=== PATIENT | female | born 1980 | race Caucasian/White ===

== ENCOUNTER 2022-08-08 15:29 | Outpatient (CLI) | payer OTHER, MEDICAID, SELFPAY ==
[2022-08-08 21:58] LABS: Alanine Aminotransferase* 13 U/L (4-35); Albumin* 4.4 g/dL (3.3-5.0); Alkaline Phosphatase* 84 U/L (40-150); Aspartate Amino Transferase* 18 U/L (12-35); Bilirubin Total* 0.3 mg/dL (0.1-1.5); Blood Urea Nitrogen* 19 mg/dL (5-24); Calcium* 9.6 mg/dL (8.4-10.6); Carbon Dioxide* 27 mmol/L (20-32); Chloride* 103 mmol/L (96-114); Creatinine* 0.6 mg/dL (0.5-1.5); Estimated Glomerular Filt Rate 113 ml/min; Glucose* 108 mg/dL (60-115); Potassium* 3.3 mmol/L (3.6-5.1); Sodium* 139 mmol/L (135-149)
== END 2022-08-08 15:30 | disposition home or self-care (01) ==
LOC: LKVREF 15:31
PROVIDERS: PCP Family Medicine; Visit Provider Family Medicine
DX: B35.1 Tinea unguium (principal); I10 Essential (primary) hypertension; L03.90 Cellulitis, unspecified
CPT/HCPCS: 80053

== ENCOUNTER 2022-12-26 11:04 | Outpatient (CLI) | payer OTHER, BC, SELFPAY ==
[2022-12-26 22:11] LABS: Albumin* 4.2 g/dL (3.3-5.0); Chloride* 104 mmol/L (96-114); Sodium* 142 mmol/L (135-149)
[2022-12-26 22:14] LABS: Alanine Aminotransferase* 15 U/L (4-35); Alkaline Phosphatase* 58 U/L (40-150); Aspartate Amino Transferase* 16 U/L (12-35); Bilirubin Total* 0.5 mg/dL (0.1-1.5); Blood Urea Nitrogen* 9 mg/dL (5-24); Carbon Dioxide* 31 mmol/L (20-32); Creatinine* 0.4 mg/dL (0.5-1.5); Estimated Glomerular Filt Rate 125 ml/min; Glucose* 90 mg/dL (60-115); Total Protein* 7.3 g/dL (6.0-8.3)
[2022-12-26 22:15] LABS: Calcium* 9.1 mg/dL (8.4-10.6)
== END 2022-12-26 11:05 | disposition home or self-care (01) ==
LOC: LKVREF 11:15
PROVIDERS: PCP Family Medicine; Visit Provider Family Medicine
DX: B35.1 Tinea unguium (principal); I10 Essential (primary) hypertension; Z79.899 Other long term (current) drug therapy
CPT/HCPCS: 80053

== ENCOUNTER 2023-03-11 10:07 | Outpatient (CLI) | payer OTHER, BC, SELFPAY ==
--- NOTE | 2023-03-11 10:15 | CRLHL7_ITS ---
For Patients: As a result of the Cures Act, medical imaging exams and procedure reports are released immediately into your electronic medical record. You may view this report before your referring provider. If you have questions, please contact your health care provider. BILATERAL SCREENING MAMMOGRAM WITH COMPUTER-AIDED DETECTION AND TOMOSYNTHESIS TECHNIQUE: CC and MLO views were obtained. These mammographic images have been obtained using full-field digital technique. These mammographic images were interpreted with the benefit of computer-aided detection. Breast Tomosynthesis was used in this interpretation. COMPARISON FILM: 03/25/19, 07/19/18, 07/14/18. FINDINGS: There are scattered areas of fibroglandular density IMPRESSION: There is no radiographic evidence for malignancy. ASSESSMENT: BI-RADS Category 1: Negative RECOMMENDATION: Routine screening mammogram in 1 year. A lay language report of this examination will be provided to the patient. Yasmani Spann M.D. Diagnostic Radiologist [email or web address] Transcribed: 4:44 [email or web address] elizabeth/Dictated by: Yasmani Spann MD @ 03/11/2023 12:49:00 PM (Electronically Signed)
== END 2023-03-11 10:08 | disposition home or self-care (01) ==
LOC: MAMMO 10:08
PROVIDERS: PCP Family Medicine; Visit Provider Family Medicine
DX: Z12.31 Encounter for screening mammogram for malignant neoplasm of breast (principal)
CPT/HCPCS: 77063; 77067

== ENCOUNTER 2023-03-18 14:45 | Outpatient (CLI) | payer OTHER, BC, SELFPAY ==
--- OUTSIDE RECORDS SUMMARY | 2023-03-18 14:48 | XMS_ITS | Continuity of Care Document ---
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, [address] [place] [address], [id number], [place] tel:[phone] [facility] No Information [facility]. [address] [place] [address], [id number], . tel:[phone] Referring Provider: Angel Lima [address], [place], [address]. tel:[phone] Family History Family Member Type Diagnosis Age At Onset No Information Payers Payer name Insurance type Covered alliance party ID Authoriza tion(s) No Information Social History Type Description Quantity Date Captured Comments Sex Female Smoking Status No Information Chief Complaint And Reason For Visit No Information Reason For Referral Reason For Referral No Information Plan Of Treatment Date Type Action Status No Information History Of Present Illness Encounter Date Complaint History Of Prese nt Illness No Information Functional Status Date Functional Assessmen t No Information Instructions Date Instruction Additional Infor mation No Information Assessments Type Assessment Date No Information Patient Care Teams Name Effective Dates (start - stop) Status Members No Information
--- OUTSIDE RECORDS SUMMARY | 2023-03-18 14:48 | XMS_ITS | Continuity of Care Document ---
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 [address] [place], [place], [id number], . tel:[phone] Referring Provider: Bonnie Ramirez, [address] [place], [address]. tel:[phone] Family History Family Member Type Diagnosis Age At Onset No Information Payers Payer name Insurance type Covered libertarian ID Authoriza tibrandie(s) [facility] CI [id number] Social History Type Description Quantity Date Captured [...]
--- OUTSIDE RECORDS SUMMARY | 2023-03-18 14:49 | XMS_ITS | Continuity of Care Document ---
Author Name Unknown Organization [facility] Address [address] [place] [address] Phone Care Team Providers Care Human Resources Team Member Name Role Phone Tonio LEYDABhavana Unavailable Unavailable Allergies, Adverse Reactions, Alerts Substance Reaction Status Criticality PENICILLIN HivesHivesHives Active No Informati on DYE Congestion of throat Active No Info rmation Medications Medication Instructions Dosage Effective Dates (start - stop) Status Comments Percocet 5 mg-325 mg tablet take 1-2 tablet by oral route every 6 hours as needed, max 5/day for chronic pain - Active labetalol 200 mg tablet take 1 tablet by oral route 2 times every day 200 MG - Active pramipexole 0.25 mg tablet take 1 tablet by oral route every day as needed 0.25 MG - Active VITAMIN E (unknown strength) Not Available - Active UBIQUINOL (unknown strength) Not Available - Active ferrous sulfate 15 mg iron (75 mg)/mL oral drops - Active Vitamin D3 2,000 unit capsule take 1 cap daily - Active potassium 99 mg tablet take 1 tab daily - Active buspirone 30 mg tablet take 1 tablet by oral route every day 30 MG - Active cyanocobalamin (vitamin B-12) 1,000 mcg capsule take 1 cap every 2 weeks - Active Tirosint 75 mcg capsule take 1 capsule by oral route every day 75 MCG - Active gabapentin 300 mg capsule take 3 capsule by oral route 4 times every day 900 MG - Active Procedures Procedure Date OFFICE VISIT, EST TELEMEDICINE 23 Foll-up eval q3mo opiod tx Foll-up eval q3mo opiod tx OFFICE VISIT, EST TELEMEDICINE Drug Urine Toxology With Chromatography Drug test def 8-14 classes Foll-up eval q3mo opiod tx OFFICE/OUTPATIENT VISIT, EST Foll-up eval q3mo opiod tx OFFICE VISIT, EST TELEMEDICINE Foll-up eval q3mo opiod tx OFFICE VISIT, EST TELEMEDICINE Foll-up eval q3mo opiod tx OFFICE VISIT, EST TELEMEDICINE Foll-up eval q3mo opiod tx OFFICE VISIT, EST TELEMEDICINE Foll-up eval q3mo opiod tx OFFICE/OUTPATIENT VISIT, EST Drug Urine Toxology With Chromatography Drug test def 8-14 classes No Charge For Visit Per Prov Foll-up eval q3mo opiod tx OFFICE VISIT, EST TELEMEDICINE Foll-up eval q3mo opiod tx OFFICE VISIT, EST TELEMEDICINE Foll-up eval q3mo opiod tx OFFICE VISIT, EST TELEMEDICINE No Charge For Visit Per Prov Foll-up eval q3mo opiod tx OFFICE VISIT, EST TELEMEDICINE Drug Urine Toxology With Chromatography Drug test def 8-14 classes Foll-up eval q3mo opiod tx Foll-up eval q3mo opiod tx OFFICE VISIT, EST TELEMEDICINE Foll-up eval q3mo opiod tx OFFICE VISIT, EST TELEMEDICINE Drug Urine Toxology With Chromatography Drug test def 8-14 classes Substance Interv 15-30mn Foll-up eval q3mo opiod tx OFFICE/OUTPATIENT VISIT, EST Foll-up eval q3mo opiod tx OFFICE VISIT, EST TELEMEDICINE Foll-up eval q3mo opiod tx OFFICE VISIT, EST TELEMEDICINE Foll-up eval q3mo opiod tx OFFICE VISIT, EST TELEMEDICINE Foll-up eval q3mo opiod tx OFFICE VISIT, EST TELEMEDICINE Facet Jt In Or MBB j Lumbar BILATERAL Ju Facet Inj Or MBB Lumbar 2nd Level BILATE RAL Drug Urine Toxology With Chromatography Foll-up eval q3mo opiod tx OFFICE/OUTPATIENT VISIT, EST Foll-up eval q3mo opiod tx OFFICE VISIT, EST TELEMEDICINE Foll-up eval q3mo opiod tx OFFICE VISIT, EST TELEMEDICINE Foll-up eval q3mo opiod tx OFFICE/OUTPATIENT VISIT, EST Foll-up eval q3mo opiod tx OFFICE VISIT, EST TELEMEDICINE Foll-up eval q3mo opiod tx OFFICE VISIT, EST TELEMEDICINE Drug Urine Toxology With Chromatography Drug test def 8-14 classes Foll-up eval q3mo opiod tx OFFICE VISIT, EST TELEMEDICINE Foll-up eval q3mo opiod tx OFFICE VISIT, EST TELEMEDICINE Foll-up eval q3mo opiod tx OFFICE VISIT, EST TELEMEDICINE Foll-up eval q3mo opiod tx OFFICE VISIT, EST TELEMEDICINE Oct-26-20 20 Foll-up eval q3mo opiod tx OFFICE VISIT, EST TELEMEDICINE 20 Foll-up eval q3mo opiod tx OFFICE VISIT, EST TELEMEDICINE 20 Foll-up eval q3mo opiod tx OFFICE VISIT, EST TELEMEDICINE 20 Foll-up eval q3mo opiod tx OFFICE VISIT, EST TELEMEDICINE 20 Foll-up eval q3mo opiod tx OFFICE VISIT, EST TELEMEDICINE 20 Drug Urine Toxology With Chromatography Foll-up eval q3mo opiod tx OFFICE VISIT, EST TELEMEDICINE 20 Foll-up eval q3mo opiod tx OFFICE VISIT, EST TELEMEDICINE 20 Drug test def 22+ classes Drug test def 22+ classes Drug test def 22+ classes Drug test def 22+ classes Drug Urine Toxology With Chromatography Foll-up eval q3mo opiod tx OFFICE/OUTPATIENT VISIT, EST Drug test def 22+ classes Drug Urine Toxology With Chromatography Foll-up eval q3mo opiod tx OFFICE/OUTPATIENT VISIT, EST Foll-up eval q3mo opiod tx OFFICE/OUTPATIENT VISIT, EST Foll-up eval q3mo opiod tx OFFICE/OUTPATIENT VISIT, EST Foll-up eval q3mo opiod tx OFFICE/OUTPATIENT VISIT, EST OFFICE/OUTPATIENT VISIT, EST OFFICE/OUTPATIENT VISIT, EST OFFICE/OUTPATIENT VISIT, EST OFFICE/OUTPATIENT VISIT, EST OFFICE/OUTPATIENT VISIT, EST OFFICE CONSULTATION Drug test def 22+ classes Drug Urine Toxology With Chromatography Advance Directives Directive Yes / No Effective Date File Name No Information Encounters Encounter Description Practice Location Reason(s) For Visit Diagnoses Date Provider Providers Copied on Encounter OFFICE VISIT, EST TELEMEDICINE [facility], [address], [place], [id number] , [place] tel: [phone] [facility] [place] Back [facility] (chief complaint) Other intervertebral disc degeneration, lumbar regionAnxietyOthe r idiopathic peripheral autonomic neuropathyRadicul opathy, thoracic regionLong term (current) use of opiate analgesic 3 Tonio Bateman. [address], [place], [place], [id number] , [place]. tel: [phone] OFFICE VISIT, EST TELEMEDICINE [facility], [address] [place] [address], [id number] , [place] tel: [phone] [facility] Back Pain (chief complaint) AnxietyOther idiopathic peripheral autonomic neuropathyOther intervertebral disc degeneration, thoracic regionOther intervertebral disc degeneration, lumbar regionRadiculopat hy, thoracic regionLong term (current) use of opiate analgesic 3 Tonio Bateman. [address] [facility] [address], [place], [place], [id number] , [place]. tel: [phone] Referring Provider: Terrell Loving, [address] [place] [address], [address]. tel:[phone] [facility], [address] [place] [address], [id number] , [place] tel: [phone] [facility] Radiculopathy, thoracic region 3 Luis Miguel Tejada. [address] [place], [place], [id number] , [place]. tel: [phone] [facility], [address] [place] [address], [id number] , [place] tel: [phone] [facility] [place] No Information 3 Tonio Bateman. [address] [facility] [address], [place], [id number] , [place]. tel: [phone] Referring Provider: Michael Harvey, [facility] [address], [place], [address]. tel:[phone] OFFICE/OUTPAT IENT VISIT, [facility], [address], [place], [id number] , [place] tel: [phone] [facility] Back Pain (chief complaint) AnxietyOther idiopathic peripheral autonomic neuropathyOther intervertebral disc degeneration, thoracic regionOther intervertebral disc degeneration, lumbar regionRadiculopat hy, thoracic regionLong term (current) use of opiate analgesic 3 Nyongesa Bhavana. [address] [facility] [address], [place], [id number] , [place]. tel: [phone] Referring Provider: Michael Harvey, [facility] [address], [place], [address]. tel:[phone] OFFICE VISIT, [facility], [address] [place] [address], [id number] , [place] tel: [phone] [facility] Back Pain (chief complaint) AnxietyOther idiopathic peripheral autonomic neuropathyOther intervertebral disc degeneration, thoracic regionOther intervertebral disc degeneration, lumbar regionRadiculopat hy, thoracic regionLong term (current) use of opiate analgesic 3 Nyongesa Bhavana. [address] [facility] [address], [place], [place], [id number] , [place]. tel: [phone] OFFICE VISIT, [facility], [address] [place] [address], [id number] , [place] tel: [phone] [facility] Back Pain (chief complaint) AnxietyOther idiopathic peripheral autonomic neuropathyOther intervertebral disc degeneration, thoracic regionOther intervertebral disc degeneration, lumbar regionRadiculopat hy, thoracic regionLong term (current) use of opiate analgesic 2 Nyongesa Bhavana. [address] [facility] [address], [place], [place], [id number] , [place]. tel: [phone] Referring Provider: Terrell Loving, [address] [place], [address]. tel:[phone] OFFICE VISIT, [facility], [address] [place] [address], [id number] , [place] tel: [phone] [facility] Back Pain (chief complaint) AnxietyOther idiopathic peripheral autonomic neuropathyOther intervertebral disc degeneration, thoracic regionOther intervertebral disc degeneration, lumbar regionLong term (current) use of opiate analgesicRadiculo armen, thoracic region Sep- 2 Tonio Bateman. [address] [facility] [address], [place], [place], [id number] , [place]. tel: [phone] Referring Provider: Terrell Loving, [address] [place], [address]. tel:[phone] OFFICE VISIT, EST TELEMEDICINE [facility], [address] [place] [address], [id number] , [place] tel: [phone] [facility] Back Pain (chief complaint) AnxietyOther idiopathic peripheral autonomic neuropathyOther intervertebral disc degeneration, thoracic regionOther intervertebral disc degeneration, lumbar regionLong term (current) use of opiate analgesic 2 Tonio Bateman. [address] [facility] [address] [facility] [address], [place], [place], [id number] , [place]. tel: [phone] OFFICE/OUTPAT IENT VISIT, EST [facility], [address] [place] [address], [id number] , [place] tel: [phone] [facility] Back Pain (chief complaint) AnxietyOther idiopathic peripheral autonomic neuropathyOther intervertebral disc degeneration, thoracic regionOther intervertebral disc degeneration, lumbar regionLong term (current) use of opiate analgesicEncounte r for therapeutic drug level monitoring 2 Gaby Olivares. [address]55 [facility] [address] [facility] [address], [place], [id number] , [place]. tel: [phone] Referring Provider: Michael Harvey, [facility] [address], [place], [address]. tel:[phone] [facility], [address], [place], [id number] , [place] tel: [phone] [facility] No Information 2 Gaby Olivares. 1455 [facility] [address], [place], [id number] , [place]. tel:[phone] Referring Provider: [facility] [address], [place], [address]. tel:[phone] OFFICE VISIT, EST TELEMEDICINE [facility], [address] [place] [address], [id number] , [place] tel: [phone] [facility] Back Pain (chief complaint) AnxietyOther idiopathic peripheral autonomic neuropathyOther intervertebral disc degeneration, thoracic regionOther intervertebral disc degeneration, lumbar regionPain in right handLong term (current) use of opiate analgesic 2 Nyongesa Bhavana. [address] [facility] [address], [place], [id number] , [place]. tel:[phone] Referring Provider: Terrell Loving, [address] [place] [address], [address]. [phone] [facility], [address] [place] [address], [id number] , [place] tel:[phone] [facility] Radiculopathy, thoracic region 2 Nyongesa Bhavana. [address] [facility] [address], [place], [id number] , [place]. tel:[phone] OFFICE VISIT, EST TELEMEDICINE [facility], [address] [place] [address], [id number] , [place] tel: [phone] [facility] Back Pain (chief complaint) AnxietyOther idiopathic peripheral autonomic neuropathyOther intervertebral disc degeneration, thoracic regionOther intervertebral disc degeneration, lumbar regionPain in right handLong term (current) use of opiate analgesic 2 Nyongesa Bhavana. [address] [facility] [address], [place], [id number] , [place]. tel:[phone] Referring Provider: Michael Harvey, [facility] [address], [place], [address]. tel:[phone] OFFICE VISIT, EST TELEMEDICINE [facility], [address] [place] [address], [id number] , [place] tel:[phone] [facility] Back Pain (chief complaint) AnxietyOther idiopathic peripheral autonomic neuropathyOther intervertebral disc degeneration, thoracic regionOther intervertebral disc degeneration, lumbar regionPain in right handLong term (current) use of opiate analgesic 2 Nyongesa Bhavana. [address] [facility], [place], [id number] , [place]. [phone] Referring Provider: Terrell Loving, [address] [place] [address], [address]. [phone] [facility], [address] [place] [address], [id number] , [place] tel:[phone] [facility] No Information 2 Janie Ortiz. [facility], [address], [place], [address], [place]. [phone] Referring Provider: Michael Harvey, [facility] [address], [place], [address]. [phone] OFFICE VISIT, EST TELEMEDICINE [facility], [address] [place] [address], [id number] , [place] [phone] [facility] Back Pain (chief complaint) AnxietyOther idiopathic peripheral autonomic neuropathyOther intervertebral disc degeneration, thoracic regionOther intervertebral disc degeneration, lumbar regionPain in right handLong term (current) use of opiate analgesic 2 Nyongesa Bhavana. [address] [facility], [place], [place], [id number] , [place]. tel:[phone] Referring Provider: Terrell Loving, [address] [place] [address], [address]. [phone] [facility], [address] [place] [address], [id number] , [place] tel:[phone] [facility] [place] No Information 2 Nyongesa Bhavana. [address] [facility], [place], [id number] , [place]. [phone] [facility], [address] [place] [address], [id number] , [place] tel: [phone] [facility] Back Pain (chief complaint) AnxietyOther idiopathic peripheral autonomic neuropathyOther intervertebral disc degeneration, thoracic regionOther intervertebral disc degeneration, lumbar regionPain in right handLong term (current) use of opiate analgesicEncounte r for therapeutic drug level monitoring Feb- 2 Tonio Bateman. [address], [place], [id number] , [place]. tel: [phone] Referring Provider: [facility] [address], [place], [address]. tel:[phone] OFFICE VISIT, EST TELEMEDICINE [facility], [address], [place], [id number] , [place] tel: [phone] [facility] Back Pain (chief complaint) AnxietyOther idiopathic peripheral autonomic neuropathyOther intervertebral disc degeneration, thoracic regionOther intervertebral disc degeneration, lumbar regionPain in right handLong term (current) use of opiate analgesicRadiculo armen, thoracic region Dec- 2 Tonio Bateman. [address], [place], [id number] , [place]. tel: [phone] Referring Provider: [facility] [address], [place], [address]. tel:[phone] OFFICE VISIT, EST TELEMEDICINE [facility], [address], [place], [id number] , [place] tel: [phone] [facility] Back Pain (chief complaint) Other idiopathic peripheral autonomic neuropathyOther intervertebral disc degeneration, thoracic regionOther intervertebral disc degeneration, lumbar regionLong term (current) use of opiate analgesicPain in right handAnxiety 2 Tonio Bateman. [address], [place], [id number] , [place]. tel: [phone] [facility], [address], [place], [id number] , [place] tel: [phone] [facility] No Information 1 Tonio Bateman. [address], [place], [id number] , [place]. tel: [phone] OFFICE/OUTPAT IENT VISIT, EST [facility], [address] [facility] [address] [place], [id number] , [place] tel: [phone] [facility] Back Pain (chief complaint) Other idiopathic peripheral autonomic neuropathyOther intervertebral disc degeneration, thoracic regionLong term (current) use of opiate analgesicOther intervertebral disc degeneration, lumbar regionPain in right handAnxietyEncoun ter for therapeutic drug level monitoringEncount er for screening for other disorder 1 Tonio Bateman. [address] [facility] [address], [place], [id number] , [place]. tel: [phone] Referring Provider: [facility] [address], [place], [address]. tel:[phone] OFFICE VISIT, EST TELEMEDICINE [facility], [address], [place], [id number] , [place] tel: [phone] [facility] Back Pain (chief complaint) Other intervertebral disc degeneration, thoracic regionAnxietyOthe r idiopathic peripheral autonomic neuropathyLong term (current) use of opiate analgesicOther intervertebral disc degeneration, lumbar regionPain in right hand 1 Tonio Bateman. [address] [facility] [address], [place], [id number] , [place]. tel: [phone] OFFICE VISIT, EST TELEMEDICINE [facility], [address], [place], [id number] , [place] tel: [phone] [facility] Back Pain (chief complaint) Other intervertebral disc degeneration, thoracic regionAnxietyOthe r idiopathic peripheral autonomic neuropathyLong term (current) use of opiate analgesicOther intervertebral disc degeneration, lumbar region 1 Gaby Olivares. 1455 [facility] [address], [place], [id number] , [place]. tel: [phone] Referring Provider: Terrell Loving, [address] [place], [address]. tel:[phone] OFFICE VISIT, EST TELEMEDICINE [facility], [address], [place], [id number] , [place] tel: [phone] [facility] Back Pain (chief complaint) Other intervertebral disc degeneration, thoracic regionAnxietyOthe r idiopathic peripheral autonomic neuropathyLong term (current) use of opiate analgesicOther intervertebral disc degeneration, lumbar region Jul- 1 Celine Bhavana. [address] [facility] [address], [place], [place], [id number] , [place]. tel: [phone] OFFICE VISIT, EST TELEMEDICINE [facility], [address], [place], [id number] , [place] tel:[phone] [facility] Back Pain (chief complaint) AnxietyOther idiopathic peripheral autonomic neuropathyOther chronic painLong term (current) use of opiate analgesicSpondylo sis without myelopathy or radiculopathy, lumbar regionOther intervertebral disc degeneration, lumbar regionOther intervertebral disc degeneration, thoracic region 1 Tonio Bateman. [address] [facility] [address], [place], [place], [id number] , [place]. tel:[phone] Referring Provider: Terrell Loving, [address] [place], [address]. tel:[phone] [facility], [address], [place], [id number] , [place] tel:[phone] [facility] Spondylosis without myelopathy or radiculopathy, lumbar region 1 James Nicole. [address] [place], [place], [id number] , [place]. tel: [phone] Referring Provider: Michael Harvey, [facility] [address], [place], [address]. tel:[phone] [facility], [address], [place], [id number] , [place] tel: [phone] [facility] No Information 1 Tonio Bateman. [address] [facility] [address], [place], [place], [id number] , [place]. tel:[phone] Referring Provider: Terrell Loving, [address] [place] [address], [address]. tel:[phone] OFFICE/OUTPAT IENT VISIT, [facility], [address] [place] [address], [id number] , [place] [phone] [facility] Back Pain (chief complaint) AnxietyOther idiopathic peripheral autonomic neuropathyOther chronic painLong term (current) use of opiate analgesicSpondylo sis without myelopathy or radiculopathy, lumbar regionOther intervertebral disc degeneration, lumbar regionEncounter for therapeutic drug level monitoring 1 Celine Bhavana. [address] [facility] [address], [place], [id number] , [place]. tel:[phone] Referring Provider: [facility] [address], [place], [address]. tel:[phone] OFFICE VISIT, [facility], [address] [place] [address], [id number] , [place] [phone] [facility] Back Pain (chief complaint) Other intervertebral disc degeneration, lumbar regionAnxietyOthe r idiopathic peripheral autonomic neuropathyOther chronic painLong term (current) use of opiate analgesicSpondylo sis without myelopathy or radiculopathy, lumbar region 1 Tonio Bateman. [address] [facility] [address] [facility] [address], [place], [id number] , [place]. tel:[phone] Referring Provider: Terrell Loving, [address] [place] [address], [address]. tel:[phone] OFFICE VISIT, [facility], [address] [place] [address], [id number] , [place] tel:[phone] [facility] Back Pain (chief complaint) Other intervertebral disc degeneration, lumbar regionAnxietyOthe r idiopathic peripheral autonomic neuropathyOther chronic painLong term (current) use of opiate analgesicSpondylo sis without myelopathy or radiculopathy, lumbar region May-1 9-202 1 Nyongesa Bhavana. [address] [facility], [place], [id number] , [place]. [phone] Referring Provider: [facility] [address], [place], [address]. [phone] OFFICE/OUTPAT IENT VISIT, [facility], [address], [place], [id number] , [place] [phone] [facility] Back Pain (chief complaint) Other intervertebral disc degeneration, lumbar regionAnxietyOthe r idiopathic peripheral autonomic neuropathyOther chronic painLong term (current) use of opiate analgesic 1 Nyongesa Bhavana. [address] [facility] [address], [place], [id number] , [place]. [phone] Referring Provider: [facility] [address], [address]. [phone] OFFICE VISIT, [facility] TELEMEDICINE [facility], [address], [place], [id number] , [place] [phone] [facility] Back Pain (chief complaint) AnxietyOther intervertebral disc degeneration, lumbar regionOther idiopathic peripheral autonomic neuropathyOther chronic painLong term (current) use of opiate analgesic 1 Nyongesa Bhavana. [address] [facility] [address], [place], [id number] , [place]. [phone] Referring Provider: Terrell Loving, [address] [place], [address]. [phone] OFFICE VISIT, EST TELEMEDICINE [facility], [address], [place], [id number] , [place] [phone] [facility] Back Pain (chief complaint) AnxietyOther intervertebral disc degeneration, lumbar regionOther idiopathic peripheral autonomic neuropathyOther chronic painLong term (current) use of opiate analgesic Fe 1 Nyongesa Bhavana. [address] [facility] [address], [place], [id number] , [place]. tel:[phone] Referring Provider: Terrell Loving, [address] [place] [address], [address]. tel:[phone] [facility], [address] [place] [address], [id number] , [place] [phone] [facility] No Information 1 Nyongesa Bhavana. [address] [facility] [address], [place], [id number] , [place]. [phone] Referring Provider: Terrell Loving, [address] [place] [address], [address]. tel:[phone] OFFICE VISIT, EST TELEMEDICINE [facility], [address] [place] [address], [id number] , [place] [phone] [facility] Back Pain (chief complaint) Other intervertebral disc degeneration, lumbar regionOther idiopathic peripheral autonomic neuropathyOther chronic painLong term (current) use of opiate analgesicAnxietyE ncounter for therapeutic drug level monitoring 1 Nyongesa Bhavana. [address] [facility] [address], [facility] [place], [id number] , [place]. [phone] Referring Provider: Terrell Loving, [address] [place] [address], [id number]. tel:[phone] OFFICE VISIT, EST TELEMEDICINE [facility], [address] [place] [address], [id number] , [place] [phone] [facility] Back Pain (chief complaint) Other intervertebral disc degeneration, lumbar regionOther idiopathic peripheral autonomic neuropathyOther chronic painLong term (current) use of opiate analgesicAnxiety 0 Nyongesa Bhavana. [address] [facility] [address], [place], [id number] , [place]. [phone] Referring Provider: Terrell Loving, [address] [place] [address], [address]. tel:[phone] OFFICE VISIT, EST TELEMEDICINE [facility], [address] [place] [address], [id number] , [place] [phone] [facility] Back Pain (chief complaint) Other intervertebral disc degeneration, lumbar regionOther idiopathic peripheral autonomic neuropathyOther chronic painLong term (current) use of opiate analgesicAnxiety 0 Nyongesa Bhavana. [address] [facility] [address], [place], [place], [id number] , [place]. [phone] Referring Provider: Terrell Loving, [address] [place] [address], [address]. tel:[phone] OFFICE VISIT, EST TELEMEDICINE [facility], [address] [place] [address], [id number] , [place] [phone] [facility] Back Pain (chief complaint) Other intervertebral disc degeneration, lumbar regionOther idiopathic peripheral autonomic neuropathyOther chronic painLong term (current) use of opiate analgesicAnxiety 0 Nyongesa Bhavana. [address] [facility] [address], [place], [place], [id number] , [place]. [phone] Referring Provider: Terrell Loving, [address] [place] [address], [address]. tel:[phone] OFFICE VISIT, EST TELEMEDICINE [facility], [address] [place] [address], [id number] , [place] [phone] [facility] Back Pain (chief complaint) Other intervertebral disc degeneration, lumbar regionOther idiopathic peripheral autonomic neuropathyOther chronic painLong term (current) use of opiate analgesicAnxiety 2 0 Nyongesa Bhavana. [address] [facility] [address], [place], [place], [id number] , [place]. tel:[phone] Referring Provider: Terrell Loving, [address] [place] [address], [address]. tel:[phone] OFFICE VISIT, EST TELEMEDICINE [facility], [address] [place] [address], [id number] , [place] tel:[phone] [facility] Back Pain (chief complaint) Other intervertebral disc degeneration, lumbar regionOther idiopathic peripheral autonomic neuropathyOther chronic painLong term (current) use of opiate analgesicAnxiety 0 Lesliongesa Bateman. [address] [address], [place], [place], [id number] , [place]. tel:[phone] Referring Provider: Terrell Loving, [address] [place] [address], [address]. tel:[phone] OFFICE VISIT, EST TELEMEDICINE [facility], [address] [place] [address], [id number] , [place] tel:[phone] [facility] Back Pain (chief complaint) Other intervertebral disc degeneration, lumbar regionOther idiopathic peripheral autonomic neuropathyOther chronic painLong term (current) use of opiate analgesicAnxiety 0 Lesliongesa Bhavana. [address] [address], [place], [place], [id number] , [place]. tel:[phone] Referring Provider: Terrell Loving, [address] [place] [address], [address]. tel:[phone] OFFICE VISIT, EST TELEMEDICINE [facility], [address] [place] [address], [id number] , [place] tel:[phone] [facility] Back Pain (chief complaint) Other intervertebral disc degeneration, lumbar regionOther idiopathic peripheral autonomic neuropathyOther chronic painLong term (current) use of opiate analgesicAnxiety 0 Gaby Olivares. [address] [address], [place], [place], [id number] , [place]. tel:[phone] Referring Provider: Terrell Loving, [address] [place] [address], [address]. tel:[phone] OFFICE VISIT, EST [facility], [address] [place] [address], [id number] , [place] tel:[phone] [facility] Back Pain (chief complaint) Other intervertebral disc degeneration, lumbar regionOther idiopathic peripheral autonomic neuropathyOther chronic painLong term (current) use of opiate analgesic 0 Gaby Olivares. [address] [address], [place], [place], [id number] , [place]. tel:[phone] Referring Provider: Terrell Loving, [address] [place] [address], [address]. tel:[phone] [facility], [address] [place] [address], [id number] , [place] [phone] [facility] No Information 0 Griffin Marshall. [address] [place] [address] Rd [address], [place], [place], [id number] , [place]. tel:[phone] Referring Provider: [facility] [address], [place], [address]. tel:[phone] OFFICE VISIT, [facility] TELEMEDICINE [facility], [address] [place] [address], [id number] , [place] tel:[phone] [facility] Back Pain (chief complaint) Other intervertebral disc degeneration, lumbar regionOther idiopathic peripheral autonomic neuropathyOther chronic painLong term (current) use of opiate analgesic Apr-2 0 Gaby Olivares. [address] [place] [address] [address], [place], [place], [id number] , [place]. tel:[phone] Referring Provider: [facility] [address], [place], [address]. tel:[phone] OFFICE VISIT, [facility], [address] [place] [address], [id number] , [place] tel:[phone] [facility] Back Pain (chief complaint) Other intervertebral disc degeneration, lumbar regionOther idiopathic peripheral autonomic neuropathyOther chronic painLong term (current) use of opiate analgesicEncounte r for therapeutic drug level monitoring Feb- 0 Gaby Olivares. [address] [place] [address] [address], [place], [place], [id number] , [place]. tel:[phone] Referring Provider: Terrell Loving, [address] [place] [address], [address]. tel:[phone] OFFICE/OUTPAT IENT VISIT, [facility], [address], [place], [id number] , [place] tel:[phone] [facility] Back Pain (chief complaint) nursing home (current) use of opiate analgesicOther chronic painOther idiopathic peripheral autonomic neuropathyOther intervertebral disc degeneration, lumbar regionOther intervertebral disc degeneration, thoracic regionAnxietyEnco unter for therapeutic drug level monitoring 0 Nyongesa Bhavana. [address] [facility] [address], [place], [place], [id number] , [place]. tel:[phone] Referring Provider: [facility] [address], [place], [address]. [phone] OFFICE/OUTPAT IENT VISIT, [facility], [address] [place] [address], [id number] , [place] tel:[phone] [facility] Back Pain (chief complaint) nursing home (current) use of opiate analgesicOther chronic painOther idiopathic peripheral autonomic neuropathyOther intervertebral disc degeneration, lumbar regionOther intervertebral disc degeneration, thoracic regionAnxietyEnco unter for therapeutic drug level monitoring 0 Nyongesa Bhavana. [address] [facility] [address], [place], [place], [id number] , [place]. tel:[phone] Referring Provider: [facility] [address], [place], [address]. tel:[phone] OFFICE/OUTPAT IENT VISIT, [facility], [address] [place] [address], [id number] , [place] tel:[phone] [facility] Back Pain (chief complaint) nursing home (current) use of opiate analgesicOther chronic painOther idiopathic peripheral autonomic neuropathyOther intervertebral disc degeneration, lumbar regionOther intervertebral disc degeneration, thoracic regionAnxiety 0 Nyongesa Bhavana. [address] [facility] [address], [place], [place], [id number] , [place]. tel:[phone] Referring Provider: Terrell Loving, [address] [place], [address]. [phone] OFFICE/OUTPAT IENT VISIT, [facility], [address], [place], [id number] , [place] tel:[phone] [facility] Back Pain (chief complaint) AnxietyLong term (current) use of opiate analgesicOther chronic painOther idiopathic peripheral autonomic neuropathyOther intervertebral disc degeneration, lumbar regionOther intervertebral disc degeneration, thoracic region 9 [facility]. [address], [place], [id number] , [place]. tel:[phone] Referring Provider: Michael Harvey [facility] [address], [place], [address]. tel:[phone] OFFICE/OUTPAT IENT VISIT, [facility], [address], [place], [id number] , [place] tel:[phone] [facility] Back Pain (chief complaint) AnxietyLong term (current) use of opiate analgesicOther chronic painOther idiopathic peripheral autonomic neuropathyOther intervertebral disc degeneration, lumbar regionOther intervertebral disc degeneration, thoracic region 9 [facility]. [address], [place], [id number] , [place]. tel:[phone] Referring Provider: Michael Harvey [facility] [address], [place], [address]. tel:[phone] OFFICE/OUTPAT IENT VISIT, [facility], [address], [place], [id number] , [place] tel:[phone] [facility] Back Pain (chief complaint) Other intervertebral disc degeneration, lumbar regionOther intervertebral disc degeneration, thoracic regionOther idiopathic peripheral autonomic neuropathyOther chronic painLong term (current) use of opiate analgesicAnxiety 9 [facility]. [address], [place], [id number] , [place]. tel:[phone] Referring Provider: Michael Harvey [facility] [address], [place], [address]. tel:[phone] OFFICE/OUTPAT IENT VISIT, [facility], [address], [place], [id number] , [place] tel: [phone] [facility] Back Pain (chief complaint) Other intervertebral disc degeneration, lumbar regionOther intervertebral disc degeneration, thoracic regionOther chronic painOther idiopathic peripheral autonomic neuropathyLong term (current) use of opiate analgesic Sep-1 9 Gaby Olivares. [address], [place], [id number] , [place]. tel: [phone] Referring Provider: Michael Harvey [facility] [address], [place], [address]. tel:[phone] OFFICE/OUTPAT IENT VISIT, [facility], [address], [place], [id number] , [place] tel: [phone] [facility] Back Pain (chief complaint) Other intervertebral disc degeneration, lumbar regionOther intervertebral disc degeneration, thoracic regionOther chronic painOther idiopathic peripheral autonomic neuropathyLong term (current) use of opiate analgesic Jun- 9 Nyongesa Bhavana. [address], [place], [id number] , [place]. tel: [phone] Referring Provider: Michael Harvey [facility] [address], [place], [address]. tel:[phone] OFFICE/OUTPAT IENT VISIT, [facility], [address] [place] [address], [id number] , [place] tel: [phone] [facility] Back Pain (chief complaint) Other chronic painOther intervertebral disc degeneration, lumbar regionOther intervertebral disc degeneration, thoracic regionOther idiopathic peripheral autonomic neuropathyLong term (current) use of opiate analgesic 9 Nyongesa Bhavana. [address] [facility] [address], [place], [id number] , [place]. tel: [phone] Referring Provider: Michael Harvey [facility] [address], [place], [address]. tel:[phone] OFFICE/OUTPAT IENT VISIT, [facility], [address], [place], [id number] , [place] tel:[phone] [facility] Back Pain (chief complaint) Other chronic painOther intervertebral disc degeneration, lumbar regionOther intervertebral disc degeneration, thoracic regionOther idiopathic peripheral autonomic neuropathyLong term (current) use of opiate analgesic 9 Tonio Bateman. [address], [place], [place], [id number] , [place]. tel:[phone] Referring Provider: Michael Harvey [facility] [address] [place], [address]. tel:[phone] OFFICE CONSULTATION [facility], [address], [place], [id number] , [place] tel:[phone] [facility] Back Pain (chief complaint) Other chronic painLow back painEncounter for therapeutic drug level monitoringLong term (current) use of opiate analgesicOther idiopathic peripheral autonomic neuropathyOther intervertebral disc degeneration, lumbar regionOther intervertebral disc degeneration, thoracic region 9 [facility]. [facility], [address] [facility] [address], [place], [address], [place]. tel:[phone] Referring Provider: Michael Harvey [facility] [address] [place], [address]. tel:[phone] Family History Family Member Type Diagnosis Age At Onset Problem (finding) Family history of neuro armen Payers Payer name Insurance type Covered republican ID Authormadhua tibrandie(s) [place] [id number] [employer] BL [id number] Social History Type Description Quantity Date Captured Comments Alcohol Use Details No Caffeine Use Details Unknown Tobacco Use Status Current non-smoker Smoking Status Never smoker Sex Female Chief Complaint And Reason For Visit From encounter dated '03/12/2023 10:03'. Back Pain (chief complaint). Description: Severity level is 7. Duration: chronic. The problem is fluctuating. It occurs persistently. Location of pain is middle back. Pain is radiated to the lower back. The client describes the pain as an ache and sharp. Reason For Referral Reason For Referral No Information Plan Of Treatment Date Type Action Status Goal Creatinine. Due on due Goal ALT (SGPT). Due on due Goal UDT. Due on due Goal Weight. 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 Due on due Goal Medication Recon ciliation. Due on due Goal HPV. Due on due Goal Update Social History. Due o n due Goal AST (SGOT). Due on due Goal Height. Due on d ue Goal Lipid panel. Due on due Goal OARS. Due on due Goal WOOL HAT FLANGER Scanned. Due on due Goal Tobacco Use. Due on due Goal Review Allergy List. Due on due Goal Hepatitis C screening. Due o n due Goal PHQ-9. Due on du e Goal Order Annual PT. Due on due Goal Unhealthy drug u se screening. Due on due Goal Review Allergy List. Due on due Goal ALT (SGPT). Due on due Goal Height. Due on d ue Goal Creatinine. Due on due Goal WOOL HAT FLANGER Scanned. Due on due Goal Order Annual PT. Due on due Goal Medication Recon ciliation. 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 Due on due Goal Weight. Due on d ue Goal AST (SGOT). Due on due Goal OARS. Due on due Goal PHQ-9. Due on du e Goal Lipid panel. Due on due Goal UDT. Due on due Goal Unhealthy drug u se screening. Due on due Goal Update Social History. Due o n due Goal Tobacco Use. Due on due Goal HPV. Due on due Goal Hepatitis C screening. Due o n due Goal UDT. Due on due Goal Review Allergy List. Due on due Goal Creatinine. Due on due Goal WOOL HAT FLANGER Scanned. Due on due Goal Weight. Due on d ue Goal AST (SGOT). Due on due Goal PHQ-9. Due on du e Goal Medication Recon ciliation. Due on due Goal Lipid panel. Due on due Goal OARS. Due on due Goal Order Annual PT. Due on due Goal Tobacco Use. Due on due Goal Height. Due on d ue Goal ALT (SGPT). Due on due Goal Hepatitis C screening. 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 Due on due Goal HPV. Due on due Goal Update Social History. Due o n due Goal Unhealthy drug u se screening. Due on due Goal ALT (SGPT). Due on due Goal UDT. Due on due Goal AST (SGOT). Due on due Goal Creatinine. Due on due Goal Order Annual PT. Due on due Goal WOOL HAT FLANGER Scanned. Due on due Goal OARS. 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 Due on due Goal Tobacco Use. Due on due Goal Lipid panel. Due on due Goal Height. Due on d ue Goal Weight. Due on d ue Goal Medication Recon ciliation. Due on due Goal Update Social History. Due o n due Goal HPV. Due on due Goal Unhealthy drug u se screening. Due on due Goal PHQ-9. Due on du e Goal Review Allergy List. Due on due Goal Hepatitis C screening. Due o n due Goal OARS. Due on due Goal Hepatitis C screening. Due o n due Goal Height. Due on d ue Goal UDT. 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 Due on due Goal HPV. Due on due Goal Creatinine. Due on due Goal Update Social History. Due o n due Goal AST (SGOT). Due on due Goal Order Annual PT. Due on due Goal Tobacco Use. Due on 023 due Goal Medication Recon ciliation. Due on due Goal ALT (SGPT). Due on due Goal WOOL HAT FLANGER Scanned. Due on 023 due Goal Weight. Due on d ue Goal Unhealthy drug u se screening. Due on due Goal PHQ-9. Due on du e Goal Review Allergy List. Due on due Goal Lipid panel. Due on 023 due Goal Height. Due on d ue Goal Unhealthy drug u se screening. Due on due Goal Order Annual PT. Due on due Goal OARS. Due on due Goal Medication Recon ciliation. Due on due Goal Update Social History. Due o n due Goal Creatinine. Due on due Goal HPV. Due on due Goal Review Allergy List. Due on due Goal Tobacco Use. Due on 023 due Goal AST (SGOT). Due on due Goal WOOL HAT FLANGER Scanned. Due on 023 due Goal ALT (SGPT). Due on due Goal Lipid panel. Due on 023 due Goal PHQ-9. Due on du e Goal Weight. Due on d ue Goal Hepatitis C screening. Due o n due Goal UDT. 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 Due on due Goal Creatinine. Due on due Goal ALT (SGPT). 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 Due on due Goal AST (SGOT). Due on due Goal UDT. Due on due Goal OARS. Due on due Goal HPV. Due on due Goal WOOL HAT FLANGER Scanned. Due on due Goal Order Annual PT. Due on due Goal Medication Recon ciliation. Due on due Goal Update Social History. Due o n due Goal Unhealthy drug u se screening. Due on due Goal Tobacco Use. Due on due Goal PHQ-9. Due on du e Goal Hepatitis C screening. Due o n due Goal Height. Due on d ue Goal Weight. Due on d ue Goal Review Allergy List. Due on due Goal Lipid panel. Due on due Goal Order Annual PT. Due on due Goal ALT (SGPT). Due on due Goal UDT. 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 Due on due Goal OARS. Due on due Goal HPV. Due on due Goal Creatinine. Due on due Goal Tobacco Use. Due on due Goal Hepatitis C screening. Due o n due Goal WOOL HAT FLANGER Scanned. Due on due Goal AST (SGOT). Due on due Goal Height. Due on d ue Goal Review Allergy List. Due on due Goal Unhealthy drug u se screening. Due on due Goal Update Social History. Due o n due Goal Medication Recon ciliation. Due on due Goal PHQ-9. Due on du e Goal Lipid panel. Due on due Goal Weight. 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 Due on due Goal Tobacco Use. Due on due Goal ALT (SGPT). Due on due Goal HPV. Due on due Goal Hepatitis C screening. Due o n due Goal Order Annual PT. Due on due Goal Update Social History. Due o n due Goal Unhealthy drug u se screening. Due on due Goal Medication Recon ciliation. Due on due Goal UDT. Due on due Goal OARS. Due on due Goal Height. Due on d ue Goal WOOL HAT FLANGER Scanned. Due on due Goal Review Allergy List. Due on due Goal Lipid panel. Due on due Goal Weight. Due on d ue Goal PHQ-9. Due on du e Goal AST (SGOT). Due on due Goal Creatinine. Due on due Goal ALT (SGPT). Due on due Goal Order Annual PT. Due on due Goal OARS. Due on due Goal AST (SGOT). Due on due Goal UDT. 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 Due on due Goal Creatinine. Due on due Goal WOOL HAT FLANGER Scanned. Due on due Goal Hepatitis C screening. Due o n due Goal Height. Due on d ue Goal HPV. Due on due Goal Unhealthy drug u se screening. Due on due Goal Review Allergy List. Due on due Goal Tobacco Use. Due on due Goal Update Social History. Due o n due Goal Medication Recon ciliation. Due on due Goal Lipid panel. Due on due Goal Weight. Due on d ue Goal PHQ-9. Due on du e Goal WOOL HAT FLANGER Scanned. Due on due Goal Creatinine. Due on due Goal Unhealthy drug u se screening. Due on due Goal Lipid panel. 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 Due on due Goal Height. Due on d ue Goal Order Annual PT. Due on due Goal Medication Recon ciliation. Due on due Goal HPV. Due on due Goal ALT (SGPT). Due on due Goal Tobacco Use. Due on due Goal Review Allergy List. Due on due Goal UDT. Due on due Goal PHQ-9. Due on du e Goal Hepatitis C screening. Due o n due Goal OARS. Due on due Goal AST (SGOT). Due on due Goal Weight. Due on d ue Goal Update Social History. Due o n due Goal PHQ-9. Due on du e Goal Unhealthy drug u se screening. Due on due Goal WOOL HAT FLANGER Scanned. Due on due Goal OARS. 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 Due on due Goal AST (SGOT). Due on due Goal Medication Recon ciliation. Due on due Goal Weight. Due on d ue Goal Height. Due on d ue Goal HPV. Due on due Goal Review Allergy List. Due on due Goal Order Annual PT. Due on due Goal ALT (SGPT). Due on due Goal Lipid panel. Due on due Goal UDT. Due on due Goal Creatinine. Due on due Goal Update Social History. Due o n due Goal Hepatitis C screening. Due o n due Goal Tobacco Use. Due on due Goal OARS. Due on due Goal Height. Due on d ue Goal Order Annual PT. Due on due Goal PHQ-9. Due on du e Goal Review Allergy List. Due on due Goal Update Social History. Due o n due Goal Tobacco Use. Due on due Goal Unhealthy drug u se screening. Due on due Goal Weight. Due on d ue Goal AST (SGOT). Due on due Goal UDT. Due on due Goal Hepatitis C screening. Due o n due Goal Creatinine. 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 Due on due Goal Lipid panel. Due on due Goal HPV. Due on due Goal Medication Recon ciliation. Due on due Goal WOOL HAT FLANGER Scanned. Due on due Goal ALT (SGPT). 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 Due on due Goal WOOL HAT FLANGER Scanned. Due on due Goal OARS. Due on due Goal UDT. Due on due Goal Creatinine. Due on due Goal Order Annual PT. Due on due Goal AST (SGOT). Due on due Goal ALT (SGPT). Due on due Goal Review Allergy List. Due on due Goal Tobacco Use. Due on due Goal PHQ-9. Due on du e Goal HPV. Due on due Goal Update Social History. Due o n due Goal Unhealthy drug u se screening. Due on due Goal Height. Due on d ue Goal Medication Recon ciliation. Due on due Goal Lipid panel. Due on due Goal Hepatitis C screening. Due o n due Goal Weight. 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 Due on due Goal Order Annual PT. Due on due Goal OARS. Due on due Goal AST (SGOT). Due on due Goal Creatinine. Due on due Goal UDT. Due on due Goal PHQ-9. Due on du e Goal Unhealthy drug u se screening. Due on due Goal ALT (SGPT). Due on due Goal Review Allergy List. Due on due Goal WOOL HAT FLANGER Scanned. Due on due Goal Height. Due on d ue Goal Update Social History. Due o n due Goal Tobacco Use. Due on due Goal Weight. Due on d ue Goal HPV. Due on due Goal Hepatitis C screening. Due o n due Goal Medication Recon ciliation. Due on due Goal Lipid panel. Due on due Goal Tobacco Use. Due on due Goal Creatinine. Due on due Goal Unhealthy drug u se screening. Due on due Goal Weight. Due on d ue Goal Medication Recon ciliation. Due on due Goal OARS. 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 Due on due Goal Order Annual PT. Due on due Goal Height. Due on d ue Goal Review Allergy List. Due on due Goal UDT. Due on due Goal Lipid panel. Due on due Goal Hepatitis C screening. Due o n due Goal AST (SGOT). Due on due Goal ALT (SGPT). Due on due Goal Update Social History. Due o n due Goal WOOL HAT FLANGER Scanned. Due on due Goal PHQ-9. Due on du e Goal HPV. Due on due Goal Order Annual PT. Due on due Goal WOOL HAT FLANGER Scanned. Due on due Goal Tobacco Use. Due on due Goal Update Social History. Due o n due Goal Hepatitis C screening. Due o n due Goal ALT (SGPT). 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 Due on due Goal Review Allergy List. Due on due Goal Unhealthy drug u se screening. Due on due Goal UDT. Due on due Goal Creatinine. Due on due Goal HPV. Due on due Goal OARS. Due on due Goal Weight. Due on d ue Goal Lipid panel. Due on due Goal Medication Recon ciliation. Due on due Goal PHQ-9. Due on du e Goal Height. Due on d ue Goal AST (SGOT). 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 Due on due Goal Review Allergy List. Due on due Goal AST (SGOT). Due on due Goal UDT. Due on due Goal Weight. Due on d ue Goal ALT (SGPT). Due on due Goal Medication Recon ciliation. Due on due Goal OARS. Due on due Goal Creatinine. Due on due Goal Update Social History. Due o n due Goal PHQ-9. Due on du e Goal WOOL HAT FLANGER Scanned. Due on due Goal Order Annual PT. Due on due Goal Height. Due on d ue Goal Tobacco Use. Due on due Goal WOOL HAT FLANGER Scanned. Due on due Goal Creatinine. Due on due Goal OARS. 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 Due on due Goal ALT (SGPT). Due on due Goal Medication Recon ciliation. Due on due Goal UDT. Due on due Goal AST (SGOT). Due on due Goal Tobacco Use. Due on due Goal Update Social History. Due o n due Goal PHQ-9. Due on du e Goal Order Annual PT. Due on due Goal Review Allergy List. Due on due Goal Height. Due on d ue Goal Weight. Due on d ue Goal ALT (SGPT). Due on due Goal AST (SGOT). Due on due Goal UDT. Due on due Goal Creatinine. Due on due Goal OARS. 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 Due on due Goal Order Annual PT. Due on due Goal WOOL HAT FLANGER Scanned. Due on due Goal PHQ-9. Due on du e Goal Height. Due on d ue Goal Review Allergy List. Due on due Goal Weight. Due on d ue Goal Medication Recon ciliation. Due on due Goal Update Social History. Due o n due Goal Tobacco Use. Due on due Goal UDT. Due on due Goal Review Allergy List. Due on due Goal Tobacco Use. 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 Due on due Goal PHQ-9. Due on du e Goal Creatinine. Due on due Goal Order Annual PT. Due on due Goal Update Social History. Due o n due Goal AST (SGOT). Due on due Goal Height. Due on d ue Goal OARS. Due on due Goal Medication Recon ciliation. Due on due Goal Weight. Due on d ue Goal WOOL HAT FLANGER Scanned. Due on due Goal ALT (SGPT). Due on due Goal Update Social History. Due o n due Goal WOOL HAT FLANGER Scanned. Due on due Goal PHQ-9. Due on du e Goal BALANCE WHEEL ARM BURNISHER Paperwork. Due on due Goal ALT (SGPT). Due on due Goal Creatinine. Due on due Goal AST (SGOT). Due on due Goal UDT. Due on due Goal OARS. Due on due Goal Order Annual PT. Due on due Goal Review Allergy List. Due on due Goal Weight. Due on d ue Goal Height. Due on d ue Goal Medication Recon ciliation. Due on due Goal Tobacco Use. Due on due Goal Creatinine. 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 Due on due Goal OARS. Due on due Goal WOOL HAT FLANGER Scanned. Due on due Goal ALT (SGPT). Due on due Goal Order Annual PT. Due on due Goal Weight. Due on d ue Goal Update Social History. Due o n due Goal UDT. Due on due Goal Height. Due on d ue Goal Review Allergy List. Due on due Goal PHQ-9. Due on du e Goal Tobacco Use. Due on due Goal Medication Recon ciliation. Due on due Goal AST (SGOT). Due on due Goal OARS. Due on due Goal Medication Recon ciliation. Due on due Goal Creatinine. Due on due Goal Tobacco Use. Due on due Goal Order Annual PT. Due on due Goal Review Allergy List. Due on due Goal Height. Due on d ue Goal UDT. Due on due Goal AST (SGOT). Due on due Goal PHQ-9. Due on du e Goal Update Social History. Due o n due Goal Weight. 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 Due on due Goal WOOL HAT FLANGER Scanned. Due on due Goal ALT (SGPT). 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 Due on due Goal Creatinine. Due on due Goal UDT. Due on due Goal ALT (SGPT). Due on due Goal WOOL HAT FLANGER Scanned. Due on due Goal OARS. Due on due Goal Height. Due on d ue Goal Tobacco Use. Due on due Goal Weight. Due on d ue Goal Order Annual PT. Due on due Goal Update Social History. Due o n due Goal PHQ-9. Due on du e Goal AST (SGOT). Due on due Goal Medication Recon ciliation. Due on due Goal Review Allergy List. Due on due Goal UDT. Due on due Goal Order Annual PT. Due on due Goal WOOL HAT FLANGER Scanned. 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 Due on due Goal Review Allergy List. Due on due Goal Medication Recon ciliation. Due on due Goal ALT (SGPT). Due on due Goal AST (SGOT). Due on due Goal Creatinine. Due on due Goal OARS. Due on due Goal PHQ-9. Due on du e Goal Update Social History. Due o n due Goal Tobacco Use. Due on due Goal Height. Due on d ue Goal Weight. Due on d ue Goal Tobacco Use. Due on due Goal Weight. Due on d ue Goal AST (SGOT). Due on due Goal Creatinine. Due on due Goal Update Social History. Due o n due Goal UDT. Due on due Goal PHQ-9. Due on du e Goal Medication Recon ciliation. Due on due Goal ALT (SGPT). Due on due Goal Review Allergy List. Due on due Goal WOOL HAT FLANGER Scanned. Due on due Goal Height. Due on d ue Goal OARS. Due on due Goal Order Annual PT. 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 Due on due Goal ALT (SGPT). Due on due Goal OARS. Due on due Goal Creatinine. Due on due Goal Update Social History. Due o n due Goal PHQ-9. Due on du e Goal UDT. Due on due Goal Order Annual PT. Due on due Goal Review Allergy List. Due on due Goal Weight. Due on d ue Goal AST (SGOT). 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 Due on due Goal Tobacco Use. Due on due Goal Height. Due on d ue Goal Medication Recon ciliation. Due on due Goal WOOL HAT FLANGER Scanned. Due on due Goal PHQ-9. Due on du e Goal OARS. 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 Due on due Goal Creatinine. Due on due Goal Review Allergy List. Due on due Goal AST (SGOT). Due on due Goal Weight. Due on d ue Goal Order Annual PT. Due on due Goal ALT (SGPT). Due on due Goal UDT. Due on due Goal Tobacco Use. Due on due Goal Update Social History. Due o n due Goal Height. Due on d ue Goal WOOL HAT FLANGER Scanned. Due on due Goal Medication Recon ciliation. Due on due Goal Tobacco Use. Due on due Goal OARS. Due on due Goal Weight. Due on d ue Goal WOOL HAT FLANGER Scanned. Due on due Goal Creatinine. Due on due Goal Review Allergy List. Due on due Goal ALT (SGPT). Due on due Goal Update Social History. Due o n due Goal Order Annual PT. Due on due Goal UDT. Due on due Goal Medication Recon ciliation. 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 Due on due Goal AST (SGOT). Due on due Goal PHQ-9. Due on du e Goal Height. Due on d ue Goal OARS. Due on due Goal ALT (SGPT). Due on due Goal Update Social History. 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 Due on due Goal Review Allergy List. Due on due Goal WOOL HAT FLANGER Scanned. Due on due Goal UDT. Due on due Goal AST (SGOT). Due on due Goal Height. Due on d ue Goal Order Annual PT. Due on due Goal Weight. Due on d ue Goal PHQ-9. Due on du e Goal Medication Recon ciliation. Due on due Goal Tobacco Use. Due on due Appointment [facility] [place] BOOKED Future Order: Lab Order Drug Jessica t Def 22+ Classes (G0483), Ordered on: Ordered Future Order: Lab Order Drug Jessica t Def 22+ Classes (G0483), Ordered on: Ordered Future Order: Lab Order Drug Jessica t Def 22+ Classes (G0483), Ordered on: Ordered Future Order: Lab Order COMPLIAN CE DRUG ANALYSIS, URINE, WITH MED REPORT (50016), Ordered on: Ordered Future Order: Lab Order Drug Jessica t Def 22+ Classes (G0483), Ordered on: Ordered History Of Present Illness Encounter Date Complaint History Of Prese nt Illness Comments: Elisa cervantes is a 43 y/o female who presents via [facility] for a virtual follow-up and medication refill in the setting of chronic mid-back and low back pain. Pain has been stable since BARRON. Reports did not perform T8-T9 IT RACIEL d/t being d/x with pneumonia at Urgent care in her left lobe following BARRON. She notes she was prescribed antibiotics, which she completed without difficulty, and had a follow-up X-ray showing resolution. However, states she still has a lingering cough. She notes wanting to pursue her RACIEL and will schedule as able.Current medication regimen provides 80-85% pain relief for increased functionality. Continues to utilize Percocet 5-325mg 5x/day with significant benefit. Denies OIC or other side effects from current medication regimen. No other concerns today. Back Pain Severity level i s 7. Duration: chronic. The problem is fluctuating. It occurs persistently. Location of pain is middle back. Pain is radiated to the lower back. The client describes the pain as an ache and sharp. Comments: Elisa cervantes is a 43 y/o female who presents today via [place] for follow up and medication refill in the setting of chronic mid-back and low back pain. Pain has been fluctuating this month. T8-T9 ITESI rescheduled to 02/11/[address] Ramirez. Reports current medication regimen provides 85% relief and allows for increased functionality such as housework and the things I need to do". Continues to utilize Percocet 5-325mg 5x/day with significant benefit. Denies OIC or other side effects from current medication regimen. No other concerns today. Back Pain Severity level i s mild-moderate. Duration: chronic. The problem is stable. It occurs persistently. The client describes the pain as an ache, deep, dull, sharp, shooting and stabbing. Symptoms are aggravated by ascending stairs, bending, daily activities, descending stairs, extension, flexion, jumping, lifting, pushing, running, standing, twisting and walking. Symptoms are relieved by heat, ice, lying down, injection, massage, over the counter medication and rest. Comments: Elisa cervantes is a 43 y/o female who presents for follow up and medication refill in the setting of chronic mid-back and low back pain. Pain has been fluctuating this month. T8-T9 ITESI rescheduled to 01/21/[address] Ramirez. Posterior R knee pain with radiation into the achilles and hip have been the most bothersome. Believes the worsening of pain is d/t the cold temperature. She states she consulted with orthopedics for the ongoing pain. Notes increased swelling of the knee and rashes along the leg which caused her to visit the ER. Will plan to consult with rheumatology. Of note, patient reports recent bladder incontinence. Will plan to follow up with urology soon for further care.Reports current medication regimen provides 80% relief and allows for increased functionality such as housework and the things I need to do. Rates her pain as 10/10 without medications and 4/10 with medications. Continues to utilize Percocet 5-325mg 5x/day with significant benefit. Denies OIC or other side effects from current medication regimen. No other concerns today. Back Pain Severity level i s 4. Duration: chronic. The problem is stable. It occurs persistently. The client describes the pain as an ache, burning, sharp and tingling. Symptoms are aggravated by bending, lifting, running, sitting, standing, twisting, walking, housework, movement, stairs and prolonged positioning. Symptoms are relieved by heat, ice, lying down, massage, pain meds/drugs, stretching, rest, sitting, chiropractic, TENS uniut, walking and changing positions. Comments: Elisa cervantes is a 42 y/o female who presents via [facility] for virtual follow up and medication refill in the setting of chronic mid-back and low back pain. Pain has been stable this month. She states she was initially scheduled on 12/04/22 for the T8-T9 ITESI but had to reschedule to 12/18/22 d/t being sick. Patient notes pain in the posterior R knee with radiation into the achilles and hip. Initially believed the pain was the result of an arthritis flare-up. Denies any swelling in the area. Will plan to see a specialist once she is cleared to leave the house.Reports current medication regimen provides 80% relief and allows for increased functionality such as housework and the things I need to do. Continues to utilize Percocet 5-325mg 5x/day with significant benefit. Denies OIC or other side effects from current medication regimen. No other concerns today. Back Pain Severity level i s 7. Duration: chronic. The problem is stable. It occurs persistently. Location of pain is middle back and lower back. Symptoms are relieved by pain meds/drugs. Back Pain Severity level i s 7. Duration: chronic. The problem is stable. The client describes the pain as an ache. Symptoms are aggravated by bending, daily activities, lifting, running, twisting and walking. Symptoms are relieved by heat, ice, lying down and rest. Comments: Elisa cervantes is a 42 y/o female who presents via [facility] for virtual follow up and medication refill in the setting of chronic mid-back and low back pain. Pain has been stable this month. Received a cortisone shot in her hip recently due to bursitis flare up and reports that it relieved all of her hip pain. Denies any new symptoms or changes.Patient will receive her T8-T9 ITESI on 12/04/2022.Reports current medication regimen provides 80% relief and allows for increased functionality. Continues to utilize Percocet 5-325mg 5x/day with significant benefit. Denies OIC or other side effects from current medication regimen. No other concerns today. Comments: Elisa cervantes is a 42 y/o female who presents via [facility] for virtual follow up and medication refill in the setting of chronic mid-back and low back pain. Pain has been stable this month. Denies any new symptoms or changes.Patient has not received her T8-T9 ITESI which was initially scheduled on 07/18/[address] Gomez. Inquires if we have received prior authorization for the procedure as she had trouble rescheduling previously. Continues to express interest with moving forward with the injection. Reports current medication regimen provides 80% relief and allows for increased functionality. Continues to utilize Percocet 5-325mg 5x/day with significant benefit. Denies OIC or other side effects from current medication regimen. No other concerns today. Back Pain Severity level i s 7. Duration: chronic. The problem is stable. It occurs persistently. Location of pain is middle back and lower back. The client describes the pain as an ache, burning, sharp and tingling. Symptoms are aggravated by bending, lifting, running, sitting, standing, twisting, walking, housework, movement, stairs and prolonged positioning. Symptoms are relieved by pain meds/drugs and rest. Comments: Elisa cervantes is a 42 y/o female who presents via [facility] for virtual follow up and medication refill in the setting of chronic mid-back and low back pain. Pain has been stable this month. Denies any new symptoms or changes.Patient has not received her T8-T9 ITESI which was initially scheduled on 07/18/[address] Gomez. She states she was unable to move forward with the procedure previously as she had an infection on her toe and was told by the surgeon they were not comfortable with doing the injection with the ongoing issue. Notes she is done with the antibiotics and is currently using anti-fungal treatments. Of note, she has been studying for the [employer] and plans to take the test at the beginning of September.Reports current medication regimen provides 80% relief and allows for increased functionality. Continues to utilize Percocet 5-325mg 5x/day with significant benefit. Denies OIC or other side effects from current medication regimen. No other concerns today. Back Pain Severity level i s 8. Duration: chronic. The problem is stable. It occurs persistently. Location of pain is middle back and lower back. The client describes the pain as an ache, burning, sharp and tingling. Symptoms are aggravated by bending, lifting, running, sitting, standing, twisting, walking, housework, movement, stairs and prolonged positioning. Symptoms are relieved by pain meds/drugs and rest. Back Pain Severity level i s 7. Duration: chronic. The problem is fluctuating. It occurs persistently. Location of pain is middle back. The client describes the pain as an ache, burning, sharp and tingling. Symptoms are aggravated by bending, lifting, running, sitting, standing, twisting, walking, housework, movement, stairs and prolonged positioning. Symptoms are relieved by pain meds/drugs and rest. Comments: Elisa cervantes is a 42 y/o female who presents for follow up and medication refill in the setting of chronic mid-back and low back pain. Pain has been fluctuating this month. She states she has been experiencing new pain in between her scapula. Notes the pain is most prominent in the T-9 area, where her hernia is located. Patient has not received her T8-T9 ITESI which was initially scheduled on 07/18/[address] Gomez. She states she didn't move forward with the procedure d/t the fact she experienced beg bug bites from a place she was staying at. 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 Denies OIC or other side effects from current medication regimen. No other concerns today. Back Pain Severity level i s 7. Duration: chronic. The problem is stable. It occurs persistently. Location of pain is right knee. The client describes the pain as an ache, burning, numbness, sharp and tingling. Symptoms are aggravated by bending, lifting, running, sitting, standing, twisting, housework, stairs, movement and prolonged positioning. Symptoms are relieved by heat, lying down, massage, pain meds/drugs, stretching, rest, sitting and chiropractic. Comments: Elisa cervantes is a 42 y/o female who presents via [facility] for a virtual follow up and medication refill in the setting of chronic mid-back and low back pain. Pain has been stable this month. She has scheduled her T8-T9 ITESI on 07/18/[address] Gomez. Of note, she has been studying for the [employer]LEX and plans to take the test soon. She states she has upcoming classes for her Bachelor's and expressed excitement in starting school again. Reports current medication regimen provides 80% relief and allows for increased functionality. Denies OIC or other side effects from current medication regimen. No other concerns today. Back Pain Severity level i s 8. Duration: chronic. The problem is stable. It occurs persistently. Location of pain is middle back, lower back, BL feet, BL hands and BL knees. The client describes the pain as an ache, burning, numbness, sharp and tingling. Symptoms are aggravated by bending, lifting, running, standing, twisting and walking. Symptoms are relieved by heat, ice, lying down, massage, pain meds/drugs, stretching, rest, sitting, chiropractic and changing positions. Comments: Elisa cervantes is a 42 y/o female who presents via [facility] for a virtual follow up and medication refill in the setting of chronic mid-back and low back pain. Pain has been stable since last visit. She states her rash d/t bedbugs is now gone. She notes she is ready to reschedule the T8-T9 RACIEL soon. Of note, she is working 70hrs a week d/t her son requiring recent dental work. She has also been studying for the [employer] as she failed her previous attempt.Reports current medication regimen provides 80% relief and allows for increased functionality. Denies OIC or other side effects from current medication regimen. No other concerns today. Back Pain Severity level i s 7. Duration: chronic. The problem is stable. It occurs persistently. Location of pain is middle back, lower back, R knee and BL feet. The client describes the pain as an ache, burning, numbness, sharp and tingling. Symptoms are aggravated by ascending stairs, descending stairs, lifting, running, sitting, standing, twisting, housework, movement and prolonged positioning. Symptoms are relieved by heat, ice, lying down, massage, pain meds/drugs, physical therapy, stretching, rest, sitting, changing positions, chiropractic, standing and TENS Unit. Comments: Elisa cervantes is a 42 y/o female who presents via [facility] for a virtual follow up and medication refill in the setting of chronic mid-back and low back pain. Pain has been stable since last visit. T8-T9 IESI was scheduled on 04/18/2022 however had to be canceled d/t a widespread papular rash. She notes this was d/t bedbugs. She states she has now treated her home for this and her rash is now gone.Medication provides 80% relief and allows for increased functionality. Denies OIC or other side effects from current medication regimen. No other concerns today. Back Pain Severity level i s 8. The problem is stable. It occurs persistently. Location of pain is middle back and lower back. The client describes the pain as an ache, burning, numbness, sharp and tingling. Symptoms are aggravated by ascending stairs, bending, descending stairs, lifting, running, sitting, standing, twisting, walking, housework, movement and prolonged positions. Symptoms are relieved by heat, ice, lying down, massage, pain meds/drugs, physical therapy, stretching, rest, sitting, changing positions and chiropractic. Comments: Elisa cervantes presents for a virtual follow up and medication refill. Patient c/o chronic mid-back and low back pain. Pain has been stable since last visit. T8-T9 IESI scheduled on 04/18/2022. She is looking forward to the injection. Medication provides 80% relief and allows for increased functionality. Denies side effects from current medication regimen. No other concerns today. Comments: Elisa cervantes presents for a follow up and medication refill. Patient c/o chronic mid-back and low back pain. Pain has been fluctuating since last visit.Ordered T8-T9 IESI on 01/16/2022. She plans to schedule now as she was able to resolve her billing issues between her insurances. Continues to manage her diet and weight loss efforts. Medication provides 80-85% relief and allows for increased functionality, such continuing to work as a [employer]. Denies side effects from current medication regimen. No other concerns today. Of note, she will be going out of town on 03/07/2022 and will be returning on 03/21/2022. Reports that she is in the process of going through a divorce. States her has a hx of a brain injury 5+ years ago and has not been the same since. Back Pain Severity level i s moderate. Duration: chronic. The problem is fluctuating. It occurs persistently. Location of pain is middle back and lower back. Pain is radiated to the buttocks. The client describes the pain as an ache and burning. Symptoms are aggravated by daily activities and lifting. Symptoms are relieved by heat, ice, pain meds/drugs, physical therapy, stretching and rest. Back Pain (comments) Whit is a 42 y/o female, meeting with us via [employer] for virtual follow up and medication refill in the setting of mid to low back pain. She states her pain is worse this month. 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 She inquires about scheduling her injection for her thoracic pain as she has finally cleared the hold on her account. She states she is currently studying for [employer] and will be going out of town 03/07/22Reports current medication regimen provides 80% pain relief and allows for increased functionality. Denies OIC or other side effects from current medication regimen. No other concerns today. Back Pain Severity level i s 7. The problem is stable. It occurs persistently. Location of pain is middle back, lower back, feet, hands and knees. Pain is radiated to the buttocks.The patient describes the pain as an ache, burning, numbness, sharp and tingling. Symptoms are aggravated by ascending stairs, bending, descending stairs, lifting, running, standing, twisting, walking, housework, movement and prolonged positioning. Symptoms are relieved by heat, ice, lying down, massage, pain meds/drugs, stretching, rest, sitting, changing positions, chiropractor and TENS. Back Pain Severity level i s 7. Duration: chronic. The problem is stable. It occurs persistently. Location of pain is middle back, lower back, BL hands and BL knees. Pain is radiated to the left foot and right foot.The patient describes the pain as an ache, burning, numbness, sharp and tingling. Symptoms are aggravated by ascending stairs, bending, descending stairs, lifting, lying/rest, running, sitting, standing, twisting, walking, housework, movement and prolonged positioning. Symptoms are relieved by heat, ice, lying down, massage, pain meds/drugs, stretching, rest, sitting, changing positions, chiropractor and TENS. Back Pain (comments) Whit is a 41 y/o female, meeting with us via [employer] for virtual follow up and medication refill in the setting of mid to low back pain. She states her pain is stable this month. 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 She reports she is currently on a new weight loss program and has lost 16lbs since [facility]. Reports current medication regimen provides 80% pain relief and allows for increased functionality. Denies OIC or other side effects from current medication regimen. She states she currently has diarrhea. No other concerns today. Back Pain Severity level i s 8. Duration: chronic. The problem is fluctuating. It occurs persistently. The patient describes the pain as an ache, burning, sharp and tingling. Symptoms are aggravated by ascending stairs, bending, descending stairs, lifting, running, sitting, standing, twisting, walking, housework, movement and prolonged positioning. Symptoms are relieved by heat, ice, lying down, massage, pain meds/drugs, physical therapy, stretching, rest, sitting, changing positions, chiropractor and TENS. Back Pain (comments) Whit is a 41 y/o female, meeting with us today for follow up and medication refill in the setting of mid-low back pain. She states her pain is stable. 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 She would like to schedule the thoracic TESI but she is waiting for her insurance to resolve a previous billing issue from her last injection. She reports since [facility] she fell down the stairs on 10/24/21. She reports she went to the ER where she received a Toradol injection. She states she met with Dr. Harvey, her PCP, who stated her tear has worsened. Reports current medication regimen provides 80% pain relief and allows for increased functionality. Denies side effects from current medication regimen. No other concerns today. Back Pain Severity level i s 8. The problem is worsening. It occurs persistently. Location of pain is middle back, lower back and BL feet. Pain is radiated to the R wrist.The patient describes the pain as an ache, burning, numbness, sharp and tingling. Symptoms are aggravated by ascending stairs, bending, descending stairs, lifting, standing, twisting, walking, housework, movement and prolonged positioning. Symptoms are relieved by heat, ice, lying down, massage, pain meds/drugs, physical therapy, stretching, rest, sitting, chiropractic and TENS. Back Pain (comments) Whit is a 41 y/o female, meeting with us today via [employer] Virtual Visit for follow up and medication refill. Mid-low back pain persists this month. 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 She would like to schedule the thoracic TESI. She is also waiting for her insurance to resolve a previous billing issue from her last injection. She details new pain in her R wrist. She will be meeting with [facility] on 10/22/21 for consult. She details hx of past carpal tunnel surgery but states her pain is quite bad now and she has trouble writing and completing her job. PCP took x-ray which showed lots of bone spurs and OA.She is applying for a new job at [employer] [place] current medication regimen provides 80% pain relief and allows for increased functionality. Denies side effects from current medication regimen. No other concerns today. Back Pain Severity level i s 7. Duration: chronic. The problem is stable. It occurs persistently. Location of pain is middle back and lower back.The patient describes the pain as an ache, burning, numbness, sharp and tingling. Symptoms are aggravated by ascending stairs, bending, daily activities, descending stairs, lifting, standing, twisting and walking. Symptoms are relieved by heat, ice, lying down, massage, pain meds/drugs and rest. Back Pain (comments) Whit is a 41 y/o female, meeting with us today via [employer] Virtual Visit for follow up and medication refill. Mid-low back pain persists this month. 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 States she has lost 62 lbs which has helped the back pain. She would like to schedule the thoracic RACIEL as able. States that she would be open to the SCS trial in the future. Reports current medication regimen provides 80% pain relief and allows for increased functionality. Denies side effects from current medication regimen. No other concerns today. Back Pain Severity level i s 8. Duration: chronic. The problem is worsening. It occurs persistently. Location of pain is middle back and lower back.The patient describes the pain as an ache, burning, numbness, sharp and tingling. Symptoms are aggravated by ascending stairs, bending, descending stairs, lifting, sitting, standing, twisting, walking, housework, movement and prolonged positioning. Symptoms are relieved by heat, ice, lying down, massage, pain meds/drugs, rest, sitting, changing positions, chiropractic and. Back Pain (comments) Whit is a 41 y/o female, meeting with us today via [employer] Virtual Visit for follow up and medication refill. Mid-low back pain persists this month, but medication does help to some extent. She feels her pain is moderately managed, but on work days esthela in severe. She would like to schedule thoracic ESIShe states she has recently started clinicals at [facility] and working a new job as [employer] current medication regimen provides 80% pain relief and allows for increased functionality. Denies side effects from current medication regimen.No other concerns today. Back Pain (comments) Whit is meeting with us today via [employer] Virtual Visit for follow up and medication refill. Mid-low back pain persists this month, but medication does help to some extent. She feels her pain is moderately managed at this time. She reports some noticed pain relief from lumbar RF work up on 06/26/21 and was able to go for a walk. But her pain returned the next day and flared up after travel. Requests repeat thoracic RACIEL. The pain is right below the bra-line. As she loses weight, lost 56lbs already, she is able to walk farther and her vitals have improved.She and her family are currently getting over a case of COVID-19.Reports current medication regimen provides 80-85% pain relief and allows for increased functionality. Denies side effects from current medication regimen.No other concerns today. Back Pain Severity level i s 7. Duration: chronic. The problem is stable. It occurs persistently. Location of pain is middle back, lower back and knees.The patient describes the pain as an ache, burning, numbness, sharp and tingling. Symptoms are aggravated by ascending stairs, bending, descending stairs, lifting, running, sitting, standing, twisting, walking and prolonged positioning. Symptoms are relieved by heat, ice, lying down, massage, pain meds/drugs, physical therapy, stretching, rest, sitting and changing positions. Back Pain Severity level i s 7. Duration: chronic. The problem is fluctuating. It occurs persistently. Location of pain is middle back, lower back, hands, feet and knees.The patient describes the pain as an ache, burning, sharp and tingling. Symptoms are aggravated by ascending stairs, bending, descending stairs, lifting, lying/rest, running, sitting, standing, twisting, walking, housework and prolonged positioning. Symptoms are relieved by heat, ice, lying down, massage, pain meds/drugs, physical therapy, stretching, rest, sitting, chiropractic and changing positions. Back Pain (comments) Whit is here for a follow up and medications refill. Mid-low back pain persists this month, but medication does help to some extent. She feels he pain is well managed at this time. She continues to work on weight loss with diet and increased activity. She is looking forward to her RF diagnostic work up on 06/26/21, if helpful she would like to start to taper down and off opioids Reports current medication regimen provides 80% pain relief and allows for increased functionality. Denies side effects from current medication regimen.No other concerns today. Back Pain Severity level i s 7. Duration: chronic. The problem is stable. It occurs persistently. Location of pain is middle back, lower back and neck.The patient describes the pain as an ache, burning, numbness, sharp and tingling. Symptoms are aggravated by ascending stairs, bending, descending stairs, lifting, running, standing, twisting, walking, prolonged positioning and housework. Symptoms are relieved by heat, ice, lying down, massage, pain meds/drugs, stretching, rest, sitting, chiropractic and changing positions. Back Pain (comments) Whit is meeting with us today via [employer] Virtual Visit for follow up and medication refill. Mid-low back pain persists this month, but medication does help to some extent. She feels her pain is well managed at this time. She is still waiting for PA process on RF work up.She consulted a bariatric surgeon for weight loss. She would like to avoid surgery and try medication first. She has already lost 40 lbs since on her own. She was referred to a specialist for eating disorders, hx of binge eating, scheduled for 06/27/21. She is also following up with GI.Reports current medication regimen provides 80% pain relief and allows for increased functionality. Denies side effects from current medication regimen. She is currently taking Terbinafine for a fungal infection.No other concerns today. Back Pain (comments) Whit is meeting with us today via [employer] Virtual Visit for following up and medication refill. Mid-low back pain is worse this month, but medication does help to some extent. She feels her pain is moderately managed at this time. The low back pain is aggravated by prolonged standing and walking. Sitting relieves the pain. She was able to walk 4 blocks (about 1 mile) yesterday with breaks. She is considering repeating thoracic RACIEL after lumbar RFA due to elevated pain in mid-back. She has been following up at [facility] twice a week for the last 6 months. She is leaving town on Thursday, traveling to [place] and [place].Reports current medication regimen provides 80% pain relief and allows for increased functionality. Denies side effects from current medication regimen.No other concerns today. Back Pain Severity level i s 8. Duration: chronic. The problem is worsening. It occurs persistently. Location of pain is upper back, middle back, lower back and neck.The patient describes the pain as an ache, burning, numbness, sharp and tingling. Symptoms are aggravated by ascending stairs, bending, descending stairs, lifting, running, standing, twisting, walking, housework and prolonged positioning. Symptoms are relieved by heat, ice, lying down, massage, pain meds/drugs, physical therapy, rest, sitting, chiropractic and changing positions. Back Pain Severity level i s 9. Duration: chronic. The problem is stable. Location of pain is middle back and lower back. Pain is radiated to the right lateral thigh.The patient describes the pain as an ache, burning, sharp and tingling. Symptoms are aggravated by bending, lifting and running. Symptoms are relieved by heat, ice, lying down, massage, pain meds/drugs, stretching, rest, changing positions and chiropractic. Back Pain (comments) Whit is here for follow up and medications refill. She reports her low and mid back pain have been stable. Began massage therapy and notes that pain has been most bothersome down the lateral right leg stopping at the knee since. States her therapist has been doing cupping, which she has not enjoyed. Remains interested in pursuing a lumbar RFA.Reports current medication regimen provides 80-85% pain relief and allows for increased functionality. Denies side effects from current medication regimen.No other concerns today. Back Pain (comments) Whit is meeting with us today via [employer] Virtual Visit for following up and medication refill. Lower-mid back pain persists this month, but medication does help to some extent. She feels her pain is well managed at this time. She has been walking more and working on calorie deficit. She has also quite drinking soda and has lost 27lbs. 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 If she missed a dose of percocet the restlessness is significantly worse. She is following up with a pastor for an iron study.Reports current medication regimen provides 80-85% pain relief and allows for increased functionality. Denies side effects from current medication regimen.No other concerns today. Back Pain Severity level i s 7. Duration: chronic. The problem is stable. It occurs persistently. Location of pain is middle back, lower back, legs, knees and feet.The patient describes the pain as an ache, burning, numbness, sharp and tingling. Symptoms are aggravated by ascending stairs, bending, descending stairs, lifting, running, standing, twisting, walking, housework and prolonged positioning. Symptoms are relieved by heat, ice, lying down, pain meds/drugs, physical therapy, sitting, chiropractic and changing positions. Back Pain (comments) Whit is meeting with us today via [employer] Virtual Visit for following up and medication refill. Mid-low back pain persists this month, but medication does help to some extent. She feels her pain is well managed at this time. She has been following up with a chiropractor with benefit. She talked to [facility] and insurance will cover seated upright MRI. She is having trouble breathing while laying on her back due to edema (orthopnea). She is following up with pastor at [facility].Reports current medication regimen provides 80-85% pain relief and allows for increased functionality. Denies side effects from current medication regimen.No other concerns today. Back Pain Severity level i s 6. Duration: chronic. The problem is stable. It occurs persistently. Location of pain is middle back and lower back.The patient describes the pain as an ache, burning, numbness, sharp and tingling. Symptoms are aggravated by ascending stairs, bending, descending stairs, lifting, running, sitting, standing, twisting, walking and prolonged positioning. Symptoms are relieved by heat, ice, lying down, massage, pain meds/drugs, physical therapy, stretching, rest, sitting, chiropractic, changing positions and TENS. Back Pain Severity level i s 7. Duration: chronic. The problem is worsening. It occurs persistently. Location of pain is middle back, lower back, feet and knees.The patient describes the pain as an ache, burning, numbness, sharp and tingling. Symptoms are aggravated by ascending stairs, bending, descending stairs, lifting, running, sitting, standing, twisting, walking, prolonged positioning and movement. Symptoms are relieved by heat, ice, lying down, pain meds/drugs, physical therapy, stretching, rest, sitting, chiropractic, changing positions and TENS. Back Pain (comments) Whit is meeting with us today via [employer] Virtual Visit for following up and medication refill. Mid-low back pain is worse this month. She continues to see the chiropractor with some benefit. She suspects if it does not provide more relief soon she may need an updated MRI. The pain is aggravated by walking, denies any shooting pain in the legs. She had to but a shower chair because she cannot stand long enough to finish her shower without pain.Her father is in the hospital with congestive heart failure. She plans to visit him soon.Reports current medication regimen provides 80-85% pain relief and allows for increased functionality. Denies side effects from current medication regimen.No other concerns today. Back Pain (comments) Whit is meeting with us today via [employer] Virtual Visit for following up and medication refill. Low back and leg R>L pain is worse this month. Reports stabbing pain in low back with movement that is different from her normal pain. She went to [facility] to renae her hips which is helpful.She continues to complete schoolwork and is putting attempts on hold while she straightens out her general health.Reports current medication regimen provides 85% pain relief and allows for increased functionality. Denies side effects from current medication regimen.No other concerns today. Back Pain Severity level i s 8. Duration: chronic. The problem is worsening. It occurs persistently. Location of pain is lower back.The patient describes the pain as an ache, burning, numbness and sharp. Symptoms are aggravated by ascending stairs, bending, descending stairs, lifting, running, standing, twisting, walking, housework and prolonged positioning. Symptoms are relieved by heat, ice, lying down, pain meds/drugs, physical therapy, rest, sitting, chiropractic and changing positions. Back Pain Severity level i s 6. Duration: chronic. The problem is stable. It occurs persistently. Location of pain is middle back and lower back.The patient describes the pain as an ache, burning, numbness, sharp and tingling. Symptoms are aggravated by ascending stairs, bending, descending stairs, lifting, running, sitting, standing, twisting, walking, movement, housework and prolonged positioning. Symptoms are relieved by heat, ice, lying down, pain meds/drugs, physical therapy, stretching, rest, sitting, chiropractic, changing positions and TENS. Back Pain (comments) Whit is meeting with us today via [employer] Virtual Visit for following up and medication refill. Mid-low back pain persists this month, tolerable with medication. She reports persistent swelling. Her PCP is treating her with prednisone until her consult with an video control operator. The prednisone is helpful for both swelling and pain, but is only temporary. She was also recently diagnosed with hemolytic anemia, following up with hematology at [facility] in October.Reports current medication regimen provides 80-85% pain relief and allows for increased functionality. Denies side effects from current medication regimen.No other concerns today. Back Pain (comments) Whit is meeting with us today via [employer] Virtual Visit for following up and medication refill. Mid-low back pain persists this month, tolerable with medication.Reports leg swelling which was resolved after taking prednisone form ER visit. She is scheduled to f/u with RA at [facility] for evaluation. He doctor also suspects hemolytic anemia, so he referred her to a pastor as well.Reports current medication regimen provides 80-85% pain relief and allows for increased functionality. Denies side effects from current medication regimen.No other concerns today. Back Pain Severity level i s 6. Duration: chronic. The problem is stable. It occurs persistently. Location of pain is middle back, lower back and feet.The patient describes the pain as an ache, burning, numbness, sharp and tingling. Symptoms are aggravated by ascending stairs, bending, descending stairs, lifting, running, standing, twisting, walking, housework and prolonged positioning. Symptoms are relieved by heat, ice, massage, pain meds/drugs, physical therapy, rest, changing positions and chiropractic. Back Pain Severity level i s 5. Duration: chronic. The problem is stable. It occurs persistently. Location of pain is middle back and lower back.The patient describes the pain as an ache, burning, numbness, sharp and tingling. Symptoms are aggravated by ascending stairs, bending, descending stairs, lifting, running, sitting, standing, twisting, walking, housework and prolonged positioning. Symptoms are relieved by heat, lying down, massage, pain meds/drugs, stretching, rest, sitting, chiropractic, changing positions and TENS. Back Pain (comments) Whit is meeting with us today via [employer] Visit for following up and medication refill. Low-mid back pain persists this month, tolerable with medication.Reports current medication regimen provides 80-85% pain relief and allows for increased functionality. Denies side effects from current medication regimen.No other concerns today. Back Pain (comments) Whit is meeting with us today via [employer] Visit for following up and medication refill. Low back pain persists this month, tolerable with medication. 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 Denies side effects from current medication regimen.No other concerns today. Back Pain Severity level i s 4. Duration: chronic. The problem is stable. It occurs persistently. Location of pain is middle back and lower back.The patient describes the pain as an ache, burning, numbness, sharp and tingling. Symptoms are aggravated by ascending stairs, bending, descending stairs, lifting, lying/rest, running, sitting, standing, twisting, walking, housework and movement. Symptoms are relieved by heat, ice, lying down, massage, pain meds/drugs, physical therapy, stretching, rest, sitting, chiropractic, changing positions and TENS. Back Pain (comments) Whit is meeting with us today via [facility] for following up and medication refill. Mid-low pain persists this month, tolerable with medication. She completed the IVF and has been getting acupuncture as well with benefit.Reports current medication regimen provides 85% pain relief and allows for increased functionality. Denies side effects from current medication regimen.No other concerns today. Back Pain Severity level i s 4. Duration: chronic. The problem is stable. It occurs persistently. Location of pain is middle back, lower back and feet.The patient describes the pain as an ache, burning, numbness, sharp and tingling. Symptoms are aggravated by ascending stairs, bending, descending stairs, lifting, running, standing, twisting, walking, movement, housework and prolonged postioning. Symptoms are relieved by heat, ice, lying down, massage, pain meds/drugs, rest, sitting, chiropractic and changing positions. Back Pain Severity level i s 5. Duration: chronic. The problem is stable. It occurs persistently. Location of pain is middle back, lower back and bilateral feet.The patient describes the pain as an ache, burning, numbness, sharp and tingling. Symptoms are aggravated by bending, lifting, running, standing, twisting, walking, housework, movement, prolonged positioning and stairs. Symptoms are relieved by heat, lying down, pain meds/drugs, physical therapy, stretching, rest, sitting, changing positions, chiropractic and TENS unit. Back Pain (comments) Whit is here for a virtual follow-up and medication refills. Ongoing low back pain with radiculopathy in both of her legs is stable.Reports current medication regimen provides 80% pain relief. Denies side effects from current medication regimen. States she is having a new pain d/t a potential tooth abscess. Notes she has had them before and the pain is similar. She plans to see her dentist this week. Also notes that she will be having D&C surgery the first week of May and inquires about post-operative medications.Of note, she will be traveling to [place] in the middle of May for IVF.Patient is not accompanied. No other concerns today. Back Pain (comments) Whit is here for follow up and medications refill via virtual visit for coronavirus prevention efforts. Reports 50% pain relief with current medication regimen. Denies any side effects from current medication regimen.Pt returns regarding her chronic low back pain with radiculopathy in both of her legs. Her low back pain persists this month with shooting pain down her legs, tolerable with medication. She notes that she is able to complete her ADLs and housework, however, exercises such as riding her bicycle has been difficult. Her also recently got furloughed at his job from working at an [employer] which causes increase stress and she believes this effects her pain. Of note, she will be completing an upper EGD this month and states she will be given Fentanyl and Versed. Patient is not accompanied today. No additional questions or concerns. Back Pain Severity level i s 6. Duration: chronic. The problem is stable. It occurs persistently. Location of pain is middle back and lower back.The patient describes the pain as an ache, burning, numbness and sharp. Symptoms are aggravated by ascending stairs, bending, daily activities, descending stairs, lifting, lying/rest, running, sitting, standing, twisting, walking and prolonged positioning. Symptoms are relieved by heat, ice, lying down, massage, pain meds/drugs, stretching, rest, sitting and chiropractic. Back Pain Severity level i s moderate-severe. Duration: chronic. The problem is fluctuating. It occurs persistently. Location of pain is middle back and lower back. Pain is radiated to the left foot and right foot.The patient describes the pain as burning and shooting. Symptoms are aggravated by daily activities, running and standing. Symptoms are relieved by pain meds/drugs and rest. Back Pain (comments) Whit cabrera esents via telephone for follow up and medication management regarding her chronic low back pain with radiculopathy in both of her legs. Medications continue to provide >50% pain relief. She denies any side effects.Reports that her pain today is fluctuating due to increased activities on some days. Notes that she was unable to complete her compliance UDT ordered at her previous office visit due to caring for her mother who was exposed to the virus. (see telephone communications from 03/16). She is compliant with repeating her UDT this week. 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 No additional questions or concerns. Back Pain Severity level i s 8. Duration: chronic. The problem is worsening. It occurs persistently. The patient describes the pain as an ache, burning, numbness, sharp and tingling. Symptoms are aggravated by daily activities. Symptoms are relieved by heat, lying down, pain meds/drugs, stretching, rest, sitting, chiropractic, changing positions, standing and walking. Back Pain (comments) Whit re turns for follow up regarding back pain. prescribed medication offer 80% pain relief. Denies SE.Reports she has had more pain than normal which is attributed to weather fluctuations and trying to exercise more. 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 Back Pain (comments) Whit is here for a follow up and medications refill. Low-mid pain persists this month, tolerable with medication.When confronted about absence of oxycodone in last UDT, she explains that she has been told by the dentist that she metabolizes novocaine quickly and could pursue gene site testing.Reports current medication regimen provides 85% pain relief and allows for increased functionality. Denies side effects from current medication regimen.No other concerns today. Back Pain Duration: chroni c. The problem is fluctuating. It occurs persistently. Location of pain is middle back and lower back.The patient describes the pain as an ache, burning, sharp and tingling. Symptoms are aggravated by ascending stairs, bending, descending stairs, lifting, running, sitting, standing, twisting and prolonged positioning. Symptoms are relieved by heat, ice, lying down, pain meds/drugs, stretching, rest, changing positions and TENS. Back Pain (comments) Patient is here for follow-up and medication refills. Lower back pain and neuropathy is worse d/t cold weather. Seeing dentist. Still going through [facility] program - needs a DNC d/t to scar tissues in Uterus. Having Diarrhea - likely from Irritable bowel syndrome and likely being on metforminReports at least 50% relief from the medication. Medications help relieve pain and increase activity, with no side effects. Back Pain Severity level i s 5. Duration: chronic. The problem is fluctuating. It occurs persistently. Location of pain is upper back, middle back, lower back and neck. Pain is radiated to the right calf.The patient describes the pain as an ache, burning and sharp. Symptoms are aggravated by ascending stairs, bending, descending stairs, lifting, running, standing, twisting and walking. Symptoms are relieved by heat, ice, lying down, pain meds/drugs, physical therapy, stretching and rest. Back Pain (comments) Whit is here for a follow up and medications refill. Low-mid back pain persists this month, tolerable with medication. She is just getting over phenomena, symptoms present for 2 weeks.Reports having 11 percocet 5/325mg left. Reports current medication regimen provides 85% pain relief and allows for increased functionality. Denies side effects from current medication regimen.No other concerns today. Back Pain Severity level i s 3. Duration: chronic. The problem is stable. It occurs persistently. Location of pain is middle back, lower back, right leg and feet.The patient describes the pain as an ache, burning, numbness, sharp and tingling. Symptoms are aggravated by ascending stairs, bending, descending stairs, lifting, running, sitting, standing, twisting and prolonged positioning. Symptoms are relieved by heat, lying down, pain meds/drugs, stretching, rest, sitting, changing positions, chiropractic and standing. Back Pain (comments) Whit is here for a follow up and medications refill. Low back pain persists this month, tolerable with medication.Neck and right leg pain persists as well.Presents with #6 percocet 5/325mg - on track. Reports current medication regimen provides 85% pain relief and allows for increased functionality. Denies side effects from current medication regimen.No other concerns today. Back Pain Duration: chroni c. The problem is stable. It occurs persistently. Location of pain is upper back, middle back, lower back and right leg.The patient describes the pain as an ache, burning, sharp and tingling. Symptoms are aggravated by ascending stairs, bending, descending stairs, lifting, lying/rest, running, sitting, standing, twisting, walking and prolonged positioning. Symptoms are relieved by heat, lying down, massage, pain meds/drugs, physical therapy, stretching, rest, sitting, changing positions and chiropractic. Back Pain (comments) Whit is here for a follow up and medications refill. Her low back pain persists this month, tolerable with medication. She reports shooting pain down her legs. Patient is currently going through fertility treatment, will plan to do work up including MRI lumbar when she is ready.She reports several new symptoms including rashes, high blood pressure, depression, and fatigue that worsen around her monthly period and with cold weather. She has consulted a doctor in [place] who has reason to believe she has mass cell disease, which her son has. She is scheduled to complete autoimmune blood work to further investigate this issue. Inquires about SCS trial today - pt given informationPresents with #13 percocet 5/325mg - on track. Reports current medication regimen provides 80% pain relief and allows for increased functionality. Denies side effects from current medication regimen.No other concerns today. Back Pain Severity level i s 4. Duration: chronic. The problem is worsening. It occurs persistently. Location of pain is upper back, middle back, lower back and right foot.The patient describes the pain as an ache, burning, sharp and tingling. Symptoms are aggravated by ascending stairs, bending, descending stairs, lifting, running, sitting, standing, twisting, walking and prolonged positioning. Symptoms are relieved by heat, ice, lying down, massage, pain meds/drugs, physical therapy, rest, sitting, changing positions, chiropractic and standing. Back Pain Severity level i s 3. Duration: chronic. The problem is stable. It occurs persistently. Location of pain is upper back, middle back, lower back and right leg.The patient describes the pain as an ache, burning, sharp and tingling. Symptoms are aggravated by daily activities. Symptoms are relieved by pain meds/drugs and rest. Back Pain (comments) Whit is here for follow up and medications refill. Her low back pain persists this month, tolerable with medication.Her fertility doctor recommended CBD oil and wanted to have an approval from me. She is hopeful that the CBD oil will help manage her anxiety which has increased due to taking fertility medication.Presents with #11 oxycodone 5 mg - on track. Reports current medication regimen provides 60-90% pain relief and allows for increased functionality. Reports diarrhea with fertility medication.No other concerns today. Back Pain Severity level i s 4-5. Duration: chronic. The problem is fluctuating. It occurs persistently. Location of pain is upper back, middle back, lower back, BL feet and BL shoulders.The patient describes the pain as an ache, burning, sharp and tingling. Symptoms are aggravated by ascending stairs, bending, descending stairs, lifting, sitting, standing, twisting, prolonged positioning and housework. Symptoms are relieved by heat, ice, massage, pain meds/drugs, physical therapy, rest, sitting, changing positions and chiropractic. Back Pain (comments) Whit is here for follow up and medications refill. Her back pain is stable this month, managed with medications. She has lost a significant amount of weight in the last few years which has improved the pain.Her right leg pain is stable this month and is well managed with medications.She is still trying to become . She is experiencing fluctuating energy levels due to hormone medications.Currently working with a clinic in [place] regarding her IBF.Presents with #21 - on track. Reports current medication regimen provides 80% pain relief and allows for increased functionality. Denies side effects from current medication regimen.No other concerns today. Back Pain (comments) Whit is here for follow up and medications refill for c/c of back pain which has been worse. Patient continues to do PT with some benefit. She is eating better and has lost weight since last OV. Presents with #18 Percocet 5/325 - on track. Reports current medication regimen provides 75-80% pain relief and allows for increased functioning. Denies side effects from current medication regimen.No other concerns today. Back Pain Severity level i s 2. Duration: chronic. The problem is worsening. It occurs persistently. Location of pain is upper back, lower back, BL shoulders, head, BL feet and R rivas.The patient describes the pain as an ache, burning, sharp and tingling. Back Pain (comments) Whit is here for follow up and medications refill. Pain is stable. She has been having heart palpitations over the last few years and recently they have been keeping her up she believes it is d/t stopping Xanax. to help because she is planning on becoming . She tried labetalol which helped for a few weeks but eventually wore off. Off note: reports her edema is gone. Still planning to IVF for Patient returned previous scripts for Percocet.Presents with no medication - d/o 06/20. Reports current medication regimen provides 85% pain relief and allows for increased functionality. Denies side effects from current medication regimen.No other concerns today. Back Pain Severity level i s 4. Duration: chronic. The problem is fluctuating. It occurs persistently. Location of pain is upper back, middle back, lower back and R knee. Pain is radiated to the left foot and right foot.The patient describes the pain as burning, sharp and tingling. Symptoms are aggravated by daily activities. Symptoms are relieved by pain meds/drugs and rest. Back Pain (comments) Whit is here for initial follow up. Reports current medication regimen provides 70% pain relief. Denies side effects from current medication regimen. Pain is stable overall but worse today as she has been busy moving, increased activity. States she was never contacted by PT facility to schedule. She has been using paper scripts written by PCP in March 2019 to fill percocet. Next percocet rx due to be filled 06/08/19 but unlikely to be filled d/t new opioid legislature. Would like to transfer opioid management to PCP. Of note, pt will be undergoing IVF in [place] later this month. No other concerns today. Back Pain Severity level i s 3. Duration: chronic. The problem is stable. It occurs persistently. Location of pain is middle back, lower back and distal RLE.The patient describes the pain as an ache, burning and sharp. Symptoms are aggravated by ascending stairs, bending, daily activities, descending stairs, lifting, lying/rest, standing, twisting, movement and prolonged positioning. Symptoms are relieved by heat, ice, lying down, massage, pain meds/drugs, rest, changing positions and chiropractic. Back Pain Severity level i s 5. Duration: chronic. It occurs persistently. Location of pain is upper back, middle back, lower back and BL lower legs. Pain is radiated to the BLE.The patient describes the pain as an ache, numbness, stabbing and pins and needles. Symptoms are aggravated by ascending stairs, bending, changing positions, descending stairs, running, standing, twisting, walking, housework and movement. Symptoms are relieved by heat, pain meds/drugs, stretching, rest, sitting, mild yoga and chiropractic. Back Pain (comments) Whit is here for an initial consult regarding back pain and leg pain r/t neuropathy. She was referred to [facility] by Dr. Harvey. Pain began about 22 years ago and has progressively worsened over the years. She has stabbing pain in her midback and is constant. Also has low back pain that shoots down posterior leg stopping mid thigh, aggravated when working. She has shooting pain in her lower legs which she is unsure if it is r/t back or neuropathy. The neuropathy in her feet seems to have improved somewhat with a change in her diet. Her neurologist is unsure what is causing the neuropathy, both her parents have neuropathy. Her PCP had been managing her pain medication for the past couple years, however her PCP is moving and her new PCP referred to [facility]. Of note, she has started IUI and is in the two week holding period to see if she is . Treatment tried:PT was completed years ago, has not been able to go recently d/t medical bills. Pool therapy at the but insurance had only covered 2 sessions. yoga to help with stretching and pain. Injections at [facility] were helpful for 2 weeks and then wears off - no records available. Her last MRI was most likely completed about 2 years ago - checked [facility] and [facility] - no recent Spine images. Medications:Gabapentin- takes for her neuropathy.Percocet 5-325mg 5/day- helpful and allows her to function. Functional Status Date Functional Assessmen t No Information Instructions Date Instruction Additional Infor mation No Information Assessments Type Assessment Date assessment Other intervertebral disc degene ration, lumbar region impression Low back pain persis ts this month with shooting pain down her BLE, tolerable with medication. Increased pain down lateral RLE to the knee. Patient is currently going through fertility treatment.Pt is candidate for Lumbar SCS trial to cover radicular pain and neuropathic pain in feet. Pt hesitant Lumbar MRI on 02/08/21 CONCLUSION:1. Mild L2-3 disc degeneration.2. Mild facet arthropathy on the left at L5-S1 and bilaterally at L4-53. No disc herniation, stenosis or impingement.4. No neoplasm, fracture or infection assessment Anxiety impression Ongoing anxiety, stable 023 assessment Other idiopathic peripheral auto nomic neuropathy impression Neuropathy pain persists, tolera ble with medication assessment Radiculopathy, thoracic region A impression Mid-back pain persis ts, pain just at bra line with radiation into rib cage. [facility] thoracic is approved , it has been re-scheduled multiple times due to other medical issuesThoracic MRI on 02/08/21CONCLUSION:1. 3 mm disc protrusions on the right at T10-11 and T8-9 with mild right ventral cord flattening at T8-9.2. T11-12, T10-11 and T8-9 disc degeneration.3. T3-4, T2-3 and T1-2 disc degeneration with a 3 mm right posterolateral disc protrusion at T1-2.4. 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 MME is 37.5mg/day. Patient has been managing medications appropriately, and is not confused or oversedated during our office visit. [facility] queried and shows no outside opioid prescriptions. UDT results from 01/07/2023 reviewed & appropriate with current medication regime. Appropriate to continue with opioid therapy Mental Status Date Cognitive Assessment Orientation - [place] ed to time, place, person, situation. Patient Care Teams Name Effective Dates (start - stop) Status Members No Information
== END 2023-03-18 14:46 | disposition home or self-care (01) ==
LOC: RAD 14:47
PROVIDERS: PCP Family Medicine; Visit Provider Family Medicine
DX: I51.7 Cardiomegaly (principal); I35.1 Nonrheumatic aortic (valve) insufficiency; I10 Essential (primary) hypertension
CPT/HCPCS: 93306

== ENCOUNTER 2023-08-13 10:41 | Outpatient (CLI) | payer OTHER, BC, SELFPAY ==
--- OUTSIDE RECORDS SUMMARY | 2023-08-13 10:44 | XMS_ITS | Continuity of Care Document ---
Author Name Unknown Organization [facility] Address [address] [place] [address] [address] [place] [address] Phone Care Team Providers Care Wrapper Opener Name Role Phone Walt Dang MD Unavailable Unavailable Procedures Procedure Date Office consultation, [facility] 7 Advance Directives Directive Yes / No Effective Date File Name No Information Encounters Encounter Description Practice Location Reason(s) For Visit Diagnoses Date Provider Providers Copied on Encounter Office consultation, moderate [facility], [address] [place], [place] [address], [address], [place] tel:[phone] [facility] No Information 7 Laurence Godoy. [facility], [address] [place] [address], [address], [id number] , . tel:[phone] Referring Provider: Walt Arzate, [facility] [address], [address], [address] . tel:[phone] Family History Family Member Type Diagnosis Age At Onset No Information Payers Payer name Insurance type Covered green party ID Authoriza tibrandie(s) [facility] CI [id number] Social History Type Description Quantity Date Captured Comments Sex Female Smoking Status No Information Chief Complaint And Reason For Visit No Information Reason For Referral Reason For Referral No Information History Of Present Illness Encounter Date Complaint History Of Prese nt Illness No Information Functional Status Date Functional Assessmen t No Information Instructions Date Instruction Additional Infor mation No Information Assessments Type Assessment Date No Information Patient Care Teams Name Effective Dates (start - stop) Status Members No Information
--- OUTSIDE RECORDS SUMMARY | 2023-08-13 10:44 | XMS_ITS | Continuity of Care Document ---
Author Name Unknown Organization [facility] enter Address [address] [place] [id number] Phone Care Team Providers Care Butt Presser Name Role Phone [facility] Unavailable Unava ilable Procedures Procedure Date INTERLAMINAR CRV OR THRC INTERLAMINAR CRV OR THRC No Charge For Visit Per Prov Advance Directives Directive Yes / No Effective Date File Name No Information Encounters Encounter Description Practice Location Reason(s) For Visit Diagnoses Date Provider Providers Copied on Encounter [facility], [address] [place] [address], [id number], tel:[phone] [place] [address] No Information 3 [facility]. [address] [place] [address], [id number], . tel:[phone] Referring Provider: Bonnie Ramirez, [address] [place], [address] . tel:[phone] [facility], [address] [place] [address], [id number], tel:[phone] [place] [address] No Information 2 [facility]. [address] [place] [address], [id number], . tel:[phone] Referring Provider: Angel Lima, [address], [place], [address]. tel:[phone] Family History Family Member Type Diagnosis Age At Onset No Information Payers Payer name Insurance type Covered republican ID Noreen foster(s) [facility] [id number] [employer] Medicaid BL [id number] Social History [...]
--- OUTSIDE RECORDS SUMMARY | 2023-08-13 10:44 | XMS_ITS | Continuity of Care Document ---
Author Name Unknown Organization [facility] Address [address] [place] [address] Care Team Providers Care Senior Javascript Developer Name Role Phone [facility] Unavailable Unav ailable Procedures Procedure Date Facet Jt Inj Lumbar LEFT Facet Jt Inj Lumbar RIGHT Facet Inj Lumbar 2nd Level LEFT 021 Facet Inj Lumbar 2nd Level RIGHT 2020 Advance Directives Directive Yes / No Effective Date File Name No Information Encounters Encounter Description Practice Location Reason(s) For Visit Diagnoses Date Provider Providers Copied on Encounter [facility], [address] [place], [place], [id number], [facility] No Information [facility]. [address] [place], [place], [id number], . tel:[phone] Referring Provider: Bonnie Ramirez, [address] [place], [address]. tel:[phone] Family History Family Member Type Diagnosis Age At Onset No Information Payers Payer name Insurance type Covered republican ID Authoriza tibrandie(s) [facility] CI [id number] Social History Type Description Quantity Date Captured [...]
--- OUTSIDE RECORDS SUMMARY | 2023-08-13 10:45 | XMS_ITS | Continuity of Care Document ---
Author Name Unknown Organization [facility] blane Address [address] [place] [address] Phone Care Team Providers Care Cena Name Role Phone Tonio LEYDABhavana Unavailable Unavailable [...] day as needed 0.25 MG - Active sertraline 100 mg tablet take 1 tablet by ORAL route every day 100 MG - Active CoQ-10 100 mg capsule - Active magnesium 200 mg tablet - Active diclofenac 1 % topical gel apply (2G) by topical route 2 times every day to the affected area(s) 2 G - Active vitamin E 268 mg (400 unit) capsule - Active ibuprofen 400 mg tablet take 1 tablet by oral route every 4 - 6 hours as needed 400 MG - Active LOSARTAN POTASSIUM (unknown strength) take 0.5 tablet by oral route every day Not Available - Active VITAMIN E (unknown strength) Not Available - Active Vitamin D3 2,000 unit capsule take 1 cap daily - Active potassium 99 mg tablet take 1 tab daily - Active Tirosint 75 mcg capsule take 1 capsule by oral route every day 75 MCG - Active gabapentin 300 mg capsule take 3 capsule by oral route 4 times every day 900 MG - Active Percocet 5 mg-325 mg tablet take 1-2 tablet by oral route every 6 hours as needed, max 5/day for chronic pain - No Longer Active sertraline 50 mg tablet take 1 tablet by oral route every day 50 MG - No Longer Active Procedures Procedure Date OFFICE/OUTPATIENT VISIT, EST INTERLAMINAR CRV OR THRC OFFICE VISIT, EST TELEMEDICINE OFFICE VISIT, EST TELEMEDICINE Drug test def 8-14 classes Drug Urine Toxology With Chromatography OFFICE/OUTPATIENT VISIT, EST OFFICE VISIT, EST TELEMEDICINE OFFICE VISIT, EST TELEMEDICINE Foll-up eval q3mo opiod tx Foll-up eval [...] EST TELEMEDICINE Drug Urine Toxology With Chromatography Foll-up eval [...] Diagnoses Date Provider Providers Copied on Encounter OFFICE/OUTPAT IENT VISIT, EST [facility], [address] [place], [place], [id number] , [place] tel: [phone] [facility] Back Pain (chief complaint) AnxietyChronic pain syndromeOther idiopathic peripheral autonomic neuropathyRadicul opathy, thoracic regionRadiculopat hy, lumbar regionLong term (current) use of opiate analgesic Sep-0 3 [facility] Bhavana. [address], [place], [place], [id number] , [place]. tel:[phone] Referring Provider: Michael Harvey [facility] [address] [place], [address]. [phone] [facility], [address] [place], [place], [id number] , [place] [phone] [facility] Radiculopathy, thoracic region Sep-0 3 James Nicole. [address] [place], [place], [id number] , [place]. [phone] Referring Provider: Michael Harvey [facility] [address] [place], [address]. [phone] OFFICE VISIT, EST TELEMEDICINE [facility], [address] [place] [address], [id number] , [place] tel:[phone] [facility] Back Pain (chief complaint) AnxietyChronic pain syndromeOther idiopathic peripheral autonomic neuropathyRadicul opathy, thoracic regionRadiculopat hy, lumbar regionLong term (current) use of opiate analgesic 3 Moongesa Bhavana. [address] [address], [place], [place], [id number] , [place]. tel:[phone] OFFICE VISIT, EST TELEMEDICINE [facility], [address] [place] [address], [id number] , [place] tel:[phone] [facility] Back Pain (chief complaint) AnxietyChronic pain syndromeOther idiopathic peripheral autonomic neuropathyRadicul opathy, thoracic regionRadiculopat hy, lumbar regionLong term (current) use of opiate analgesic 3 [facility] Bhavana. [address] [address], [place], [place], [id number] , [place]. [phone] Referring Provider: Terrell Loving, [address] [place] [address], [address]. [phone] [facility], [address] [place] [address], [id number] , [place] [phone] [facility] No Information [address] [facility] [facility] Bateman. [address], [place], [place], [id number] , [place]. [phone] Referring Provider: Terrell Loving, [address] [place] [address], [address]. tel:[phone] OFFICE/OUTPAT IENT VISIT, [facility], [address] [place] [address], [id number] , [place] [phone] [facility] Back Pain (chief complaint) AnxietyOther idiopathic peripheral autonomic neuropathyRadicul opathy, thoracic regionLong term (current) use of opiate analgesicChronic pain syndromeRadiculop athy, lumbar region Clyde- 3 Nyongesa Bhavana. [address], [place], [id number] , [place]. [phone] Referring Provider: Michael Harvey, [facility] [address], [place], [address]. [phone] OFFICE VISIT, EST TELEMEDICINE [facility], [address] [place], [place], [id number] , [place] [phone] [facility] Back Pain (chief complaint) AnxietyOther idiopathic peripheral autonomic neuropathyOther intervertebral disc degeneration, lumbar regionRadiculopat hy, thoracic regionLong term (current) use of opiate analgesic 3 Nyongesa Bhavana. [address] [facility] [address], [place], [address] , [place]. [phone] Referring Provider: Terrell Loving, [address] [place] [address], [address]. tel:[phone] OFFICE VISIT, EST TELEMEDICINE [facility], [address] [place], [place], [id number] , [place] [phone] [facility] Back Pain (chief complaint) Other intervertebral disc degeneration, lumbar regionAnxietyOthe r idiopathic peripheral autonomic neuropathyRadicul opathy, thoracic regionLong term (current) use of opiate analgesic 3 Nyonge Bhavana. [address] [facility] [address], [place], [place], [id number] , [place]. tel:[phone] Referring Provider: Terrell Loving, [address] [place] [address], [address]. tel:[phone] OFFICE VISIT, EST TELEMEDICINE [facility], [address] [place] [address], [id number] , [place] [phone] [facility] Back Pain (chief complaint) AnxietyOther idiopathic peripheral autonomic neuropathyOther intervertebral disc degeneration, thoracic regionOther intervertebral disc degeneration, lumbar regionRadiculopat hy, thoracic regionLong term (current) use of opiate analgesic 3 Nyongesa Bhavana. [address], [place], [place], [id number] , [place]. tel: [phone] Referring Provider: Terrell Loving, [address] [place], [address]. tel:[phone] [facility], [address] [place], [place], [id number] , [place] tel: [phone] [facility] Radiculopathy, thoracic region 3 Luis Miguel Tejada. [address] [place], [place], [id number] , [place]. tel: [phone] [facility], [address] [place] [address], [id number] , [place] tel: [phone] [facility] No Information 3 Tonio Bateman. [address] [facility] [address], [place], [place], [id number] , [place]. tel: [phone] Referring Provider: Michael Harvey [facility] [address], [place], [address]. tel:[phone] OFFICE/OUTPAT IENT VISIT, EST [facility], [address] [place] [address], [id number] , [place] tel: [phone] [facility] Back Pain (chief complaint) AnxietyOther idiopathic peripheral autonomic neuropathyOther intervertebral disc degeneration, thoracic regionOther intervertebral disc degeneration, lumbar regionRadiculopat hy, thoracic regionLong term (current) use of opiate analgesic 3 [facility] Bhavana. [address], [place], [place], [address] , [place]. tel: [phone] Referring Provider: Michael Harvey [facility] [address], [place], [address]. tel:[phone] OFFICE VISIT, EST TELEMEDICINE [facility], [address] [place] [address], [id number] , [place] tel: [phone] [facility] Back Pain (chief complaint) AnxietyOther idiopathic peripheral autonomic neuropathyOther intervertebral disc degeneration, thoracic regionOther intervertebral disc degeneration, lumbar regionRadiculopat hy, thoracic regionLong term (current) use of opiate analgesic 0-202 3 Nyongesa Bhavana. [address], [place], [id number] , [place]. tel:[phone] OFFICE VISIT, EST TELEMEDICINE [facility], [address] [place] [address], [id number] , [place] [phone] [facility] Back Pain (chief complaint) AnxietyOther idiopathic peripheral autonomic neuropathyOther intervertebral disc degeneration, thoracic regionOther intervertebral disc degeneration, lumbar regionRadiculopat hy, thoracic regionLong term (current) use of opiate analgesic 2- 2 Lesliongesa Bhavana. [address], [place], [id number] , [place]. tel:[phone] Referring Provider: Terrell Loving, [address] [place] [address], [address]. tel:[phone] OFFICE VISIT, EST TELEMEDICINE [facility], [address] [place] [address], [id number] , [place] tel:[phone] [facility] Back Pain (chief complaint) AnxietyOther idiopathic peripheral autonomic neuropathyOther intervertebral disc degeneration, thoracic regionOther intervertebral disc degeneration, lumbar regionLong term (current) use of opiate analgesicRadiculo armen, thoracic region Nov- 2 Tonio Bateman. [address], [place], [id number] , [place]. tel:[phone] Referring Provider: Terrell Loving, [address] [place] [address], [address]. tel:[phone] OFFICE VISIT, EST TELEMEDICINE [facility], [address] [place] [address], [id number] , [place] tel:[phone] [facility] Back Pain (chief complaint) AnxietyOther idiopathic peripheral autonomic neuropathyOther intervertebral disc degeneration, thoracic regionOther intervertebral disc degeneration, lumbar regionLong term (current) use of opiate analgesic 2- 2 Lesliongesa Bhavana. [address] [facility] [address], [place], [place], [id number] , [place]. tel: [phone] OFFICE/OUTPAT IENT VISIT, EST [facility], [address] [place], [place], [id number] , [place] tel: [phone] [facility] Back Pain (chief complaint) AnxietyOther idiopathic peripheral autonomic neuropathyOther intervertebral disc degeneration, thoracic regionOther intervertebral disc degeneration, lumbar regionLong term (current) use of opiate analgesicEncounte r for therapeutic drug level monitoring 2 Griffinvicky Olivares. [address], [place], [place], [id number] , [place]. tel: [phone] Referring Provider: Michael Harvey [facility] [address], [place], [address]. tel:[phone] [facility], [address] [place] [address], [id number] , [place] tel: [phone] [facility] No Information 2 Griffin Marshall. [address], [place], [place], [address] , [place]. tel: [phone] Referring Provider: Michael Harvey [facility] [address], [place], [address]. tel:[phone] OFFICE VISIT, EST TELEMEDICINE [facility], [address] [place], [place], [id number] , [place] tel: [phone] [facility] Back Pain (chief complaint) AnxietyOther idiopathic peripheral autonomic neuropathyOther intervertebral disc degeneration, thoracic regionOther intervertebral disc degeneration, lumbar regionPain in right handLong term (current) use of opiate analgesic 2 Tonio Bateman. [address] [facility] [address], [place], [place], [id number] , [place]. tel: [phone] Referring Provider: Terrell Loving, [address] [place], [address]. tel:[phone] [facility], [address] [place], [place], [id number] , [place] tel: [phone] [facility] [place] Radiculopathy, thoracic region 2 Nyongesa Bhavana. [address] [facility] [address], [place], [place], [id number] , [place]. tel: [phone] OFFICE VISIT, EST TELEMEDICINE [facility], [address] [place], [place], [id number] , [place] tel: [phone] [facility] [place] Back Pain (chief complaint) AnxietyOther idiopathic peripheral autonomic neuropathyOther intervertebral disc degeneration, thoracic regionOther intervertebral disc degeneration, lumbar regionPain in right handLong term (current) use of opiate analgesic 2 Nyongesa Bhavana. [address] [facility] [address], [place], [id number] , [place]. tel: [phone] Referring Provider: [facility] [address], [place], [address]. tel:[phone] OFFICE VISIT, EST TELEMEDICINE [facility], [address] [place], [place], [id number] , [place] tel: [phone] [facility] Back Pain (chief complaint) AnxietyOther idiopathic peripheral autonomic neuropathyOther intervertebral disc degeneration, thoracic regionOther intervertebral disc degeneration, lumbar regionPain in right handLong term (current) use of opiate analgesic 2 Nyongesa Bhavana. [address], [place], [place], [address] , [place]. tel: [phone] Referring Provider: Terrell Loving, [address] [place], [address]. [phone] [facility], [address] [place], [place], [id number] , [place] [phone] [facility] [place] No Information 2 Janie Ortiz. [facility], [address], [place], [address], [place]. tel:[phone] Referring Provider: [facility] [address], [place], [address]. tel:[phone] OFFICE VISIT, EST TELEMEDICINE [facility], [address] [place], [place], [id number] , [place] tel:[phone] [facility] Back Pain (chief complaint) AnxietyOther idiopathic peripheral autonomic neuropathyOther intervertebral disc degeneration, thoracic regionOther intervertebral disc degeneration, lumbar regionPain in right handLong term (current) use of opiate analgesic 2 Tonio Bateman. [address], [place], [place], [address] , [place]. tel:[phone] Referring Provider: Terrell Loving, [address] [place], [address]. [phone] [facility], [address] [place] [address], [id number] , [place] tel:[phone] [facility] No Information 2 Tonio Bateman. [address] [facility] [address], [place], [place], [id number] , [place]. tel:[phone] [facility], [address] [place] [address], [id number] , [place] tel:[phone] [facility] Back Pain (chief complaint) AnxietyOther idiopathic peripheral autonomic neuropathyOther intervertebral disc degeneration, thoracic regionOther intervertebral disc degeneration, lumbar regionPain in right handLong term (current) use of opiate analgesicEncounte r for therapeutic drug level monitoring 2 Tonio Bateman. [address], [place], [place], [id number] , [place]. tel:[phone] Referring Provider: [facility] [address], [place], [address]. [phone] OFFICE VISIT, EST TELEMEDICINE [facility], [address] [place] [address], [id number] , [place] [phone] [facility] Back Pain (chief complaint) AnxietyOther idiopathic peripheral autonomic neuropathyOther intervertebral disc degeneration, thoracic regionOther intervertebral disc degeneration, lumbar regionPain in right handLong term (current) use of opiate analgesicRadiculo armen, thoracic region Feb-1 7-202 2 Tonio Bateman. [address], [place], [id number] , [place]. tel: [phone] Referring Provider: [facility] [address], [place], [address]. tel:[phone] OFFICE VISIT, EST TELEMEDICINE [facility], [address] [place], [place], [id number] , [place] tel: [phone] [facility] Back Pain (chief complaint) Other idiopathic peripheral autonomic neuropathyOther intervertebral disc degeneration, thoracic regionOther intervertebral disc degeneration, lumbar regionLong term (current) use of opiate analgesicPain in right handAnxiety 2 Tonio Bateman. [address] [facility] [address], [place], [id number] , [place]. tel: [phone] [facility], [address] [place], [place], [address] , [place] tel: [phone] [facility] No Information 1 Tonio Bateman. [address], [place], [id number] , [place]. tel: [phone] OFFICE/OUTPAT IENT VISIT, EST [facility], [address] [place], [place], [id number] , [place] tel: [phone] [facility] Back Pain (chief complaint) Other idiopathic peripheral autonomic neuropathyOther intervertebral disc degeneration, thoracic regionLong term (current) use of opiate analgesicOther intervertebral disc degeneration, lumbar regionPain in right handAnxietyEncoun ter for therapeutic drug level monitoringEncount er for screening for other disorder 1 Leslitrinity Bateman. [address], [place], [id number] , [place]. tel: [phone] Referring Provider: Michael Harvey [facility] [address], [place], [address]. tel:[phone] OFFICE VISIT, EST TELEMEDICINE [facility], [address] [place], [place], [id number] , [place] [phone] [facility] Back Pain (chief complaint) Other intervertebral disc degeneration, thoracic regionAnxietyOthe r idiopathic peripheral autonomic neuropathyLong term (current) use of opiate analgesicOther intervertebral disc degeneration, lumbar regionPain in right hand 1 Celine Bhavana. [address] [facility] [address], [place] [facility] [place], [id number] , [place]. tel:[phone] OFFICE VISIT, EST TELEMEDICINE [facility], [address] [place], [place], [id number] , [place] tel:[phone] [facility] Back Pain (chief complaint) Other intervertebral disc degeneration, thoracic regionAnxietyOthe r idiopathic peripheral autonomic neuropathyLong term (current) use of opiate analgesicOther intervertebral disc degeneration, lumbar region 1 Gaby Olivares. [address] [facility] [address], [place] [place], [id number] , [place]. tel:[phone] Referring Provider: Terrell Loving, [address] [place], [address]. tel:[phone] OFFICE VISIT, EST TELEMEDICINE [facility], [address] [place], [place], [id number] , [place] [phone] [facility] Back Pain (chief complaint) Other intervertebral disc degeneration, thoracic regionAnxietyOthe r idiopathic peripheral autonomic neuropathyLong term (current) use of opiate analgesicOther intervertebral disc degeneration, lumbar region Sep- 1 Tonio Bateman. [address] [address] [address], [facility] [place], [id number] , [place]. tel: [phone] OFFICE VISIT, EST TELEMEDICINE [facility], [address] [place], [place], [id number] , [place] tel:[phone] [facility] Back Pain (chief complaint) AnxietyOther idiopathic peripheral autonomic neuropathyOther chronic painLong term (current) use of opiate analgesicSpondylo sis without myelopathy or radiculopathy, lumbar regionOther intervertebral disc degeneration, lumbar regionOther intervertebral disc degeneration, thoracic region 1 Tonio Bateman. [address], [place], [place], [id number] , [place]. tel:[phone] Referring Provider: Terrell Loving, [address] [place] [address], [address]. [phone] [facility], [address] [place] [address], [id number] , [place] tel:[phone] [facility] Spondylosis without myelopathy or radiculopathy, lumbar region 1 Sherylidania Meie. [address] [place], [place], [address] , [place]. tel:[phone] Referring Provider: [facility] [address], [place], [address]. [phone] [facility], [address] [place] [address], [id number] , [place] tel:[phone] [facility] No Information 1 Celine Bhavana. [address], [place], [place], [address] , [place]. [phone] Referring Provider: Terrell Loving, [address] [place] [address], [address]. [phone] OFFICE/OUTPAT IENT VISIT, EST [facility], [address] [place] [address], [id number] , [place] tel:[phone] [facility] Back Pain (chief complaint) AnxietyOther idiopathic peripheral autonomic neuropathyOther chronic painLong term (current) use of opiate analgesicSpondylo sis without myelopathy or radiculopathy, lumbar regionOther intervertebral disc degeneration, lumbar regionEncounter for therapeutic drug level monitoring 1 Tonio Bateman. [address], [place], [place], [id number] , [place]. tel:[phone] Referring Provider: [facility] [address], [place], [address]. tel:[phone] OFFICE VISIT, EST TELEMEDICINE [facility], [address] [place], [place], [id number] , [place] tel:[phone] [facility] Pain (chief complaint) Other intervertebral disc degeneration, lumbar regionAnxietyOthe r idiopathic peripheral autonomic neuropathyOther chronic painLong term (current) use of opiate analgesicSpondylo sis without myelopathy or radiculopathy, lumbar region 1 Nyongesa Bhavana. [address], [place], [id number] , [place]. tel:[phone] [id number] Referring Provider: Terrell Loving, [address] [place] [address], [id number]. tel:[phone] OFFICE VISIT, [facility], [address] [place] [address], [id number] , [place] tel:[phone] [facility] Back Pain (chief complaint) Other intervertebral disc degeneration, lumbar regionAnxietyOthe r idiopathic peripheral autonomic neuropathyOther chronic painLong term (current) use of opiate analgesicSpondylo sis without myelopathy or radiculopathy, lumbar region 1 Nyongesa Bhavana. [address], [place], [id number] , [place]. tel:[phone] Referring Provider: Michael Harvey [facility] [address] [place], [address]. tel:[phone] OFFICE/OUTPAT IENT VISIT, [facility], [address] [place] [address], [id number] , [place] tel:[phone] [facility] Back Pain (chief complaint) Other intervertebral disc degeneration, lumbar regionAnxietyOthe r idiopathic peripheral autonomic neuropathyOther chronic painLong term (current) use of opiate analgesic Feb- 1 Nyongesa Bhavana. [address], [place], [id number] , [place]. tel:[phone] Referring Provider: Michael Harvey [facility] [address], [place], [address]. tel:[phone] OFFICE VISIT, EST TELEMEDICINE [facility], [address] [place] [address], [id number] , [place] tel:[phone] [facility] Back Pain (chief complaint) AnxietyOther intervertebral disc degeneration, lumbar regionOther idiopathic peripheral autonomic neuropathyOther chronic painLong term (current) use of opiate analgesic 1 Nyongesa Bhavana. [address] [facility] [address], [place], [place], [id number] , [place]. tel:[phone] Referring Provider: Terrell Loving, [address] [place] [address], [address]. tel:[phone] OFFICE VISIT, EST TELEMEDICINE [facility], [address] [place] [address], [id number] , [place] tel:[phone] [facility] Back Pain (chief complaint) AnxietyOther intervertebral disc degeneration, lumbar regionOther idiopathic peripheral autonomic neuropathyOther chronic painLong term (current) use of opiate analgesic 1 Moongesa Bhavana. [address] [facility] [address], [place], [place], [id number] , [place]. [phone] Referring Provider: Terrell Loving, [address] [place] [address], [address]. [phone] [facility], [address] [place] [address], [id number] , [place] tel:[phone] [facility] No Information 1 [facility]. [address], [place], [place], [id number] , [place]. [phone] Referring Provider: Terrell Loving, [address] [place] [address], [address]. [phone] OFFICE VISIT, EST TELEMEDICINE [facility], [address] [place] [address], [id number] , [place] [phone] [facility] Back Pain (chief complaint) Other intervertebral disc degeneration, lumbar regionOther idiopathic peripheral autonomic neuropathyOther chronic painLong term (current) use of opiate analgesicAnxietyE ncounter for therapeutic drug level monitoring 1 Nyongesa Bhavana. [address] [facility] [address], [place], [id number] , [place]. tel:[phone] Referring Provider: Terrell Loving, [address] [place] [address], [address]. tel:[phone] OFFICE VISIT, EST TELEMEDICINE [facility], [address] [place] [address], [id number] , [place] tel:[phone] [facility] Back Pain (chief complaint) Other intervertebral disc degeneration, lumbar regionOther idiopathic peripheral autonomic neuropathyOther chronic painLong term (current) use of opiate analgesicAnxiety Oct- 0 Nyongesa Bhavana. [address] [facility] [address], [place], [place], [id number] , [place]. tel:[phone] Referring Provider: Terrell Loving, [address] [place] [address], [address]. tel:[phone] OFFICE VISIT, EST TELEMEDICINE [facility], [address] [place] [address], [id number] , [place] tel:[phone] [facility] Back Pain (chief complaint) Other intervertebral disc degeneration, lumbar regionOther idiopathic peripheral autonomic neuropathyOther chronic painLong term (current) use of opiate analgesicAnxiety Sep- 0 Nyongesa Bhavana. [address] [facility] [address], [place], [place], [id number] , [place]. tel:[phone] Referring Provider: Terrell Loving, [address] [place] [address], [address]. tel:[phone] OFFICE VISIT, EST TELEMEDICINE [facility], [address] [place] [address], [id number] , [place] tel:[phone] [facility] Back Pain (chief complaint) Other intervertebral disc degeneration, lumbar regionOther idiopathic peripheral autonomic neuropathyOther chronic painLong term (current) use of opiate analgesicAnxiety Oct-2 - 0 Nyongesa Bhavana. [address] [facility] [address], [facility], [place], [id number] , [place]. tel:[phone] Referring Provider: Terrell Loving, [address] [place] [address], [address]. tel:[phone] OFFICE VISIT, EST TELEMEDICINE [facility], [address] [place] [address], [id number] , [place] tel:[phone] [facility] Back Pain (chief complaint) Other intervertebral disc degeneration, lumbar regionOther idiopathic peripheral autonomic neuropathyOther chronic painLong term (current) use of opiate analgesicAnxiety 0 Nyongesa Bhavana. [address] [facility] [address], [place], [place], [id number] , [place]. tel:[phone] Referring Provider: Terrell Loving, [address] [place] [address], [address]. tel:[phone] OFFICE VISIT, EST TELEMEDICINE [facility], [address] [place] [address], [id number] , [place] tel:[phone] [facility] Back Pain (chief complaint) Other intervertebral disc degeneration, lumbar regionOther idiopathic peripheral autonomic neuropathyOther chronic painLong term (current) use of opiate analgesicAnxiety 0 Nyongesa Bhavana. [address], [place], [place], [id number] , [place]. tel:[phone] Referring Provider: Terrell Loving, [address] [place] [address], [address]. tel:[phone] OFFICE VISIT, EST TELEMEDICINE [facility], [address] [place] [address], [id number] , [place] tel:[phone] [facility] Back Pain (chief complaint) Other intervertebral disc degeneration, lumbar regionOther idiopathic peripheral autonomic neuropathyOther chronic painLong term (current) use of opiate analgesicAnxiety 0 Nyongesa Bhavana. [address] [facility] [address], [place], [place], [id number] , [place]. tel:[phone] Referring Provider: Terrell Loving, [address] [place] [address], [address]. tel:[phone] OFFICE VISIT, EST TELEMEDICINE [facility], [address] [place] [address], [id number] , [place] [phone] [facility] Back Pain (chief complaint) Other intervertebral disc degeneration, lumbar regionOther idiopathic peripheral autonomic neuropathyOther chronic painLong term (current) use of opiate analgesicAnxiety 0 Griffinvicky Olivares. [address] [place] [address] [address], [place], [place], [id number] , [place]. [phone] Referring Provider: Terrell Loving, [address] [place] [address], [address]. tel:[phone] OFFICE VISIT, EST TELEMEDICINE [facility], [address] [place] [address], [id number] , [place] [phone] [facility] Back Pain (chief complaint) Other intervertebral disc degeneration, lumbar regionOther idiopathic peripheral autonomic neuropathyOther chronic painLong term (current) use of opiate analgesic 0 Gaby Olivares. [address] [place] [address] [address], [place], [place], [id number] , [place]. [phone] Referring Provider: Terrell Loving, [address] [place] [address], [address]. tel:[phone] [facility], [address] [place] [address], [id number] , [place] [phone] [facility] [place] No Information 0 Griffinvicky Olivares. [address] [place] [address] [address], [place], [place], [id number] , [place]. [phone] Referring Provider: Michael Harvey, [facility] [address], [place], [address]. tel:[phone] OFFICE VISIT, EST TELEMEDICINE [facility], [address] [place] [address], [id number] , [place] tel:[phone] [facility] Back Pain (chief complaint) Other intervertebral disc degeneration, lumbar regionOther idiopathic peripheral autonomic neuropathyOther chronic painLong term (current) use of opiate analgesic Feb- 0 Gaby Olivares. [address], [place], [place], [id number] , [place]. tel:[phone] Referring Provider: Michael Harvey [facility] [address], [place], [address]. tel:[phone] OFFICE VISIT, EST TELEMEDICINE [facility], [address] [place], [place], [id number] , [place] tel:[phone] [facility] Back Pain (chief complaint) Other intervertebral disc degeneration, lumbar regionOther idiopathic peripheral autonomic neuropathyOther chronic painLong term (current) use of opiate analgesicEncounte r for therapeutic drug level monitoring 0 Gaby Olivares. 1455 [facility] [address], [place], [place], [id number] , [place]. tel:[phone] Referring Provider: Terrell Loving, [address] [place], [address]. tel:[phone] OFFICE/OUTPAT IENT VISIT, [facility], [address] [place] [address], [id number] , [place] tel:[phone] [facility] Back Pain (chief complaint) tank terminal gauger (current) use of opiate analgesicOther chronic painOther idiopathic peripheral autonomic neuropathyOther intervertebral disc degeneration, lumbar regionOther intervertebral disc degeneration, thoracic regionAnxietyEnco unter for therapeutic drug level monitoring 0 Tonio Martinezcy. [address], [place], [place], [id number] , [place]. tel:[phone] Referring Provider: [facility] [address], [place], [address]. tel:[phone] OFFICE/OUTPAT IENT VISIT, [facility], [address] [place], [place], [id number] , [place] [phone] [facility] Back Pain (chief complaint) tank terminal gauger (current) use of opiate analgesicOther chronic painOther idiopathic peripheral autonomic neuropathyOther intervertebral disc degeneration, lumbar regionOther intervertebral disc degeneration, thoracic regionAnxietyEnco unter for therapeutic drug level monitoring 0 Tonio Bateman. [address] [facility] [address], [place], [place], [id number] , [place]. tel:[phone] Referring Provider: Michael Harvey [facility] [address], [place], [address]. tel:[phone] OFFICE/OUTPAT IENT VISIT, [facility], [address] [place] [address], [id number] , [place] tel:[phone] [facility] Back Pain (chief complaint) half-way (current) use of opiate analgesicOther chronic painOther idiopathic peripheral autonomic neuropathyOther intervertebral disc degeneration, lumbar regionOther intervertebral disc degeneration, thoracic regionAnxiety 0 Tonio Bateman. [address] [facility] [address], [place], [place], [id number] , [place]. tel:[phone] Referring Provider: Terrell Loving, [address] [place], [address]. [phone] OFFICE/OUTPAT IENT VISIT, [facility], [address] [place] [address], [id number] , [place] tel:[phone] [facility] Back Pain (chief complaint) AnxietyLong term (current) use of opiate analgesicOther chronic painOther idiopathic peripheral autonomic neuropathyOther intervertebral disc degeneration, lumbar regionOther intervertebral disc degeneration, thoracic region 9 Tonio Bateman. [address] [facility] [address], [place], [place], [id number] , [place]. tel:[phone] Referring Provider: Michael Harvey [facility] [address], [place], [address]. tel:[phone] OFFICE/OUTPAT IENT VISIT, [facility], [address] [place] [address], [id number] , [place] tel:[phone] [facility] Back Pain (chief complaint) AnxietyLong term (current) use of opiate analgesicOther chronic painOther idiopathic peripheral autonomic neuropathyOther intervertebral disc degeneration, lumbar regionOther intervertebral disc degeneration, thoracic region Sep- [address] [facility]. [address] [facility] [address], [place], [place], [id number] , [place]. tel:[phone] Referring Provider: Michael Harvey [facility] [address], [place], [address]. tel:[phone] OFFICE/OUTPAT IENT VISIT, EST [facility], [address] [place], [place], [id number] , [place] tel: [phone] [facility] Back Pain (chief complaint) Other intervertebral disc degeneration, lumbar regionOther intervertebral disc degeneration, thoracic regionOther idiopathic peripheral autonomic neuropathyOther chronic painLong term (current) use of opiate analgesicAnxiety 9 [facility] [facility]. [address] [facility] [address], [place], [place], [id number] , [place]. tel: [phone] Referring Provider: Michael Harvey [facility] [address] [place], [address]. tel:[phone] OFFICE/OUTPAT IENT VISIT, [facility], [address] [place], [place], [id number] , [place] tel: [phone] [facility] Back Pain (chief complaint) Other intervertebral disc degeneration, lumbar regionOther intervertebral disc degeneration, thoracic regionOther chronic painOther idiopathic peripheral autonomic neuropathyLong term (current) use of opiate analgesic Sep- 9 Griffin Marshall. 1455 [facility] [address], [place], [place], [id number] , [place]. tel:[phone] Referring Provider: Michael Harvey [facility] [address] [place], [address]. tel:[phone] OFFICE/OUTPAT IENT VISIT, EST [facility], [address] [place], [place], [id number] , [place] tel: [phone] [facility] Back Pain (chief complaint) Other intervertebral disc degeneration, lumbar regionOther intervertebral disc degeneration, thoracic regionOther chronic painOther idiopathic peripheral autonomic neuropathyLong term (current) use of opiate analgesic 9 Nyongesa Bhavana. [address] [facility] [address], [place], [id number] , [place]. tel:[phone] Referring Provider: Michael Harvey [facility] [address], [place], [address]. tel:[phone] OFFICE/OUTPAT IENT VISIT, [facility], [address] [place], [place], [id number] , [place] tel:[phone] [facility] Back Pain (chief complaint) Other chronic painOther intervertebral disc degeneration, lumbar regionOther intervertebral disc degeneration, thoracic regionOther idiopathic peripheral autonomic neuropathyLong term (current) use of opiate analgesic 9 Nyongesa Bhavana. [address] [facility] [address], [place], [id number] , [place]. tel:[phone] Referring Provider: Michael Harvey [facility] [address] [place], [address]. tel:[phone] OFFICE/OUTPAT IENT VISIT, EST [facility], [address] [place], [place], [id number] , [place] [phone] [facility] Back Pain (chief complaint) Other chronic painOther intervertebral disc degeneration, lumbar regionOther intervertebral disc degeneration, thoracic regionOther idiopathic peripheral autonomic neuropathyLong term (current) use of opiate analgesic Moongesa Bhavana. [address] [facility] [address], [place], [id number] , [place]. tel:[phone] Referring Provider: Michael Harvey [facility] [address], [place], [address]. tel:[phone] OFFICE CONSULTATION [facility], [address] [place] [address], [id number] , [place] tel:[phone] [facility] Back Pain (chief complaint) Other chronic painLow back painEncounter for therapeutic drug level monitoringLong term (current) use of opiate analgesicOther idiopathic peripheral autonomic neuropathyOther intervertebral disc degeneration, lumbar regionOther intervertebral disc degeneration, thoracic region 9 Janie Ortiz. [facility], [address], [place], [address], [place]. tel:[phone] Referring Provider: Michael Harvey, [facility] [address], [place], [address]. tel:[phone] Family History Family Member Type Diagnosis Age At Onset Problem (finding) Family history of neuro armen Payers Payer name Insurance type Covered alliance party ID Authormadhua tibrandie(s) [facility] [id number] [employer] Medicaid BL [id number] Social History Type Description Quantity Date Captured Comments Alcohol Use Details No Caffeine Use Details Unknown Tobacco Use Status Occasional cigarette smoker Smoking Status Heavy tobacco smoker Sex Female Chief Complaint And Reason For Visit From encounter dated 08/06/2023 12:40'. Back Pain (chief complaint). Description: Duration: chronic. The problem is stable. It occurs persistently. The client describes the pain as an ache, burning, sharp and tingling. Symptoms are aggravated by bending, lifting, sitting, standing, twisting, walking, housework, movement, stairs, standingon one leg and prolonged positioning. Symptoms are relieved by heat, ice, massage, pain meds/drugs,physical therapy, stretching, rest, sitting, TENS unit and chiropractic. Reason For Referral Reason For Referral No Information Plan Of Treatment Date Type Action Status Goal Creatinine. Due on due Goal AST (SGOT). Due on due Goal BIZTALK ADMINISTRATOR Paperwork. Due on due Goal MANAGING MANAGER Scanned. Due on 023 due Goal Order Annual PT. Due on due Goal ALT (SGPT). Due on due Goal Height. Due on d ue Goal Tobacco Use. Due on 023 due Goal Lipid panel. Due on due Goal Unhealthy drug u se screening. Due on due Goal Hepatitis C screening. Due o n due Goal UDT. Due on due Goal PHQ-9. Due on du e Goal Weight. Due on d ue Goal Review Allergy List. Due on due Goal Medication Recon ciliation. Due on due Goal OARS. Due on due Goal Update Social History. Due o n due Goal HPV. Due on due Goal BIZTALK ADMINISTRATOR Paperwork. Due on due Goal HPV. Due on due Goal ALT (SGPT). Due on due Goal Weight. Due on d ue Goal Creatinine. Due on due Goal Order Annual PT. Due on due Goal Review Allergy List. Due on due Goal MANAGING MANAGER Scanned. Due on due Goal AST (SGOT). Due on due Goal Hepatitis C screening. [...] Social History. Due o n due Goal MANAGING MANAGER Scanned. Due on due Goal UDT. Due on due Goal BIZTALK ADMINISTRATOR Paperwork. Due on due Goal Order Annual PT. Due on due Goal Medication Recon ciliation. Due on due Goal Weight. Due on d ue Goal PHQ-9. Due on du e Goal Unhealthy drug u se screening. Due on due Goal AST (SGOT). Due on due Goal Hepatitis C screening. Due o n due Goal OARS. Due on due Goal Lipid panel. Due on due Goal Creatinine. Due on due Goal Tobacco Use. Due on due Goal HPV. Due on due Goal Height. Due on d ue Goal Review Allergy List. Due on due Goal BIZTALK ADMINISTRATOR Paperwork. Due on due Goal Order Annual PT. Due on due Goal MANAGING MANAGER Scanned. Due on due Goal UDT. Due on due Goal Hepatitis C screening. Due o n due Goal Lipid panel. Due on due Goal Medication Recon ciliation. Due on due Goal OARS. Due on due Goal Update Social History. Due o n due Goal Tobacco Use. Due on due Goal Weight. Due on d ue Goal AST (SGOT). Due on due Goal PHQ-9. Due on du e Goal Review Allergy List. Due on due Goal Unhealthy drug u se screening. Due on due Goal Creatinine. Due on due Goal ALT (SGPT). Due on due Goal HPV. Due on due Goal Height. Due on d ue Goal Review Allergy List. Due on due Goal Update Social History. Due o n due Goal Medication Recon ciliation. Due on due Goal Order Annual PT. Due on due Goal PHQ-9. Due on du e Goal MANAGING MANAGER Scanned. Due on due Goal BIZTALK ADMINISTRATOR Paperwork. Due on due Goal UDT. Due on due Goal AST (SGOT). Due on due Goal Creatinine. Due on due Goal Lipid panel. Due on due Goal Height. Due on d ue Goal Tobacco Use. Due on due Goal Weight. Due on d ue Goal Unhealthy drug u se screening. Due on due Goal ALT (SGPT). Due on due Goal OARS. Due on due Goal Hepatitis C screening. Due o n due Goal HPV. Due on due Goal ALT (SGPT). Due on due Goal Creatinine. Due on due Goal MANAGING MANAGER Scanned. Due on due Goal Tobacco Use. Due on due Goal Review Allergy List. Due on due Goal Hepatitis C screening. Due o n due Goal PHQ-9. Due on du e Goal Order Annual PT. Due on due Goal Unhealthy drug u se screening. Due on due Goal UDT. Due on due Goal Weight. Due on d ue Goal BIZTALK ADMINISTRATOR Paperwork. Due on due Goal Medication Recon ciliation. Due on due Goal HPV. Due on due Goal Update Social History. Due o n due Goal AST (SGOT). Due on due Goal Height. Due on d ue Goal Lipid panel. Due on due Goal OARS. Due on due Goal Review Allergy List. Due on due Goal ALT (SGPT). Due on due Goal Height. Due on d ue Goal Creatinine. Due on due Goal MANAGING MANAGER Scanned. Due on due Goal Order Annual PT. Due on due Goal Medication Recon ciliation. Due on due Goal BIZTALK ADMINISTRATOR Paperwork. Due on due Goal Weight. Due on d ue Goal AST (SGOT). Due on due Goal OARS. Due on due Goal Tobacco Use. Due [...] due Goal Creatinine. Due on due Goal MANAGING MANAGER Scanned. Due on due Goal Weight. Due [...] C screening. Due o n due Goal BIZTALK ADMINISTRATOR Paperwork. Due on due Goal HPV. Due on due Goal Update Social History. Due o n due Goal Unhealthy drug u se screening. Due on due Goal ALT (SGPT). Due on due Goal Creatinine. Due on due Goal OARS. Due on due Goal BIZTALK ADMINISTRATOR Paperwork. Due on due Goal Tobacco Use. Due on due Goal MANAGING MANAGER Scanned. Due on due Goal UDT. Due on due Goal AST (SGOT). Due on due Goal Order Annual PT. Due on due Goal Medication Recon ciliation. Due on due Goal Update Social History. Due o n due Goal HPV. Due on due Goal Unhealthy drug u se screening. Due on due Goal Hepatitis C screening. [...] Goal ALT (SGPT). Due on due Goal MANAGING MANAGER Scanned. Due on due Goal UDT. Due on due Goal BIZTALK ADMINISTRATOR Paperwork. Due on due Goal HPV. Due on due Goal Creatinine. Due on due Goal Update Social History. Due o n due Goal Hepatitis C screening. Due o n due Goal Height. Due on d ue Goal OARS. Due on due Goal Lipid panel. Due on due Goal Review Allergy List. [...] Goal Tobacco Use. Due on due Goal AST (SGOT). Due on due Goal MANAGING MANAGER Scanned. Due on due Goal ALT (SGPT). Due on due Goal Lipid panel. Due on due Goal PHQ-9. Due on du e Goal Weight. Due on d ue Goal Hepatitis C screening. Due o n due Goal UDT. Due on due Goal BIZTALK ADMINISTRATOR Paperwork. Due on due Goal Creatinine. Due on due Goal ALT (SGPT). Due on due Goal BIZTALK ADMINISTRATOR Paperwork. Due on due Goal AST (SGOT). Due on due Goal UDT. Due on due Goal OARS. Due on due Goal HPV. Due on due Goal MANAGING MANAGER Scanned. Due on due Goal Order Annual [...] due Goal UDT. Due on due Goal BIZTALK ADMINISTRATOR Paperwork. Due on due Goal OARS. Due on due Goal HPV. Due on due Goal Creatinine. Due on due Goal Tobacco Use. Due on due Goal Hepatitis C screening. Due o n due Goal MANAGING MANAGER Scanned. Due on due Goal AST (SGOT). [...] Goal Weight. Due on d ue Goal BIZTALK ADMINISTRATOR Paperwork. Due on due Goal Tobacco Use. [...] Goal Height. Due on d ue Goal MANAGING MANAGER Scanned. Due on due Goal Review Allergy [...] Goal AST (SGOT). Due on due Goal BIZTALK ADMINISTRATOR Paperwork. Due on due Goal Creatinine. Due on due Goal MANAGING MANAGER Scanned. Due on due Goal Hepatitis C [...] Goal PHQ-9. Due on du e Goal MANAGING MANAGER Scanned. Due on due Goal Creatinine. Due on due Goal Unhealthy drug u se screening. Due on due Goal Lipid panel. Due on due Goal BIZTALK ADMINISTRATOR Paperwork. Due on due Goal Height. Due [...] u se screening. Due on due Goal MANAGING MANAGER Scanned. Due on due Goal OARS. Due on due Goal BIZTALK ADMINISTRATOR Paperwork. Due on due Goal AST (SGOT). [...] due Goal Creatinine. Due on due Goal BIZTALK ADMINISTRATOR Paperwork. Due on due Goal Lipid panel. Due on due Goal HPV. Due on due Goal Medication Recon ciliation. Due on due Goal MANAGING MANAGER Scanned. Due on due Goal ALT (SGPT). Due on due Goal BIZTALK ADMINISTRATOR Paperwork. Due on due Goal MANAGING MANAGER Scanned. Due on due Goal UDT. Due on due Goal Creatinine. Due on due Goal Order Annual PT. Due on due Goal AST (SGOT). Due on due Goal OARS. Due on due Goal ALT [...] Goal Weight. Due on d ue Goal BIZTALK ADMINISTRATOR Paperwork. Due on due Goal AST (SGOT). Due on due Goal Creatinine. Due on due Goal UDT. Due on due Goal Order Annual PT. Due on due Goal OARS. Due on due Goal PHQ-9. Due on du e Goal Unhealthy drug u se screening. Due on due Goal ALT (SGPT). Due on due Goal Review Allergy List. Due on due Goal MANAGING MANAGER Scanned. Due on due Goal Height. Due [...] due Goal OARS. Due on due Goal BIZTALK ADMINISTRATOR Paperwork. Due on due Goal Order Annual [...] Social History. Due o n due Goal MANAGING MANAGER Scanned. Due on due Goal PHQ-9. Due on du e Goal HPV. Due on due Goal Order Annual PT. Due on due Goal MANAGING MANAGER Scanned. Due on due Goal Tobacco Use. Due on due Goal Update Social History. Due o n due Goal Hepatitis C screening. Due o n due Goal ALT (SGPT). Due on due Goal BIZTALK ADMINISTRATOR Paperwork. Due on due Goal Review Allergy [...] Goal PHQ-9. Due on du e Goal BIZTALK ADMINISTRATOR Paperwork. Due on due Goal Review Allergy [...] Goal PHQ-9. Due on du e Goal MANAGING MANAGER Scanned. Due on due Goal Order Annual PT. Due on due Goal Height. Due on d ue Goal Tobacco Use. Due on due Goal Creatinine. Due on due Goal OARS. Due on due Goal BIZTALK ADMINISTRATOR Paperwork. Due on due Goal MANAGING MANAGER Scanned. Due on due Goal ALT (SGPT). [...] due Goal Creatinine. Due on due Goal BIZTALK ADMINISTRATOR Paperwork. Due on due Goal Order Annual PT. Due on due Goal MANAGING MANAGER Scanned. Due on due Goal OARS. Due [...] Goal Tobacco Use. Due on due Goal BIZTALK ADMINISTRATOR Paperwork. Due on due Goal PHQ-9. Due on du e Goal Creatinine. Due on due Goal Order Annual PT. Due on due Goal Update Social History. Due o n due Goal AST (SGOT). Due on due Goal Height. Due on d ue Goal OARS. Due on due Goal Medication Recon ciliation. Due on due Goal Weight. Due on d ue Goal MANAGING MANAGER Scanned. Due on due Goal ALT (SGPT). Due on due Goal Update Social History. Due o n due Goal MANAGING MANAGER Scanned. Due on due Goal PHQ-9. Due on du e Goal BIZTALK ADMINISTRATOR Paperwork. Due on due Goal ALT (SGPT). [...] due Goal Creatinine. Due on due Goal MANAGING MANAGER Scanned. Due on due Goal ALT (SGPT). Due on due Goal BIZTALK ADMINISTRATOR Paperwork. Due on due Goal OARS. Due [...] Goal Weight. Due on d ue Goal BIZTALK ADMINISTRATOR Paperwork. Due on due Goal MANAGING MANAGER Scanned. Due on due Goal ALT (SGPT). Due on due Goal UDT. Due on due Goal ALT (SGPT). Due on due Goal BIZTALK ADMINISTRATOR Paperwork. Due on due Goal Creatinine. Due on due Goal MANAGING MANAGER Scanned. Due on due Goal OARS. Due [...] Order Annual PT. Due on due Goal MANAGING MANAGER Scanned. Due on due Goal BIZTALK ADMINISTRATOR Paperwork. Due on due Goal Review Allergy [...] Review Allergy List. Due on due Goal MANAGING MANAGER Scanned. Due on due Goal Height. Due on d ue Goal OARS. Due on due Goal Order Annual PT. Due on due Goal BIZTALK ADMINISTRATOR Paperwork. Due on due Goal Creatinine. Due on due Goal ALT (SGPT). Due on due Goal OARS. Due on due Goal Height. Due on d ue Goal Medication Recon ciliation. Due on due Goal MANAGING MANAGER Scanned. Due on due Goal Update Social History. Due o n due Goal PHQ-9. Due on du e Goal UDT. Due on due Goal Order Annual PT. Due on due Goal Review Allergy List. Due on due Goal Weight. Due on d ue Goal AST (SGOT). Due on due Goal BIZTALK ADMINISTRATOR Paperwork. Due on due Goal Tobacco Use. Due on due Goal PHQ-9. Due on du e Goal OARS. Due on due Goal BIZTALK ADMINISTRATOR Paperwork. Due on due Goal Creatinine. Due [...] Goal Height. Due on d ue Goal MANAGING MANAGER Scanned. Due on due Goal Medication Recon ciliation. Due on due Goal Tobacco Use. Due on due Goal OARS. Due on due Goal Weight. Due on d ue Goal MANAGING MANAGER Scanned. Due on due Goal Creatinine. Due on due Goal Review Allergy List. Due on due Goal ALT (SGPT). Due on due Goal Update Social History. Due o n due Goal Order Annual PT. Due on due Goal UDT. Due on due Goal Medication Recon ciliation. Due on due Goal BIZTALK ADMINISTRATOR Paperwork. Due on due Goal AST (SGOT). Due on due Goal PHQ-9. Due on du e Goal Height. Due on d ue Goal OARS. Due on due Goal ALT (SGPT). Due on due Goal Update Social History. Due o n due Goal BIZTALK ADMINISTRATOR Paperwork. Due on due Goal Review Allergy List. Due on due Goal MANAGING MANAGER Scanned. Due on due Goal UDT. Due on due Goal AST (SGOT). Due on due Goal Height. Due on d ue Goal Order Annual PT. Due on due Goal Weight. Due on d ue Goal PHQ-9. Due on du e Goal Medication Recon ciliation. Due on due Goal Tobacco Use. Due on 021 due Appointment Williams [place] graciela #[id number] Interlaminar RACIEL BOOKED Appointment Whit [place] BOOKED Future Order: Lab Order Drug Jessica t Def 22+ Classes (G0483), Ordered on: Ordered Future Order: Lab Order Drug Jessica t Def 22+ Classes ([id number]), Ordered on: Ordered Future Order: Lab Order Drug Jessica t Def 22+ Classes ([id number]), Ordered on: Ordered Future Order: Lab Order COMPLIAN CE DRUG ANALYSIS, URINE, WITH MED REPORT ([id number]), Ordered on: Ordered Future Order: Lab Order Drug Jessica t Def 22+ Classes ([id number]), Ordered on: Ordered History Of Present Illness Encounter Date Complaint History Of Prese nt Illness Back Pain Duration: chroni c. The problem is stable. It occurs persistently. The client describes the pain as an ache, burning, sharp and tingling. Symptoms are aggravated by bending, lifting, sitting, standing, twisting, walking, housework, movement, stairs, standing on one leg and prolonged positioning. Symptoms are relieved by heat, ice, massage, pain meds/drugs, physical therapy, stretching, rest, sitting, TENS unit and chiropractic. 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 Pain has been stable this month. Denies any new symptoms or changes. S/p T8-T9 IESI on 07/31/[address] Ramirez provided 20% relief. Have seen a slight improvement in pain. She states the first day following the procedure was rough but it improved and she has been able to sleep for most of the days. Reassured that she will likely notice further improvement since it is not upto 2 weeks, yet. Inquires about receiving an RACIEL for the low back.Complains of continued R heel swelling. Notes she has done PT many times without much benefit.Reports current medication regimen provides 85% pain relief and allows for increased functionality. Continues to utilize Percocet 5-325mg 5x/day with significant benefit. Denies OIC or other side effects from current medication regimen. No other concerns today. Back Pain Severity level i s 7. The problem is stable. It occurs persistently. Symptoms are relieved by pain meds/drugs. Comments: Elisa cervantes is a 43 y/o female who presents via [facility] for virtual follow up and medication refill in the setting of chronic mid back pain with radiation into the ribcage and low back pain with radiation into the BLE. Pain has been worse this month. Denies any new symptoms or changes in regards to her chronic pain. Will reschedule the TESI soon. Of note, patient was recently in the ER due to developing a tooth abscess. She states she was administered a shot of Dilaudid for the pain and was prescribed antibiotics for the infection. Notes she had finished her round of antibiotics today.Reports current medication regimen provides 85% pain relief and allows for increased functionality. Continues to utilize Percocet 5-325mg 5x/day with significant benefit. Denies OIC or other side effects from current medication regimen. No other concerns today. Back Pain Severity level i s 9. Duration: chronic. The problem is worsening. It occurs persistently. Symptoms are relieved by pain meds/drugs. Comments: Elisa cervantes is a 43 y/o female who presents via [facility] for virtual follow up and medication refill in the setting of chronic mid back pain with radiation into the ribcage and low back pain with radiation into the BLE. Pain has been worse this month. Denies any new symptoms or changes in regards to her chronic pain. Continues to consider the SCS trial.R foot pain, starting at the back of the heel and shooting to the achilles, continues to be the most bothersome. Notes recent achilles tendon injury and diagnosis of achilles tendinitis. She states podiatry had recommended surgery for the bone spurs at the achilles region but she is hesitant due to the large possibility of the bone spurs growing back. Had discontinued wearing a boot as it caused increased low back pain. Patient was in the ER recently due to intense bleeding from her menstrual cycle. Tests and evaluation from the doctors showed a 10 inch uterine fibroid in the uterus. Notes she will be consulting with an DIRECT SUPPORT STAFF specialist for further care.Reports current medication regimen provides 80% pain relief and allows for increased functionality. Continues to utilize Percocet 5-325mg 5x/day with significant benefit. Denies OIC or other side effects from current medication regimen. No other concerns today. Back Pain Severity level i s 4. Duration: chronic. The problem is worsening. It occurs persistently. The client describes the pain as an ache, burning, sharp and tingling. Symptoms are aggravated by bending, lifting, running, sitting, standing, twisting, walking, housework, movement, stairs and prolonged positioning. Symptoms are relieved by heat, lying down, massage, pain meds/drugs, rest, sitting, chiropractic and changing positions. 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 Pain has been worse this month. Believes the R foot pain is causing the increased low back pain. Unable to proceed with the injection at this time due to being on antibiotics for reoccurring pneumonia. R foot pain has been the most bothersome. Notes there are bone spurs sticking out from her achilles region. She states she will be starting PT on 05/26/23 and will continue it for 3 months. If PT is not beneficial for the pain, she will consider pursuing foot surgery. Have also discontinued the boot as it was causing her to ambulate incorrectly and worsened hip pain.Reports current medication regimen provides 80% pain relief and allows for increased functionality. Rates her pain as 9/10 without medications and 4/10 with medications. Continues to utilize Percocet 5-325mg 5x/day with significant benefit. Denies OIC or other side effects from current medication regimen. No other concerns today. Back Pain Severity level i s 7. Duration: chronic. The problem is worsening. It occurs persistently. Comments: Elisa cervantes is a 43 y/o female who presents via [facility] for a virtual follow-up and medication refill in the setting of chronic mid-back and low back pain. Pain has been worse since [place]. Pain fluctuates between being worse Thinks she may be starting pre-menopause. She notes wanting to pursue her RACIEL and will schedule as able.Of note, patient recently passed her NCLEX exam.Current medication regimen provides 80% pain relief for increased functionality. Continues to utilize Percocet 5-325mg 5x/day with significant benefit. Denies OIC or other side effects from current medication regimen. No other concerns today. Comments: Elisa cervantes is a 43 y/o female who presents via [facility] for a virtual follow-up and medication refill [...] 43 y/o female who presents today via [facility] for follow up and medication refill in [...] current medication regimen. No other concerns today. Mar-13-2023 Back Pain Severity level i s mild-moderate. [...] a 42 y/o female who presents via [facility] for virtual follow up and medication refill [...] are relieved by pain meds/drugs and rest. Sep-15-2022 Back Pain Severity level i s 7. [...] a 42 y/o female who presents via [facility] for a virtual follow up and medication [...] She has also been studying for the [employer] as she failed her previous attempt.Reports current [...] a 42 y/o female who presents via [facility] for a virtual follow up and medication [...] regimen. No other concerns today. 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 Denies side effects from current medication regimen. [...] 42 y/o female, meeting with us via [facility] for virtual follow up and medication refill in the setting of mid to low back pain. She states her pain is worse this month. 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 She inquires about scheduling her injection for her thoracic pain as she has finally cleared the hold on her account. She states she is currently studying for [employer] and will be going out of town [...] 41 y/o female, meeting with us via [facility] for virtual follow up and medication refill in the setting of mid to low back pain. She states her pain is stable this month. 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 She reports she is currently on a new weight loss program and has lost 16lbs since [facility]. Reports current medication regimen provides 80% pain [...] stable. 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 She would like to schedule the thoracic TESI but she is waiting for her insurance to resolve a previous billing issue from her last injection. She reports since [facility] she fell down the stairs on 10/24/21. [...] y/o female, meeting with us today via [facility] Virtual Visit for follow up and medication refill. Mid-low back pain persists this month. 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 She [...] is applying for a new job at [employer] [place] current medication regimen provides [...] school. She is also working in a jail, which can aggravate the mid back. States [...] y/o female, meeting with us today via [facility] Virtual Visit for follow up and medication refill. Mid-low back pain persists this month, but medication does help to some extent. She feels her pain is moderately managed, but on work days esthela in severe. She would like to schedule thoracic ESIShe states she has recently started clinicals at [facility] and working a new job as [employer] current medication regimen provides 80% pain relief and allows for increased functionality. Denies side effects from current medication regimen.No other concerns today. Back Pain (comments) Whit is meeting with us today via [facility] Virtual Visit for follow up and medication [...] mid-back. She has been following up at [facility] twice a week for the last 6 months. She is leaving town on Thursday, traveling to [place] and [place].Reports current medication regimen provides 80% pain relief [...] Whit is meeting with us today via [facility] Virtual Visit for following up and medication refill. Lower-mid back pain persists this month, but medication does help to some extent. She feels her pain is well managed at this time. She has been walking more and working on calorie deficit. She has also quite drinking soda and has lost 27lbs. She has bene seeking morning caregiver twice a week and is working on scheduling massage therapy twice a month.Reports persistent restless legs. If she missed a dose of percocet the restlessness is significantly worse. She is following up with a travel trailer components assembler for an iron study.Reports current medication regimen [...] a chiropractor with benefit. She talked to [facility] and insurance will cover seated upright MRI. She is having trouble breathing while laying on her back due to edema (orthopnea). She is following up with travel trailer components assembler at [facility].Reports current medication regimen provides 80-85% pain relief [...] her normal pain. She went to [facility] to renae her hips which is [...] with prednisone until her consult with an bulk folder. The prednisone is helpful for both swelling and pain, but is only temporary. She was also recently diagnosed with hemolytic anemia, following up with hematology at [facility] in October.Reports current medication regimen provides 80-85% pain relief and allows for increased functionality. Denies side effects from current medication regimen.No other concerns today. Back Pain (comments) Whit is meeting with us today via [facility] Virtual Visit for following up and medication refill. Mid-low back pain persists this month, tolerable with medication.Reports leg swelling which was resolved after taking prednisone form ER visit. She is scheduled to f/u with RA at [employer] for evaluation. He doctor also suspects hemolytic anemia, so he referred her to a travel trailer components assembler as well.Reports current medication regimen provides 80-85% [...] Whit is meeting with us today via [facility] Virtual Visit for following up and medication [...] medications.Of note, she will be traveling to [place] in the middle of May for IVF.Patient [...] at his job from working at an [employer] company which causes increase stress and she believes [...] meds/drugs and rest. 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 Seeing dentist. Still going through [employer] program - needs a DNC d/t to [...] weather. She has consulted a doctor in [place] who has reason to believe she has [...] hormone medications.Currently working with a clinic in [place] regarding her IBF.Presents with #21 - on [...] note, pt will be undergoing IVF in [place] later this month. No other concerns today. [...] pain r/t neuropathy. She was referred to [facility] by Dr. Harvey. Pain began about 22 [...] moving and her new PCP referred to [facility]. Of note, she has started IUI and is in the two week holding period to see if she is . Treatment tried:PT was completed years ago, has not been able to go recently d/t medical bills. Pool therapy at the but insurance had only covered 2 sessions. yoga to help with stretching and pain. Injections at [facility] were helpful for 2 weeks and then [...] No Information Assessments Type Assessment Date assessment Anxiety impression Hx of anxiety. Currently followi ng up with Dr. Harvey assessment Chronic pain syndrome impression Whit is a 43 y/o female here with chronic mid back pain with radiation into the ribcage and low back pain with radiation into the BLE. Hx of neuropathy. Pain has progressively worsened over the past several years assessment Other idiopathic peripheral auto nomic neuropathy impression Ongoing neuropathy i n the feet. R foot pain, starting at the R heel and shooting up to the achilles, have been her primary concern. Notes recent achilles tendon injury and diagnosis of achilles tendinitis. Podiatry had recommended surgery for the bone spurs sticking out of the achilles region but she is hesitant due to the large possibility of the bone regrowing assessment Radiculopathy, thoracic region S impression Ongoing mid back amanda n, primarily along the bra line, with radiation into the rib cage. S/p T8-T9 IESI on 07/31/[address] Ramirez provided 20% pain relief. Thoracic MRI on 02/08/21CONCLUSION:1. 3 mm disc protrusions on the right at T10-11 and T8-9 with mild right ventral cord flattening at T8-9.2. T11-12, T10-11 and T8-9 disc degeneration.3. T3-4, T2-3 and T1-2 disc degeneration with a 3 mm right posterolateral disc protrusion at T1-2.4. No cord abnormality, and no neoplasm, fracture or infection assessment Radiculopathy, lumbar region Jul impression Ongoing low back amanda n with radiation into the BLE. Previous BL L4-L5, L5-S1 Diagnostic RFW with minimal benefit and resulted in her being wheelchair bound for a few days.Patient is a candidate for the Lumbar SCS trial as it would cover the radicular symptoms and neuropathic pain in the feet. Currently hesitant to proceed.Lumbar MRI on 02/08/21 CONCLUSION:1. Mild L2-3 disc degeneration.2. Mild facet arthropathy on the left at L5-S1 and bilaterally at L4-53. No disc herniation, stenosis or impingement.4. 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 MME is 37.5mg/day. Patient has been managing medications appropriately, and is not confused or oversedated during our office visit. MNPMP queried and showed no outside prescriptions. UDT results from 05/11/23 reviewed and are consistent with current medication regimen. Appropriate to continue with opioid therapy Mental Status Date Cognitive Assessment Orientation - [place] ed to time, place, person, situation. Patient Care Teams Name Effective Dates (start - stop) Status Members No Information
== END 2023-08-13 10:42 | disposition home or self-care (01) ==
LOC: LKVREF 10:42
PROVIDERS: PCP Family Medicine; Visit Provider Family Medicine
DX: Z00.00 Encounter for general adult medical examination without abnormal findings (principal); E03.9 Hypothyroidism, unspecified; N92.0 Excessive and frequent menstruation with regular cycle; I10 Essential (primary) hypertension; D25.9 Leiomyoma of uterus, unspecified
CPT/HCPCS: 84443

== ENCOUNTER 2023-08-25 14:17 | Outpatient (CLI) | payer OTHER, BC, SELFPAY ==
--- NOTE | 2023-08-25 14:00 | CRLHL7_ITS ---
For Patients: As a result of the Century Cures Act, medical imaging exams and procedure reports are released immediately into your electronic medical record. You may view this report before your referring provider. If you have questions, please contact your health care provider. INDICATION: LEIOMYOMA COMPARISON: none TECHNIQUE: 2D logan scale and color Doppler images were acquired of the pelvis using a transabdominal and transvaginal approach. FINDINGS: There is a left fundal fibroid measuring 6.3 x 5.7 x 5.7 cm. Uterus measures 9.9 cm in length by 5.9 cm in AP diameter by 10.7 cm in transverse dimension. The endometrial lining measures 12 mm in composite thickness. The right ovary measures 5.2 x 4.1 x 4.1 cm in size and the left ovary measures 8.4 x 5.0 x 5.7 cm.. The ovaries demonstrate normal arterial and venous blood flow on color Doppler analysis. Left ovarian cysts are present measuring 4.7 x 3.8 x 4.9 cm and 4.4 x 2.8 x 4.0 cm. Right ovarian cyst also noted measuring 4.4 x 3.4 x 3.2 cm. There are no suspicious fluid collections within the cul-de-sac. IMPRESSION: Left uterine fundal fibroid measuring 6.3 cm. Endometrial thickness 12 millimeters. No endometrial fluid. Bilateral ovarian cysts measuring up to 4.9 cm. Dictated by Yasmani Spann MD @ 08/26/2023 10:28:17 AM (Electronically Signed)
--- OUTSIDE RECORDS SUMMARY | 2023-08-25 14:21 | XMS_ITS | Continuity of Care Document ---
Author Name Unknown Organization [facility] Address [address] [place] [address] Care Team Providers Care Acid Condenser Name Role Phone [facility] Unavailable Unav ailable Procedures Procedure Date Facet Jt Inj Lumbar LEFT Facet Jt Inj Lumbar RIGHT Facet Inj Lumbar 2nd Level LEFT 021 Facet Inj Lumbar 2nd Level RIGHT 2020 Advance Directives Directive Yes / No Effective Date File Name No Information Encounters Encounter Description Practice Location Reason(s) For Visit Diagnoses Date Provider Providers Copied on Encounter [facility], [address] [place], [place], [id number], [facility] No Information [facility]. [address] [place], [place], [id number], . tel:[phone] Referring Provider: Bonnie Ramirez, [address] [place], [address]. tel:[phone] Family History Family Member Type Diagnosis Age At Onset No Information Payers Payer name Insurance type Covered constitution party ID Authoriza tibrandie(s) [facility] CI [id number] Social History Type Description Quantity Date Captured [...]
--- OUTSIDE RECORDS SUMMARY | 2023-08-25 14:21 | XMS_ITS | Continuity of Care Document ---
Author Name Unknown Organization [facility] enter Address [address] [place] [address] Phone Care Team Providers Care Police Superintendent Name Role Phone [facility] Unavailable Unava ilable Procedures Procedure Date INTERLAMINAR LMBR OR SAC INTERLAMINAR CRV OR THRC INTERLAMINAR CRV OR THRC No Charge For Visit Per Prov Advance Directives Directive Yes / No Effective Date File Name No Information Encounters Encounter Description Practice Location Reason(s) For Visit Diagnoses Date Provider Providers Copied on Encounter [facility], [address] [place] [address], [id number], tel:[phone] [place] [address] No Information Sep-2 3 [facility]. [address] [place] [address], [id number], [place]. tel:[phone] Referring Provider: Bonnie Ramirez, [address] [place], [address] . tel:[phone] [facility], [address] [place] [address], [id number], tel:[phone] [place] [address] No Information Sep-0 3 [facility]. [address] [place] [address], [id number], . tel:[phone] Referring Provider: Bonnie Ramirez, [address] [facility] [place], [address] . tel:[phone] [facility], [id number] [place] [address] 11 [facility] [address], [place], [id number], tel:[phone] [facility] No Information 0 2 [facility]. [address] [place] [address], [id number], . tel:[phone] Referring Provider: Angel Lima [address], [place], [address]. tel:[phone] Family History Family Member Type Diagnosis Age At Onset No Information Payers Payer name Insurance type Covered democrat ID Noreen foster(s) [facility] [id number] [employer] BL [id number] Social History Type Description Quantity Date Captured [...]
--- OUTSIDE RECORDS SUMMARY | 2023-08-25 14:21 | XMS_ITS | Continuity of Care Document ---
Author Name Unknown Organization [facility] Address [address] [place] [address] [address] [place] [address] Phone Care Team Providers Care Director Of Casework Department Name Role Phone Walt Dang MD Unavailable Unavailable Procedures Procedure Date Office consultation, [facility] 7 Advance Directives Directive Yes / No Effective Date File Name No Information Encounters Encounter Description Practice Location Reason(s) For Visit Diagnoses Date Provider Providers Copied on Encounter Office consultation, moderate [facility], [address] [place], [place] [address], [address], [place] tel:[phone] [facility] No Information 7 Laurence Godoy. [facility], [address] [place] [address], [address], [id number] , . tel:[phone] Referring Provider: Walt Arzate, [facility] [address], [address], [address] . tel:[phone] Family History Family Member Type Diagnosis Age At Onset No Information Payers Payer name Insurance type Covered libertarian ID Authoriza tibrandie(s) [facility] CI [id number] Social History Type Description Quantity Date [...]
--- OUTSIDE RECORDS SUMMARY | 2023-08-25 14:22 | XMS_ITS | Continuity of Care Document ---
Author Name Unknown Organization [facility] Address [address] [facility] [place] [address] Phone Care Team Providers Care Paper Pattern Inspector Name Role Phone Bonnie Ramirez MD Unavailable Unavailable Allergies, Adverse Reactions, Alerts Substance Reaction Status Criticality PENICILLIN HivesHivesHives Active No Informati on DYE Congestion of throatFacial swelling Activ e No Information Medications Medication Instructions Dosage Effective Dates (start [...] day as needed 0.25 MG - Active meloxicam 15 mg tablet take 1 tablet by oral route every day with food - Active sertraline 100 mg tablet take [...] 900 MG - Active Procedures Procedure Date INTERLAMINAR LMBR OR SAC OR CAUDAL Sep- OFFICE/OUTPATIENT VISIT, EST INTERLAMINAR CRV OR THRC [...] Diagnoses Date Provider Providers Copied on Encounter [facility], [address] [place], [place], [id number] , [place] [phone] [facility] Radiculopathy, lumbar region Sep-2 0- 3 James Nicole. [address] [place], [place], [id number] , [place]. tel:[phone] Referring Provider: Michael Harvey [facility] [address] [place], [address]. tel:[phone] OFFICE/OUTPAT IENT VISIT, [facility], [address] [place] [address], [id number] , [place] tel:[phone] [facility] Back Pain (chief complaint) AnxietyChronic pain syndromeOther idiopathic peripheral autonomic neuropathyRadicul opathy, thoracic regionRadiculopat hy, lumbar regionLong term (current) use of opiate analgesic Sep-0 3 Tonio Bateman. [address] [facility] [address], [place], [place], [id number] , [place]. tel:[phone] Referring Provider: Michael Harvey [facility] [address], [place], [address]. tel:[phone] [facility], [address] [place], [place], [id number] , [place] tel:[phone] [facility] Radiculopathy, thoracic region Sep-0 3 James Nicole. [address] [place], [place], [id number] , [place]. tel:[phone] Referring Provider: Michael Harvey, [facility] [address], [place], [address]. [phone] OFFICE VISIT, EST TELEMEDICINE [facility], [address] [place] [address], [id number] , [place] tel:[phone] [facility] Back Pain (chief complaint) AnxietyChronic pain syndromeOther idiopathic peripheral autonomic neuropathyRadicul opathy, thoracic regionRadiculopat hy, lumbar regionLong term (current) use of opiate analgesic 3 Tonio Bateman. [address] [address], [place], [place], [id number] , [place]. tel:[phone] OFFICE VISIT, EST TELEMEDICINE [facility], [address] [place] [address], [id number] , [place] tel:[phone] [facility] Back Pain (chief complaint) AnxietyChronic pain syndromeOther idiopathic peripheral autonomic neuropathyRadicul opathy, thoracic regionRadiculopat hy, lumbar regionLong term (current) use of opiate analgesic 3 Tonio Bateman. [address] [address], [place], [place], [id number] , [place]. tel:[phone] Referring Provider: Terrell Loving, [address] [place] [address], [address]. [phone] [facility], [address] [place] [address], [id number] , [place] tel:[phone] [facility] No Information 3 Tonio Bateman. [address], [place], [place], [id number] , [place]. tel:[phone] Referring Provider: Terrell Loving, [address] [place] [address], [address]. tel:[phone] OFFICE/OUTPAT IENT VISIT, [facility], [address] [place], [place], [id number] , [place] tel:[phone] [facility] Back Pain (chief complaint) AnxietyOther idiopathic peripheral autonomic neuropathyRadicul opathy, thoracic regionLong term (current) use of opiate analgesicChronic pain syndromeRadiculop athy, lumbar region Clyde- 3 Nyongesa Bhavana. [address] [facility] [address], [place], [id number] , [place]. [phone] Referring Provider: Michael Harvey, [facility] [address], [place], [address]. [phone] OFFICE VISIT, [facility], [address] [place] [address], [id number] , [place] tel:[phone] [facility] Back Pain (chief complaint) AnxietyOther idiopathic peripheral autonomic neuropathyOther intervertebral disc degeneration, lumbar regionRadiculopat hy, thoracic regionLong term (current) use of opiate analgesic March- 3 Nyongesa Bhavaan. [address] [facility] [address], [place], [id number] , [place]. [phone] Referring Provider: Terrell Loving, [address] [place] [address], [address]. [phone] OFFICE VISIT, [facility], [address] [place] [address], [id number] , [place] tel:[phone] [facility] Back Pain (chief complaint) Other intervertebral disc degeneration, lumbar regionAnxietyOthe r idiopathic peripheral autonomic neuropathyRadicul opathy, thoracic regionLong term (current) use of opiate analgesic Apr- 3 Nyongesa Bhavana. [address] [facility] [address], [place], [id number] , [place]. [phone] Referring Provider: Terrell Loving, [address] [place] [address], [address]. [phone] OFFICE VISIT, [facility], [address] [place], [place], [id number] , [place] tel:[phone] [facility] Pain [facility] Back Pain (chief complaint) AnxietyOther idiopathic peripheral autonomic neuropathyOther intervertebral disc degeneration, thoracic regionOther intervertebral disc degeneration, lumbar regionRadiculopat hy, thoracic regionLong term (current) use of opiate analgesic 3 [facility] Bhavana. [address] [facility] [address], [place], [id number] , [place]. tel:[phone] Referring Provider: Terrell Loving, [address] [place] [address], [address]. [phone] [facility], [address] [place] [address], [id number] , [place] tel:[phone] [facility] Radiculopathy, thoracic region 3 Luis Miguel Tejada. [address] [place], [place], [id number] , [place]. tel: [phone] [facility], [address] [place] [address], [id number] , [place] tel:[phone] [facility] [place] No Information 3 [facility] Bhavana. [address] [facility] [address], [place], [id number] , [place]. tel:[phone] Referring Provider: Michael Harvey [facility] [address], [place], [address]. [phone] OFFICE/OUTPAT IENT VISIT, EST [facility], [address] [place] [address], [id number] , [place] tel:[phone] [facility] Back Pain (chief complaint) AnxietyOther idiopathic peripheral autonomic neuropathyOther intervertebral disc degeneration, thoracic regionOther intervertebral disc degeneration, lumbar regionRadiculopat hy, thoracic regionLong term (current) use of opiate analgesic 3 [place] Bhavana. [address] [facility] [address], [place], [id number] , [place]. tel:[phone] Referring Provider: [facility] [address], [place], [address]. [phone] OFFICE VISIT, EST TELEMEDICINE [facility], [address] [place] [address], [id number] , [place] tel: [phone] [facility] Back Pain (chief complaint) AnxietyOther idiopathic peripheral autonomic neuropathyOther intervertebral disc degeneration, thoracic regionOther intervertebral disc degeneration, lumbar regionRadiculopat hy, thoracic regionLong term (current) use of opiate analgesic 0- 3 Nyongesa Bhavana. [address] [facility] [address], [place], [place], [id number] , [place]. tel: [phone] OFFICE VISIT, EST TELEMEDICINE [facility], [address] [place] [address], [id number] , [place] tel: [phone] [facility] Back Pain (chief complaint) AnxietyOther idiopathic peripheral autonomic neuropathyOther intervertebral disc degeneration, thoracic regionOther intervertebral disc degeneration, lumbar regionRadiculopat hy, thoracic regionLong term (current) use of opiate analgesic 2 Nyongesa Bhavana. [address] [facility] [address], [place], [place], [id number] , [place]. tel:[phone] Referring Provider: Terrell Loving, [address] [place] [address], [address]. [phone] OFFICE VISIT, EST [facility], [address] [place] [address], [id number] , [place] tel: [phone] [facility] Back Pain (chief complaint) AnxietyOther idiopathic peripheral autonomic neuropathyOther intervertebral disc degeneration, thoracic regionOther intervertebral disc degeneration, lumbar regionLong term (current) use of opiate analgesicRadiculo armen, thoracic region Nov 2 Nyongesa Bhavana. [address] [facility] [address], [place], [place], [id number] , [place]. tel:[phone] Referring Provider: Terrell Loving, [address] [place] [address], [address]. tel:[phone] OFFICE VISIT, EST [facility], [address] [place] [address], [id number] , [place] tel:[phone] [facility] Back Pain (chief complaint) AnxietyOther idiopathic peripheral autonomic neuropathyOther intervertebral disc degeneration, thoracic regionOther intervertebral disc degeneration, lumbar regionLong term (current) use of opiate analgesic 2 Tonio Bateman. [address] [facility] [address], [place], [id number] , [place]. [phone] OFFICE/OUTPAT IENT VISIT, EST [facility], [address] [place], [place], [id number] , [place] tel:[phone] [facility] Back Pain (chief complaint) AnxietyOther idiopathic peripheral autonomic neuropathyOther intervertebral disc degeneration, thoracic regionOther intervertebral disc degeneration, lumbar regionLong term (current) use of opiate analgesicEncounte r for therapeutic drug level monitoring 2 Griffin Marshall. [address]55 [facility] [address], [place], [id number] , [place]. [phone] Referring [facility]: [facility] [address], [place], [address]. tel:[phone] [facility], [address] [place], [place], [id number] , [place] [phone] [facility] No Information 2 Griffin Marshall. [address] [facility] [address], [place], [id number] , [place]. [phone] Referring Provider: [facility] [address], [place], [address]. tel:[phone] OFFICE VISIT, EST TELEMEDICINE [facility], [address] [place], [place], [id number] , [place] tel:[phone] [facility] Back Pain (chief complaint) AnxietyOther idiopathic peripheral autonomic neuropathyOther intervertebral disc degeneration, thoracic regionOther intervertebral disc degeneration, lumbar regionPain in right handLong term (current) use of opiate analgesic 2 Celine Bhavana. [address] [facility] [address], [place], [id number] , [place]. tel:[phone] Referring Provider: Terrell Loving, [address] [place] [address], [address]. [phone] [facility], [address] [place], [place], [id number] , [place] tel:[phone] [facility] [place] Radiculopathy, thoracic region 2 Nyongesa Bhavana. [address] [facility] [address], [place], [id number] , [place]. tel:[phone] OFFICE VISIT, EST TELEMEDICINE [facility], [address] [place] [address], [id number] , [place] tel:[phone] [facility] Pain [facility] Back Pain (chief complaint) AnxietyOther idiopathic peripheral autonomic neuropathyOther intervertebral disc degeneration, thoracic regionOther intervertebral disc degeneration, lumbar regionPain in right handLong term (current) use of opiate analgesic 2 Nyongesa Bhavana. [address] [facility] [address] [facility] [address], [place], [id number] , [place]. tel:[phone] Referring Provider: Michael Harvey, [facility] [address], [place], [address]. [phone] OFFICE VISIT, EST TELEMEDICINE [facility], [address] [place] [address], [id number] , [place] tel:[phone] [facility] Back Pain (chief complaint) AnxietyOther idiopathic peripheral autonomic neuropathyOther intervertebral disc degeneration, thoracic regionOther intervertebral disc degeneration, lumbar regionPain in right handLong term (current) use of opiate analgesic 2 Nyongesa Bhavana. [address] [facility] [address], [facility] [place], [id number] , [place]. tel:[phone] Referring Provider: Terrell Loving, [address] [place], [address]. tel:[phone] [facility], [address] [place] [address], [id number] , [place] tel:[phone] [facility] No Information 2 Janie Ortiz. [facility], [address], [place], [address], [place]. tel: [phone] Referring Provider: Michael Harvey [facility] [address], [place], [address]. tel:[phone] OFFICE VISIT, EST TELEMEDICINE [facility], [address] [place], [place], [id number] , [place] tel:[phone] [facility] Back Pain (chief complaint) AnxietyOther idiopathic peripheral autonomic neuropathyOther intervertebral disc degeneration, thoracic regionOther intervertebral disc degeneration, lumbar regionPain in right handLong term (current) use of opiate analgesic 2 Celine Bhavana. [address] [place] [address] [address], [place], [place], [id number] , [place]. tel:[phone] Referring Provider: Terrell Loving, [address] [place], [address]. [phone] [facility], [address] [place], [place], [id number] , [place] tel:[phone] [facility] No Information 2 Tonio Bateman. [address] [facility] [address], [place], [place], [id number] , [place]. tel:[phone] [facility], [address] [place], [place], [id number] , [place] tel:[phone] [facility] Pain [facility] Back Pain (chief complaint) AnxietyOther idiopathic peripheral autonomic neuropathyOther intervertebral disc degeneration, thoracic regionOther intervertebral disc degeneration, lumbar regionPain in right handLong term (current) use of opiate analgesicEncounte r for therapeutic drug level monitoring 2 Tonio Bateman. [address] [facility] [address], [place], [place], [id number] , [place]. tel:[phone] Referring Provider: [facility] [address], [place], [address]. tel:[phone] OFFICE VISIT, EST TELEMEDICINE [facility], [address] [place], [place], [id number] , [place] tel:[phone] [facility] Back Pain (chief complaint) AnxietyOther idiopathic peripheral autonomic neuropathyOther intervertebral disc degeneration, thoracic regionOther intervertebral disc degeneration, lumbar regionPain in right handLong term (current) use of opiate analgesicRadiculo armen, thoracic region 2 Lesliongesa Bhavana. [address] [facility] [address], [place], [id number] , [place]. tel:[phone] Referring Provider: Michael Harvey, [facility] [address], [place], [address]. [phone] OFFICE VISIT, [facility], [address] [place] [address], [id number] , [place] tel: [phone] [facility] Back Pain (chief complaint) Other idiopathic peripheral autonomic neuropathyOther intervertebral disc degeneration, thoracic regionOther intervertebral disc degeneration, lumbar regionLong term (current) use of opiate analgesicPain in right handAnxiety 2 Tonio Bateman. [address] [facility] [address], [place], [id number] , [place]. tel: [phone] [facility], [address] [place] [address], [id number] , [place] tel: [phone] [facility] No Information 1 Tonio Bateman. [address] [facility] [address], [place], [id number] , [place]. tel:[phone] OFFICE/OUTPAT IENT VISIT, [facility], [address] [place], [place], [id number] , [place] tel:[phone] [facility] Pain [facility] Back Pain (chief complaint) Other idiopathic peripheral autonomic neuropathyOther intervertebral disc degeneration, thoracic regionLong term (current) use of opiate analgesicOther intervertebral disc degeneration, lumbar regionPain in right handAnxietyEncoun ter for therapeutic drug level monitoringEncount er for screening for other disorder [address], [place], [id number] , [place]. tel: [phone] Referring Provider: Michael Harvey, [facility] [address], [place], [address]. tel:[phone] OFFICE VISIT, EST TELEMEDICINE [facility], [address] [place], [place], [id number] , [place] tel: [phone] [facility] Back Pain (chief complaint) Other intervertebral disc degeneration, thoracic regionAnxietyOthe r idiopathic peripheral autonomic neuropathyLong term (current) use of opiate analgesicOther intervertebral disc degeneration, lumbar regionPain in right hand 1 Tonio Bateman. [address] [facility] [address], [place], [id number] , [place]. tel: [phone] OFFICE VISIT, EST TELEMEDICINE [facility], [address] [place] [address], [id number] , [place] tel: [phone] [facility] Back Pain (chief complaint) Other intervertebral disc degeneration, thoracic regionAnxietyOthe r idiopathic peripheral autonomic neuropathyLong term (current) use of opiate analgesicOther intervertebral disc degeneration, lumbar region 1 Gaby Olivares. 1455 [facility] [address], [place], [place], [id number] , [place]. tel: [phone] Referring Provider: Terrell Loving, [address] [place], [address]. tel:[phone] OFFICE VISIT, EST TELEMEDICINE [facility], [address] [place], [place], [id number] , [place] tel: [phone] [facility] Back Pain (chief complaint) Other intervertebral disc degeneration, thoracic regionAnxietyOthe r idiopathic peripheral autonomic neuropathyLong term (current) use of opiate analgesicOther intervertebral disc degeneration, lumbar region Sep- 1 Tonio Bateman. [address] [facility] [address], [place], [id number] , [place]. tel: [phone] OFFICE VISIT, EST TELEMEDICINE [facility], [address] [place] [address], [id number] , tel:[phone] [facility] Back Pain (chief complaint) AnxietyOther idiopathic peripheral autonomic neuropathyOther chronic painLong term (current) use of opiate analgesicSpondylo sis without myelopathy or radiculopathy, lumbar regionOther intervertebral disc degeneration, lumbar regionOther intervertebral disc degeneration, thoracic region 1 Tonio Bateman. [address] [facility] [address], [place], [id number] , [place]. tel:[phone] Referring Provider: Terrell Loving, [address] [place] [address], [address]. tel:[phone] [facility], [address] [place] [address], [id number] , [place] tel:[phone] [facility] Spondylosis without myelopathy or radiculopathy, lumbar region 1 James Nicole. [address] [place] [address], [id number] , [place]. tel:[phone] Referring Provider: Michael Harvey, [facility] [address], [place], [address]. tel:[phone] [facility], [address] [place] [address], [id number] , [place] tel:[phone] [facility] No Information 1 Tonio Bateman. [address] [facility] [address], [place], [id number] , [place]. tel:[phone] Referring Provider: Terrell Loving, [address] [place] [address], [address]. tel:[phone] OFFICE/OUTPAT IENT VISIT, EST [facility], [address] [place] [address], [id number] , [place] tel:[phone] [facility] Pain [facility] Back Pain (chief complaint) AnxietyOther idiopathic peripheral autonomic neuropathyOther chronic painLong term (current) use of opiate analgesicSpondylo sis without myelopathy or radiculopathy, lumbar regionOther intervertebral disc degeneration, lumbar regionEncounter for therapeutic drug level monitoring 1 Tonio Bateman. [address] [facility] [address], [place], [id number] , [place]. tel:[phone] Referring Provider: Michael Harvey [facility] [address], [place], [address]. tel:[phone] OFFICE VISIT, [facility], [address] [place], [place], [id number] , [place] tel:[phone] [facility] Back Pain (chief complaint) Other intervertebral disc degeneration, lumbar regionAnxietyOthe r idiopathic peripheral autonomic neuropathyOther chronic painLong term (current) use of opiate analgesicSpondylo sis without myelopathy or radiculopathy, lumbar region 1 Tonio Bateman. [address] [facility] [address], [place], [id number] , [place]. tel:[phone] Referring Provider: Terrell Loving, [address] [place], [address]. tel:[phone] OFFICE VISIT, [facility], [address] [place] [address], [id number] , [place] tel:[phone] [facility] Back Pain (chief complaint) Other intervertebral disc degeneration, lumbar regionAnxietyOthe r idiopathic peripheral autonomic neuropathyOther chronic painLong term (current) use of opiate analgesicSpondylo sis without myelopathy or radiculopathy, lumbar region 1 Tonio Bateman. [address] [facility] [address], [place], [id number] , [place]. tel:[phone] Referring Provider: Michael Harvey [facility] [address], [place], [address]. tel:[phone] OFFICE/OUTPAT IENT VISIT, [facility], [address] [place], [place], [id number] , [place] tel:[phone] [facility] Back Pain (chief complaint) Other intervertebral disc degeneration, lumbar regionAnxietyOthe r idiopathic peripheral autonomic neuropathyOther chronic painLong term (current) use of opiate analgesic 1 Nyongesa Bhavana. [address] [facility] [address], [place], [id number] , [place]. tel:[phone] Referring Provider: Michael Harvey, [facility] [address], [place], [address]. [phone] OFFICE VISIT, EST TELEMEDICINE [facility], [address] [place], [place], [id number] , [place] tel:[phone] [facility] Back Pain (chief complaint) AnxietyOther intervertebral disc degeneration, lumbar regionOther idiopathic peripheral autonomic neuropathyOther chronic painLong term (current) use of opiate analgesic 1 Nyongesa Bhavana. [address] [facility] [address], [place], [id number] , [place]. tel:[phone] Referring Provider: Terrell Loving, [address] [place] [address], [address]. [phone] OFFICE VISIT, EST TELEMEDICINE [facility], [address] [place] [address], [id number] , [place] [phone] [facility] Back Pain (chief complaint) AnxietyOther intervertebral disc degeneration, lumbar regionOther idiopathic peripheral autonomic neuropathyOther chronic painLong term (current) use of opiate analgesic 1 Nyongesa Bhavana. 59949 [facility] [address], [place], [id number] , [place]. [phone] Referring Provider: Terrell Loving, [address] [place] [address], [address]. [phone] [facility], [address] [place] [address], [id number] , [place] [phone] [facility] Pain [facility] No Information 1 Nyongesa Bhavana. [address]333 [facility] [address], [place], [id number] , [place]. [phone] Referring Provider: Terrell Loving, [address] [place] [address], [address]. tel:[phone] OFFICE VISIT, EST TELEMEDICINE [facility], [address] [place] [address], [id number] , [place] [phone] [facility] Back Pain (chief complaint) Other intervertebral disc degeneration, lumbar regionOther idiopathic peripheral autonomic neuropathyOther chronic painLong term (current) use of opiate analgesicAnxietyE ncounter for therapeutic drug level monitoring 1 Nyongesa Bhavana. [address]759 [facility] [address], [place], [place], [id number] , [place]. [phone] Referring Provider: Terrell Loving, [address] [place] [address], [address]. tel:[phone] OFFICE VISIT, EST TELEMEDICINE [facility], [address] [place] [address], [id number] , [place] [phone] [facility] Back Pain (chief complaint) Other intervertebral disc degeneration, lumbar regionOther idiopathic peripheral autonomic neuropathyOther chronic painLong term (current) use of opiate analgesicAnxiety 0 Nyongesa Bhavana. [address]7910 [facility] [address], [place], [place], [id number] , [place]. tel:[phone] Referring Provider: Terrell Loving, [address] [place] [address], [address]. tel:[phone] OFFICE VISIT, EST TELEMEDICINE [facility], [address] [place] [address], [id number] , [place] [phone] [facility] Back Pain (chief complaint) Other intervertebral disc degeneration, lumbar regionOther idiopathic peripheral autonomic neuropathyOther chronic painLong term (current) use of opiate analgesicAnxiety 0 Nyongesa Bhavana. [address]1143 [facility] [address], [place], [place], [id number] , [place]. [phone] Referring Provider: Terrell Loving, [address] [place] [address], [address]. tel:[phone] OFFICE VISIT, EST TELEMEDICINE [facility], [address] [place] [address], [id number] , [place] [phone] [facility] Back Pain (chief complaint) Other intervertebral disc degeneration, lumbar regionOther idiopathic peripheral autonomic neuropathyOther chronic painLong term (current) use of opiate analgesicAnxiety 0 Nyongesa Bhavana. 40604 [facility] [address], [place], [place], [id number] , [place]. [phone] Referring Provider: Terrell Loving, [address] [place] [address], [address]. [phone] OFFICE VISIT, EST TELEMEDICINE [facility], [address] [place] [address], [id number] , [place] [phone] [facility] Back Pain (chief complaint) Other intervertebral disc degeneration, lumbar regionOther idiopathic peripheral autonomic neuropathyOther chronic painLong term (current) use of opiate analgesicAnxiety 0 Nyongesa Bhavana. 03599 [facility] [address], [place], [place], [id number] , [place]. [phone] Referring Provider: Terrell Loving, [address] [place] [address], [address]. tel:[phone] OFFICE VISIT, EST TELEMEDICINE [facility], [address] [place] [address], [id number] , [place] [phone] [facility] Back Pain (chief complaint) Other intervertebral disc degeneration, lumbar regionOther idiopathic peripheral autonomic neuropathyOther chronic painLong term (current) use of opiate analgesicAnxiety 0 Nyongesa Bhavana. 97365 [facility] [address], [place], [place], [id number] , [place]. [phone] Referring Provider: Terrell Loving, [address] [place] [address], [address]. tel:[phone] OFFICE VISIT, EST TELEMEDICINE [facility], [address] [place] [address], [id number] , [place] tel:[phone] [facility] Back Pain (chief complaint) Other intervertebral disc degeneration, lumbar regionOther idiopathic peripheral autonomic neuropathyOther chronic painLong term (current) use of opiate analgesicAnxiety 0 Tonio Bateman. 28928 [facility] [address], [place], [place], [id number] , [place]. [phone] Referring Provider: Terrell Loving, [address] [place] [address], [address]. [phone] OFFICE VISIT, EST TELEMEDICINE [facility], [address] [place] [address], [id number] , [place] [phone] [facility] Back Pain (chief complaint) Other intervertebral disc degeneration, lumbar regionOther idiopathic peripheral autonomic neuropathyOther chronic painLong term (current) use of opiate analgesicAnxiety 0 Gaby Olivares. 1455 [facility] [address], [place], [place], [id number] , [place]. tel:[phone] Referring Provider: Terrell Loving, [address] [place] [address], [address]. [phone] OFFICE VISIT, EST TELEMEDICINE [facility], [address] [place] [address], [id number] , [place] tel:[phone] [facility] Back Pain (chief complaint) Other intervertebral disc degeneration, lumbar regionOther idiopathic peripheral autonomic neuropathyOther chronic painLong term (current) use of opiate analgesic 0 Gaby Olivares. 1455 [facility] [address], [place], [place], [id number] , [place]. tel:[phone] Referring Provider: Terrell Loving, [address] [place] [address], [address]. [phone] [facility], [address] [place] [address], [id number] , [place] [phone] [facility] No Information 0 Gaby Olivares. 1455 [facility] [address], [place], [place], [id number] , [place]. tel:[phone] Referring Provider: [facility] [address], [place], [address]. tel:[phone] OFFICE VISIT, [facility], [address] [place] [address], [id number] , [place] tel:[phone] [facility] Back Pain (chief complaint) Other intervertebral disc degeneration, lumbar regionOther idiopathic peripheral autonomic neuropathyOther chronic painLong term (current) use of opiate analgesic Feb- 0 Gaby Olivares. 1455 [facility] [address], [place], [place], [id number] , [place]. tel:[phone] Referring Provider: [facility] [address] [place], [address]. tel:[phone] OFFICE VISIT, [facility], [address] [place] [address], [id number] , [place] tel:[phone] [facility] Back Pain (chief complaint) Other intervertebral disc degeneration, lumbar regionOther idiopathic peripheral autonomic neuropathyOther chronic painLong term (current) use of opiate analgesicEncounte r for therapeutic drug level monitoring Feb- 0 Griffin Marshall. [address] [facility] [address], [place], [place], [id number] , [place]. tel:[phone] Referring Provider: Terrell Loving, [address] [place] [address], [address]. [phone] OFFICE/OUTPAT IENT VISIT, [facility] Pain [facility], [address] [place] [address], [id number] , [place] tel:[phone] [facility] Back Pain (chief complaint) half-way (current) use of opiate analgesicOther chronic painOther idiopathic peripheral autonomic neuropathyOther intervertebral disc degeneration, lumbar regionOther intervertebral disc degeneration, thoracic regionAnxietyEnco unter for therapeutic drug level monitoring 0 Tonio Bateman. [address] [facility] [address], [place], [place], [id number] , [place]. tel:[phone] Referring Provider: [facility] [address], [place], [address]. tel:[phone] OFFICE/OUTPAT IENT VISIT, 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 [address] [facility] [address], [place], [place], [id number] , [place]. tel: [phone] Referring Provider: [facility] [address], [place], [address]. tel:[phone] OFFICE/OUTPAT IENT VISIT, [facility], [address] [place], [place], [id number] , [place] tel: [phone] [facility] Back Pain (chief complaint) half-way (current) use of opiate analgesicOther chronic painOther idiopathic peripheral autonomic neuropathyOther intervertebral disc degeneration, lumbar regionOther intervertebral disc degeneration, thoracic regionAnxiety 0 Nyongesa Bhavana. [address] [facility] [address], [place], [place], [id number] , [place]. tel: [phone] Referring Provider: Terrell Loving, [address] [place], [address]. tel:[phone] OFFICE/OUTPAT IENT VISIT, [facility] Pain [facility], [address] [place] [address], [id number] , [place] tel: [phone] [facility] Back Pain (chief complaint) AnxietyLong term (current) use of opiate analgesicOther chronic painOther idiopathic peripheral autonomic neuropathyOther intervertebral disc degeneration, lumbar regionOther intervertebral disc degeneration, thoracic region 9 Nyongesa Bhavana. [address]666 [facility] [address], [place], [place], [id number] , [place]. tel: [phone] Referring Provider: Michael Harvey [facility] [address], [place], [address]. tel:[phone] OFFICE/OUTPAT IENT VISIT, [facility], [address] [place], [place], [id number] , [place] tel: [phone] [facility] Back Pain (chief complaint) AnxietyLong term (current) use of opiate analgesicOther chronic painOther idiopathic peripheral autonomic neuropathyOther intervertebral disc degeneration, lumbar regionOther intervertebral disc degeneration, thoracic region Nov- 0 9 Tonio Bateman. [address] [facility] [address], [place], [id number] , [place]. tel:[phone] Referring Provider: Michael Harvey [facility] [address], [address]. tel:[phone] OFFICE/OUTPAT IENT VISIT, [facility], [address] [place], [place], [id number] , [place] tel: [phone] [facility] Back Pain (chief complaint) Other intervertebral disc degeneration, lumbar regionOther intervertebral disc degeneration, thoracic regionOther idiopathic peripheral autonomic neuropathyOther chronic painLong term (current) use of opiate analgesicAnxiety Aug- 9 Tonio Bateman. [address] [facility] [address], [place], [id number] , [place]. tel: [phone] Referring Provider: Michael Harvey [facility] [address], [place], [address]. tel:[phone] OFFICE/OUTPAT IENT VISIT, [facility], [address] [place], [place], [id number] , [place] tel: [phone] [facility] Back Pain (chief complaint) Other intervertebral disc degeneration, lumbar regionOther intervertebral disc degeneration, thoracic regionOther chronic painOther idiopathic peripheral autonomic neuropathyLong term (current) use of opiate analgesic Sep- 9 Gaby Olivares. [address]55 [facility] [address], [place], [id number] , [place]. tel:[phone] Referring Provider: Michael Harvey [facility] [address], [place], [address]. tel:[phone] OFFICE/OUTPAT IENT VISIT, [facility], [address] [place], [place], [id number] , [place] tel: [phone] [facility] Back Pain (chief complaint) Other intervertebral disc degeneration, lumbar regionOther intervertebral disc degeneration, thoracic regionOther chronic painOther idiopathic peripheral autonomic neuropathyLong term (current) use of opiate analgesic 9 [facility]. [address] [facility] [address], [place], [id number] , [place]. tel: [phone] Referring Provider: Michael Harvey [facility] [address], [place], [address]. tel:[phone] OFFICE/OUTPAT IENT VISIT, [facility], [address] [place] [address], [id number] , [place] tel: [phone] [facility] Back Pain (chief complaint) Other chronic painOther intervertebral disc degeneration, lumbar regionOther intervertebral disc degeneration, thoracic regionOther idiopathic peripheral autonomic neuropathyLong term (current) use of opiate analgesic 9 [facility] B[facility]. [address] [facility] [address], [place], [id number] , [place]. tel: [phone] Referring Provider: Michael Harvey [facility] [address], [place], [address]. tel:[phone] OFFICE/OUTPAT IENT VISIT, [facility], [address] [place] [address], [id number] , [place] tel: [phone] [facility] Back Pain (chief complaint) Other chronic painOther intervertebral disc degeneration, lumbar regionOther intervertebral disc degeneration, thoracic regionOther idiopathic peripheral autonomic neuropathyLong term (current) use of opiate analgesic 9 Nyongesa Bhavana. [address] [facility] [address], [place], [id number] , [place]. tel: [phone] Referring Provider: Michael Harvey [facility] [address], [place], [address]. tel:[phone] OFFICE CONSULTATION [facility], [address] [place], [place], [id number] , [place] tel:[phone] [facility] [place] Back Pain (chief complaint) Other chronic painLow back painEncounter for therapeutic drug level monitoringLong term (current) use of opiate analgesicOther idiopathic peripheral autonomic neuropathyOther intervertebral disc degeneration, lumbar regionOther intervertebral disc degeneration, thoracic region 9 Janie Ortiz. [facility], [address], [place], [address], [place]. tel:[phone] Referring Provider: Michael Harvey [facility] [address], [place], [address]. tel:[phone] Family History Family Member Type Diagnosis Age At Onset Problem (finding) Family history of neuro armen Payers Payer name Insurance type Covered constitution party ID Authoriza tion(s) [facility] CI [id number] [employer] BL [id number] Social History Type Description Quantity Date Captured Comments Sex Female Smoking Status No Information Chief Complaint And Reason For Visit No Information Reason For Referral Reason For Referral No Information Plan Of Treatment Date Type Action Status Goal AST (SGOT). Due on due Goal SHELLFISH MANAGER Paperwork. Due on due Goal ALT (SGPT). Due on due Goal RADIO INTERFERENCE SUPERVISOR Scanned. Due on 023 due Goal Order Annual PT. Due on due Goal Creatinine. Due on [...] e Goal UDT. Due on due Goal Hepatitis C screening. Due o n due Goal AST (SGOT). Due on due Goal RADIO INTERFERENCE SUPERVISOR Scanned. Due on due Goal Review Allergy List. Due on due Goal Order Annual PT. Due on due Goal Creatinine. Due on due Goal Weight. Due on d ue Goal ALT (SGPT). Due on due Goal HPV. Due on due Goal SHELLFISH MANAGER Paperwork. Due on due Goal Medication Recon [...] Social History. Due o n due Goal RADIO INTERFERENCE SUPERVISOR Scanned. Due on due Goal UDT. Due on due Goal SHELLFISH MANAGER Paperwork. Due on due Goal Review Allergy List. Due on due Goal Order Annual PT. Due on due Goal UDT. Due on due Goal RADIO INTERFERENCE SUPERVISOR Scanned. Due on due Goal SHELLFISH MANAGER Paperwork. Due on due Goal Order Annual [...] Goal PHQ-9. Due on du e Goal RADIO INTERFERENCE SUPERVISOR Scanned. Due on due Goal SHELLFISH MANAGER Paperwork. Due on due Goal UDT. Due [...] due Goal HPV. Due on due Goal HPV. Due on due Goal Update Social History. Due o n due Goal AST (SGOT). Due on due Goal Height. Due on d ue Goal Lipid panel. Due on due Goal OARS. Due on due Goal RADIO INTERFERENCE SUPERVISOR Scanned. Due on due Goal Tobacco Use. [...] Goal Weight. Due on d ue Goal SHELLFISH MANAGER Paperwork. Due on due Goal Medication Recon ciliation. Due on due Goal Order Annual PT. Due on due Goal Medication Recon ciliation. Due on due Goal SHELLFISH MANAGER Paperwork. Due on due Goal Weight. Due [...] ue Goal UDT. Due on due Goal Creatinine. Due on due Goal RADIO INTERFERENCE SUPERVISOR Scanned. Due on due Goal Update Social History. Due o n due Goal Unhealthy drug u se screening. Due on due Goal HPV. Due on [...] C screening. Due o n due Goal SHELLFISH MANAGER Paperwork. Due on due Goal UDT. Due on due Goal Review Allergy List. Due on due Goal Creatinine. Due on due Goal RADIO INTERFERENCE SUPERVISOR Scanned. Due on due Goal Weight. Due on d ue Goal AST (SGOT). Due on due Goal Unhealthy drug u se screening. Due on due Goal HPV. Due on due Goal Update Social History. Due o n due Goal Tobacco Use. Due on due Goal Height. Due on d ue Goal Lipid panel. Due on due Goal Weight. Due on d ue Goal RADIO INTERFERENCE SUPERVISOR Scanned. Due on due Goal UDT. Due on due Goal AST (SGOT). Due on due Goal Order Annual PT. Due on due Goal ALT (SGPT). Due on due Goal Creatinine. Due on due Goal PHQ-9. Due on du e Goal Review Allergy List. Due on due Goal Medication Recon ciliation. Due on due Goal Update Social History. Due o n due Goal HPV. Due on due Goal OARS. Due on due Goal Unhealthy drug u se screening. Due on due Goal Hepatitis C screening. Due o n due Goal SHELLFISH MANAGER Paperwork. Due on due Goal Height. Due on d ue Goal UDT. Due on due Goal SHELLFISH MANAGER Paperwork. Due on due Goal HPV. Due on due Goal Creatinine. Due on due Goal Update Social History. Due o n due Goal OARS. Due on due Goal AST (SGOT). Due on due Goal Order Annual PT. Due on due Goal Tobacco Use. Due on 023 due Goal Medication Recon ciliation. Due on due Goal ALT (SGPT). Due on due Goal RADIO INTERFERENCE SUPERVISOR Scanned. Due on 023 due Goal Hepatitis C screening. Due o n due Goal Review Allergy List. Due on due Goal Lipid panel. Due on due Goal Weight. Due on d ue Goal Unhealthy drug u se screening. Due on due Goal PHQ-9. Due on du e Goal RADIO INTERFERENCE SUPERVISOR Scanned. Due on due Goal ALT (SGPT). Due on due Goal Lipid panel. Due on due Goal PHQ-9. Due on du e Goal Weight. Due on d ue Goal Hepatitis C screening. Due o n due Goal UDT. Due on due Goal SHELLFISH MANAGER Paperwork. Due on due Goal Height. Due [...] Goal AST (SGOT). Due on due Goal SHELLFISH MANAGER Paperwork. Due on due Goal Order Annual PT. Due on due Goal AST (SGOT). Due on due Goal UDT. Due on due Goal OARS. Due on due Goal Creatinine. Due on due Goal ALT (SGPT). Due on due Goal HPV. Due on due Goal RADIO INTERFERENCE SUPERVISOR Scanned. Due on due Goal Medication Recon [...] due Goal UDT. Due on due Goal SHELLFISH MANAGER Paperwork. Due on due Goal Order Annual PT. Due on due Goal ALT (SGPT). Due on due Goal Creatinine. Due on due Goal OARS. Due on due Goal Tobacco Use. Due on due Goal Hepatitis C screening. Due o n due Goal RADIO INTERFERENCE SUPERVISOR Scanned. Due on due Goal AST (SGOT). Due on due Goal HPV. Due on [...] u se screening. Due on due Goal SHELLFISH MANAGER Paperwork. Due on due Goal Tobacco Use. [...] Goal Height. Due on d ue Goal RADIO INTERFERENCE SUPERVISOR Scanned. Due on due Goal Review Allergy [...] due Goal UDT. Due on due Goal SHELLFISH MANAGER Paperwork. Due on due Goal Creatinine. Due on due Goal RADIO INTERFERENCE SUPERVISOR Scanned. Due on due Goal Hepatitis C [...] Goal ALT (SGPT). Due on due Goal RADIO INTERFERENCE SUPERVISOR Scanned. Due on due Goal Creatinine. Due on due Goal Unhealthy drug u se screening. Due on due Goal Lipid panel. Due on due Goal SHELLFISH MANAGER Paperwork. Due on due Goal Height. Due [...] u se screening. Due on due Goal RADIO INTERFERENCE SUPERVISOR Scanned. Due on due Goal OARS. Due on due Goal SHELLFISH MANAGER Paperwork. Due on due Goal AST (SGOT). [...] due Goal Creatinine. Due on due Goal SHELLFISH MANAGER Paperwork. Due on due Goal Lipid panel. Due on due Goal HPV. Due on due Goal Medication Recon ciliation. Due on due Goal RADIO INTERFERENCE SUPERVISOR Scanned. Due on due Goal ALT (SGPT). Due on due Goal OARS. Due on due Goal UDT. Due on due Goal Order Annual PT. Due on due Goal AST (SGOT). Due on due Goal Creatinine. Due on due Goal ALT (SGPT). Due on due Goal SHELLFISH MANAGER Paperwork. Due on due Goal RADIO INTERFERENCE SUPERVISOR Scanned. Due on due Goal Review Allergy [...] Goal Weight. Due on d ue Goal OARS. Due on due Goal AST (SGOT). Due on due Goal Creatinine. Due on due Goal UDT. Due on due Goal SHELLFISH MANAGER Paperwork. Due on due Goal Order Annual PT. Due on due Goal PHQ-9. Due on du e Goal Unhealthy drug u se screening. Due on due Goal ALT (SGPT). Due on due Goal Review Allergy List. Due on due Goal RADIO INTERFERENCE SUPERVISOR Scanned. Due on due Goal Height. Due [...] due Goal OARS. Due on due Goal SHELLFISH MANAGER Paperwork. Due on due Goal Order Annual [...] Social History. Due o n due Goal RADIO INTERFERENCE SUPERVISOR Scanned. Due on due Goal Tobacco Use. Due on due Goal PHQ-9. Due on du e Goal HPV. Due on due Goal Creatinine. Due on due Goal Order Annual PT. Due on due Goal RADIO INTERFERENCE SUPERVISOR Scanned. Due on due Goal Hepatitis C screening. Due o n due Goal ALT (SGPT). Due on due Goal SHELLFISH MANAGER Paperwork. Due on due Goal Review Allergy [...] Social History. Due o n due Goal RADIO INTERFERENCE SUPERVISOR Scanned. Due on due Goal Order Annual PT. Due on due Goal Height. Due on d ue Goal SHELLFISH MANAGER Paperwork. Due on due Goal Review Allergy [...] Medication Recon ciliation. Due on due Goal RADIO INTERFERENCE SUPERVISOR Scanned. Due on due Goal Creatinine. Due on due Goal OARS. Due on due Goal SHELLFISH MANAGER Paperwork. Due on due Goal ALT (SGPT). Due on due Goal Order Annual PT. Due on due Goal RADIO INTERFERENCE SUPERVISOR Scanned. Due on due Goal OARS. Due on due Goal ALT (SGPT). Due on due Goal AST (SGOT). Due on due Goal UDT. Due on due Goal Creatinine. Due on due Goal SHELLFISH MANAGER Paperwork. Due on due Goal Update Social History. [...] Goal Weight. Due on d ue Goal RADIO INTERFERENCE SUPERVISOR Scanned. Due on due Goal ALT (SGPT). Due on due Goal UDT. Due on due Goal Review Allergy List. Due on due Goal Tobacco Use. Due on due Goal SHELLFISH MANAGER Paperwork. Due on due Goal PHQ-9. Due on du e Goal Creatinine. Due on due Goal Update Social History. Due o n due Goal RADIO INTERFERENCE SUPERVISOR Scanned. Due on due Goal PHQ-9. Due on du e Goal SHELLFISH MANAGER Paperwork. Due on due Goal ALT (SGPT). [...] due Goal OARS. Due on due Goal RADIO INTERFERENCE SUPERVISOR Scanned. Due on due Goal ALT (SGPT). Due on due Goal Creatinine. Due on due Goal SHELLFISH MANAGER Paperwork. Due on due Goal Order Annual [...] e Goal OARS. Due on due Goal Medication Recon ciliation. Due on due Goal Creatinine. Due on due Goal Tobacco Use. Due on due Goal Order Annual PT. Due on due Goal Review Allergy List. Due on due Goal Update Social History. Due o n due Goal Weight. Due on d ue Goal SHELLFISH MANAGER Paperwork. Due on due Goal RADIO INTERFERENCE SUPERVISOR Scanned. Due on due Goal ALT (SGPT). Due on due Goal UDT. Due on due Goal ALT (SGPT). Due on due Goal RADIO INTERFERENCE SUPERVISOR Scanned. Due on due Goal OARS. Due on due Goal SHELLFISH MANAGER Paperwork. Due on due Goal Creatinine. Due on due Goal Height. Due on [...] Order Annual PT. Due on due Goal RADIO INTERFERENCE SUPERVISOR Scanned. Due on due Goal SHELLFISH MANAGER Paperwork. Due on due Goal Review Allergy [...] Review Allergy List. Due on due Goal RADIO INTERFERENCE SUPERVISOR Scanned. Due on due Goal Height. Due on d ue Goal OARS. Due on due Goal Order Annual PT. Due on due Goal SHELLFISH MANAGER Paperwork. Due on due Goal Tobacco Use. [...] Goal AST (SGOT). Due on due Goal SHELLFISH MANAGER Paperwork. Due on due Goal Tobacco Use. Due on due Goal Height. Due on d ue Goal Medication Recon ciliation. Due on due Goal RADIO INTERFERENCE SUPERVISOR Scanned. Due on due Goal ALT (SGPT). Due on due Goal OARS. Due on due Goal Creatinine. Due on due Goal Update Social History. Due o n due Goal PHQ-9. Due on du e Goal UDT. Due on due Goal Weight. Due on d ue Goal Order Annual PT. Due on due Goal ALT (SGPT). Due on due Goal UDT. Due on due Goal Tobacco Use. Due on due Goal Update Social History. Due o n due Goal Height. Due on d ue Goal RADIO INTERFERENCE SUPERVISOR Scanned. Due on due Goal Medication Recon ciliation. Due on due Goal PHQ-9. Due on du e Goal OARS. Due on due Goal SHELLFISH MANAGER Paperwork. Due on due Goal Creatinine. Due on due Goal Review Allergy List. Due on due Goal AST (SGOT). Due on due Goal SHELLFISH MANAGER Paperwork. Due on due Goal AST (SGOT). Due on due Goal PHQ-9. Due on du e Goal Height. Due on d ue Goal Tobacco Use. Due on due Goal OARS. Due on due Goal Weight. Due on d ue Goal RADIO INTERFERENCE SUPERVISOR Scanned. Due on due Goal Creatinine. Due [...] Social History. Due o n due Goal SHELLFISH MANAGER Paperwork. Due on due Goal Review Allergy List. Due on due Goal RADIO INTERFERENCE SUPERVISOR Scanned. Due on due Appointment Whit [place] BOOKED Future Order: Lab Order Drug Jessica t Def 22+ Classes (G0483), Ordered on: Ordered Future Order: Lab Order Drug Jessica t Def 22+ Classes (G0483), Ordered on: Ordered Future Order: Lab Order Drug Jessica t Def 22+ Classes ([id number]), Ordered on: Ordered Future Order: Lab Order [facility]ID [facility] DRUG ANALYSIS, URINE, WITH MED REPORT ([id number]), Ordered on: Ordered Future Order: Lab Order [...] a 43 y/o female who presents via [facility] for virtual follow up and medication refill [...] persistently. Symptoms are relieved by pain meds/drugs. Back Pain Severity level i s 9. Duration: chronic. The problem is worsening. It occurs persistently. Symptoms are relieved by pain meds/drugs. Comments: Elisa cervantes is a 43 y/o female who presents via [facility] for virtual follow up and medication refill [...] Notes she will be consulting with an INDUSTRIAL TRUCK OPERATOR specialist for further care.Reports current medication regimen [...] a 43 y/o female who presents via [facility] for a virtual follow-up and medication refill [...] a 43 y/o female who presents via [facility] for a virtual follow-up and medication refill [...] the pain as an ache and sharp. Back Pain Severity level i s mild-moderate. [...] 43 y/o female who presents today via [facility] for follow up and medication refill in [...] chiropractic, TENS uniut, walking and changing positions. Back Pain Severity level i s 7. Duration: chronic. The problem is stable. It occurs persistently. Location of pain is middle back and lower back. Symptoms are relieved by pain meds/drugs. 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 Denies side effects from current medication regimen. [...] 42 y/o female, meeting with us via [facility] for virtual follow up and medication refill in the setting of mid to low back pain. She states her pain is worse this month. 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 She inquires about scheduling her injection for her thoracic pain as she has finally cleared the hold on her account. She states she is currently studying for [employer] and will be going out of town [...] 41 y/o female, meeting with us via [facility] for virtual follow up and medication refill in the setting of mid to low back pain. She states her pain is stable this month. 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 She reports she is currently on a new weight loss program and has lost 16lbs since [facility]. Reports current medication regimen provides 80% [...] stable. 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 She would like to schedule the thoracic TESI but she is waiting for her insurance to resolve a previous billing issue from her last injection. She reports since [facility] she fell down the stairs on [...] month. 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 She [...] is applying for a new job at [employer] [place] current medication regimen provides 80% pain relief and allows for increased functionality. Denies side effects from current medication regimen. No other concerns today. Back Pain (comments) Whit is a 41 y/o female, meeting with us today via [facility] Virtual Visit for follow up and medication refill. Mid-low back pain persists this month. 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 States [...] massage, pain meds/drugs and rest. Back Pain Severity level i s 8. [...] states she has recently started clinicals at [facility] and working a new job as [employer] current medication regimen provides 80% pain relief [...] rest, sitting and changing positions. Back Pain (comments) Whit [...] She has already lost 40 lbs since [place] on her own. She was referred to a specialist for eating disorders, hx of binge eating, scheduled for 06/27/21. She is also following up with GI.Reports current medication regimen provides 80% pain relief and allows for increased functionality. Denies side effects from current medication regimen. She is currently taking Terbinafine for a fungal infection.No other concerns today. Back Pain Severity level [...] Whit is meeting with us today via [facility] Virtual Visit for following up and medication [...] mid-back. She has been following up at [facility] twice a week for the last 6 months. She is leaving town on Thursday, traveling to [facility].Reports current medication regimen provides 80% pain relief [...] Whit is meeting with us today via [facility] Virtual Visit for following up and medication refill. Lower-mid back pain persists this month, but medication does help to some extent. She feels her pain is well managed at this time. She has been walking more and working on calorie deficit. She has also quite drinking soda and has lost 27lbs. She has bene seeking care professional twice a week and is working on scheduling massage therapy twice a month.Reports persistent restless legs. If she missed a dose of percocet the restlessness is significantly worse. She is following up with a surgical nurse practitioner for an iron study.Reports current medication regimen [...] a chiropractor with benefit. She talked to [facility] and insurance will cover seated upright MRI. She is having trouble breathing while laying on her back due to edema (orthopnea). She is following up with surgical nurse practitioner at [facility].Reports current medication regimen provides 80-85% pain relief [...] to [facility] to renae her hips which is [...] with prednisone until her consult with an steam pressure chamber operator. The prednisone is helpful for both swelling and pain, but is only temporary. She was also recently diagnosed with hemolytic anemia, following up with hematology at [facility] in October.Reports current medication regimen provides 80-85% [...] is scheduled to f/u with RA at [employer] for evaluation. He doctor also suspects hemolytic anemia, so he referred her to a surgical nurse practitioner as well.Reports current medication regimen provides 80-85% [...] Whit is meeting with us today via [employer] Visit for following up and medication refill. Low-mid back pain persists this month, tolerable with medication.Reports current medication regimen provides 80-85% pain relief and allows for increased functionality. Denies side effects from current medication regimen.No other concerns today. Back Pain (comments) Whit is meeting with us today via [facility] Virtual Visit for following up and medication [...] Whit is meeting with us today via [facility] Virtual Visit for following up and medication [...] medications.Of note, she will be traveling to [place] in the middle of May for IVF.Patient [...] at his job from working at an [employer] which causes increase stress and she believes [...] stretching, rest, sitting and chiropractic. 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 No additional questions or concerns. Back Pain Severity level i s moderate-severe. [...] rest. Back Pain Severity level i s 8. [...] school.No further questions or concerns. Back Pain Duration: chroni c. The problem [...] and TENS. Back Pain (comments) Whit is here for [...] today. Back Pain Severity level i s 5. [...] therapy, stretching and rest. Back Pain (comments) Patient is here for follow-up and medication refills. Lower back pain and neuropathy is worse d/t cold weather. Seeing dentist. Still going through [employer] program - needs a DNC d/t to scar tissues in Uterus. Having Diarrhea - likely from Irritable bowel syndrome and likely being on metforminReports at least 50% relief from the medication. Medications help relieve pain and increase activity, with no side effects. Back Pain (comments) Whit is here for [...] sitting, changing positions and chiropractic. Back Pain Severity level i s 4. [...] weather. She has consulted a doctor in [place] who has reason to believe she has [...] hormone medications.Currently working with a clinic in [place] regarding her IBF.Presents with #21 - on [...] note, pt will be undergoing IVF in [place] later this month. No other concerns today. [...] pain r/t neuropathy. She was referred to [facility] by Dr. Harvey. Pain began about 22 [...] moving and her new PCP referred to [facility]. Of note, she has started IUI and is in the two week holding period to see if she is . Treatment tried:PT was completed years ago, has not been able to go recently d/t medical bills. Pool therapy at the but insurance had only covered 2 sessions. yoga to help with stretching and pain. Injections at [place] were helpful for 2 weeks and then [...]
== END 2023-08-25 14:18 | disposition home or self-care (01) ==
PROVIDERS: PCP Family Medicine; Visit Provider Family Medicine
DX: D25.9 Leiomyoma of uterus, unspecified (principal); R93.89 Abnormal findings on diagnostic imaging of other specified body structures; N83.201 Unspecified ovarian cyst, right side; N83.202 Unspecified ovarian cyst, left side
CPT/HCPCS: 76830; 76856; 93976

== ENCOUNTER 2023-09-14 09:15 | Outpatient (RCR) | payer OTHER, BC, SELFPAY ==
--- NOTE | 2023-05-28 12:11 | PT.OPE ---
[facility] Start: 05/28/23 09:17 Freq: Status: Active Protocol: Document 05/28/23 12:05 BMS (Rec: 05/28/23 12:11 BMS [id number]) E-signed By Leticia Gorman PT Physical Therapy Outpatient Evaluation Insurance Information Recert Due Date 08/25/23 Insurance Name Medicaid,Blue [email or web address] Care Insurance Information/Comments [facility] medicaid Medical Diagnosis achilles tendinitis Treating Diagnosis achilles tendinitis M76.60 Referring MD Erick Browne MD Subjective Subjective helping daughter move LE fell through deck. end of february. then in march had bursitis on R knee whole knee to foot hurt. then 4-5 weeks later noticed the bump went to urgent care, did xray said bone spur. ortho said bone spur on achilles insertion to try therapy. I tried a boot but hurt the other side (instructed in Even Up device for level, ing) tried heel raises and stretch on step but hurt way too much to do. 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 have lost 150# and want to keep that off but cant workout driving hurts. i try to just push through the pain but is so so bad. 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 mod also anterior tib. Balance & Gait antalgic with offloading of limb, dec WB, slow and deliberate stride with dec length. lack of pushoff noted. Posture WB to L offloading R Assessment Assessment/Impression Patient is 43 yo female referred to rehab services for Achilles tendinitis- helping daughter move in February R LE fell through [employer]. 4-5 weeks later noticed the bump went to urgent care, had xray said bone spur. Went to ortho said bone spur on achilles insertion per patient report. She has tried ice, ibuprofen, on pain meds for back pain, using a cream, was in boot but that aggrevated contralateral side (did instruct today in the Even UP), uses ice, has tried compression stockings and elevation. Pain is reportedly 9/10 and so severe at night that she cries, as partner reiterates. She has an involved past medical history including chronic thoracic and lumbar back pain with bulging discs (on pain meds through pain clinic chronically) HTN, depression, respiratory problems, fibromyalgia, OA, obesity, neuropathy (gabapanetin) and ongoing toe fungus issues, She is recovering from bronchitis and pneumonia. states also had infection after pedicure not too long ago. She reports edema in B LE and severe arthritis in my right knee. Reports onset of L hip and back pain from altered gait pattern. Gait is antalgic, balance impaired, pain with strength testing and limited ROM. Past injuries to R LE include laceration of Right thigh requiring up to 50 stitches per patient in her 20s, hx R ankle fx and ongoing neuropathy. Partner is with and appears supportive and concerned, does express his belief that she is in so much pain that he does not think PT will be helpful that what she really needs is emergency surgery. We discussed what physical therapy can offer, then partner left the room to go smoke. Patient presents with quite prominent protrusion on posterior heel achilles insertion and some edema of B LE. Severe tenderness at achilles bump insertion, moderate in calf and distal HS. plantar fascial limitations observed but not treated this date. Did discuss the relationship btwn foot, ankle, LE bones and soft tissue, need to strengthen proximally and encouraged ROM not exceeding 2 levels of pain increase. Instructed in self care use of ice, positioning, padding protection of area, poss treatment options and recommended best course. Patient agreeable to return for followup session. states pain slightly more elevated after testing. Signs and symptoms consistent with achilles tendinitis. May also include iontophoresis, taping and recommend she consult with her parking lot supervisor re: orthotics. Patient requests work letter, instructed that therapist can recommend modified actvities and seems she would benefit from shortened work day but if her pain is in severe range may be extremely difficult to perform patient transfers etc. Recommend she followup with her ortho for workability letter if needed . Plan of Care Rehabilitation Potential Good Physical Therapy Goals STG meet 2-3 weeks 1) Pt demonstrate independent HEP and self care/home management techniques for pain management, strength, flexibility and balance. 2) Pt demonstrate AROM WNL as a component of correcting faulty gait patterns. LTG meet 4-6 weeks 1) Pt demonstrate gait pattern without limp, substitution and with equal stride length and pushoff with decreased pain. 2) Pt will demonstrate ability to stand and walk with pain < 2/10 in home without shoes for ADL/IADL. 3) Patient to demonstrate ability to ambulate safely on uneven ground with no or least restrictive gait aid. 4) Patient to demo ability to safely and confidently negotiate curb with no or least restrictive gait aid. 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 6) Pt be able to sleep 4-6 hours without waking from severe heel pain Coordination/Communication With Referral Source Treatment Plan/Direct Interventions Electrical Stimulation,Gait Training,Ice/Cold/ Vasopneumatic,Iontophoresis, Joint Mobilization,Manual Therapy,Neuromuscular Re-ed, Self-Care/Home Management, Therapeutic Activities, Therapeutic Exercises, Ultrasound Frequency/Duration 1-2x/ week x 4 weeks, continue if progressing otherwise refer back to ortho Patient Will Be Discharged From Therapy Completion of LTG(s),Skills Plateau,Independent w/HEP, Independently Progressing Evaluation Billing Untimed Code Treatment Minutes 35 Complexity Moderate Certification Information Initial Certification Date 05/28/23 Ending Certification Date 08/25/23 Provider Signature Shows Agreement With POC & Medical Necessity Physician Signature & Date Requested Please Sign/Date Here Physician Comment/Change : Physician NPI Number #
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
== END 2023-11-19 12:06 | disposition home or self-care (01) ==
PROVIDERS: PCP Family Medicine; Visit Provider Orthopaedic Surgery
DX: M76.60 Achilles tendinitis, unspecified leg (principal); Z51.89 Encounter for other specified aftercare
CPT/HCPCS: 97033; 97035; 97110; 97140; 97162; 97535

== ENCOUNTER 2023-09-15 14:51 | Outpatient (CLI) | payer OTHER, BC, SELFPAY | END 2023-09-15 14:52 | disposition home or self-care (01) | PROVIDERS: PCP Family Medicine; Visit Provider Obstetrics & Gynecology | DX: N92.0 Excessive and frequent menstruation with regular cycle (principal); Z12.4 Encounter for screening for malignant neoplasm of cervix | CPT/HCPCS: 87086 ==

== ENCOUNTER 2024-01-12 10:18 | Outpatient (CLI) | payer OTHER, BC, SELFPAY | END 2024-01-12 10:19 | disposition home or self-care (01) | LOC: NFLDREF 01-13 15:56 | PROVIDERS: PCP Family Medicine; Referring Provider Family Medicine; Visit Provider Family Medicine | DX: N39.0 Urinary tract infection, site not specified (principal); D64.9 Anemia, unspecified; Z79.899 Other long term (current) drug therapy; I10 Essential (primary) hypertension; E28.2 Polycystic ovarian syndrome; F32.A Depression, unspecified; F41.9 Anxiety disorder, unspecified; R32 Unspecified urinary incontinence; R73.03 Prediabetes; D72.829 Elevated white blood cell count, unspecified; R05.9 Cough, unspecified; F41.8 Other specified anxiety disorders | CPT/HCPCS: 87086 ==

== ENCOUNTER 2024-05-01 14:25 | Emergency (ER) | payer OTHER, BC, SELFPAY ==
[2024-05-01 14:29] VITALS: BP 125/79; PULSE 96; RESP 18; TEMP 36.7; O2SAT 96; BMI 44.5
[2024-05-01 14:52] LABS: Appearance Urine Clear (Clear); Bilirubin Urine Negative (Negative); Blood Urine Negative (Negative); Color Urine Yellow (Yellow); Glucose Urine Negative (Negative); Ketones Urine Negative (Negative); Leukocyte Esterase Urine Negative (Negative); Nitrite Urine Negative (Negative); Protein Urine Negative (Negative); Urobilinogen Urine 0.2 (0.2-1.0)
--- NOTE | 2024-05-01 15:04 | CRLHL7_ITS ---
For Patients: As a result of the Century Cures Act, medical imaging exams and procedure reports are released immediately into your electronic medical record. You may view this report before your referring provider. If you have questions, please contact your health care provider. INDICATION: Abdominal pain; nausea; diarrhea. COMPARISON: None. TECHNIQUE: CT abdomen and pelvis with intravenous contrast; coronal and sagittal reformats. FINDINGS: Lung bases are clear. Normal size cardiac silhouette without any pericardial effusion. A 5.8 x 5.1 cm exophytic lesion off segment 2 of the liver in the left upper quadrant of the abdomen. Diffuse fatty infiltration of the liver. No splenic pathology. No pancreatic pathology. Gallbladder is unremarkable. No adrenal pathology. Kidneys are unremarkable. No retroperitoneal lymphadenopathy. No evidence of abdominal or pelvic ascites. No pneumoperitoneum or intestinal obstruction. Normal appendix. CT study of the pelvis is unremarkable. Impression: 1. A 5.8 x 5.1 cm exophytic lesion off segment 2 of the liver; indeterminate; suggest obtaining an MRI of the liver with contrast using multiphasic imaging protocol on a nonemergent basis. 2. Fatty infiltration of the liver. 3. No kidney stones or obstructive uropathy. 4. Normal appendix. Please note that all CT scans at this facility use dose modulation, iterative reconstruction, and/or weight-based dosing when appropriate to reduce radiation dose to as low as reasonably achievable. Dictated by Uriel Rainey MD @ 05/01/2024 4:52:28 PM (Electronically Signed)
--- NOTE | 2024-05-01 15:05 | ED_ITS ---
HPI - Abdominal Pain General Chief Complaint: Abdominal Pain Stated Complaint: Suspected diverticulitis/appendicitis Time Seen by Provider: 05/01/24 14:29 History of Present Illness HPI narrative: This 44-year-old female comes here from urgent care clinic because of abdominal pain that began 2 or 3 days ago. She states that the pain is crampy and seems to be worse with movement and almost completely gone when laying still. She has had some nausea but no vomiting. She has also had diarrhea. She does report a temperature of 101? F on the 1st day that her symptoms started. She was thinking that it was a stomach flu related to some food she ate. She comes in today because symptoms have persisted and seemed to be worse. She had a complete blood count done at urgent care and her white count was slightly elevated at around 13,000. She is sent here for CT imaging. Related Data Home Medications ?Medication ?Instructions ?Recorded ?Confirmed condoms latex lubricated #3 ea 07/17/22 05/01/24 (Condoms-Wes Lubricated) ammonium lactate 12 % topical cream applic topical BID PRN 02/23/23 05/01/24 oxycodone-acetaminophen 5 mg-325 1 - 2 tab PO Q6H PRN chronic pain 02/23/23 05/01/24 mg tablet Previous Rx's ?Medication ?Instructions ?Recorded nystatin 100,000 unit/mL oral 5 ml PO QID #200 mL 02/23/23 suspension nicotine 21 mg/24 hr daily 1 patch transdermal Q24H #28 ea 05/21/23 transdermal patch losartan 50 mg tablet 50 mg PO BID #180 tabs 08/13/23 clonidine HCl 0.1 mg tablet 0.1 mg PO BID PRN hypertensive 09/02/23 emergency #60 tabs levothyroxine 75 mcg tablet 75 mcg PO QDAY #90 tabs 10/08/23 gabapentin 300 mg capsule 900 mg (3 x 300 mg) PO TID #270 11/20/23 caps metformin 500 mg tablet,extended 500 mg PO QDAY #30 tabs 01/12/24 release 24 hr sertraline 100 mg tablet (Zoloft) 200 mg (2 x 100 mg) PO QDAY #90 01/12/24 tabs cholecalciferol (vitamin D3) 50 See Rx Instructions .Route 02/19/24 mcg (2,000 unit) tablet .COMPLEX #100 tabs triamterene 37.5 1 cap PO QAM #90 caps 03/07/24 mg-hydrochlorothiazide 25 mg capsule labetalol 200 mg tablet 400 mg (2 x 200 mg) PO BID #120 03/31/24 tabs potassium chloride 10 mEq 20 meq (2 x 10 mEq) PO BID #240 04/04/24 capsule,extended release caps ondansetron 4 mg disintegrating 4 mg PO Q6H PRN nausea and 05/01/24 tablet vomiting #10 tabs Allergies Allergy/AdvReac Type Severity Reaction Status Date / Time Iodinated Contrast Media Allergy Severe Swelling Verified 05/01/24 14:40 of Lip/Tongue/Throat Penicillins Allergy Severe Swelling Verified 05/01/24 14:40 of Lip/Tongue/Throat Review of Systems Status of ROS Reports: 10 or more systems reviewed and unremarkable except as noted in History and below Narrative Constitutional: No fevers, no weight gain or loss. Eyes: No discharge. No vision changes. HENT: No congestion, no sore throat, no ear pain. Cardiovascular: No chest pain, no palpitations. Respiratory: No shortness of breath, no wheezes, no cough. Gastrointestinal: Abdominal pain with nausea and diarrhea as described above. Genitourinary: No dysuria, no hematuria. Musculoskeletal: Normal range of motion. Skin: No rashes, no pruritis. Neurological: No dizziness, weakness, sensory change, speech change. Endo/Heme/Allergies: No bruising or bleeding. No polydipsia. Pysch: no suicidality, no anxiety, no insomnia. All other systems reviewed and are negative. [facility] Medical History (Updated 05/01/24 @ 17:17 by Erick Gauthier MD) Atypical pigmented skin lesion ?L81.9 - Disorder of pigmentation, unspecified (ICD-10) Pneumonia ?J18.9 - Pneumonia, unspecified organism (ICD-10) IBS (irritable bowel syndrome) ?K58.9 - Irritable bowel syndrome without diarrhea (ICD-10) Asthma ?J45.909 - Unspecified asthma, uncomplicated (ICD-10) Surgical History (Updated 09/16/23 @ 13:30 by Tiffanie Israel MD) History of hysteroscopy ?Z98.890 - Other specified postprocedural states (ICD-10) Hx of dilation and curettage ?Z98.890 - Other specified postprocedural states (ICD-10) H/O ovarian cystectomy ?Z98.890 - Other specified postprocedural states (ICD-10) ?Z87.42 - Personal history of other diseases of the female genital tract (ICD-10) History of delivery ?Z98.891 - History of uterine scar from previous surgery (ICD-10) Carpal tunnel syndrome on right ?G56.01 - Carpal tunnel syndrome, right upper limb (ICD-10) Family History (Updated 09/16/23 @ 13:31 by Tiffanie Israel MD) Mother Breast cancer Daughter Bleeding disorder Other Alcohol dependence Depression Diabetes Heart disease Seizure disorder Stroke Social History Smoking Status: Current every day smoker How often do you have a drink containing alcohol: never AUDIT-C Alcohol total score: 0 Little interest or pleasure in doing things: several days Feeling down, depressed, or hopeless: nearly every day Exam Narrative: Exam Narrative: Constitutional: Well-developed, well-nourished, no acute distress. HEENT: Normocephalic, atraumatic. Neck: Normal range of motion. Nontender. Supple. Heart: Regular. No murmurs. Normal rate. Intact distal pulses. Lungs: Clear to auscultation. No chest discomfort. No wheezes, rhonchi, or rales. Abdomen: Normal bowel sounds. Tenderness in the right lower quadrant. No rebound tenderness. Rovsing sign is negative. Genitalia: Deferred. Back: No midline tenderness. Normal range of motion. Extremities: Normal range of motion. No injury. Skin: Intact. No rash. Warm. No erythema or pallor. Neurologic: No altered sensation. No weakness. Alert and oriented. Psychiatric: No suicidality. No anxiety or depression. No insomnia. Nursing notes and vitals signs are reviewed. Const: Vital Signs, click to edit/add: Vital Signs - 24 hr 05/01/24 14:29 Temperature 98.1 F Pulse Rate [Pulse Oximeter] 96 Respiratory Rate 18 Blood Pressure [Ri ght Upper Arm] 125/79 Pulse Oximetry 96 Oxygen Delivery Me thod Room Air Course Vital Signs Vital signs: Initial Vital Signs Temperature 98.1 F 05/01/24 14:29 Temperature Source Temporal Artery Scan 05/01/24 14:29 Pulse Rate 96 05/01/24 14:29 Respiratory Rate 18 05/01/24 14:29 Blood Pressure 125/79 05/01/24 14:29 Blood Pressure Mean 94 05/01/24 14:29 Blood Pressure Position Sitting 05/01/24 14:29 Pulse Oximetry 96 05/01/24 14:29 Oxygen Delivery Method Room Air 05/01/24 14:29 Vital Signs Temperature 98.1 F 05/01/24 14:29 Pulse Rate 96 05/01/24 14:29 Respiratory Rate 18 05/01/24 14:29 Blood Pressure 125/79 05/01/24 14:29 Pulse Oximetry 96 05/01/24 14:29 Oxygen Delivery Method Room Air 05/01/24 14:29 Temperature 98.1 F 05/01/24 14:29 Pulse Rate 96 05/01/24 14:29 Respiratory Rate 18 05/01/24 14:29 Blood Pressure 125/79 05/01/24 14:29 Pulse Oximetry 96 05/01/24 14:29 Oxygen Delivery Method Room Air 05/01/24 14:29 MDM - Abdominal Pain MDM Narrative Medical decision making narrative: This patient was sent here from urgent care for CT imaging of her abdomen due to her right lower quadrant abdominal pain. An IV was established in the CT scan is obtained and shows no acute findings to explain her pain. She does have an exophytic lesion of her liver that is recommended to be further evaluated and sometime in the future. There is no sign of appendicitis, diverticulitis, or kidney stones. The patient's lab results are also reassuring. The patient does have a history of polycystic ovarian syndrome and her pain may be related to ovarian cyst. She is okay to be discharged home and plans to follow-up with OBGYN clinic. A prescription for Toradol is provided from the [facility]. Lab Data Labs: Lab Results 05/01/24 05/01/24 Range/Units 14:46 15:23 Sodium 137 (135-149) mmol/L Potassium 3.7 (3.6-5.1) mmol/L Chloride 100 (96-114) mmol/L Carbon Dioxide 27 (20-32) mmol/L Anion Gap 10 (7-15) mEq/L BUN 13 (5-24) mg/dL Creatinine 0.5 (0.5-1.5) mg/dL Estimated Creat Clear 121.40 Estimated GFR 117 ml/min Glucose 124 H (60-115) mg/dL Calcium 9.9 (8.4-10.6) mg/dL Urine Color Yellow (Yellow) Urine Appearance Clear (Clear) Urine pH 7.0 (5.0-8.5) Ur Specific [place] 1.020 (1.000-1.030) Urine Protein Negative (Negative) Urine Glucose (UA) Negative (Negative) Urine Ketones Negative (Negative) Urine Blood Negative (Negative) Urine Nitrite Negative (Negative) Urine Bilirubin Negative (Negative) Urine Urobilinogen 0.2 (0.2-1.0) Ur Leukocyte Esterase Negative (Negative) Imaging Data CT scan - abdomen: Radiologist's impression: 1. A 5.8 x 5.1 cm exophytic lesion off segment 2 of the liver; indeterminate; suggest obtaining an MRI of the liver with contrast using multiphasic imaging protocol on a nonemergent basis. 2. Fatty infiltration of the liver. 3. No kidney stones or obstructive uropathy. 4. Normal appendix. Discharge Plan Discharge Clinical Impression: Abdominal pain Patient Disposition: Home, Self-Care Condition: Stable Additional Instructions: Use medication as needed and directed. Follow up with primary physician and or OBGYN Clinic for ongoing diagnosis and management. Return if worsening. Prescriptions: No Action (DME) Condoms-Wes Lubricated Device See Rx Instructions .ROUTE .MEDSUPPLY Qty: 3 Patient Comments: Use as directed. Rx Instructions: As directed ammonium lactate 12 % cream topical BID PRN oxycodone-acetaminophen 5-325 mg tablet 1 - 2 tab PO Q6H PRN (Reason: chronic pain) nystatin 100,000 unit/mL suspension 5 ml PO QID Qty: 200 1RF Rx Instructions: swish and swallow losartan 50 mg tablet 50 mg PO BID Qty: 180 3RF sertraline [Zoloft] 100 mg tablet 200 mg PO QDAY Qty: 90 2RF metformin 500 mg tablet extended release 24 hr 500 mg PO QDAY Qty: 30 1RF nicotine 21 mg/24 hr patch 24 hour 1 patch transdermal Q24H Qty: 28 1RF ondansetron 4 mg tablet,disintegrating 4 mg PO Q6H PRN (Reason: nausea and vomiting) Qty: 10 0RF clonidine HCl 0.1 mg tablet 0.1 mg PO BID PRN (Reason: hypertensive emergency) Qty: 60 0RF Rx Instructions: take for BP >180 levothyroxine 75 mcg tablet 75 mcg PO QDAY Qty: 90 2RF Patient Comments: TAKE 1 TABLET (75 MCG) BY MOUTH DAILY. gabapentin 300 mg capsule 900 mg PO TID Qty: 270 8RF cholecalciferol (vitamin D3) 50 mcg (2,000 unit) tablet See Rx Instructions .ROUTE .COMPLEX Qty: 100 3RF Dose Instruction: TAKE 1 TABLET (2000 UNITS) BY MOUTH DAILY Rx Instructions: TAKE 1 TABLET (2000 UNITS) BY MOUTH DAILY triamterene-hydrochlorothiazid 37.5-25 mg capsule 1 cap PO QAM Qty: 90 0RF labetalol 200 mg tablet 400 mg PO BID Qty: 120 8RF potassium chloride 10 mEq capsule, extended release 20 meq PO BID Qty: 240 3RF Rx Instructions: Take 20 mEq by mouth twice daily. Follow Up/Referrals: Michael Harvey MD [Primary Care Provider] - Stand Alone Forms: [facility] Info Instructions
--- OUTSIDE RECORDS SUMMARY | 2024-05-01 15:16 | XMS_ITS | Clinical Summary ---
Author Organization [facility] Address [address] [place] [address] Care Team Providers Care Interpretive Naturalist Name Role Phone Betsy Orantes MD Primary Care Provider [phone] Source Comments You are receiving this document as you are listed as the primary care provider,follow-up provider, or the patient has been referred to you for consultation.This is in compliance with the Medicare andMedicaid EHR Incentive Program,which states Providers who transition their patient to another setting of careor provider of care or refers their patient to another provider of care shouldprovide summary care record for each transition of care or referral. Premise Allergies Active Allergy Reactions Criticality Noted Date Comments Other 12/17/2009 PN: LW Other1: -CONTRAST DYE: HIVES Penicillins 12/11/2000 PN: LW Reaction: SWOLLEN UVULA Pregabalin 03/12/2010 PN: LW Reaction: Swelling?? Medications Medication Sig Dispensed Refills Start Date End Date Status fluticasone (AKA FLONASE) 50 MCG/ACT nasal solution 2 sprays by Each Nostril route daily (every 24 hours). LW Comment:3 month supply 3 4 05/14/2010 Active ibuprofen (AKA MOTRIN) 200 MG tablet Take 1-2 tablets by mouth 3 times daily as needed. LW Addl Instr:Take with food. 12/17/2009 Active cholecalciferol (AKA VITAMIN D3) 1000 UNITS tablet Take 2 tablets by mouth daily (every 24 hours). 12/19/2009 Active metFORMIN (AKA GLUCOPHAGE) 500 MG tablet Take 4 tablets by mouth daily (every 24 hours). LW Addl Instr:Take with meals. Indicated for: Diabetes 3 05/14/2010 Active gabapentin (AKA NEURONTIN) 300 MG capsule Take 300 mg by mouth 3 times daily. 03/21/2014 Active CONTROL PILL, PATIENT'S OWN MED Take 1 tablet by mouth daily at 8am. 03/21/2014 Active oxyCODONE-acetaminop hen (AKA PERCOCET) 5-325 MG tablet Take 2 tablets by mouth 3 times daily as needed. 03/10/2014 Active DULoxetine (AKA CYMBALTA) 60 MG capsule Take 60 mg by mouth daily (every 24 hours). 03/21/2014 Active metoPROLOL tartrate (AKA LOPRESSOR) 50 MG tablet Take 1 tablet by mouth 2 times daily. 03/11/2014 Active Cyanocobalamin 1000 MCG/ML KIT Inject 1,000 mcg into the muscle every month. 03/21/2014 Active Vit-Fe Fumarate-FA ( OR) Take 1 tablet by mouth daily (every 24 hours). 03/21/2014 Active pramipexole (AKA MIRAPEX) 0.125 MG tablet TAKE 1 TO 3 TABLETS BY MOUTH EVERY NIGHT AT BEDTIME 90 tablet 0 12/14/2015 Active Active Problems Problem Noted Date Diagnosed Date DOREEN (obstructive sleep apnea) 02/24/2010 Overview: Settin CPAP Supplied by: Shanon PSG done: 02/21/10 AHI 66 RDI 80 Lowest O2 Sat: 82% 03/21/14 Renew, Call to schedule, update supplies Polycystic ovaries 12/17/2009 Overview: Polycystic Ovary Syndrome Degeneration of intervertebral disc 12/17/2009 Overview: LW Modifier: T-spine ; Degenerative Disc Disease Obesity 12/17/2009 Myalgia 12/17/2009 Overview: Fibromyalgia Social History Tobacco Use Types Packs/Day Years Used Date Smoking Tobacco: Former Smokeless Tobacco: Never Comments:Quit smokin yrs ago Alcohol Use Standard Drinks/Week Comments No 0 (1 standard drink = 0.6 oz pure alcohol) Alcoholic Drinks/day: Freq:Never; Sex and Gender Information Value Date Recorded Sex Assigned at Not on file Gender Identity Not on file Sexual Orientation Not on file Last Filed Vital Signs Vital Sign Reading Time Taken Comments Blood Pressure 160/90 06/23/2023 10:54 PM CDT Pulse 81 06/23/2023 10:54 PM CDT Temperature 36.6 ??C (97.8 ??F) 06/23/2023 10:54 PM C DT Respiratory Rate 18 06/23/2023 10:54 PM CDT Oxygen Saturation 98% 06/23/2023 10:54 PM CDT Inhaled Oxygen Concentration - - Weight 114.8 kg (253 lb) 03/21/2014 11:04 AM CDT Height 162.6 cm (5' 4) 03/21/2014 11:04 AM CDT Body Mass Index 43.43 03/21/2014 11:04 AM CDT Plan of Treatment Health Maintenance Due Date Last Done Comments Cervical Cancer Screening Due 1978 Colon Cancer Screening Plan Due 1978 Hep C Screening (Preventive Services) 1978 HIV Screening (Preventive Services) 1994 Adult Preventive Visit 1996 DTaP/Tdap/Td (1 - Tdap) 1997 HepB (1) 1997 Cholesterol 2023 COVID-19 Vaccine (1 - 2022-2 4 season) 2023 Influenza (Season Ended) 2024 10/01/2022 Zoster/Shingles (1 of 2) 2028 HepA Aged Out No longer eligi ble based on patient's age to complete this topic Hib Aged Out No longer eligi ble based on patient's age to complete this topic IPV (Polio) Aged Out No longer eligi ble based on patient's age to complete this topic MCV4 Aged Out No longer eligi ble based on patient's age to complete this topic Pneumococcal Aged Out No longer eligi ble based on patient's age to complete this topic Care Teams Interpretive Naturalist Relationship Specialty Start Date End [place] [address] PCP - General 03/02/11
--- OUTSIDE RECORDS SUMMARY | 2024-05-01 15:16 | XMS_ITS | Continuity of Care Document ---
Author Organization [facility] Address [address] [place] [address] Care Team Providers Care Delinquent Tax Collector Assistant Name Role Phone [facility] Unavailable Unav ailable Procedures Procedure Date Facet Jt Inj Lumbar LEFT Facet Jt Inj Lumbar RIGHT Facet Inj Lumbar 2nd Level LEFT 021 Facet Inj Lumbar 2nd Level RIGHT 2020 Advance Directives Directive Yes / No Effective Date File Name No Information Encounters Encounter Description Practice Location Reason(s) For Visit Diagnoses Date Provider Providers Copied on Encounter [facility], [address] [place], [place], [id number], [facility] No Information [facility]. [address] [place], [place], [id number], . tel:[phone] Referring Provider: Bonnie Ramirez, [address] [place], [address]. tel:[phone] Family History Family Member Type Diagnosis Age At Onset No Information Payers Payer name Insurance type Covered republican ID Authoriza tion(s) [facility] CI [id number] Social History Type Description Quantity Date Captured [...]
--- OUTSIDE RECORDS SUMMARY | 2024-05-01 15:16 | XMS_ITS | Continuity of Care Document ---
Author Organization [facility] enter Address [address] [place] [phone] Phone Care Team Providers Care Airconditioning Plant Operator Name Role Phone [facility] Unavailable Unava ilable Procedures Procedure Date INTERLAMINAR LMBR OR SAC INTERLAMINAR CRV OR THRC INTERLAMINAR CRV OR THRC No Charge For Visit Per Prov Advance Directives Directive Yes / No Effective Date File Name No Information Encounters Encounter Description Practice Location Reason(s) For Visit Diagnoses Date Provider Providers Copied on Encounter [facility], [address] [place] [address], [id number], tel:[phone] [place] [address] No Information Jul-2 3 [facility]. [address] [place] [address], [id number], [place]. tel:[phone] Referring Provider: Bonnie Ramirez, [address] [place], [address] . tel:[phone] [facility], [address] [place] [address], [id number], tel:[phone] [place] [address] No Information Sep-0 3 [facility]. [address] [place] [address], [id number], . tel:[phone] Referring Provider: Kian Draper [facility] [place], [address] . tel:[phone] [facility], [address] [facility] [address] [facility] [address], [place], [id number], tel:[phone] [facility] No Information 0 2 [facility]. [address] [place] [address] [address] [facility] [address], [place], [id number], [place]. tel:[phone] Referring Provider: Angel Lima [address], [place], [address]. tel:[phone] Family History Family Member Type Diagnosis Age At Onset No Information Payers Payer name Insurance type Covered alliance party ID Noreen foster(s) [facility] [place] [id number] Social History Type Description Quantity Date Captured [...]
--- OUTSIDE RECORDS SUMMARY | 2024-05-01 15:17 | XMS_ITS | Clinical Summary ---
Author Organization [facility] Address [address] [place] [address] Care Team Providers Care Flange Turner Name Role Phone [facility]- Primary Care Provider Allergies Active Allergy Reactions Criticality Noted Date Comments Contrast Dye 09/21/2017 Penicillin G 09/21/2017 Medications Medication Sig Dispensed Refills Start Date End Date Status Vit-Fe Fumarate-FA ( MULTIVITAMIN PLUS IRON) 27-0.8 MG TABS per tablet Take 1 tablet by mouth daily Active METFORMIN HCL PO Take 1,500 mg by mouth daily (with lunch) Active LEVOTHYROXINE SODIUM PO Take 75 mcg by mouth daily Active Ferrous Sulfate (IRON SUPPLEMENT PO) Take 325 mg by mouth Active VITAMIN D, CHOLECALCIFEROL, PO Take 7,000 Units by mouth daily Active GABAPENTIN PO Take 900 mg by mouth 3 times daily Active oxyCODONE-acetamino phen (PERCOCET) 5-325 MG per tablet Take by mouth every 4 hours as needed for moderate to severe pain Active albuterol (2.5 MG/3ML) 0.083% neb solution Take 1 vial by nebulization every 6 hours as needed for shortness of breath / dyspnea or wheezing Active Inositol-D Chiro-Inositol (OVASITOL) 2000-50 MG PACK Take by mouth 2 times daily Active fluticasone-salmete rol (ADVAIR) 100-50 MCG/DOSE inhaler Inhale 1 puff into the lungs 2 times daily Active potassium chloride ER (K-TAB) 20 MEQ CR tablet Take 40 mEq by mouth 2 times daily Active cyanocobalamin (CYANOCOBALAMIN) 1000 MCG/ML injection Inject 1 mL into the muscle every 14 days Active busPIRone HCl (BUSPAR) 30 MG tablet Take 15 mg by mouth 2 times daily Active hydrochlorothiazide (HYDRODIURIL) 50 MG tablet Take 50 mg by mouth daily Active sertraline (ZOLOFT) 50 MG tablet Take 50-100 mg by mouth daily Active HYDROXYZINE PAMOATE PO Take by mouth every 6 hours as needed for itching Active ibuprofen (ADVIL/MOTRIN) 600 MG tabletIndications:I rregular menstruation, unspecified Take 1 tablet (600 mg) by mouth every 6 hours as needed for other (mild and/or inflammatory pain) 30 tablet 06/04/2020 Active vitamin E 400 units TABS Take 400 Units by mouth daily Active terbinafine (LAMISIL) 250 MG tablet Take 250 mg by mouth daily Active Cholecalciferol (VITAMIN D3) 50 MCG (1999 UT) TABS Take 1 tablet by mouth daily 03/19/2021 Active cloNIDine (CATAPRES) 0.1 MG tablet TAKE 1 TABLET (0.1 MG) BY MOUTH 2 TIMES A DAY NEEDED. take for BP >180. 01/12/2021 Active ferrous gluconate (FERGON) 324 (38 Fe) MG tablet Take 324 mg by mouth daily 05/15/2021 Active labetalol (NORMODYNE) 200 MG tablet Take 400 mg by mouth daily Active metFORMIN (GLUCOPHAGE-XR) 500 MG 24 hr tablet Take 1,500 mg by mouth daily 03/19/2021 Active KLOR-CON 20 MEQ CR tablet TAKE 2 TABLETS (40MEQ) IN THE MORNING, AND 1 TABLET (20MEQ) AT BEDTIME. 04/04/2021 Active pramipexole (MIRAPEX) 0.25 MG tablet TAKE 1 TO 3 TABLETS (0.25-0.75MG) BY MOUTH AT BEDTIME. 04/23/2021 Active Active Problems Problem Noted Date Diagnosed Date Morbid obesity 05/21/2021 Generalized anxiety disorder 05/21/2021 Depression 05/21/2021 History of vitamin D deficiency 05/21/2021 Lumbar degenerative disc disease 05/21/2021 PCOS (polycystic ovarian syndrome) 05/21/2021 IBS (irritable bowel syndrome) 05/21/2021 Vitamin B 12 deficiency 05/21/2021 Dysphagia 02/06/2021 Edema 02/06/2021 Gastroesophageal reflux disease 01/25/2021 Hypertension 05/15/2017 Restless legs syndrome 05/15/2017 Hypothyroid 04/21/2017 Neuropathy of both feet 10/07/2016 Hypokalemia 04/01/2011 Overview: Secondary to diuretic Thoracic disc herniation 09/10/2010 Obstructive sleep apnea syndrome 06/19/2010 Overview: cpap Obsessive-compulsive disorder 05/28/2010 Palpitations 06/05/2006 Resolved Problems Problem Noted Date Diagnosed Date Resolved Date Chronic bilateral low back p ain without sciatica 07/18/2019 12/20/2019 Immunizations Name Administration Dates Next Due Hepatitis B, Adult 05/28/2020, 0,08/08/2019, 019 Influenza (H1N1) 10/02/2009 Influenza (IIV3) PF 11/26/2011, 0,08/21/2009, 006 Influenza Vaccine 18-64 (Flublok) 10/14/2019 Influenza Vaccine >6 months,quad, PF 08/23/2018, 08/21/2017 TDAP (Adacel,Boostrix) 11/19/2018,10/11/2009 Varicella 07/05/2019 Social History Tobacco Use Types Packs/Day Years Used Date Smoking Tobacco: Former Cigarettes 1 15 0 06/30/2004 - 06/30/2019 Smokeless Tobacco: Never Alcohol Use Standard Drinks/Week Comments Yes 0 (1 standard drink = 0.6 oz pure alcohol) occassional/rare because of current Pain Rx Adolescent Education Answer Date Record ed Getting School Help Needed Not on file 09/13 Sex and Gender Information Value Date Recorded Sex Assigned at Not on file Gender Identity Not on file Sexual Orientation Not on file Last Filed Vital Signs Vital Sign Reading Time Taken Comments Blood Pressure 152/94 06/09/2023 1:49 AM CDT Pulse 81 06/09/2023 1:49 AM CDT Temperature 36.7 ??C (98.1 ??F) 06/09/2023 1:49 AM CD T Respiratory Rate 16 06/09/2023 1:49 AM CDT Oxygen Saturation 99% 06/09/2023 1:49 AM CDT Inhaled Oxygen Concentration - - Weight 99.8 kg (220 lb) 07/19/2022 5:40 PM CDT Height 162.6 cm (5' 4) 07/19/2022 5:40 PM CDT Body Mass Index 37.76 07/19/2022 5:40 PM CDT Plan of Treatment Health Maintenance Due Date Last Done Comments ADVANCE CARE PLANNING 1978 ANNUAL REVIEW OF HM ORDERS 1978 CT COLONOGRAPHY 1978 FIT 1978 FLEX SIG 1978 MAMMO SCREENING 1978 TSH W/FREE T4 REFLEX 1978 URINE DRUG SCREEN 1978 YEARLY PREVENTIVE VISIT 1978 sDNA (Cologuard) 1978 COLONOSCOPY 1988 COLORECTAL CANCER SCREENING 1988 HIV SCREENING 1993 HEPATITIS C SCREENING 1996 PAP 1999 LIPID 2018 COVID-19 Vaccine ( season) 2023 08/27/2021, 08/06/2021 PHQ-2 (once per calendar year) 2023 INFLUENZA VACCINE (Season Ended) 2024 10/24/2022, 10/01/2022, 08/27/2021, Additional history exists GLUCOSE 06/08/2026 06/08/2023, 03/31, 07/31/2020, Additional history exists DTAP/TDAP/TD IMMUNIZATION (4 - Td or Tdap) 03/11/2032 03/11/2022, 11/19/2018, 10/11/2009 HEPATITIS B IMMUNIZATION Completed 022, 10/29/2021, 05/28/2020, Additional history exists HPV IMMUNIZATION Aged Out No longer e ligible based on patient's age to complete this topic IPV IMMUNIZATION Aged Out No longer e ligible based on patient's age to complete this topic MENINGITIS IMMUNIZATION Aged Out No l onger eligible based on patient's age to complete this topic Pneumococcal Vaccine: Pediatrics (0 to 5 Years) and At-Risk Patients (6 to 64 Years) Aged Out No longer eligible based on patient's age to complete this topic RSV MONOCLONAL ANTIBODY Aged Out No l onger eligible based on patient's age to complete this topic Procedures Procedure Name Priority Date/Time Associated Diagnosis Comments BASIC METABOLIC PANEL STAT 06/08/2023 6:33 PM CDT from Last 3 Months or Most Recently Relevant to Health Maintenance Results * (ABNORMAL) Basic metabolic panel (BMP) (06/08/2023 6:33 PM CDT) Sodium 139 136 - 145 mmol/L 06/08/2023 7:08 PM CDT LABORATORY Potassium 3.7 3.4 - 5.3 mmol/L 06/08/2023 7:08 PM CDT LABORATORY Chloride 102 98 - 107 mmol/L 06/08/2023 7:08 PM CDT LABORATORY Carbon Dioxide (CO2) 25 22 - 29 mmol/L 06/08/2023 7:08 PM CDT LABORATORY Anion Gap 12 7 - 15 mmol/L 06/08/2023 7:08 PM CDT LABORATORY Urea Nitrogen 12.8 6.0 - 20.0 mg/dL 06/08/2023 7:08 PM CDT LABORATORY Creatinine 0.65 0.51 - 0.95 mg/dL 06/08/2023 7:08 PM CDT LABORATORY Calcium 9.5 8.6 - 10.0 mg/dL 06/08/2023 7:08 PM CDT LABORATORY Glucose 138(H) 70 - 99 mg/dL 06/08/2023 7:08 PM CDT LABORATORY GFR Estimate >90 >60 mL/min/1.7 3m2 06/08/2023 7:08 PM CDT LABORATORY Blood STRUCTURE OF RIGHT UPPER LIMB / Unknown Venipuncture / Unknown 06/08/2023 6:33 PM CDT 06/08/2023 6:43 PM CDT Yasmin Rubio MD LAB - BLOOD ORDERABL ES LABORATORY [facility] [address] (1st floor, no room number) [place] [address], [facility] [phone] from Last 3 Months or Most Recently Relevant to Health Maintenance Care Teams Flange Turner Relationship Specialty Start Date End Date [facility]- [address] [place] [address] PCP - General 07/31/20
--- OUTSIDE RECORDS SUMMARY | 2024-05-01 15:17 | XMS_ITS | Encounter Summary ---
Author Organization [facility] Address [address] [place] [address]. [place] [address] Care Team Providers Care Security Checker Name Role Phone [facility]- Primary Care Provider Angie Lake PA-C Unavailable [phone] Encounter Details Date Type Department Care Team (Late st Contact Info) Description 05/21/2021 MyC Medical Advice [facility] [place] [id number] [facility] [address] [place] [address] [phone] Angie Lake PA-C [address] [facility] [address] [place] [address] Social History Tobacco Use Types Packs/Day Years Used Date Smoking Tobacco: Former Cigarettes 1 15 0 06/30/2004 - 06/30/2019 Smokeless Tobacco: Never Alcohol Use Standard Drinks/Week Comments Yes 0 (1 standard drink = 0.6 oz pure alcohol) occassional/rare because of current Pain Rx Sex and Gender Information Value Date Recorded Sex Assigned at Not on file Gender Identity Not on file Sexual Orientation Not on file documented as of this encounter Plan of Treatment Not on file documented as of this encounter Visit Diagnoses Not on filedocumented in this encounter Additional Health Concerns Infection Onset Date Last Indicated Resolved Time COVID-19 07/29/2022 07/29/2022 08/19/2022 11:3 9 PM CDT documented as of this encounter Care Teams Security Checker Relationship Specialty Start Date End Date [facility]- [address] [place] [address] PCP - General 07/31/20 Angie Lake PA-C [address] [place] [address] Assigned Surgical Provider 05/26/21 documented as of this encounter
--- OUTSIDE RECORDS SUMMARY | 2024-05-01 15:17 | XMS_ITS | Encounter Summary ---
Author Organization [facility] Address [address] [place] [address] Care Team Providers Care Alcohol And Drug Counselor Name Role Phone [facility]- Primary Care Provider Angie Lake PA-C Unavailable + [phone] Encounter Details Date Type Department Care Team (Late st Contact Info) Description 10/25/2021 Documentation Only INTERFACED REPORT Unknown, Provider Social History Tobacco Use Types Packs/Day Years [...] on file Sexual Orientation Not on file COVID-19 Exposure Response Date Recorded In the last month, have you been in contact with someone who was confirmed or suspected to have Coronavirus / COVID-19? No / Unsure 10/25/2021 3:39 PM APPLICATIONS PACKAGER documented as of this encounter Plan of Treatment Not on file documented as of this encounter Visit Diagnoses Not on filedocumented in this encounter Additional Health Concerns Infection Onset Date Last Indicated Resolved Time COVID-19 07/29/2022 07/29/2022 08/19/2022 11:3 9 PM CDT documented as of this encounter Care Teams Alcohol And Drug Counselor Relationship Specialty Start Date End Date [facility]- [address] [place] [address] PCP - General 07/31/20 Angie Lake PA-C [address] [place] [address] Assigned Surgical Provider 05/26/21 documented as of this encounter
--- OUTSIDE RECORDS SUMMARY | 2024-05-01 15:17 | XMS_ITS | Clinical Summary ---
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 Blood products may be delayed. Please draw one red top and two lavender top tubes for all Type and Screen/Type and Crossmatch orders. Codeine Vomiting 06/29/2006 Iodinated Contrast Media Hives 03/14/2009 Diphenhydramine Anxiety 02/19/2010 Iohexol Hives 12/01/2007 Unlisted Allergen (Include Detail In Comments) Edema 07/15/2013 Dodge popsicle - lips swelling / urtcaria Penicillins Edema 02/19/2010 Pregabalin *Unknown 03/12/2010 PN: LW Reaction: Swelling?? Tizanidine Nightmares 08/13/2010 Medications Medication Sig Dispensed Refills Start Date End Date Status IBUPROFEN 200 MG CAP Take 1-3 200mg tablets by mouth every 6 hours for uterine cramping as needed 0 0 10/11/2009 Active ERGOCALCIFEROL, VITAMIN D2, (VITAMIN D ORAL) Take 2,000 mg by mouth. Active Nystatin, Topical, 2 billion unit powd As directed 1 unit continuous as needed for Other (Specify). 1 canister 1 05/01/2014 Active ferrous sulfate 325 mg delayed release tablet Take 325 mg by mouth 2 times daily. 0 08/07/2014 Active methyldopa (ALDOMET) 500 mg tablet 1,000 mg 2 times daily. 3 11/04/2015 Active furosemide (LASIX) 40 mg tablet TK 1 T PO D 3 12/16/2016 Active levothyroxine (SYNTHROID) 75 mcg tablet TK 1 T PO QAM 5 12/16/2016 Active pramipexole (MIRAPEX) 0.25 mg tablet TK 1-2 TS PO QHS PRF RESTLESS LEGS 11 12/23/2016 Active cyanocobalamin (VITAMIN B12) 1,000 mcg/mL injectionIndicati ons:Idiopathic peripheral neuropathy Inject 1 mL intramuscular every 4 weeks. 1 mL 03/17/2017 Active Additional Information Patient taking differently:1,000 mcg Intra-MuscularQ 2 WEEKS, Reported on 05/15/2017 gabapentin (NEURONTIN) 300 mg capsuleIndication s:Fibromyalgia Take 900 mg by mouth 3 times daily. 240 capsule 3 04/21/2017 Active metFORMIN (GLUCOPHAGE) 500 mg tabletIndications :Polycystic ovaries Take 1 tablet by mouth 2 times daily with meals. 120 tablet 04/21/2017 Active potassium chloride (KLOR-CON M20) 20 mEq Extended-Release tablet 2 tabs a day 0 04/21/2017 Active Insulin Syringe-Needle U-100 1 mL 28 gauge x 1/2 syrg 03/25/2017 Active fluvoxaMINE (LUVOX) 50 mg tablet TK 1 T PO HS 4 03/26/2017 Active PNV cmb#95-ferrous fumarate-FA () 28 mg iron- 800 mcg tab Take by mouth once daily. 03/21/2014 Active oxyCODONE-acetami nophen, 5-325 mg, (PERCOCET) 5-325 mg per tablet Take 1-2 tablets by mouth every 4 hours if needed for Pain Max acetaminophen dose: 4000mg in 24 hrs. Active furosemide (LASIX) 40 mg tabletIndications :Edema, unspecified type Take 1 tablet by mouth every morning. 4 tablet 09/13/2020 Active Active Problems Problem Noted Date Diagnosed Date Hypertension 05/15/2017 Restless leg 05/15/2017 History of section 05/15/2017 History of delivery 05/15/2017 consult 05/08/2017 Overview: MPP PRECONCEPTION CONSULTATION ON 05/15/17 REASON FOR CONSULT: Prepreg consult & management-evaluate how to better potentially prepare for -considering IUI TODAY'S APPOINTMENT: MD Consultation & Genetic Counseling PRIMARY DIAGNOSIS: 37 y.o. H/O PPROM 2000 @ 14w with PTD by C/ @ 34w H/O repeat C/ 2008 (Clomid ) AMA PCOS Obesity BMI 41.5 Hypothyroid on Levothyroxine HTN on Methyldopa Chronic pain syndrome/Degenerative disc disease on Percocet 5 per day Foot Neuropathy on Gabapentin. (Is trying gluten free diet and attending ambulatory care with some success) Restless leg Syndrome on Pramipexole H/O anemia Has one patent fallopian tube-due to cyst removal from fallopian tube Fibromyalgia Depression/Anxiety Has child with Eosinophilic Esophagitis (Can only eat 10 food choices) REFERRING PHYSICIAN/PHONE/LAST UPDATE: Dr Lewis [phone] Primary MD approves scheduling of recommended ultrasounds/testing: Unknown SPECIALISTS/PHONE: Primary MD Dr Edwin Alfred Pain management @ [facility] until 04/21/17. Now pain managed with Dr Pineda BHUPINDER: GENETICS: PROCEDURES: PERTINENT LABS: PERTINENT MEDS: Percocet (5/day), Gabapentin, Pramipexole, Metformin, Lasix, Fluvoxamine, Iron, PNV, Vit B-12 injections, Will start on Nifedipine soon PLAN OF CARE: Iron deficiency 04/21/2017 Hypothyroid 04/21/2017 Controlled substance agreement signed 10/09/2016 Overview: [facility] (09/2016) Neuropathy of both feet 10/07/2016 THORACIC DISC DEGENERATION 08/07/2014 THORACIC DISC DEGENERATION 08/07/2014 Paratubal cyst 04/03/2014 Pelvic cyst 03/14/2014 Hypokalemia 04/01/2011 Overview: Secondary to diuretic lumbar facet arthropathy 09/16/2010 Thoracic disc herniation 09/10/2010 DUB (dysfunctional uterine bleeding) 06/19/2010 Sleep apnea 06/19/2010 Overview: cpap OCD (obsessive compulsive disorder) 05/28/2010 Binge eating 05/28/2010 Overview: Following at [facility] Myalgia and myositis, unspecified 05/22/2010 Fibromyalgia 02/19/2010 Supervision of other normal 08/21/2009 Degeneration of thoracic or thoracolumbar intervertebral disc 02/18/2008 Seborrheic dermatitis, unspecified 12/15/2007 Obesity, unspecified 12/03/2007 Backache, unspecified 12/03/2007 Anxiety state, unspecified 06/05/2006 Palpitations 06/05/2006 Female infertility of unspecified origin 006 Polycystic ovaries 06/05/2006 Resolved Problems Problem Noted Date Diagnosed Date Resolved Date Pain medication agreement 05/15/2014 Overview: Pain contract initiated with Bhavana Elizadle NP at [facility] on 05/10/2014. Amanda Ruiz .................... 05/15/2014 11:00 AM narcotic contract 10/01/2007 10/09/2016 Overview: [facility] controlled substance agreement initiated 08/13/2010 Immunizations Name Administration Dates Next Due Influenza A (H1N1), Inactivated 10/02/2009 Influenza, IIV3 (Age >=3 years) 10/16/2010,08/21,09/24/2006 Tdap 10/11/2009 Family History Medical History Relation Name Comments Alcoholism Brother Psychiatric illness Brother Asthma Daughter Blood Disease Daughter Type I plasmin ogen deficiency GI Disease Daughter gallbladder reyna mode Alcohol/Drug Father Allergies Father Arthritis Father Asthma Father Diabetes type II Father Hypertension Father Psychiatric illness Father Blood Disease Maternal Grandfather Cancer Maternal Grandfather Allergies Maternal Grandmother Arthritis Maternal Grandmother Cancer Maternal Grandmother breast GI Disease Maternal Grandmother Psychiatric illness Maternal Grandmother Allergies Mother Arthritis Mother Cancer Mother breast Diabetes type II Mother GI Disease Mother Hypertension Mother Psychiatric illness Mother Cancer Paternal Grandfather Diabetes type II Paternal Grandfather Heart Disease Paternal Grandfather Cancer Paternal Grandmother Cancer-breast Paternal Grandmother Diabetes Paternal Grandmother GI Disease Paternal Grandmother Hypertension Paternal Grandmother Psychiatric illness Paternal Grandmother Allergies Sister 2 Psychiatric illness Sister 3 Allergies Son Asthma Son GI Disease Son Eosinophilic Es ophagitis (can only tolerate 10 foods in fruit family) Relation Name Status Comments Brother Alive Daughter Alive Father Alive Maternal Grandfather Maternal Grandmother Alive Mother Alive Paternal Grandfather Paternal Grandmother Sister 1 Alive Sister 2 Sister 3 Son Social History Tobacco Use Types Packs/Day Years Used Date Smoking Tobacco: Every Day Cigarettes Last attempted to quit: 03/30/2015 Smokeless Tobacco: Never Tobacco Cessation:Counseling Given: Yes Comments:05/15/2005 Alcohol Use Standard Drinks/Week Comments Yes 0 (1 standard drink = 0.6 oz pur e alcohol) rare Sex and Gender Information Value Date Recorded Sex Assigned at Not on file Gender Identity Not on file Sexual Orientation Not on file Obstetrics History Para Term AB IAB SAB Ectopic Multiple Livin g Live Births 3 2 1 1 1 0 1 0 0 2 1 Date Outcome GA Total Labor Labor/2nd/3rd Weight Sex Delivery Anes PTL Kathie A1 A5 Name Cl in 1998 SAB 03/31 32w 0d 3h 00m/ 1.56 kg (3 lb 7 oz) F Spina l Y Kylie ng Vaishnavi Delivery Location:[facility] Comments:PPROM @ 14w. bedrest from wks 18-32. PTL @ 32w Breech 10/08 Term 38w 0d 3.61 kg (7 lb 15.3 oz) M CS-LTranv Kylie ng Lawrence r Comments LMP unknown Last Filed Vital Signs Vital Sign Reading Time Taken Comments Blood Pressure 177/79 12/27/2022 11:43 AM VP PRODUCTION Pulse 83 12/27/2022 11:43 AM VP PRODUCTION Temperature 36.8 ??C (98.3 ??F) 12/27/2022 11:[address] Respiratory Rate 18 12/27/2022 11:43 AM VP PRODUCTION Oxygen Saturation 97% 12/27/2022 11:43 AM VP PRODUCTION Inhaled Oxygen Concentration - - Weight 104.3 kg (230 lb) 12/27/2022 11:43 AM VP PRODUCTION Height 162.6 cm (5' 4) 12/27/2022 11:43 AM VP PRODUCTION Body Mass Index 39.48 12/27/2022 11:43 AM VP PRODUCTION Plan of Treatment Health Maintenance Due Date Last Done Comments Depression screening for age 12+ 1990 Hepatitis C screening for age 18-79 1996 BMI (ht and wt on same day) for age 18+ 05/15/2018 05/15/2017 Tetanus booster 10/11/2019 10/11/2009 Colonoscopy through age 75 2023 Lipids for age 45-75 2023 03/28/2014, 12/11/2008, 12/15/2007, Additional history exists Mammogram for age 45-75 2023 COVID-19 vaccine series ( season) 2023 08/06/2021 Influenza for age 9-49 07/31/2024 0, 10/02/2009, 08/21/2009, Additional history exists Pap test for age 21-65 09/15/2026 3, 07/19/2018, 07/19/2018, Additional history exists HIV for age 15-65 Completed 03/14/2009 Tdap Completed 10/11/2009 Pneumococcal series for age 6-64 Aged Out No longer eligible based on patient's age to complete this topic Procedures Procedure Name Priority Date/Time Associated Diagnosis Comments HPV THIN PREP Routine 09/15/2023 2:50 PM CDT LIPID PANEL W REFLEX MEASURED LDL Routine 03/28/2014 12:02 PM CDT Preop examination ANTI HIV 1/2 Routine 03/14/2009 3:31 PM CDT Supervision of Normal First from Last 3 Months or Most Recently Relevant to Health Maintenance Results * HPV HIGH RISK (09/15/2023 2:50 PM CDT) TYPE 16 Negative Negative 09/21/2023 11:45 AM CDT [facility] TYPE 18 Negative Negative 09/21/2023 11:45 AM CDT [facility] OTHER HIGH RISK TYPES Negative Negative 09/21/2023 11:45 AM CDT [facility] Other (Cervical) 09/15/2023 2:50 PM CDT 09/17/2023 12:24 PM CDT [facility] - 09/21/2023 11:45 AM CDT HPV types 16, 18, 31, 33, 35, 39, 45, 51, 52, 56, 58, 59, 66 and 68 DNA were undetectable or below the pre-set threshold. Methodology: Cassie Trevon 4800 HPV Test Tiffanie Israel MD MICROBIOLOGY [facility] [address] [place] [address], [place] * (ABNORMAL) LIPID PANEL W REFLEX MEASURED LDL (03/28/2014 12:02 PM CDT) CHOLESTEROL,TOTAL 160 100 - 199 mg/dL 03/28/2014 10:12 PM CDT [facility] TRIGLYCERIDES 304(H) <150 mg/dL 03/28/2014 10:12 PM CDT [facility] HDL CHOLESTEROL 40(L) >40 mg/dL 4 10:12 PM CDT [facility] NON-HDL CHOLESTEROL 120 <145 mg/dl 03/28/2014 10:12 PM CDT [facility] CHOL/HDL RATIO 4.00 <4.50 03/28/2014 10:12 PM CDT [facility] LDL CHOLESTEROL 59 <=130 mg/dL 03/28/2014 10:12 PM CDT [facility] PATIENT STATUS FASTING 03/28/2014 10:12 PM CDT [facility] Blood specimen (specimen) BLOOD SPECIMEN / Unknown Venipuncture / Unknown 03/28/2014 12:02 PM CDT 03/28/2014 12:02 PM CDT Ovidio Larsen MD CHEMISTRY [facility] [address] [place] [address], [place] * ANTI HIV 1/2 (03/14/2009 3:31 PM CDT) ANTI HIV 1/2 Non-reacti ve [facility] Blood specimen (specimen) BLOOD SPECIMEN / Unknown 03/14/2009 3:31 PM CDT 03/14/2009 3:24 PM CDT Ovidio Larsen MD SEND OUTS [facility] [place]NAL ZIP [address] [address] from Last 3 Months or Most Recently Relevant to Health Maintenance Advance Directives * Full Code (Latest Code Status on File) Date Activated Date Inactivated Comments 04/03/2014 10:57 AM 04/06/2014 3:23 PM * Full Code Date Activated Date Inactivated Comments 04/03/2014 8:58 AM 04/03/2014 10:54 AM * Full Code Date Activated Date Inactivated Comments 06/19/2010 5:41 PM 06/20/2010 12:03 PM * Full Code Date Activated Date Inactivated Comments 06/19/2010 1:44 PM 06/19/2010 5:41 PM * Full Code Date Activated Date Inactivated Comments 10/08/2009 1:41 PM 10/11/2009 4:53 PM Care Teams Dye Can Operator Relationship Specialty Start Date End Date Sharon Pineda MD [address] [place] [address] PCP - General Emergency Medicine 05/15/17
--- OUTSIDE RECORDS SUMMARY | 2024-05-01 15:17 | XMS_ITS | Continuity of Care Document ---
Author Organization [facility] blane Address [address] [place] [address] Phone Care Team Providers [employer] Name Role Phone Tonio LEYDABhavana Unavailable Unavailable [...] max 5/day for chronic pain - Active LOSARTAN POTASSIUM (unknown strength) take 1 tablet by oral route every day Not Available - Active labetalol 200 mg tablet take [...] hours as needed 400 MG - Active VITAMIN E (unknown strength) [...] for chronic pain - No Longer Active Procedures Procedure Date OFFICE/OUTPATIENT VISIT, EST OFFICE/OUTPATIENT VISIT, EST OFFICE/OUTPATIENT VISIT, EST OFFICE/OUTPATIENT VISIT, EST Drug Urine Toxology With Chromatography Drug test def 15-21 classes OFFICE/OUTPATIENT VISIT, EST OFFICE/OUTPATIENT VISIT, EST Drug Urine Toxology With Chromatography OFFICE/OUTPATIENT VISIT, EST INTERLAMINAR LMBR OR SAC OR CAUDAL Jul- OFFICE/OUTPATIENT VISIT, EST INTERLAMINAR CRV OR THRC [...] q3mo opiod tx OFFICE VISIT, EST TELEMEDICINE Aug-20-20 21 Facet Jt In Or MBB j Lumbar [...] opiod tx OFFICE VISIT, EST TELEMEDICINE Drug test def 22+ classes Drug test [...] Copied on Encounter OFFICE/OUTPAT IENT VISIT, EST [facility], [address] [facility] [place], [id number] , [place] tel:[phone] [facility] [place] Back Pain (chief complaint) AnxietyChronic pain syndromeOther idiopathic peripheral autonomic neuropathyOther spondylosis, lumbar regionRadiculopat hy, thoracic regionLong term (current) use of opiate analgesic 4 Celine Bhavana. [address] [facility] [address], [place], [id number] , [place]. tel:[phone] Referring Provider: [facility] [address], [place], [address]. tel:[phone] OFFICE/OUTPAT IENT VISIT, [facility], [address] [place], [place], [id number] , [place] tel:[phone] [facility] back pain (chief complaint) AnxietyChronic pain syndromeOther idiopathic peripheral autonomic neuropathyOther spondylosis, lumbar regionRadiculopat hy, thoracic regionLong term (current) use of opiate analgesicEncounte r for therapeutic drug level monitoring Apr-0 - 4 Gaby Olivares. [address] [facility] [address], [place], [place], [id number] , [place]. tel:[phone] Referring Provider: [facility] [address], [place], [address]. tel:[phone] OFFICE/OUTPAT IENT VISIT, [facility], [address], [place], [id number] , [place] tel:[phone] [facility] Back Pain (chief complaint) AnxietyChronic pain syndromeOther idiopathic peripheral autonomic neuropathyOther spondylosis, lumbar regionRadiculopat hy, thoracic regionLong term (current) use of opiate analgesic Jan-0 4 Tonio Bateman. [address] [facility] [address], [place], [id number] , [place]. tel: [phone] Referring Provider: [facility] [address], [place], [address]. tel:[phone] OFFICE/OUTPAT IENT VISIT, [facility], [address], [place], [id number] , [place] tel:[phone] [facility] Back Pain (chief complaint) Chronic pain syndromeOther idiopathic peripheral autonomic neuropathyAnxiety Other spondylosis, lumbar regionRadiculopat hy, thoracic regionLong term (current) use of opiate analgesicEncounte r for therapeutic drug level monitoring Feb-0 4 Tonio Bateman. [address] [facility] [address], [place], [place], [id number] , [place]. tel:[phone] Referring Provider: Michael Harvey [facility] [address], [place], [address]. tel:[phone] OFFICE/OUTPAT IENT VISIT, [facility], [address], [place], [id number] , [place] tel:[phone] [facility] back pain (chief complaint) AnxietyChronic pain syndromeOther idiopathic peripheral autonomic neuropathyOther spondylosis, lumbar regionRadiculopat hy, thoracic regionLong term (current) use of opiate analgesic Edwar- 0- 4 Gaby Olivares. [address] [facility] [address], [place], [place], [id number] , [place]. tel:[phone] Referring Provider: Michael Harvey [facility] [address], [place], [address]. tel:[phone] [facility], [address], [place], [id number] , [place] tel:[phone] [facility] back pain (chief complaint) AnxietyChronic pain syndromeOther idiopathic peripheral autonomic neuropathyOther spondylosis, lumbar regionRadiculopat hy, thoracic regionLong term (current) use of opiate analgesic Dec-0 - 3 Nyongesa Bhavana. [address] [facility] [address], [place], [place], [id number] , [place]. tel:[phone] Referring Provider: Michael Harvey [facility] [address], [place], [address]. tel:[phone] OFFICE/OUTPAT IENT VISIT, [facility], [address], [place], [id number] , [place] tel:[phone] [facility] Back Pain (chief complaint) AnxietyChronic pain syndromeOther idiopathic peripheral autonomic neuropathyRadicul opathy, thoracic regionLong term (current) use of opiate analgesicOther spondylosis, lumbar region Nov-0 8- 3 Nyongesa Bhavana. [address] [facility] [address], [place], [place], [id number] , [place]. tel:[phone] Referring Provider: Michael Harvey [facility] [address], [place], [address]. [phone] [facility], [address], [place], [id number] , [place] tel:[phone] [facility] No Information 3 Gaby Olivares. [address] [place] [address] [address], [place], [place], [id number] , [place]. tel:[phone] Referring Provider: Michael Harvey [facility], [place], [address]. tel:[phone] OFFICE/OUTPAT IENT VISIT, [facility], [address], [place], [id number] , [place] tel:[phone] [facility] back pain (chief complaint) AnxietyChronic pain syndromeOther idiopathic peripheral autonomic neuropathyRadicul opathy, thoracic regionRadiculopat hy, lumbar regionLong term (current) use of opiate analgesicEncounte r for therapeutic drug level monitoring 3 Griffin Marshall. [address] [place] [address] [address], [place], [place], [id number] , [place]. tel:[phone] Referring Provider: Michael Harvey [facility] [address], [place], [address]. tel:[phone] [facility], [address], [place], [id number] , [place] tel:[phone] [facility] Radiculopathy, lumbar region Sep-2 3 James Nicole. [address] [place], [place], [id number] , [place]. tel:[phone] Referring Provider: Michael Harvey [facility], [place], [address]. tel:[phone] OFFICE/OUTPAT IENT VISIT, EST [facility], [address], [place], [id number] , [place] tel:[phone] [facility] Back Pain (chief complaint) AnxietyChronic pain syndromeOther idiopathic peripheral autonomic neuropathyRadicul opathy, thoracic regionRadiculopat hy, lumbar regionLong term (current) use of opiate analgesic Sep-0 3 Tonio Bateman. [address] [facility] [address], [place], [id number] , [place]. tel:[phone] Referring Provider: Michael Harvey [facility] [address], [place], [address]. tel:[phone] [facility], [address], [place], [id number] , [place] tel:[phone] [facility] Radiculopathy, thoracic region Sep-0 3 Amitarose Meie. [address] [place], [place], [id number] , [place]. tel:[phone] Referring Provider: [facility] [address], [place], [address]. tel:[phone] OFFICE VISIT, EST TELEMEDICINE [facility], [address] [place] [address], [id number] , [place] tel: [phone] [facility] Back Pain (chief complaint) AnxietyChronic pain syndromeOther idiopathic peripheral autonomic neuropathyRadicul opathy, thoracic regionRadiculopat hy, lumbar regionLong term (current) use of opiate analgesic 3 Tonio Bateman. [address] [facility] [address], [place], [id number] , [place]. tel: [phone] OFFICE VISIT, EST TELEMEDICINE [facility], [address] [place] [address], [id number] , [place] tel:[phone] [facility] Back Pain (chief complaint) AnxietyChronic pain syndromeOther idiopathic peripheral autonomic neuropathyRadicul opathy, thoracic regionRadiculopat hy, lumbar regionLong term (current) use of opiate analgesic 3 Tonio Bateman. [address] [facility] [address], [place], [id number] , [place]. tel:[phone] Referring Provider: Terrell Loving, [address] [place] [address], [address]. [phone] [facility], [address], [place], [id number] , [place] tel:[phone] [facility] [place] No Information 3 Tonio Bateman. [address] [facility] [address], [place], [id number] , [place]. tel:[phone] Referring Provider: Terrell Loving, [address] [place] [address], [address]. tel:[phone] OFFICE/OUTPAT IENT VISIT, EST [facility], [address] [place] [address], [id number] , [place] tel:[phone] [facility] Back Pain (chief complaint) AnxietyOther idiopathic peripheral autonomic neuropathyRadicul opathy, thoracic regionLong term (current) use of opiate analgesicChronic pain syndromeRadiculop athy, lumbar region 3 [facility] Bhavana. [address] [facility] [address], [place], [id number] , [place]. tel:[phone] Referring Provider: Michael Harvey, [facility] [address], [place], [address]. [phone] OFFICE VISIT, EST TELEMEDICINE [facility], [address] [place] [address], [id number] , [place] tel: [phone] [facility] Back Pain (chief complaint) AnxietyOther idiopathic peripheral autonomic neuropathyOther intervertebral disc degeneration, lumbar regionRadiculopat hy, thoracic regionLong term (current) use of opiate analgesic 3 Mstrinity Bhavana. [address] [facility] [address], [place], [id number] , [place]. [phone] Referring Provider: Terrell Loving, [address] [place] [address], [address]. [phone] OFFICE VISIT, EST TELEMEDICINE [facility], [address] [place] [address], [id number] , [place] tel:[phone] [facility] Back Pain (chief complaint) Other intervertebral disc degeneration, lumbar regionAnxietyOthe r idiopathic peripheral autonomic neuropathyRadicul opathy, thoracic regionLong term (current) use of opiate analgesic 3 Tonio Bateman. [address] [facility] [address], [place], [id number] , [place]. [phone] Referring Provider: Terrell Loving, [address] [place] [address], [address]. [phone] OFFICE VISIT, EST TELEMEDICINE [facility], [address] [place] [address], [id number] , [place] tel:[phone] [facility] Back Pain (chief complaint) AnxietyOther idiopathic peripheral autonomic neuropathyOther intervertebral disc degeneration, thoracic regionOther intervertebral disc degeneration, lumbar regionRadiculopat hy, thoracic regionLong term (current) use of opiate analgesic 3 Tonio Bhavana. [address] [facility] [address], [place], [id number] , [place]. tel:[phone] Referring Provider: Terrell Loving, [address] [place] [address], [address]. [phone] [facility], [address] [place] [address], [id number] , [place] tel:[phone] [facility] Radiculopathy, thoracic region 3 Luis Miguel Tejada. [address] [place] [address], [id number] , [place]. tel:[phone] [facility], [address] [place] [address], [id number] , [place] tel:[phone] [facility] [place] No Information 3 Tonio Bateman. [address] [facility] [address], [place], [id number] , [place]. [phone] Referring Provider: Michael Harvey, [facility] [address], [place], [address]. [phone] OFFICE/OUTPAT IENT VISIT, EST [facility], [address] [place] [address], [id number] , [place] tel: [phone] [facility] Back Pain (chief complaint) AnxietyOther idiopathic peripheral autonomic neuropathyOther intervertebral disc degeneration, thoracic regionOther intervertebral disc degeneration, lumbar regionRadiculopat hy, thoracic regionLong term (current) use of opiate analgesic 3 oTnio Bateman. [address] [facility] [address], [place], [id number] , [place]. tel: [phone] Referring Provider: Michael Harvey, [facility] [address], [place], [address]. tel:[phone] OFFICE VISIT, EST TELEMEDICINE [facility], [address] [place] [address], [id number] , [place] tel: [phone] [facility] Back Pain (chief complaint) AnxietyOther idiopathic peripheral autonomic neuropathyOther intervertebral disc degeneration, thoracic regionOther intervertebral disc degeneration, lumbar regionRadiculopat hy, thoracic regionLong term (current) use of opiate analgesic 3 Mstrinity Bateman. [address] [facility] [address], [place], [id number] , [place]. tel: [phone] OFFICE VISIT, EST TELEMEDICINE [facility], [address] [place] [address], [id number] , [place] tel: [phone] [facility] Back Pain (chief complaint) AnxietyOther idiopathic peripheral autonomic neuropathyOther intervertebral disc degeneration, thoracic regionOther intervertebral disc degeneration, lumbar regionRadiculopat hy, thoracic regionLong term (current) use of opiate analgesic 2 Mstrinity Bateman. [address] [facility] [address], [place], [id number] , [place]. tel: [phone] Referring Provider: Terrell Loving, [address] [place] [address], [address]. tel:[phone] OFFICE VISIT, EST TELEMEDICINE [facility], [address] [place] [address], [id number] , [place] tel: [phone] [facility] Back Pain (chief complaint) AnxietyOther idiopathic peripheral autonomic neuropathyOther intervertebral disc degeneration, thoracic regionOther intervertebral disc degeneration, lumbar regionLong term (current) use of opiate analgesicRadiculo armen, thoracic region Sep- 2 Tonio Bateman. [address] [facility] [address], [place], [place], [id number] , [place]. tel:[phone] Referring Provider: Terrell Loving, [address] [place], [address]. [phone] OFFICE VISIT, [facility] TELEMEDICINE [facility], [address], [place], [id number] , [place] tel:[phone] [facility] Back Pain (chief complaint) AnxietyOther idiopathic peripheral autonomic neuropathyOther intervertebral disc degeneration, thoracic regionOther intervertebral disc degeneration, lumbar regionLong term (current) use of opiate analgesic 2 Tonio Bateman. [address] [facility] [address] [facility] [address], [place], [id number] , [place]. tel:[phone] [facility], [address] [place] [address], [id number] , [place] tel:[phone] [facility] [place] No Information 2 Gaby Olivares. [address] [facility] [address] [facility] [address], [place], [id number] , [place]. tel:[phone] Referring Provider: Michael Harvey [facility] [address] [place], [address]. tel:[phone] OFFICE/OUTPAT IENT VISIT, [facility], [address], [place], [id number] , [place] tel:[phone] [facility] Back Pain (chief complaint) AnxietyOther idiopathic peripheral autonomic neuropathyOther intervertebral disc degeneration, thoracic regionOther intervertebral disc degeneration, lumbar regionLong term (current) use of opiate analgesicEncounte r for therapeutic drug level monitoring 2 Gaby Olivares. [address] [facility] [address], [place], [id number] , [place]. tel:[phone] Referring Provider: Michael Harvey [facility] [address] [place], [address]. tel:[phone] OFFICE VISIT, EST TELEMEDICINE [facility], [address] [place] [address], [id number] , [place] tel:[phone] [facility] Back Pain (chief complaint) AnxietyOther idiopathic peripheral autonomic neuropathyOther intervertebral disc degeneration, thoracic regionOther intervertebral disc degeneration, lumbar regionPain in right handLong term (current) use of opiate analgesic 2 Nyongesa Bhavnaa. [address], [place], [id number] , [place]. tel:[phone] Referring Provider: Terrell Loving, [address] [place] [address], [address]. [phone] [facility], [address] [place] [address], [id number] , [place] tel:[phone] [facility] Radiculopathy, thoracic region 2 Nyongesa Bhavana. [address], [place], [place], [id number] , [place]. tel:[phone] OFFICE VISIT, EST TELEMEDICINE [facility], [address] [place] [address], [id number] , [place] tel:[phone] [facility] Back Pain (chief complaint) AnxietyOther idiopathic peripheral autonomic neuropathyOther intervertebral disc degeneration, thoracic regionOther intervertebral disc degeneration, lumbar regionPain in right handLong term (current) use of opiate analgesic 2 Nyongesa Bhavana. [address], [id number] , [place]. tel:[phone] Referring Provider: Michael Harvey, [facility] [address], [place], [address]. tel:[phone] OFFICE VISIT, EST TELEMEDICINE [facility], [address] [place] [address], [id number] , [place] tel:[phone] [facility] Back Pain (chief complaint) AnxietyOther idiopathic peripheral autonomic neuropathyOther intervertebral disc degeneration, thoracic regionOther intervertebral disc degeneration, lumbar regionPain in right handLong term (current) use of opiate analgesic 2 Nyongesa Bhavana. [address] [facility] [address], [place], [place], [id number] , [place]. [phone] Referring Provider: Terrell Loving, [address] [place] [address], [address]. tel:[phone] [facility], [address] [place] [address], [id number] , [place] [phone] [facility] No Information 2 Janie Ortiz. [facility], [address], [place], [address], [place]. [phone] Referring Provider: Michael Harvey, [facility] [address], [place], [address]. tel:[phone] OFFICE VISIT, EST TELEMEDICINE [facility], [address] [place] [address], [id number] , [place] [phone] [facility] Back Pain (chief complaint) AnxietyOther idiopathic peripheral autonomic neuropathyOther intervertebral disc degeneration, thoracic regionOther intervertebral disc degeneration, lumbar regionPain in right handLong term (current) use of opiate analgesic 2 Nyongesa Bhavana. [address] [facility] [address], [place], [place], [id number] , [place]. [phone] Referring Provider: Terrell Lovign, [address] [place] [address], [address]. [phone] [facility], [address] [place] [address], [id number] , [place] [phone] [facility] No Information 2 Nyongesa Hbavana. [address] [facility] [address], [place], [place], [id number] , [place]. [phone] [facility], [address] [place] [address], [id number] , [place] [phone] [facility] Back Pain (chief complaint) AnxietyOther idiopathic peripheral autonomic neuropathyOther intervertebral disc degeneration, thoracic regionOther intervertebral disc degeneration, lumbar regionPain in right handLong term (current) use of opiate analgesicEncounte r for therapeutic drug level monitoring 2 Nyongesa Bhavana. [address] [facility] [address], [place], [id number] , [place]. tel:[phone] Referring Provider: [facility] [address], [place], [address]. tel:[phone] OFFICE VISIT, EST TELEMEDICINE [facility], [address], [place], [id number] , [place] tel:[phone] [facility] Back Pain (chief complaint) AnxietyOther idiopathic peripheral autonomic neuropathyOther intervertebral disc degeneration, thoracic regionOther intervertebral disc degeneration, lumbar regionPain in right handLong term (current) use of opiate analgesicRadiculo armen, thoracic region Fe 2 Celinesa Bhavana. [address] [facility] [address], [place], [id number] , [place]. tel:[phone] Referring Provider: [facility] [address], [place], [address]. tel:[phone] OFFICE VISIT, EST TELEMEDICINE [facility], [address], [place], [id number] , [place] tel:[phone] [facility] Back Pain (chief complaint) Other idiopathic peripheral autonomic neuropathyOther intervertebral disc degeneration, thoracic regionOther intervertebral disc degeneration, lumbar regionLong term (current) use of opiate analgesicPain in right handAnxiety 2 Nyongesa Bhavana. [address] [facility] [address], [place], [id number] , [place]. tel:[phone] [facility], [address] [place] [address], [id number] , [place] tel:[phone] [facility] [place] No Information 1 Nyongesa Bhavana. [address] [facility] [address], [place], [id number] , [place]. tel:[phone] OFFICE/OUTPAT IENT VISIT, [facility], [address], [place], [id number] , [place] tel: [phone] [facility] Back Pain (chief complaint) Other idiopathic peripheral autonomic neuropathyOther intervertebral disc degeneration, thoracic regionLong term (current) use of opiate analgesicOther intervertebral disc degeneration, lumbar regionPain in right handAnxietyEncoun ter for therapeutic drug level monitoringEncount er for screening for other disorder 1 Tonio Bateman. [address] [facility] [address], [place], [place], [id number] , [place]. tel: [phone] Referring Provider: [facility] [address], [place], [place], [address]. tel:[phone] OFFICE VISIT, [facility] TELEMEDICINE [facility], [address], [place], [id number] , [place] tel: [phone] [facility] Back Pain (chief complaint) Other intervertebral disc degeneration, thoracic regionAnxietyOthe r idiopathic peripheral autonomic neuropathyLong term (current) use of opiate analgesicOther intervertebral disc degeneration, lumbar regionPain in right hand 1 Tonio Bateman. [address] [facility] [address], [place], [place], [id number] , [place]. tel: [phone] OFFICE VISIT, [facility], [address], [place], [id number] , [place] tel: [phone] [facility] Back Pain (chief complaint) Other intervertebral disc degeneration, thoracic regionAnxietyOthe r idiopathic peripheral autonomic neuropathyLong term (current) use of opiate analgesicOther intervertebral disc degeneration, lumbar region 1 Gaby Olivares. [address] [facility] [address], [place], [place], [id number] , [place]. tel: [phone] Referring Provider: Terrell Loving, [address] [place], [address]. tel:[phone] OFFICE VISIT, EST TELEMEDICINE [facility], [address], [place], [id number] , [place] [phone] [facility] Back Pain (chief complaint) Other intervertebral disc degeneration, thoracic regionAnxietyOthe r idiopathic peripheral autonomic neuropathyLong term (current) use of opiate analgesicOther intervertebral disc degeneration, lumbar region Jul-2 1 Celine Bhavana. [address] [facility] [address], [place], [id number] , [place]. tel:[phone] OFFICE VISIT, EST TELEMEDICINE [facility], [address] [place] [address], [id number] , [place] tel:[phone] [facility] Back Pain (chief complaint) AnxietyOther idiopathic peripheral autonomic neuropathyOther chronic painLong term (current) use of opiate analgesicSpondylo sis without myelopathy or radiculopathy, lumbar regionOther intervertebral disc degeneration, lumbar regionOther intervertebral disc degeneration, thoracic region Jun- 1 [facility]. [address] [facility] [address], [place], [id number] , [place]. tel:[phone] Referring Provider: Terrell Loving, [address] [place] [address], [address]. [phone] [facility], [address] [place] [address], [id number] , [place] [phone] [facility] Spondylosis without myelopathy or radiculopathy, lumbar region 1 James Nicole. [address] [place] [address], [id number] , [place]. tel:[phone] Referring Provider: Michael Harvey, [facility] [address], [place], [address]. [phone] [facility], [address] [place] [address], [id number] , [place] [phone] [facility] No Information 1 Celine Bhavana. [address] [facility] [address], [place], [id number] , [place]. tel:[phone] Referring Provider: Terrell Loving, [address] [place] [address], [address]. tel:[phone] OFFICE/OUTPAT IENT VISIT, [facility], [address] [place] [address], [id number] , [place] [phone] [facility] Back Pain (chief complaint) AnxietyOther idiopathic peripheral autonomic neuropathyOther chronic painLong term (current) use of opiate analgesicSpondylo sis without myelopathy or radiculopathy, lumbar regionOther intervertebral disc degeneration, lumbar regionEncounter for therapeutic drug level monitoring 1 Nyongesa Bhavana. [address] [facility] [address], [place], [id number] , [place]. [phone] Referring Provider: Michael Harvey, [facility] [address], [place], [address]. tel:[phone] OFFICE VISIT, [facility], [address] [place] [address], [id number] , [place] [phone] [facility] Back Pain (chief complaint) Other intervertebral disc degeneration, lumbar regionAnxietyOthe r idiopathic peripheral autonomic neuropathyOther chronic painLong term (current) use of opiate analgesicSpondylo sis without myelopathy or radiculopathy, lumbar region 1 Nyongesa Bhavana. [address] [facility] [address], [place], [id number] , [place]. [phone] Referring Provider: Terrell Loving, [address] [place] [address], [address]. tel:[phone] OFFICE VISIT, [facility], [address] [place] [address], [id number] , [place] [phone] [facility] Back Pain (chief complaint) Other intervertebral disc degeneration, lumbar regionAnxietyOthe r idiopathic peripheral autonomic neuropathyOther chronic painLong term (current) use of opiate analgesicSpondylo sis without myelopathy or radiculopathy, lumbar region 1 Nyongesa Bhavana. [address] [facility] [address], [place], [id number] , [place]. tel:[phone] Referring Provider: [facility] [address], [place], [address]. tel:[phone] OFFICE/OUTPAT IENT VISIT, [facility], [address], [place], [id number] , [place] [phone] [facility] Back Pain (chief complaint) Other intervertebral disc degeneration, lumbar regionAnxietyOthe r idiopathic peripheral autonomic neuropathyOther chronic painLong term (current) use of opiate analgesic Feb- 1 Nyongesa Bhavana. [address] [facility] [address], [place], [place], [id number] , [place]. [phone] Referring Provider: [facility] [address], [place], [address]. tel:[phone] OFFICE VISIT, [facility], [address] [place] [address], [id number] , [place] [phone] [facility] Back Pain (chief complaint) AnxietyOther intervertebral disc degeneration, lumbar regionOther idiopathic peripheral autonomic neuropathyOther chronic painLong term (current) use of opiate analgesic Jan- 1 Nyongesa Bhavana. [address] [facility] [address], [place], [place], [id number] , [place]. tel:[phone] Referring Provider: Terrell Loving, [address] [place] [address], [address]. [phone] OFFICE VISIT, [facility], [address] [place] [address], [id number] , [place] [phone] [facility] Back Pain (chief complaint) AnxietyOther intervertebral disc degeneration, lumbar regionOther idiopathic peripheral autonomic neuropathyOther chronic painLong term (current) use of opiate analgesic 1 Nyongesa Bhavana. [address] [facility] [address], [place], [place], [id number] , [place]. [phone] Referring Provider: Terrell Loving, [address] [place] [address], [address]. [phone] [facility], [address] [place] [address], [id number] , [place] tel:[phone] [facility] No Information 1 [facility] Bhavana. [address] [facility] [address], [place], [place], [id number] , [place]. tel:[phone] Referring Provider: Terrell Loving, [address] [place] [address], [address]. [phone] OFFICE VISIT, EST TELEMEDICINE [facility], [address] [place] [address], [id number] , [place] tel:[phone] [facility] Back Pain (chief complaint) Other intervertebral disc degeneration, lumbar regionOther idiopathic peripheral autonomic neuropathyOther chronic painLong term (current) use of opiate analgesicAnxietyE ncounter for therapeutic drug level monitoring 1 [facility]. [address], [place], [place], [id number] , [place]. [phone] Referring Provider: Terrell Loving, [address] [place] [address], [address]. [phone] OFFICE VISIT, EST TELEMEDICINE [facility], [address] [place] [address], [id number] , [place] tel:[phone] [facility] Back Pain (chief complaint) Other intervertebral disc degeneration, lumbar regionOther idiopathic peripheral autonomic neuropathyOther chronic painLong term (current) use of opiate analgesicAnxiety 0 Msongesa Bhavana. [address] [facility] [address], [place], [place], [id number] , [place]. [phone] Referring Provider: Terrell Loving, [address] [place] [address], [address]. tel:[phone] OFFICE VISIT, EST TELEMEDICINE [facility], [address] [place] [address], [id number] , [place] [phone] [facility] Back Pain (chief complaint) Other intervertebral disc degeneration, lumbar regionOther idiopathic peripheral autonomic neuropathyOther chronic painLong term (current) use of opiate analgesicAnxiety 0 Nyongesa Bhavana. [address] [facility] [address], [place], [place], [id number] , [place]. tel:[phone] Referring Provider: Terrell Loving, [address] [place] [address], [address]. tel:[phone] OFFICE VISIT, EST TELEMEDICINE [facility], [address] [place] [address], [id number] , [place] tel:[phone] [facility] Back Pain (chief complaint) Other intervertebral disc degeneration, lumbar regionOther idiopathic peripheral autonomic neuropathyOther chronic painLong term (current) use of opiate analgesicAnxiety 0 Nyongesa Bhavana. [address] [facility] [address], [place], [place], [id number] , [place]. tel:[phone] Referring Provider: Terrell Loving, [address] [place] [address], [address]. tel:[phone] OFFICE VISIT, EST TELEMEDICINE [facility], [address] [place] [address], [id number] , [place] tel:[phone] [facility] Back Pain (chief complaint) Other intervertebral disc degeneration, lumbar regionOther idiopathic peripheral autonomic neuropathyOther chronic painLong term (current) use of opiate analgesicAnxiety Jul- 0 Nyongesa Bhavana. [address], [place], [place], [id number] , [place]. tel:[phone] Referring Provider: Terrell Loving, [address] [place] [address], [address]. tel:[phone] OFFICE VISIT, EST TELEMEDICINE [facility], [address] [place] [address], [id number] , [place] tel:[phone] [facility] Back Pain (chief complaint) Other intervertebral disc degeneration, lumbar regionOther idiopathic peripheral autonomic neuropathyOther chronic painLong term (current) use of opiate analgesicAnxiety 0 Nyongesa Bhavana. [address] [facility] [address], [place], [place], [id number] , [place]. tel:[phone] Referring Provider: Terrell Loving, [address] [place] [address], [address]. tel:[phone] OFFICE VISIT, EST TELEMEDICINE [facility], [address] [place] [address], [id number] , [place] [phone] [facility] Back Pain (chief complaint) Other intervertebral disc degeneration, lumbar regionOther idiopathic peripheral autonomic neuropathyOther chronic painLong term (current) use of opiate analgesicAnxiety 0 Nyongesa Bhavana. [address] [address], [place], [place], [id number] , [place]. tel:[phone] Referring Provider: Terrell Loving, [address] [place] [address], [address]. tel:[phone] OFFICE VISIT, EST TELEMEDICINE [facility], [address] [place] [address], [id number] , [place] tel:[phone] [facility] ([facility]) Other intervertebral disc degeneration, lumbar regionOther idiopathic peripheral autonomic neuropathyOther chronic painLong term (current) use of opiate analgesicAnxiety 0 Griffin Marshall. [address] [address], [place], [place], [id number] , [place]. tel:[phone] Referring Provider: Terrell Loving, [address] [place] [address], [address]. tel:[phone] OFFICE VISIT, EST TELEMEDICINE [facility], [address] [place] [address], [id number] , [place] tel:[phone] [facility] Back Pain (chief complaint) Other intervertebral disc degeneration, lumbar regionOther idiopathic peripheral autonomic neuropathyOther chronic painLong term (current) use of opiate analgesic 0 Griffin Marshall. [address]55 [facility] [address], [place], [place], [id number] , [place]. [phone] Referring Provider: Terrell Loving, [address] [place] [address], [address]. tel:[phone] [facility], [address] [place] [address], [id number] , [place] tel:[phone] [facility] No Information 0 Gaby Olivares. [address] [place] [address] [address], [place], [place], [id number] , [place]. tel:[phone] Referring Provider: [facility] [address], [place], [address]. tel:[phone] OFFICE VISIT, EST TELEMEDICINE [facility], [address] [place] [address], [id number] , [place] tel:[phone] [facility] Back Pain (chief complaint) Other intervertebral disc degeneration, lumbar regionOther idiopathic peripheral autonomic neuropathyOther chronic painLong term (current) use of opiate analgesic Feb- 0 Griffin Marshall. [address] [place] [address] [address], [place], [place], [id number] , [place]. tel:[phone] Referring Provider: [facility] [address], [place], [address]. tel:[phone] OFFICE VISIT, EST TELEMEDICINE [facility], [address] [place] [address], [id number] , [place] tel:[phone] [facility] Back Pain (chief complaint) Other intervertebral disc degeneration, lumbar regionOther idiopathic peripheral autonomic neuropathyOther chronic painLong term (current) use of opiate analgesicEncounte r for therapeutic drug level monitoring Feb- 0 Griffin Marshall. [address] [place] [address] [address], [place], [place], [id number] , [place]. tel:[phone] Referring Provider: Terrell Loving, [address] [place] [address], [address]. 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 [address] [facility] [address], [place], [place], [id number] , [place]. tel: [phone] Referring Provider: Michael Harvey [facility] [address], [place], [address]. tel:[phone] OFFICE/OUTPAT IENT VISIT, [facility], [address], [place], [id number] , [place] tel: [phone] [facility] Back Pain (chief complaint) prison (current) use of opiate analgesicOther chronic painOther idiopathic peripheral autonomic neuropathyOther intervertebral disc degeneration, lumbar regionOther intervertebral disc degeneration, thoracic regionAnxietyEnco unter for therapeutic drug level monitoring 0 Nyongesa Bhavana. [address] [facility] [address], [place], [place], [id number] , [place]. tel: [phone] Referring Provider: [facility] [address], [place], [address]. tel:[phone] OFFICE/OUTPAT IENT VISIT, [facility], [address], [place], [id number] , [place] tel: [phone] [facility] Back Pain (chief complaint) prison (current) use of opiate analgesicOther chronic painOther idiopathic peripheral autonomic neuropathyOther intervertebral disc degeneration, lumbar regionOther intervertebral disc degeneration, thoracic regionAnxiety 0 Nyongesa Bhavana. [address] [facility] [address], [place], [place], [id number] , [place]. tel:[phone] Referring Provider: Terrell Loving, [address] [place], [address]. [phone] OFFICE/OUTPAT IENT VISIT, [facility], [address], [place], [id number] , [place] tel: [phone] [facility] Back Pain (chief complaint) AnxietyLong term (current) use of opiate analgesicOther chronic painOther idiopathic peripheral autonomic neuropathyOther intervertebral disc degeneration, lumbar regionOther intervertebral disc degeneration, thoracic region 9 [facility] Bhavana. [address] [facility] [address], [place], [id number] , [place]. tel: [phone] Referring Provider: Michael Harvey [facility] [address], [place], [address]. tel:[phone] OFFICE/OUTPAT IENT VISIT, [facility], [address], [place], [id number] , [place] tel: [phone] [facility] Back Pain (chief complaint) AnxietyLong term (current) use of opiate analgesicOther chronic painOther idiopathic peripheral autonomic neuropathyOther intervertebral disc degeneration, lumbar regionOther intervertebral disc degeneration, thoracic region [facility]. [address] [facility] [address], [place], [id number] , [place]. tel: [phone] Referring Provider: Michael Harvey [facility] [address], [place], [address]. tel:[phone] OFFICE/OUTPAT IENT VISIT, [facility], [address], [place], [id number] , [place] tel: [phone] [facility] Back Pain (chief complaint) Other intervertebral disc degeneration, lumbar regionOther intervertebral disc degeneration, thoracic regionOther idiopathic peripheral autonomic neuropathyOther chronic painLong term (current) use of opiate analgesicAnxiety 9 [facility]. [address] [facility] [address], [place], [id number] , [place]. tel: [phone] Referring Provider: Michael Harvey [facility] [address], [place], [address]. tel:[phone] OFFICE/OUTPAT IENT VISIT, [facility], [address], [place], [id number] , [place] tel:[phone] [facility] Back Pain (chief complaint) Other intervertebral disc degeneration, lumbar regionOther intervertebral disc degeneration, thoracic regionOther chronic painOther idiopathic peripheral autonomic neuropathyLong term (current) use of opiate analgesic Jul- 9 Gaby Olivares. [address] [facility] [address], [place], [id number] , [place]. tel:[phone] Referring Provider: Michael Harvey [facility] [address], [place], [address]. tel:[phone] OFFICE/OUTPAT IENT VISIT, [facility], [address], [place], [id number] , [place] tel: [phone] [facility] Back Pain (chief complaint) Other intervertebral disc degeneration, lumbar regionOther intervertebral disc degeneration, thoracic regionOther chronic painOther idiopathic peripheral autonomic neuropathyLong term (current) use of opiate analgesic 9 Tonoi Bateman. [address] [facility] [address], [place], [place], [id number] , [place]. tel: [phone] Referring Provider: Michael Harvey [facility] [address], [place], [address]. tel:[phone] OFFICE/OUTPAT IENT VISIT, [facility], [address], [place], [id number] , [place] tel: [phone] [facility] Back Pain (chief complaint) Other chronic painOther intervertebral disc degeneration, lumbar regionOther intervertebral disc degeneration, thoracic regionOther idiopathic peripheral autonomic neuropathyLong term (current) use of opiate analgesic 9 Tonio Bateman. [address] [facility] [address], [facility], [id number] , [place]. tel:[phone] Referring Provider: Michael Harvey [facility] [address], [place], [address]. tel:[phone] OFFICE/OUTPAT IENT VISIT, [facility], [address], [place], [id number] , [place] tel: [phone] [facility] Back Pain (chief complaint) Other chronic painOther intervertebral disc degeneration, lumbar regionOther intervertebral disc degeneration, thoracic regionOther idiopathic peripheral autonomic neuropathyLong term (current) use of opiate analgesic 9 Tonio Bateman. [address] [facility] [address], [place], [place], [id number] , [place]. tel:[phone] Referring Provider: [facility] [address] [place], [address]. tel:[phone] OFFICE CONSULTATION [facility], [address], [place], [id number] , [place] tel:[phone] [facility] Back Pain (chief complaint) Other chronic painLow back painEncounter for therapeutic drug level monitoringLong term (current) use of opiate analgesicOther idiopathic peripheral autonomic neuropathyOther intervertebral disc degeneration, lumbar regionOther intervertebral disc degeneration, thoracic region [facility], [address] [facility] [address], [place], [address], [place]. tel:[phone] Referring Provider: Michael Harvey [facility] [address], [place], [address]. tel:[phone] Family History Family Member Type Diagnosis Age At Onset Problem (finding) Family history of neuro armen Payers Payer name Insurance type Covered constitution party ID Authoriza tibrandie(s) [facility] [id number] [employer] Medicaid BL [id number] Social History Type Description Quantity Date Captured Comments Alcohol Use Details No Caffeine Use Details Unknown Tobacco Use Status Occasional cigarette smoker Smoking Status Heavy tobacco smoker Sex Female Vital Signs Date / Time: Height Weight BMI Pulse Rate Blood Pressure Temperature Respiratory Rate Body Surface Area Head Circumference Head Circ. Percentile Wt./Matias. Percentile BMI percentile Pulse Ox Inhaled Ox 9:59 AM 64.00 in 116.573 kg (257.00 lbs) 44.1 1 kg/m eter (2) Chief Complaint And Reason For Visit From encounter dated '04/05/2024 10:00'. Back Pain (chief complaint). Description: Severity level is 4. Duration: chronic. The problem is stable. It occurs persistently. The client describes the pain as an ache, burning, sharp and tingling.Symptoms are aggravated by bending, lifting, sitting, standing, twisting, housework, movement and prolonged positioning. Symptoms are relieved by pain meds/drugs, chiropractic and changing positions. Reason For Referral Reason For Referral No Information Plan Of Treatment Date Type Action Status Goal Height. Due on d ue Goal PHQ-9. Due on du e Goal Hepatitis C scre ening. Due on due Goal Creatinine. Due on due Goal OARS. Due on due Goal Unhealthy drug u se screening. Due on due Goal UDT. Due on due Goal Review Allergy List. Due on due Goal HPV. Due on due Goal Update Social Hi story. Due on due Goal Tobacco Use. Due on due Goal Order Annual PT. Due on due Goal TUBE TEST TECHNICIAN Scanned. Due on due Goal Medication Recon ciliation. 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 Due on due Goal AST (SGOT). Due on due Goal Weight. Due on d ue Goal Lipid panel. Due on due Goal ALT (SGPT). Due on due Goal Lifestyle education regardin g diet completed Goal OARS. 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 Due on due Goal HPV. Due on due Goal Hepatitis C scre ening. Due on due Goal Unhealthy drug u se screening. Due on due Goal TUBE TEST TECHNICIAN Scanned. Due on due Goal Medication Recon ciliation. Due on due Goal Lipid panel. Due on due Goal Review Allergy List. Due on due Goal PHQ-9. Due on du e Goal Update Social Hi story. Due on due Goal Order Annual PT. [...] due Goal Creatinine. Due on due Goal TUBE TEST TECHNICIAN Scanned. Due on due Goal OARS. Due on due Goal PHQ-9. Due on du e Goal AST (SGOT). Due on due Goal Tobacco Use. Due on due Goal Order Annual PT. 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 Due on due Goal Lipid panel. Due on due Goal Review Allergy List. Due on due Goal UDT. Due on due Goal Update Social Hi story. Due on due Goal Hepatitis C scre ening. Due on due Goal Weight. Due on d ue Goal HPV. Due on due Goal Medication Recon ciliation. Due on due Goal Height. Due on d ue Goal PHQ-9. Due on du e Goal Tobacco Use. Due on due Goal Unhealthy drug u se screening. Due on due Goal UDT. 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 Due on due Goal TUBE TEST TECHNICIAN Scanned. Due on due Goal Lipid panel. Due on due Goal Creatinine. Due on due Goal Height. Due on d ue Goal Update Social Hi story. Due on due Goal ALT (SGPT). Due on due Goal Weight. Due on d ue Goal Medication Recon ciliation. Due on due Goal HPV. Due on due Goal Hepatitis C scre ening. Due on due Goal OARS. Due on due Goal AST (SGOT). Due on due Goal Order Annual PT. Due on due Goal Review Allergy List. Due on due Goal Order Annual PT. 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 Due on due Goal ALT (SGPT). Due on due Goal UDT. Due on due Goal Update Social Hi story. Due on due Goal HPV. Due on due Goal TUBE TEST TECHNICIAN Scanned. Due on due Goal Hepatitis C scre ening. Due on due Goal PHQ-9. Due on du e Goal Lipid panel. Due on due Goal AST (SGOT). Due on due Goal Weight. Due on d ue Goal Height. Due on d ue Goal Tobacco Use. Due on due Goal Creatinine. Due on due Goal Review Allergy List. Due on due Goal OARS. Due on due Goal Unhealthy drug u se screening. Due on due Goal Medication Recon ciliation. Due on due Goal Lifestyle education regardin g diet completed Goal ALT (SGPT). Due on due Goal PHQ-9. Due on du e Goal HPV. Due on due Goal Weight. Due on d ue Goal Creatinine. Due on due Goal Review Allergy List. Due on due Goal Unhealthy drug u se screening. Due on due Goal Update Social Hi story. Due on due Goal UDT. 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 Due on due Goal Medication Recon ciliation. Due on due Goal AST (SGOT). Due on due Goal TUBE TEST TECHNICIAN Scanned. Due on due Goal Order Annual PT. Due on due Goal Lipid panel. Due on due Goal OARS. Due on due Goal Hepatitis C scre ening. Due on due Goal Height. Due on d ue Goal Tobacco Use. Due on due Goal Order Annual PT. Due on due Goal TUBE TEST TECHNICIAN Scanned. Due on due Goal AST (SGOT). Due on due Goal OARS. Due on due Goal Creatinine. Due on due Goal UDT. 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 Due on due Goal Medication Recon ciliation. Due on due Goal Review Allergy List. Due on due Goal Unhealthy drug u se screening. Due on due Goal Weight. Due on d ue Goal HPV. Due on due Goal Lipid panel. Due on due Goal Update Social Hi story. Due on due Goal Hepatitis C scre ening. Due on due Goal Tobacco Use. Due on due Goal PHQ-9. Due on du e Goal Height. Due on d ue Goal ALT (SGPT). Due on due Goal Medication Recon ciliation. Due on due Goal Update Social Hi story. Due on due Goal Hepatitis C scre ening. Due on due Goal PHQ-9. Due on du e Goal ROLL REPAIRER Paperwork. Due on due Goal OARS. Due on due Goal UDT. Due on due Goal HPV. Due on due Goal Creatinine. Due on due Goal TUBE TEST TECHNICIAN Scanned. Due on due Goal Lipid panel. Due on due Goal AST (SGOT). Due [...] ue Goal HPV. 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 Due on due Goal OARS. Due on due Goal Order Annual PT. Due on due Goal Tobacco Use. Due on due Goal Height. Due on d ue Goal PHQ-9. Due on du e Goal Lipid panel. Due on due Goal UDT. Due on due Goal Hepatitis C scre ening. Due on due Goal Review Allergy List. Due on due Goal Creatinine. Due on due Goal Unhealthy drug u se screening. Due on due Goal Medication Recon ciliation. Due on due Goal TUBE TEST TECHNICIAN Scanned. Due on due Goal Update Social Hi story. Due on due Goal ALT (SGPT). Due on due Goal AST (SGOT). 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 Due on due Goal TUBE TEST TECHNICIAN Scanned. Due on due Goal Order Annual PT. Due on due Goal Creatinine. Due on due Goal HPV. Due on due Goal Hepatitis C scre ening. Due on due Goal UDT. Due on [...] OARS. Due on due Goal Update Social Hi story. 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 Due on due Goal HPV. Due on due Goal ALT (SGPT). Due on due Goal Weight. Due on d ue Goal Creatinine. Due on due Goal Order Annual PT. Due on due Goal Review Allergy List. Due on due Goal TUBE TEST TECHNICIAN Scanned. Due on due Goal AST (SGOT). Due on due Goal Hepatitis C scre ening. Due on due Goal UDT. Due on due Goal PHQ-9. Due on du e Goal Tobacco Use. Due on due Goal Lipid panel. Due on due Goal OARS. Due on due Goal Medication Recon ciliation. Due on due Goal Update Social Hi story. Due on due Goal Height. Due on d ue Goal Unhealthy drug u se screening. Due on due Goal ALT (SGPT). Due on due Goal Update Social Hi story. Due on due Goal TUBE TEST TECHNICIAN Scanned. Due on due Goal UDT. 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 Due on due Goal Order Annual PT. Due on due Goal Medication Recon ciliation. Due on due Goal Weight. Due on d ue Goal PHQ-9. Due on du e Goal Unhealthy drug u se screening. Due on due Goal AST (SGOT). Due on due Goal Hepatitis C scre ening. Due on due Goal OARS. Due on due Goal Lipid panel. Due on due Goal Creatinine. Due on due Goal Tobacco Use. Due on due Goal HPV. Due on due Goal Height. Due on d ue Goal Review Allergy List. Due on due Goal TUBE TEST TECHNICIAN Scanned. 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 Due on due Goal Order Annual PT. Due on due Goal UDT. Due on due Goal Hepatitis C scre ening. Due on due Goal Lipid panel. Due on due Goal Medication Recon ciliation. Due on due Goal OARS. Due on due Goal Update Social Hi story. Due on due Goal Weight. Due on d ue Goal AST (SGOT). Due on due Goal PHQ-9. Due on du e Goal Review Allergy List. Due on due Goal Unhealthy drug u se screening. Due on due Goal Creatinine. Due on due Goal ALT (SGPT). Due on due Goal HPV. Due on due Goal Tobacco Use. Due on due Goal Height. Due on d ue Goal Review Allergy List. Due on due Goal Update Social Hi story. Due on due Goal Medication Recon ciliation. Due on due Goal Order Annual PT. Due on due Goal PHQ-9. Due on du e Goal TUBE TEST TECHNICIAN Scanned. 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 Due on due Goal UDT. Due [...] OARS. Due on due Goal Hepatitis C scre ening. Due on due Goal HPV. Due on due Goal Creatinine. Due on due Goal ALT (SGPT). Due on due Goal UDT. Due on due Goal Weight. Due on d ue Goal ROLL REPAIRER Paperwork. Due on due Goal Medication Recon ciliation. Due on due Goal HPV. Due on due Goal Update Social Hi story. Due on due Goal AST (SGOT). Due on due Goal Height. Due on d ue Goal Lipid panel. Due on due Goal OARS. Due on due Goal TUBE TEST TECHNICIAN Scanned. Due on due Goal Tobacco Use. Due on due Goal Review Allergy List. Due on due Goal Hepatitis C scre ening. Due on due Goal PHQ-9. Due on du e Goal Order Annual PT. Due on due Goal Unhealthy drug u se screening. Due on due Goal PHQ-9. Due on du e Goal Lipid panel. Due on due Goal UDT. Due on due Goal Unhealthy drug u se screening. Due on due Goal Update Social Hi story. Due on due Goal Review Allergy List. Due on due Goal ALT (SGPT). Due on due Goal Height. Due on d ue Goal Creatinine. Due on due Goal TUBE TEST TECHNICIAN Scanned. Due on due Goal Order Annual PT. Due on due Goal Medication Recon ciliation. 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 Due on due Goal Weight. Due on d ue Goal AST (SGOT). Due on due Goal OARS. Due on due Goal Tobacco Use. Due on due Goal HPV. Due on due Goal Hepatitis C scre ening. Due on due Goal Weight. Due on [...] (SGPT). Due on due Goal Hepatitis C scre ening. Due on due Goal UDT. Due on due Goal Review Allergy List. Due on due Goal Creatinine. Due on due Goal TUBE TEST TECHNICIAN Scanned. 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 Due on due Goal Update Social Hi story. Due on due Goal Unhealthy drug u se screening. Due on due Goal HPV. Due on due Goal Order Annual PT. Due on due Goal TUBE TEST TECHNICIAN Scanned. Due on due Goal UDT. Due on due Goal AST (SGOT). Due on due Goal Creatinine. Due on due Goal ALT (SGPT). Due on due Goal OARS. 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 Due on due Goal Tobacco Use. Due on due Goal Lipid panel. Due on due Goal Weight. Due on d ue Goal PHQ-9. Due on du e Goal Review Allergy List. Due on due Goal Hepatitis C scre ening. Due on due Goal Height. Due on d ue Goal Medication Recon ciliation. Due on due Goal Update Social Hi story. Due on due Goal HPV. Due on due Goal Unhealthy drug u se screening. Due on due Goal AST (SGOT). Due on due Goal Order Annual PT. Due on due Goal Tobacco Use. Due on due Goal Medication Recon ciliation. Due on due Goal ALT (SGPT). Due on due Goal TUBE TEST TECHNICIAN Scanned. Due on due Goal OARS. Due on due Goal Hepatitis C scre ening. Due on due Goal Height. Due on d ue Goal UDT. 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 Due on due Goal HPV. Due on due Goal Creatinine. Due on due Goal Update Social Hi story. Due on due Goal Review Allergy List. [...] ciliation. Due on due Goal Update Social Hi story. Due on due Goal Creatinine. Due on due Goal HPV. Due on due Goal Review Allergy List. Due on due Goal Tobacco Use. Due on due Goal AST (SGOT). Due on due Goal TUBE TEST TECHNICIAN Scanned. Due on due Goal ALT (SGPT). Due on due Goal Lipid panel. Due on due Goal PHQ-9. Due on du e Goal Weight. Due on d ue Goal Hepatitis C scre ening. Due on due Goal UDT. 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 Due on due Goal Creatinine. Due on due Goal ALT (SGPT). 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 Due on due Goal AST (SGOT). Due on due Goal UDT. Due on due Goal OARS. Due on due Goal HPV. Due on due Goal TUBE TEST TECHNICIAN Scanned. Due on due Goal Order Annual PT. Due on due Goal Medication Recon ciliation. Due on due Goal Update Social Hi story. Due on due Goal Unhealthy drug u se screening. Due on due Goal Tobacco Use. Due on due Goal PHQ-9. Due on du e Goal Hepatitis C scre ening. Due on due Goal Height. Due on d ue Goal Weight. Due on d ue Goal Review Allergy List. Due on due Goal Lipid panel. 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 Due on due Goal Order Annual PT. Due on due Goal ALT (SGPT). Due on due Goal UDT. Due on due Goal Tobacco Use. Due on due Goal Hepatitis C scre ening. Due on due Goal TUBE TEST TECHNICIAN Scanned. Due on due Goal AST (SGOT). Due on due Goal OARS. Due on due Goal HPV. Due on due Goal Creatinine. Due on due Goal Lipid panel. Due on due Goal Weight. Due on d ue Goal Height. Due on d ue Goal Review Allergy List. Due on due Goal Unhealthy drug u se screening. Due on due Goal Update Social Hi story. Due on due Goal Medication Recon ciliation. Due on due Goal PHQ-9. Due on du e Goal ROLL REPAIRER Paperwork. Due on due Goal Tobacco Use. Due on due Goal ALT (SGPT). Due on due Goal HPV. Due on due Goal Hepatitis C scre ening. Due on due Goal Order Annual PT. Due on due Goal Update Social Hi story. Due on due Goal Unhealthy drug u se screening. Due on due Goal Medication Recon ciliation. Due on due Goal UDT. Due on due Goal OARS. Due on due Goal Height. Due on d ue Goal TUBE TEST TECHNICIAN Scanned. Due on due Goal Review Allergy List. Due on due Goal Lipid panel. Due on due Goal Weight. Due on d ue Goal PHQ-9. Due on du e Goal AST (SGOT). Due on due Goal Creatinine. 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 Due on due Goal Creatinine. Due on due Goal TUBE TEST TECHNICIAN Scanned. Due on due Goal Order Annual PT. Due on due Goal OARS. Due on due Goal AST (SGOT). Due on due Goal ALT (SGPT). Due on due Goal UDT. Due on due Goal Review Allergy List. Due on due Goal Weight. Due on d ue Goal Tobacco Use. Due on due Goal Update Social Hi story. Due on due Goal Medication Recon ciliation. Due on due Goal Lipid panel. Due on due Goal Hepatitis C scre ening. Due on due Goal Height. Due on d ue Goal HPV. Due on due Goal Unhealthy drug u se screening. Due on due Goal PHQ-9. Due on du e Goal TUBE TEST TECHNICIAN Scanned. Due on due Goal Creatinine. Due on due Goal Unhealthy drug u se screening. Due on due Goal Lipid panel. 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 Due on due Goal Height. Due on d ue Goal Order Annual PT. Due on due Goal Medication Recon ciliation. Due on due Goal HPV. Due on due Goal ALT (SGPT). Due on due Goal Tobacco Use. Due on due Goal Review Allergy List. Due on due Goal UDT. Due on due Goal PHQ-9. Due on du e Goal Hepatitis C scre ening. Due on due Goal OARS. Due on due Goal AST (SGOT). Due on due Goal Weight. Due on d ue Goal Update Social Hi story. Due on due Goal PHQ-9. Due on du e Goal Unhealthy drug u se screening. Due on due Goal TUBE TEST TECHNICIAN Scanned. Due on due Goal OARS. 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 Due on due Goal AST (SGOT). [...] Creatinine. Due on due Goal Update Social Hi story. Due on due Goal Hepatitis C scre ening. Due on due Goal Tobacco Use. Due on due Goal OARS. Due on due Goal Height. Due on d ue Goal Order Annual PT. Due on due Goal PHQ-9. Due on du e Goal Review Allergy List. Due on due Goal Update Social Hi story. Due on due Goal Tobacco Use. Due on due Goal Unhealthy drug u se screening. Due on due Goal Weight. Due on d ue Goal AST (SGOT). Due on due Goal UDT. Due on due Goal Hepatitis C scre ening. Due on due Goal Creatinine. 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 Due on due Goal Lipid panel. Due on due Goal HPV. Due on due Goal Medication Recon ciliation. Due on due Goal TUBE TEST TECHNICIAN Scanned. Due on due Goal ALT (SGPT). 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 Due on due Goal TUBE TEST TECHNICIAN Scanned. Due on due Goal Creatinine. Due [...] HPV. Due on due Goal Update Social Hi story. Due on due Goal Unhealthy drug u se screening. Due on due Goal Height. Due on d ue Goal Medication Recon ciliation. Due on due Goal Lipid panel. Due on due Goal Hepatitis C scre ening. Due on due Goal Weight. Due on d ue Goal UDT. Due on due Goal Order Annual PT. Due on due Goal OARS. 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 Due on due Goal AST (SGOT). Due on due Goal Creatinine. Due on due Goal Unhealthy drug u se screening. Due on due Goal ALT (SGPT). Due on due Goal Review Allergy List. Due on due Goal TUBE TEST TECHNICIAN Scanned. Due on due Goal Height. Due on d ue Goal Update Social Hi story. Due on due Goal Tobacco Use. Due on due Goal Weight. Due on d ue Goal HPV. Due on due Goal Hepatitis C scre ening. Due on due Goal Medication Recon ciliation. Due on due Goal Lipid panel. Due on due Goal PHQ-9. Due on du e Goal Tobacco Use. Due on due Goal Creatinine. Due on due Goal Unhealthy drug u se screening. Due on due Goal Weight. Due on d ue Goal Medication Recon ciliation. Due on due Goal OARS. 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 Due on due Goal Order Annual PT. Due on due Goal Height. Due on d ue Goal Review Allergy List. Due on due Goal UDT. Due on due Goal Lipid panel. Due on due Goal Hepatitis C scre ening. Due on due Goal AST (SGOT). Due on due Goal ALT (SGPT). Due on due Goal Update Social Hi story. Due on due Goal TUBE TEST TECHNICIAN Scanned. Due on due Goal PHQ-9. Due on du e Goal HPV. Due on due Goal Order Annual PT. Due on due Goal TUBE TEST TECHNICIAN Scanned. Due on due Goal Tobacco Use. Due on due Goal Update Social Hi story. Due on due Goal Hepatitis C scre ening. Due on due Goal ALT (SGPT). 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 Due on due Goal Review Allergy [...] Goal AST (SGOT). 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 Due on due Goal Review Allergy List. Due on due Goal AST (SGOT). Due on due Goal UDT. Due on due Goal Weight. Due on d ue Goal ALT (SGPT). Due on due Goal Medication Recon ciliation. Due on due Goal OARS. Due on due Goal Creatinine. Due on due Goal Update Social Hi story. Due on due Goal PHQ-9. Due on du e Goal TUBE TEST TECHNICIAN Scanned. Due on due Goal Order Annual PT. Due on due Goal Height. Due on d ue Goal Tobacco Use. Due on due Goal TUBE TEST TECHNICIAN Scanned. Due on due Goal Creatinine. Due on due Goal OARS. 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 Due on due Goal ALT (SGPT). Due on due Goal Medication Recon ciliation. Due on due Goal UDT. Due on due Goal AST (SGOT). Due on due Goal Tobacco Use. Due on due Goal Update Social Hi story. Due on due Goal PHQ-9. Due on du e Goal Order Annual PT. Due on due Goal Review Allergy List. Due on due Goal Height. Due on d ue Goal Weight. Due on d ue Goal ALT (SGPT). Due on due Goal AST (SGOT). Due on due Goal UDT. Due on due Goal Creatinine. 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 Due on due Goal Order Annual PT. Due on due Goal OARS. Due on due Goal TUBE TEST TECHNICIAN Scanned. Due on due Goal PHQ-9. Due on du e Goal Height. Due on d ue Goal Review Allergy List. Due on due Goal Weight. Due on d ue Goal Medication Recon ciliation. Due on due Goal Update Social Hi story. Due on due Goal Tobacco Use. Due on due Goal UDT. Due on due Goal Review Allergy List. Due on due Goal Tobacco Use. 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 Due on due Goal PHQ-9. Due on du e Goal Creatinine. Due on due Goal Order Annual PT. Due on due Goal Update Social Hi story. Due on due Goal AST (SGOT). Due on due Goal Height. Due on d ue Goal OARS. Due on due Goal Medication Recon ciliation. Due on due Goal Weight. Due on d ue Goal TUBE TEST TECHNICIAN Scanned. Due on due Goal ALT (SGPT). Due on due Goal Update Social Hi story. Due on due Goal PHQ-9. Due on du e Goal ROLL REPAIRER Paperwork. Due on due Goal ALT (SGPT). Due on due Goal Creatinine. Due on due Goal AST (SGOT). Due on due Goal UDT. Due on due Goal OARS. Due on due Goal Order Annual PT. Due on due Goal Review Allergy List. Due on due Goal Weight. Due on d ue Goal Height. Due on d ue Goal TUBE TEST TECHNICIAN Scanned. Due on due Goal Tobacco Use. Due on due Goal Medication Recon ciliation. Due on due Goal TUBE TEST TECHNICIAN Scanned. Due on due Goal ALT (SGPT). Due on due Goal Creatinine. 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 Due on due Goal OARS. Due on due Goal Weight. Due on d ue Goal Update Social Hi story. Due on due Goal UDT. Due on [...] Due on du e Goal Update Social Hi story. Due on due Goal Weight. Due on d ue Goal ROLL REPAIRER Paperwork. Due on due Goal TUBE TEST TECHNICIAN Scanned. Due on due Goal ALT (SGPT). Due on due Goal UDT. Due on due Goal ALT (SGPT). 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 Due on due Goal Creatinine. Due on due Goal TUBE TEST TECHNICIAN Scanned. Due on due Goal OARS. Due on due Goal Height. Due on d ue Goal Medication Recon ciliation. Due on due Goal Review Allergy List. Due on due Goal Tobacco Use. Due on due Goal Weight. Due on d ue Goal Order Annual PT. Due on due Goal Update Social Hi story. Due on due Goal PHQ-9. Due on du e Goal AST (SGOT). Due on due Goal UDT. Due on due Goal Order Annual PT. Due on due Goal TUBE TEST TECHNICIAN Scanned. 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 Due on due Goal Review Allergy List. Due on due Goal Medication Recon ciliation. Due on due Goal ALT (SGPT). Due on due Goal AST (SGOT). Due on due Goal Creatinine. Due on due Goal OARS. Due on due Goal PHQ-9. Due on du e Goal Update Social Hi story. Due on due Goal Tobacco Use. Due on due Goal Height. Due on d ue Goal Weight. Due on d ue Goal Tobacco Use. Due on due Goal Weight. Due on d ue Goal AST (SGOT). Due on due Goal Creatinine. Due on due Goal Update Social Hi story. Due on due Goal UDT. Due on due Goal PHQ-9. Due on du e Goal Medication Recon ciliation. Due on due Goal ALT (SGPT). Due on due Goal Review Allergy List. Due on due Goal TUBE TEST TECHNICIAN Scanned. Due on due Goal Height. Due on d ue Goal OARS. Due on due Goal Order Annual PT. 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 Due on due Goal Creatinine. Due on due Goal ALT (SGPT). Due on due Goal OARS. Due on due Goal Height. Due on d ue Goal Medication Recon ciliation. Due on due Goal TUBE TEST TECHNICIAN Scanned. Due on due Goal Update Social Hi story. Due on due Goal PHQ-9. Due on du e Goal UDT. Due on due Goal Order Annual PT. Due on due Goal Review Allergy List. Due on due Goal Weight. Due on d ue Goal AST (SGOT). 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 Due on due Goal Tobacco Use. Due on due Goal PHQ-9. Due on du e Goal OARS. 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 Due on due Goal Creatinine. Due on due Goal Review Allergy List. Due on due Goal AST (SGOT). Due on due Goal Weight. Due on d ue Goal Order Annual PT. Due on due Goal ALT (SGPT). Due on due Goal UDT. Due on due Goal Tobacco Use. Due on due Goal Update Social Hi story. Due on due Goal Height. Due on d ue Goal TUBE TEST TECHNICIAN Scanned. Due on due Goal Medication Recon ciliation. Due on due Goal Tobacco Use. Due on due Goal OARS. Due on due Goal Weight. Due on d ue Goal TUBE TEST TECHNICIAN Scanned. Due on due Goal Creatinine. Due on due Goal Review Allergy List. Due on due Goal ALT (SGPT). Due on due Goal Update Social Hi story. Due on due Goal Order Annual PT. Due on due Goal UDT. Due on due Goal Medication Recon ciliation. 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 Due on due Goal AST (SGOT). Due on due Goal PHQ-9. Due on du e Goal Height. Due on d ue Goal OARS. Due on due Goal ALT (SGPT). Due on due Goal Update Social Hi story. 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 Due on due Goal Review Allergy List. Due on due Goal TUBE TEST TECHNICIAN Scanned. Due on due Goal UDT. Due on due Goal AST (SGOT). Due on due Goal Height. Due on d ue Goal Order Annual PT. Due on due Goal Weight. Due on d ue Goal PHQ-9. Due on du e Goal Medication Recon ciliation. Due on due Goal Tobacco Use. Due on due Appointment [facility] [place] BOOKED Appointment [facility] [place] #[id number] Bilateral L4-L5, L5-S1 Joint(s) BOOKED Future Order: Lab Order Drug Jessica t Def 22+ Classes (G0483), Ordered on: Ordered Future Order: Lab Order Drug Jessica t Def 22+ Classes (G0483), Ordered on: Ordered Future Order: Lab Order Drug Jessica t Def 22+ Classes (G0483), Ordered on: Ordered Future Order: Lab Order COMPLIAN CE DRUG ANALYSIS, URINE, WITH MED REPORT ([id number]), Ordered on: Ordered Future Order: Lab Order Drug Jessica t Def 22+ Classes (G0483), Ordered on: Ordered History Of Present Illness Encounter Date Complaint History Of Prese nt Illness Comments: Elisa cervantes is a 44 y/o female who presents for follow up and medication refill in the setting of chronic mid back pain with radiation into the ribcage and low back pain with radiation into the BLE. Pain has been stable this month. Will plan to reschedule for the BL L4-L5, L5-S1 Diagnostic RFW soon.Of note, patient recently switched to the department at her job which has been easier for her pain. She states she is glad she's no longer doing consistent heavy lifting.Reports current medication regimen provides 85% pain relief [...] aggravated by bending, lifting, sitting, standing, twisting, housework, movement and prolonged positioning. Symptoms are relieved by pain meds/drugs, chiropractic and changing positions. back pain Severity level i s 8. Duration: chronic. The problem is fluctuating. It occurs persistently. Location of pain is middle back, lower back, legs and shoulders. The client describes the pain as an ache, burning, sharp and tingling. Symptoms are aggravated by all movement. Symptoms are relieved by heat, ice, massage, pain meds/drugs, stretching, rest and changing positions. Comments: Elisa cervantes is a 44 y/o female who presents for follow up and medication refill in the setting of chronic mid back pain with radiation into the ribcage and low back pain with radiation into the BLE. Pain has been fluctuating this month. Notes work has been contributing to the increased pain. Ongoing nerve pain and weakness in her legs has been the most bothersome.Have yet to proceed with the BL L4-L5, L5-S1 Diagnostic RFW initially scheduled on 01/15/24. She states she will reschedule the procedure later today. C/o ongoing bladder incontinence which has gradually worsened in the past year. Originally attributed it to having kids but now believes she should consult with a urologist. Of note, patient is looking into finding a new job due to being continuously overwhelmed at her current job. Spends 80% of her day on her feet and is often lifting heavy patients. Reports current medication regimen provides 85% pain relief and allows for increased functionality. Continues to utilize Percocet 5-325mg 5x/day with significant benefit. Denies OIC or other side effects from current medication regimen. Gabapentin is beneficial to her nerve pain unless the weather changes drastically. No other concerns today. Back Pain Severity level i s 3. Duration: chronic. The problem is fluctuating. It occurs persistently. The client describes the pain as an ache, burning, sharp and tingling. Symptoms are aggravated by bending, lifting, standing, twisting, walking, housework, movement, rising from sitting position, stairs and prolonged positioning. Symptoms are relieved by heat, ice, massage, pain meds/drugs, physical therapy, stretching, rest, chiropractic, TENS unit and changing positions. Comments: Elisa cervantes is a 44 y/o female who presents for follow up and medication refill in the setting of chronic mid back pain with radiation into the ribcage and low back pain with radiation into the BLE. Pain has been fluctuating this month. Notes work has been contributing to the increased pain.Have yet to proceed with the BL L4-L5, L5-S1 Diagnostic RFW initially scheduled on 01/15/24 due to currently having a UTI. She states she will reschedule the procedure once she finishes the antibiotics and recovers from the UTI.Of note, patient is looking into finding a new job due to being continuously overwhelmed at her current job. She states she would like to stay in one unit instead of being moved around. 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 Continues to utilize Percocet 5-325mg 5x/day with significant benefit. Denies OIC or other side effects from current medication regimen. No other concerns today. Comments: Elisa cervantes is a 43 y/o female who presents in clinic for follow up and medication refill in the setting of chronic mid back pain with radiation into the ribcage and low back pain with radiation into the BLE. Pain has been fluctuating this month. 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 States she is scheduled for a BL L3, L4, and L5 D-RFW on 01/15/2024. Looking forward to the procedure.Reports current medication regimen provides 85% pain relief and allows for increased functionality. Continues to utilize Percocet 5-325mg 5x/day with significant benefit. Denies OIC or other side effects from current medication regimen. No other concerns today. Back Pain Severity level i s 3. Duration: chronic. The problem is fluctuating. It occurs persistently. The client describes the pain as an ache, burning, sharp, shooting and tingling. Symptoms are aggravated by ascending stairs, bending, changing positions, coughing, daily activities, descending stairs, extension, flexion, jumping, lifting, pushing, rolling over in bed, running, sneezing, standing, twisting and walking. Symptoms are relieved by heat, ice, lying down, massage, movement, pain meds/drugs, physical therapy, spontaneous relief, stretching, rest and sitting. 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 Pain has been fluctuating this month. Low back pain has been the most bothersome d/t increased activity at her new job.States she is scheduled for a BL L3, L4, and L5 D-RFW on 12/14/2023. Looking forward to the procedure.Reports current medication regimen provides moderate pain relief and allows for increased functionality. Continues to utilize Percocet 5-325mg 5x/day with significant benefit. Denies OIC or other side effects from current medication regimen. No other concerns today. back pain Severity level i s 8. Duration: chronic. Location of pain is upper back, middle back, lower back, legs and neck. The client describes the pain as an ache, burning, sharp and tingling. Symptoms are aggravated by ascending stairs, bending, descending stairs, lifting, standing, twisting, walking, prolonged positioning and movement. Symptoms are relieved by heat, ice, massage, stretching, rest, sitting and changing positions. back pain Severity level i s 3. Duration: chronic. The problem is stable. It occurs persistently. The client describes the pain as an ache, burning, sharp and tingling. Symptoms are aggravated by bending, lifting, standing, twisting, walking, housework, movement, prolonged positioning, rising from sitting and stairs. Symptoms are relieved by heat, massage, pain meds/drugs, physical therapy, stretching, rest, sitting, changing positions and chiropractic. 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 Pain has been fluctuating this month. Low back pain has been the most bothersome d/t increased activity. States she is scheduled for a BL L3, L4, and L5 D-RFW on 12/14/2023. Looking forward to the procedure.Reports that her mother was recently diagnosed with pancreatic cancer and she has had to help her out at home with activities while she completes chemotherapy. Increased housework has caused her low back pain to be bothersome.She continues to apply and interview for a new part-time job.Reports current medication regimen provides moderate pain relief and allows for increased functionality. [...] tingling. Symptoms are aggravated by bending, lifting, standing, twisting, walking, housework, movement, rising from sitting position, stairs and prolonged positioning. Symptoms are relieved by heat, massage, pain meds/drugs, physical therapy, stretching, rest, sitting, chiropractic, TENS unit and changing positions. 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 Pain has been fluctuating this month. Low back pain has been the most bothersome. Notes better relief with the T8-T9 IESI than the L5-S1 IESI. Have been doing chiropractic, PT, and acupuncture. She states better ROM for the R heel and achilies with PT and the use of castor oil. Notes she has been using castor oil on the stomach too which has been improving her bowel movement and decrease diarrhea. Reports current medication regimen provides 80% pain relief and allows for increased functionality. Continues to utilize Percocet 5-325mg 5x/day with significant benefit. Denies OIC or other side effects from current medication regimen. No other concerns today. back pain Severity level i s 8. Duration: chronic. The problem is worsening. It occurs persistently. Symptoms are aggravated by ascending stairs, bending, descending stairs, lifting, standing, twisting, walking and prolonged positioning. Symptoms are relieved by heat, ice, massage, pain meds/drugs, physical therapy, stretching, rest, sitting and changing positions. 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 The patient's care is routinely managed by my colleague, Bhavana Elizalde, LEYDA. Pain has been worse since BARRON. S/p L5-S1 IESI on 08/19/23 reports limited relief, reporting 10% at this time. Continues with PT for her right heel and achilles notes moderate benefit. May complete surgery for her foot in the future. Also following with chiropractic.Reports current medication regimen provides 80% pain relief and allows for increased functionality. Continues to utilize Percocet 5-325mg 5x/day with significant benefit. Denies OIC or other side effects from current medication regimen. No other concerns today. Back Pain Duration: chroni [...] a 43 y/o female who presents via [facility]OL[facility] for virtual follow up and medication refill [...] a 43 y/o female who presents via [facility] for virtual follow up and medication refill [...] Notes she will be consulting with an SOLUTION ARCHITECT specialist for further care.Reports current medication regimen [...] meds/drugs. Back Pain Severity level i s 4. [...] a 43 y/o female who presents via [facility] for a virtual follow-up and medication refill [...] a 43 y/o female who presents via [facility] for a virtual follow-up and medication refill [...] 43 y/o female who presents today via shell knob for follow up and medication refill in [...] a 42 y/o female who presents via Fab for virtual follow up and medication refill [...] a 42 y/o female who presents via Fab for virtual follow up and medication refill [...] a 42 y/o female who presents via [facility] for virtual follow up and medication refill [...] a 42 y/o female who presents via HUM[facility]OLDT for virtual follow up and medication refill [...] She has also been studying for the NCLEX as she failed her previous attempt.Reports current [...] functionality, such 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 Denies side effects from current medication regimen. [...] 42 y/o female, meeting with us via Fab for virtual follow up and medication refill in the setting of mid to low back pain. She states her pain is worse this month. 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 She inquires about scheduling her injection for her thoracic pain as she has finally cleared the hold on her account. She states she is currently studying for NCLEX and will be going out of town [...] 41 y/o female, meeting with us via Fab for virtual follow up and medication refill in the setting of mid to low back pain. She states her pain is stable this month. 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 She reports she is currently on a new weight loss program and has lost 16lbs since BARRON. Reports current medication regimen provides 80% pain [...] stable. 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 She would like to schedule the thoracic TESI but she is waiting for her insurance to resolve a previous billing issue from her last injection. She reports since BARRON she fell down the stairs on 10/24/21. [...] month. 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 She [...] is applying for a new job at [employer] [place] current medication regimen provides [...] y/o female, meeting with us today via Fab Virtual Visit for follow up and medication refill. Mid-low back pain persists this month. 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 States [...] y/o female, meeting with us today via Fab Virtual Visit for follow up and medication refill. Mid-low back pain persists this month, but medication does help to some extent. She feels her pain is moderately managed, but on work days esthela in severe. She would like to schedule thoracic ESIShe states she has recently started clinicals at [facility] and working a new job as 1stdibs current medication regimen provides 80% pain relief [...] mid-back. She has been following up at [facility] twice a week for the last 6 months. She is leaving town on Thursday, traveling to [place] and [place].Reports current medication regimen provides 80% pain relief [...] lost 27lbs. She has bene seeking healthcare manager twice a week and is working on scheduling massage therapy twice a month.Reports persistent restless legs. If she missed a dose of percocet the restlessness is significantly worse. She is following up with a automatic casting machine operator for an iron study.Reports current medication regimen [...] a chiropractor with benefit. She talked to [facility] and insurance will cover seated upright MRI. She is having trouble breathing while laying on her back due to edema (orthopnea). She is following up with automatic casting machine operator at [facility].Reports current medication regimen provides 80-85% pain relief [...] Whit is meeting with us today via Fab Virtual Visit for following up and medication [...] Whit is meeting with us today via Fab Virtual Visit for following up and medication refill. Low back and leg R>L pain is worse this month. Reports stabbing pain in low back with movement that is different from her normal pain. She went to [facility] to renae her hips [...] with prednisone until her consult with an instructor of nursing. The prednisone is helpful for both swelling and pain, but is only temporary. She was also recently diagnosed with hemolytic anemia, following up with hematology at [facility] in October.Reports current medication regimen provides 80-85% pain relief and allows for increased functionality. Denies side effects from current medication regimen.No other concerns today. Back Pain (comments) Whit is meeting with us today via ALADIR Virtual Visit for following up and medication refill. Mid-low back pain persists this month, tolerable with medication.Reports leg swelling which was resolved after taking prednisone form ER visit. She is scheduled to f/u with RA at [employer] for evaluation. He doctor also suspects hemolytic anemia, so he referred her to a automatic casting machine operator as well.Reports current medication regimen provides 80-85% [...] medications.Of note, she will be traveling to [place] in the middle of May for IVF.Patient [...] at his job from working at an [employer] company which causes increase stress and she [...] and rest. 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 Seeing dentist. Still going through fatility program - needs a DNC d/t to [...] weather. She has consulted a doctor in [place] who has reason to believe she has [...] hormone medications.Currently working with a clinic in [place] regarding her IBF.Presents with #21 - on [...] note, pt will be undergoing IVF in [place] later this month. No other concerns today. [...] mild yoga and chiropractic. Back Pain (comments) hWit is here for an initial consult regarding back pain and leg pain r/t neuropathy. She was referred to [facility] by Dr. Harvey. Pain began [...] moving and her new PCP referred to [facility]. Of note, she has started IUI and is in the two week holding period to see if she is . Treatment tried:PT was completed years ago, has not been able to go recently d/t medical bills. Pool therapy at the but insurance had only covered 2 sessions. yoga to help with stretching and pain. Injections at [facility] were helpful for 2 weeks and then wears off - no records available. Her last MRI was most likely completed about 2 years ago - checked [facility] and [facility] - no recent Spine images. Medications:Gabapentin- takes for her neuropathy.Percocet 5-325mg 5/day- helpful and allows her to function. Functional Status Date Functional Assessmen t No Information Instructions Date Instruction Additional Infor mation Lifestyle education regarding di et Related to Body mass index [BMI] 40.0-44.9, adult Lifestyle education regarding di et Related to Body mass index [BMI] 40.0-44.9, adult Assessments Type Assessment Date assessment Anxiety impression Hx of anxiety. Azar snider following up with Dr. Michael Harvey MD through [facility] assessment Chronic pain syndrome 4 impression Whit is a 44 y/o female here with chronic mid back pain with radiation into the ribcage and low back pain with radiation into the BLE. Hx of neuropathy. Pain has progressively worsened over the past several years assessment Other idiopathic peripheral auto nomic neuropathy impression Ongoing neuropathy i n the feet. Worse with working long hours and weather changes. [Forwarded Hx]R foot pain, starting at the R heel and shooting up to the achilles, have been the primary concern. Had a recent achilles tendon injury and diagnosis of Achilles Tendinitis. Per patient's report, podiatry had recommended surgery for the bone spurs sticking out of the achilles region but is hesitant to proceed due to the large possibility of bone regrowth assessment Other spondylosis, lumbar region impression Ongoing low back amanda n with radiation into the BLE. [Forwarded Hx]S/p L5-S1 IESI on 08/19/[address] Ramirez provided 10% pain relief. Patient is a candidate for the Lumbar SCS trial as it would cover the radicular symptoms and neuropathic pain in the feet but is hesitant to proceed. Lumbar MRI on 02/08/21 CONCLUSION:1. Mild L2-3 disc degeneration.2. Mild facet arthropathy on the left at L5-S1 and bilaterally at L4-53. No disc herniation, stenosis or impingement.4. No neoplasm, fracture or infection assessment Radiculopathy, thoracic region M impression Ongoing mid back amanda n, primarily along the bra line, with radiation into the rib cage. [Forwarded Hx]Previous T8-T9 IESI with benefit. S/p T8-T9 IESI on 07/31/[address] 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 MME is 37.5mg/day. Patient has been managing medications appropriately, and is not confused or oversedated during our office visit. MNPMP queried and showed no outside prescriptions. UDT results from 01/04/24 previously reviewed and are consistent with current medication regimen. Appropriate to continue with opioid therapy Mental Status Date Cognitive Assessment Orientation - Upperco ed to time, place, person, situation. Patient Care Teams Name Effective Dates (start - stop) Status Members No Information
--- OUTSIDE RECORDS SUMMARY | 2024-05-01 15:17 | XMS_ITS | Referral Summary ---
Author Organization [facility] Address [address] [place] [id number] Care Team Providers Care Radio News Writer Name Role Phone [facility]- Primary Care Provider Allergies Active Allergy Reactions [...] 07/19/2022 5:40 PM CDT Plan of Treatment Not on file Procedures Procedure Name Priority Date/Time Associated Diagnosis [...] - 15 mmol/L 06/08/2023 7:08 PM CDT [facility] Urea Nitrogen 12.8 6.0 - 20.0 [...] Rubio MD LAB - BLOOD ORDERABL ES [facility] [address] [facility] (1st floor, no room number) [place] [address], [facility] [phone] from Last 3 Months or Most Recently Relevant to Health Maintenance Care Teams Radio News Writer Relationship Specialty Start Date End Date [facility]- [address] [place] [address] PCP - General 07/31/20
--- OUTSIDE RECORDS SUMMARY | 2024-05-01 15:17 | XMS_ITS | Continuity of Care Document ---
Author Organization [facility] Address [address] [place] [address] [address] [place] [address] Phone Care Team Providers Care Model Maker Apprentice Name Role Phone Walt Dang MD Unavailable Unavailable Procedures Procedure Date Office consultation, moderate 7 Advance Directives Directive Yes / No Effective Date File Name No Information Encounters Encounter Description Practice Location Reason(s) For Visit Diagnoses Date Provider Providers Copied on Encounter Office consultation, moderate [facility], [address] [place], [place] [address] [place] [address], [address], [place] tel:[phone] [facility] No Information Laurence Godoy. [facility], [address] [place] [address], [address], [id number] , [place]. tel:[phone] Referring Provider: Walt Arzate, [address], [address], [address] . tel:[phone] Family History Family Member Type Diagnosis Age At Onset No Information Payers Payer name Insurance type Covered green party ID Authoriza tibrandie(s) [facility] CI [id number] Social History Type Description Quantity Date [...]
[2024-05-01 15:41] LABS: Chloride* 100 mmol/L (96-114); Potassium* 3.7 mmol/L (3.6-5.1); Sodium* 137 mmol/L (135-149)
[2024-05-01 15:44] LABS: Anion Gap 10 mEq/L (7-15); Blood Urea Nitrogen* 13 mg/dL (5-24); Calcium* 9.9 mg/dL (8.4-10.6); Carbon Dioxide* 27 mmol/L (20-32); Creatinine* 0.5 mg/dL (0.5-1.5); Estimated Glomerular Filt Rate 117 ml/min; Glucose* 124 mg/dL (60-115)
== END 2024-05-01 17:26 | disposition home or self-care (01) ==
PROVIDERS: Emergency Provider Emergency Medicine Emergency Medical Services; PCP Family Medicine
DX: R10.9 Unspecified abdominal pain (principal)
CPT/HCPCS: 36415; 74177; 80048; 81003; 99284; 99285; Q9967

== ENCOUNTER 2024-08-02 13:46 | Outpatient (CLI) | payer OTHER, BC, SELFPAY ==
--- OUTSIDE RECORDS SUMMARY | 2024-08-05 08:30 | XMS_ITS | Continuity of Care Document ---
Author Organization [facility] Address [address] [place] [id number] Phone Care Team Providers Care Roving Marker Name Role Phone [facility] Unavailable Unava ilable Procedures Procedure Date INTERLAMINAR LMBR OR SAC INTERLAMINAR CRV OR THRC INTERLAMINAR CRV OR THRC No Charge For Visit Per Prov Advance Directives Directive Yes / No Effective Date File Name No Information Encounters Encounter Description Practice Location Reason(s) For Visit Diagnoses Date Provider Providers Copied on Encounter [facility], [address] [place] [address], [id number], tel:[phone] [place] [address] No Information Sep-2 3 [facility]. [address] [place] [address], [id number], [place]. tel:[phone] Referring Provider: Bonnie Ramirez, [address] [place], [address] . tel:[phone] [facility], [address] [place] [address], [id number], tel:[phone] [place] [address] No Information Sep-0 3 [facility]. [address] [place] [address], [id number], . tel:[phone] Referring Provider: Kian Draper [facility] [place], [address] . tel:[phone] [facility], [address] [facility] [address] [facility] [address], [place], [id number], tel:[phone] [facility] No Information 0 2 [facility]. [address] [place] [address] [address] [facility] [address], [place], [id number], [place]. tel:[phone] Referring Provider: Angel Lima [address], [place], [address]. tel:[phone] Family History Family Member Type Diagnosis Age At Onset No Information Payers Payer name Insurance type Covered constitution party ID Noreen foster(s) [facility] [id number] Social History Type Description Quantity Date Captured [...]
--- OUTSIDE RECORDS SUMMARY | 2024-08-05 08:30 | XMS_ITS | Clinical Summary ---
[facility] Organization [facility] Address [address] [place] [address] Care Team Providers Care Personal Injury Specialist Name Role Phone Betsy Orantes MD Primary Care Provider Source Comments You are receiving this document [...] for each transition of care or referral. [facility] Allergies Active Allergy Reactions Criticality Noted Date [...] Diagnosed Date DOREEN (obstructive sleep apnea) 02/24/2010 Overview (07/03/2016): Settin CPAP Supplied by: [facility]on PSG done: 02/21/10 AHI 66 RDI 80 Lowest O2 Sat: 82% 03/21/14 Renew, Call to schedule, update supplies Polycystic ovaries 12/17/2009 Overview (07/22/2017): Polycystic Ovary Syndrome Degeneration of intervertebral disc 12/17/2009 Overview (07/22/2017): LW Modifier: T-spine ; Degenerative Disc Disease Obesity 12/17/2009 Myalgia 12/17/2009 Overview (07/22/2017): Fibromyalgia Social History Tobacco Use Types Packs/Day [...] 1978 Hep C Screening (Preventive Services) 1978 Mammogram 1978 HIV Screening (Preventive Services) 1994 Adult Preventive Visit 1996 DTaP/Tdap/Td (1 - Tdap) 1997 HepB (1) 1997 Cholesterol 2023 COVID-19 Vaccine (1 - 2022-2 4 season) 2023 Influenza (#1) 2024 10/01/2022 Zoster/Shingles (1 of 2) 2028 [...] age to complete this topic Care Teams Personal Injury Specialist Relationship Specialty Start Date [place] [address] PCP - General 03/02/11
--- OUTSIDE RECORDS SUMMARY | 2024-08-05 08:30 | XMS_ITS | Continuity of Care Document ---
Author Organization [facility] Address [address] [place] [address] Care Team Providers Care Financial Reserve Clerk Name Role Phone [facility] Unavailable Unav ailable Procedures Procedure Date Facet Jt Inj Lumbar LEFT Facet Jt Inj Lumbar RIGHT Facet Inj Lumbar 2nd Level LEFT 021 Facet Inj Lumbar 2nd Level RIGHT 2020 Advance Directives Directive Yes / No Effective Date File Name No Information Encounters Encounter Description Practice Location Reason(s) For Visit Diagnoses Date Provider Providers Copied on Encounter [facility], [address] [place], [place], [id number], [facility] No Information [facility]. [address] [place], [place], [id number], . tel:[phone] Referring Provider: Bonnie Ramirez, [address] [place], [address]. tel:[phone] Family History Family Member Type Diagnosis Age At Onset No Information Payers Payer name Insurance type Covered democrat ID Authoriza tion(s) [facility] CI [id number] Social History Type Description Quantity Date Captured [...]
--- OUTSIDE RECORDS SUMMARY | 2024-08-05 08:31 | XMS_ITS | Clinical Summary ---
Author Organization [facility] Address [place], [place] [address] Care Team Providers Care Clerk Carrier Name Role Phone Sharon Pineda MD Primary Care Provider [phone] Allergies Active Allergy Reactions Criticality Noted Date [...] Allergen (Include Detail In Comments) Edema 07/15/2013 Thayne popsicle - lips swelling / urtcaria Penicillins [...] History of delivery 05/15/2017 consult 05/08/2017 Overview: [facility] PRECONCEPTION CONSULTATION ON 05/15/17 REASON FOR CONSULT: [...] Gabapentin. (Is trying gluten free diet and nursing care partner with some success) Restless leg Syndrome on Pramipexole H/O anemia Has one patent fallopian tube-due to cyst removal from fallopian tube Fibromyalgia Depression/Anxiety Has child with Eosinophilic Esophagitis (Can only eat 10 food choices) REFERRING PHYSICIAN/PHONE/LAST UPDATE: Dr Lewis [phone] Primary MD approves scheduling of recommended ultrasounds/testing: Unknown SPECIALISTS/PHONE: Primary MD Dr Edwin Alfred Pain management @ [facility] until 04/21/17. Now pain managed with Dr Pineda BHUPINDER: GENETICS: PROCEDURES: PERTINENT LABS: PERTINENT MEDS: Percocet (5/day), Gabapentin, Pramipexole, Metformin, Lasix, Fluvoxamine, Iron, PNV, Vit B-12 injections, Will start on Nifedipine soon PLAN OF CARE: Iron deficiency 04/21/2017 Hypothyroid 04/21/2017 Controlled substance agreement signed 10/09/2016 Overview: [facility] (09/2016) Neuropathy of both feet 10/07/2016 THORACIC DISC DEGENERATION 08/07/2014 THORACIC DISC DEGENERATION 08/07/2014 Paratubal cyst 04/03/2014 Pelvic cyst 03/14/2014 Hypokalemia 04/01/2011 Overview: Secondary to diuretic lumbar facet arthropathy 09/16/2010 Thoracic disc herniation 09/10/2010 DUB (dysfunctional uterine bleeding) 06/19/2010 Sleep apnea 06/19/2010 Overview: cpap OCD (obsessive compulsive disorder) 05/28/2010 Binge eating 05/28/2010 Overview: Following at [facility] Myalgia and myositis, unspecified 05/22/2010 Fibromyalgia 02/19/2010 [...] 05/15/2014 Overview: Pain contract initiated with Bhavana Elizalde NP at [facility] on 05/10/2014. Amanda Ruiz .................... 05/15/2014 11:00 AM narcotic contract 10/01/2007 10/09/2016 Overview: [facility] controlled substance agreement initiated 08/13/2010 [...] Outcome GA Total Labor Labor/2nd/3rd Weight Sex Type Anes PTL Kathie A1 A5 Name Clin 1998 SAB 1999 32w 0d 3h 00m/ 1.56 kg (3 lb 7 oz) F C-Sec tion Spinal Y Livin shadi Vaishnavi Delivery Location:[facility] Comments:PPROM @ 14w. bedrest from wks 18-32. PTL @ 32w Breech 2008 Term 38w 0d 3.61 kg (7 lb 15.3 oz) M CS-LT ranv Mckenzie Gramajo Comments LMP unknown Last Filed Vital Signs Vital Sign Reading Time Taken Comments Blood Pressure 177/79 12/27/2022 11:43 AM [facility] Pulse 83 12/27/2022 11:43 AM [facility] Temperature 36.8 ??C (98.3 ??F) 12/27/2022 11:[address] Respiratory Rate 18 12/27/2022 11:43 AM [facility] Oxygen Saturation 97% 12/27/2022 11:43 AM [facility] Inhaled Oxygen Concentration - - Weight 104.3 kg (230 lb) 12/27/2022 11:43 AM [facility] Height 162.6 cm (5' 4) 12/27/2022 11:43 AM [facility] Body Mass Index 39.48 12/27/2022 11:43 AM [facility] Plan of Treatment Health Maintenance Due Date [...] 45-75 2023 COVID-19 vaccine series ( season) 2024 08/06/2021 Influenza for age 9-49 07/31/2024 0, [...] 16 Negative Negative 09/21/2023 11:45 AM CDT [facility] [employer] [facility] TYPE 18 Negative Negative 09/21/2023 11:45 AM CDT [facility] OTHER HIGH RISK TYPES Negative Negative 09/21/2023 11:45 AM CDT [facility] Other (Cervical) 09/15/2023 2:50 PM CDT 09/17/2023 12:24 PM CDT [facility] - 09/21/2023 11:45 AM CDT HPV types 16, 18, 31, 33, 35, 39, 45, 51, 52, 56, 58, 59, 66 and 68 DNA were undetectable or below the pre-set threshold. Methodology: Cassie Trevon 4800 HPV Test Tiffanie Israel MD MICROBIOLOGY [facility] [address] [place] [address], [place] * (ABNORMAL) LIPID PANEL W REFLEX MEASURED LDL (03/28/2014 12:02 PM CDT) CHOLESTEROL,TOTAL 160 100 - 199 mg/dL 03/28/2014 10:12 PM CDT [facility] TRIGLYCERIDES 304(H) <150 mg/dL 03/28/2014 10:12 PM CDT [facility] HDL CHOLESTEROL 40(L) >40 mg/dL 4 10:12 PM CDT [facility] NON-HDL CHOLESTEROL 120 <145 mg/dl 03/28/2014 10:12 PM CDT [facility] CHOL/HDL RATIO 4.00 <4.50 03/28/2014 10:12 PM CDT [facility] LDL CHOLESTEROL 59 <=130 mg/dL 03/28/2014 10:12 PM CDT [facility] PATIENT STATUS FASTING 03/28/2014 10:12 PM CDT [facility] Blood specimen (specimen) BLOOD SPECIMEN / Unknown Venipuncture / Unknown 03/28/2014 12:02 PM CDT 03/28/2014 12:02 PM CDT Ovidio Larsen MD CHEMISTRY [facility] [address] [place] [id number], [place] * ANTI HIV 1/2 (03/14/2009 3:31 PM CDT) ANTI HIV 1/2 Non-reacti ve [facility] Blood specimen (specimen) BLOOD SPECIMEN / Unknown 03/14/2009 3:31 PM CDT 03/14/2009 3:24 PM CDT Ovidio Larsen MD SEND OUTS [facility] INTERNAL ZIP [address] [address] from Last 3 Months or Most Recently [...] 1:41 PM 10/11/2009 4:53 PM Care Teams Clerk Carrier Relationship Specialty Start Date End Date Sharon Pineda MD [address] [place] [address] PCP - General Emergency Medicine 05/15/17
--- OUTSIDE RECORDS SUMMARY | 2024-08-05 08:31 | XMS_ITS | Continuity of Care Document ---
Author Organization [facility] Address [address] [place] [address] [address] [place] [address] Phone Care Team Providers Care Hand Or Machine Paster Name Role Phone Walt Dang MD Unavailable Unavailable Procedures Procedure Date Office consultation, moderate 7 Advance Directives Directive Yes / No Effective Date File Name No Information Encounters Encounter Description Practice Location Reason(s) For Visit Diagnoses Date Provider Providers Copied on Encounter Office consultation, moderate [facility], [address] [place], [place] [address] [place] [address], [address], [place] tel:[phone] [facility] No Information Laurence Godoy. [facility], [address] [place] [address], [address], [id number] , [place]. tel:[phone] Referring Provider: Walt Arzate, [address], [address], [address] . tel:[phone] Family History Family Member Type Diagnosis Age At Onset No Information Payers Payer name Insurance type Covered green party ID Authoriza tion(s) No Information Social [...]
--- OUTSIDE RECORDS SUMMARY | 2024-08-05 08:31 | XMS_ITS | Encounter Summary ---
Author Organization [facility] Address [address] [place] [address] Care Team Providers Care Chemical Dependency Attendant Name Role Phone [facility]- Primary Care Provider Angie Lake PA-C Unavailable [phone] Encounter Details Date Type Department Care Team [...] COVID-19? No / Unsure 10/25/2021 3:39 PM CONTINUITY WRITER documented as of this encounter Plan of Treatment Not on file documented as of this encounter Visit Diagnoses Not on filedocumented in this encounter Additional Health Concerns Infection Onset Date Last Indicated Resolved Time COVID-19 07/29/2022 07/29/2022 08/19/2022 11:3 9 PM CDT documented as of this encounter Care Teams Chemical Dependency Attendant Relationship Specialty Start Date End Date [facility]- [address] [place] [address] PCP - General 07/31/20 Angie Lake PA-C [address] [place] [address] Assigned Surgical Provider 05/26/21 documented as of this encounter
--- OUTSIDE RECORDS SUMMARY | 2024-08-05 08:31 | XMS_ITS | Referral Summary ---
Author Organization [facility] Address [address] [place] [address] Care Team Providers Care Graphic Design Manager Name Role Phone [facility]- Primary Care Provider Allergies Active Allergy Reactions [...] Rubio MD LAB - BLOOD ORDERABL ES [facility] [address] [facility] (1st floor, no room number) [place] [address], [facility] [phone] from Last 3 Months or Most Recently Relevant to Health Maintenance Care Teams Graphic Design Manager Relationship Specialty Start Date End Date [facility]- [address] [place] [address] PCP - General 07/31/20
--- OUTSIDE RECORDS SUMMARY | 2024-08-05 08:31 | XMS_ITS | Encounter Summary ---
Author Organization [facility] Address [address] [place] [address]. [place] [address] Care Team Providers Care Manager Operations Name Role Phone [facility]- Primary Care Provider Angie Lake PA-C Unavailable [phone] Encounter Details Date Type Department Care Team (Late st Contact Info) Description 05/21/[address] [facility] [place] [address] [facility] [address] [place] [phone] Angie Lake PA-C [address] [facility] [address] [place] [address] Social History Tobacco Use Types Packs/Day Years [...] documented as of this encounter Care Teams Manager Operations Relationship Specialty Start Date End Date [facility]- [address] [place] [address] PCP - General 07/31/20 Angie Lake PA-C [address] [place] [address] Assigned Surgical Provider 05/26/21 documented as of this encounter
--- OUTSIDE RECORDS SUMMARY | 2024-08-05 08:31 | XMS_ITS | Continuity of Care Document ---
Author Organization [facility] blane Address [address] [place] [address] Phone Care Team Providers Care Customer Support Consultant Name Role Phone Tonio LEYDABhavana Unavailable Unavailable Allergies, Adverse Reactions, Alerts Substance Reaction Status Criticality PENICILLIN HivesHivesHives Active No Informati on DYE Congestion of throat Facial swellingOkay to use omnipaque Active No Information Medications Medication Instructions Dosage Effective [...] Active Procedures Procedure Date OFFICE/OUTPATIENT VISIT, EST PT EVAL MOD COMPLEX 30 MIN NEUROMUSCULAR REEDUCATION OFFICE/OUTPATIENT VISIT, EST Drug Urine Toxology With Chromatography Drug test def 8-14 classes OFFICE VISIT, EST TELEMEDICINE No Show Or Cancel Appt Fee OFFICE VISIT, EST TELEMEDICINE OFFICE/OUTPATIENT VISIT, EST OFFICE/OUTPATIENT VISIT, EST OFFICE/OUTPATIENT VISIT, EST OFFICE/OUTPATIENT VISIT, EST Drug Urine Toxology With Chromatography Drug test def 15-21 classes OFFICE/OUTPATIENT VISIT, EST OFFICE/OUTPATIENT VISIT, EST Drug Urine Toxology With Chromatography OFFICE/OUTPATIENT VISIT, EST INTERLAMINAR LMBR OR SAC OR CAUDAL Sep- OFFICE/OUTPATIENT VISIT, EST INTERLAMINAR CRV OR THRC OFFICE VISIT, EST TELEMEDICINE OFFICE VISIT, EST TELEMEDICINE Drug Urine Toxology With Chromatography Drug test def 8-14 classes OFFICE/OUTPATIENT VISIT, EST OFFICE VISIT, EST TELEMEDICINE OFFICE VISIT, EST TELEMEDICINE Foll-up eval q3mo opiod tx Foll-up eval q3mo opiod tx OFFICE VISIT, EST TELEMEDICINE Mar-13-20 23 Drug Urine Toxology With Chromatography Drug test def 8-14 classes Foll-up eval q3mo opiod tx OFFICE/OUTPATIENT VISIT, EST Foll-up eval q3mo opiod tx OFFICE VISIT, EST TELEMEDICINE 23 Foll-up eval q3mo opiod tx OFFICE VISIT, [...] 8-14 classes Drug Urine Toxology With Chromatography Foll-up [...] Copied on Encounter OFFICE/OUTPAT IENT VISIT, EST [facility], [address] [place], [place], [id number] , [place] [phone] [facility] Back Pain (chief complaint) AnxietyChronic pain syndromeOther idiopathic peripheral autonomic neuropathyOther spondylosis, lumbar regionRadiculopat hy, thoracic regionLong term (current) use of opiate analgesic Sep-0 4 Tonio Bateman. [address] [facility] [address], [place], [place], [id number] , [place]. [phone] Referring Provider: Terrell Loving, [address] [place] [address], [address]. tel:[phone] [facility], [address] [place] [address], [id number] , [place] [phone] [facility] dorsalgia (chief complaint) Spondylosis without myelopathy or radiculopathy, lumbar region 4 Anni Vicente. [address] [place], [place], [id number] , [place]. [phone] Referring Provider: Terrell Loving, [address] [place] [address], [address]. tel:[phone] OFFICE/OUTPAT IENT VISIT, EST [facility], [address] [place] [address], [id number] , [place] tel:[phone] [facility] Back Pain (chief complaint) AnxietyChronic pain syndromeOther idiopathic peripheral autonomic neuropathyOther spondylosis, lumbar regionRadiculopat hy, thoracic regionLong term (current) use of opiate analgesicEncounte r for therapeutic drug level monitoring Jun-0 4 Idtrinity Bateman. [address] [facility] [address], [place], [place], [id number] , [place]. tel:[phone] Referring Provider: Terrell Loving, [address] [place] [address], [address]. tel:[phone] OFFICE VISIT, EST TELEMEDICINE [facility], [address] [place] [address], [id number] , [place] tel:[phone] [facility] Back Pain (chief complaint) AnxietyChronic pain syndromeOther idiopathic peripheral autonomic neuropathyOther spondylosis, lumbar regionRadiculopat hy, thoracic regionLong term (current) use of opiate analgesic 4 Tonio Bhavana. [address] [facility] [address], [place], [id number] , [place]. tel: [phone] [facility], [address] [place] [address], [id number] , [place] tel: [phone] [facility] No Information 4 Luis Miguel Tejada. [address] [place], [place], [id number] , [place]. tel: [phone] Referring Provider: Terrell Loving, [address] [place] [address], [address]. tel:[phone] OFFICE VISIT, EST [facility], [address] [place] [address], [id number] , [place] tel: [phone] [facility] Back Pain (chief complaint) AnxietyChronic pain syndromeOther idiopathic peripheral autonomic neuropathyOther spondylosis, lumbar regionRadiculopat hy, thoracic regionLong term (current) use of opiate analgesic 4 Tonio Bateman. [address] [facility] [address], [place], [id number] , [place]. tel: [phone] OFFICE/OUTPAT IENT VISIT, [facility], [address] [place] [address], [id number] , [place] tel: [phone] [facility] Back Pain (chief complaint) AnxietyChronic pain syndromeOther idiopathic peripheral autonomic neuropathyOther spondylosis, lumbar regionRadiculopat hy, thoracic regionLong term (current) use of opiate analgesic 4 Tonio Bhavana. [address] [facility] [address], [place], [id number] , [place]. tel: [phone] Referring Provider: Michael Harvey, [facility] [address], [place], [address]. tel:[phone] OFFICE/OUTPAT IENT VISIT, [facility], [address] [place], [place], [id number] , [place] tel:[phone] [facility] back pain (chief complaint) AnxietyChronic pain syndromeOther idiopathic peripheral autonomic neuropathyOther spondylosis, lumbar regionRadiculopat hy, thoracic regionLong term (current) use of opiate analgesicEncounte r for therapeutic drug level monitoring Apr-0 3 [address], [place], [id number] , [place]. tel:[phone] Referring Provider: Michael Harvey [facility] [address], [place], [address]. tel:[phone] OFFICE/OUTPAT IENT VISIT, [facility], [address] [place], [place], [id number] , [place] tel:[phone] [facility] Back Pain (chief complaint) AnxietyChronic pain syndromeOther idiopathic peripheral autonomic neuropathyOther spondylosis, lumbar regionRadiculopat hy, thoracic regionLong term (current) use of opiate analgesic Jan-0 4 Tonio Bateman. [address] [facility] [address], [place], [id number] , [place]. tel:[phone] Referring Provider: Michael Harvey [facility] [address], [place], [address]. tel:[phone] OFFICE/OUTPAT IENT VISIT, [facility], [address] [place], [place], [id number] , [place] tel:[phone] [facility] Back Pain (chief complaint) Chronic pain syndromeOther idiopathic peripheral autonomic neuropathyAnxiety Other spondylosis, lumbar regionRadiculopat hy, thoracic regionLong term (current) use of opiate analgesicEncounte r for therapeutic drug level monitoring 0 4 Nyongesa Bhavana. [address] [facility] [address], [place], [id number] , [place]. tel:[phone] Referring Provider: Michael Harvey [facility] [address], [place], [address]. tel:[phone] OFFICE/OUTPAT IENT VISIT, [facility], [address] [place], [place], [id number] , [place] tel: [phone] [facility] back pain (chief complaint) AnxietyChronic pain syndromeOther idiopathic peripheral autonomic neuropathyOther spondylosis, lumbar regionRadiculopat hy, thoracic regionLong term (current) use of opiate analgesic 0- [address] [facility], [place], [place], [id number] , [place]. tel: [phone] Referring Provider: Michael Harvey [facility] [address], [place], [address]. tel:[phone] [facility], [address] [place], [place], [id number] , [place] tel: [phone] [facility] back pain (chief complaint) AnxietyChronic pain syndromeOther idiopathic peripheral autonomic neuropathyOther spondylosis, lumbar regionRadiculopat hy, thoracic regionLong term (current) use of opiate analgesic Oct-0 3 Nyongesa Bhavana. [address] [facility] [address], [place], [place], [id number] , [place]. tel: [phone] Referring Provider: Michael Harvey [facility] [address], [place], [address]. tel:[phone] OFFICE/OUTPAT IENT VISIT, [facility], [address] [place], [place], [id number] , [place] tel: [phone] [facility] Back Pain (chief complaint) AnxietyChronic pain syndromeOther idiopathic peripheral autonomic neuropathyRadicul opathy, thoracic regionLong term (current) use of opiate analgesicOther spondylosis, lumbar region Nov-0 8 3 Nyongesa Bhavana. [address] [facility] [address] [place], [id number] , [place]. tel: [phone] Referring Provider: Michael Harvey [facility] [address], [place], [address]. tel:[phone] [facility], [address] [place], [place], [id number] , [place] tel:[phone] [facility] No Information [address] [facility], [place], [id number] , [place]. tel:[phone] Referring Provider: Michael Harvey [facility] [address], [place], [address]. tel:[phone] OFFICE/OUTPAT IENT VISIT, [facility], [address] [place], [place], [id number] , [place] tel:[phone] [facility] back pain (chief complaint) AnxietyChronic pain syndromeOther idiopathic peripheral autonomic neuropathyRadicul opathy, thoracic regionRadiculopat hy, lumbar regionLong term (current) use of opiate analgesicEncounte r for therapeutic drug level monitoring [address] [facility], [place], [id number] , [place]. tel:[phone] Referring Provider: Michael Harvey [facility] [address], [place], [address]. tel:[phone] [facility], [address] [place], [place], [id number] , [place] tel:[phone] [facility] Radiculopathy, lumbar region Sep-2 0- 3 James Nicole. [address] [place], [place], [id number] , [place]. tel:[phone] Referring Provider: Michael Harvey [facility] [address], [place], [address]. tel:[phone] OFFICE/OUTPAT IENT VISIT, [facility], [address] [place], [place], [id number] , [place] tel:[phone] [facility] Back Pain (chief complaint) AnxietyChronic pain syndromeOther idiopathic peripheral autonomic neuropathyRadicul opathy, thoracic regionRadiculopat hy, lumbar regionLong term (current) use of opiate analgesic Sep-0 7- [address] [facility] [facility] [address], [place], [id number] , [place]. tel:[phone] Referring [facility]: [facility] [address], [place], [address]. tel:[phone] [facility], [address] [place] [address], [id number] , [place] tel: [phone] [facility] Radiculopathy, thoracic region Sep-0 3 James Nicole. [address] [place], [place], [id number] , [place]. tel:[phone] Referring Provider: [facility] [address], [place], [address]. tel:[phone] OFFICE VISIT, EST TELEMEDICINE [facility], [address] [place] [address], [id number] , [place] tel: [phone] [facility] Back Pain (chief complaint) AnxietyChronic pain syndromeOther idiopathic peripheral autonomic neuropathyRadicul opathy, thoracic regionRadiculopat hy, lumbar regionLong term (current) use of opiate analgesic [address] [facility] [facility] [address], [place], [id number] , [place]. tel: [phone] OFFICE VISIT, EST TELEMEDICINE [facility], [address] [place] [address], [id number] , [place] tel: [phone] [facility] Back Pain (chief complaint) AnxietyChronic pain syndromeOther idiopathic peripheral autonomic neuropathyRadicul opathy, thoracic regionRadiculopat hy, lumbar regionLong term (current) use of opiate analgesic [address] [facility] [address], [place], [id number] , [place]. tel:[phone] Referring Provider: Terrell Loving, [address] [place], [address]. tel:[phone] [facility], [address] [place] [address], [id number] , [place] tel: [phone] [facility] [place] No Information 3 Nyongesa Bhavana. [address] [facility] [address], [place], [id number] , [place]. [phone] Referring Provider: Terrell Loving, [address] [place] [address], [address]. tel:[phone] OFFICE/OUTPAT IENT VISIT, EST [facility], [address] [place] [address], [id number] , [place] [phone] [facility] Back Pain (chief complaint) AnxietyOther idiopathic peripheral autonomic neuropathyRadicul opathy, thoracic regionLong term (current) use of opiate analgesicChronic pain syndromeRadiculop athy, lumbar region 3 Nyongesa Bhavana. [address] [facility] [address], [place], [id number] , [place]. [phone] Referring Provider: Michael Harvey, [facility] [address], [place], [address]. [phone] OFFICE VISIT, EST TELEMEDICINE [facility], [address] [place] [address], [id number] , [place] [phone] [facility] Back Pain (chief complaint) AnxietyOther idiopathic peripheral autonomic neuropathyOther intervertebral disc degeneration, lumbar regionRadiculopat hy, thoracic regionLong term (current) use of opiate analgesic 3 Nyongesa Bhavana. [address] [facility] [address] [facility] [address], [place], [id number] , [place]. [phone] Referring Provider: Terrell Loving, [address] [place] [address], [address]. tel:[phone] OFFICE VISIT, EST TELEMEDICINE [facility], [address] [place] [address], [id number] , [place] [phone] [facility] Back Pain (chief complaint) Other intervertebral disc degeneration, lumbar regionAnxietyOthe r idiopathic peripheral autonomic neuropathyRadicul opathy, thoracic regionLong term (current) use of opiate analgesic Feb- 3 Tonio Bateman. [address] [facility] [address], [place], [place], [address] , [place]. tel:[phone] Referring Provider: Terrell Loving, [address] [place] [address], [address]. [phone] OFFICE VISIT, EST TELEMEDICINE [facility], [address] [place] [address], [id number] , [place] tel: [phone] [facility] Back Pain (chief complaint) AnxietyOther idiopathic peripheral autonomic neuropathyOther intervertebral disc degeneration, thoracic regionOther intervertebral disc degeneration, lumbar regionRadiculopat hy, thoracic regionLong term (current) use of opiate analgesic 3 Tonio Bateman. [address] [facility] [address] [facility] [address], [place], [place], [id number] , [place]. tel: [phone] Referring Provider: Terrell Loving, [address] [place] [address], [address]. tel:[phone] [facility], [address] [place] [address], [id number] , [place] tel:[phone] [facility] Radiculopathy, thoracic region 3 Luis Miguel Tejada. [address] [place] [address], [id number] , [place]. tel: [phone] [facility], [address] [place] [address], [id number] , [place] tel: [phone] [facility] [place] No Information 3 Tonio Bateman. [address], [place], [place], [id number] , [place]. tel:[phone] Referring Provider: Michael Harvey, [facility] [address], [place], [address]. tel:[phone] OFFICE/OUTPAT IENT VISIT, EST [facility], [address] [place] [address], [id number] , [place] tel: [phone] [facility] Back Pain (chief complaint) AnxietyOther idiopathic peripheral autonomic neuropathyOther intervertebral disc degeneration, thoracic regionOther intervertebral disc degeneration, lumbar regionRadiculopat hy, thoracic regionLong term (current) use of opiate analgesic 3 Tonio Bateman. [address] [facility] [address], [place], [id number] , [place]. tel:[phone] Referring Provider: Michael Harvey, [facility] [address], [place], [address]. tel:[phone] OFFICE VISIT, EST TELEMEDICINE [facility], [address] [place] [address], [id number] , [place] tel: [phone] [facility] Back Pain (chief complaint) AnxietyOther idiopathic peripheral autonomic neuropathyOther intervertebral disc degeneration, thoracic regionOther intervertebral disc degeneration, lumbar regionRadiculopat hy, thoracic regionLong term (current) use of opiate analgesic 3 Tonio Bateman. [address] [facility] [address], [place], [id number] , [place]. tel:[phone] OFFICE VISIT, EST TELEMEDICINE [facility], [address] [place], [place], [id number] , [place] tel: [phone] [facility] Back Pain (chief complaint) AnxietyOther idiopathic peripheral autonomic neuropathyOther intervertebral disc degeneration, thoracic regionOther intervertebral disc degeneration, lumbar regionRadiculopat hy, thoracic regionLong term (current) use of opiate analgesic 2 Tonio Bateman. [address] [facility] [address], [place], [id number] , [place]. tel:[phone] Referring Provider: Terrell Loving, [address] [place], [address]. tel:[phone] OFFICE VISIT, EST TELEMEDICINE [facility], [address] [place] [address], [id number] , [place] tel:[phone] [facility] Back Pain (chief complaint) AnxietyOther idiopathic peripheral autonomic neuropathyOther intervertebral disc degeneration, thoracic regionOther intervertebral disc degeneration, lumbar regionLong term (current) use of opiate analgesicRadiculo armne, thoracic region 2 Lesliongesa Bateman. [address] [facility] [address], [place], [place], [id number] , [place]. tel: [phone] Referring Provider: Terrell Loving, [address] [place] [address], [address]. tel:[phone] OFFICE VISIT, EST TELEMEDICINE [facility], [address] [place] [address], [id number] , [place] tel: [phone] [facility] Back Pain (chief complaint) AnxietyOther idiopathic peripheral autonomic neuropathyOther intervertebral disc degeneration, thoracic regionOther intervertebral disc degeneration, lumbar regionLong term (current) use of opiate analgesic 2 Tonio Bateman. [address] [facility] [address], [place], [place], [id number] , [place]. tel: [phone] OFFICE/OUTPAT IENT VISIT, [facility], [address] [place] [address], [id number] , [place] tel: [phone] [facility] Back Pain (chief complaint) AnxietyOther idiopathic peripheral autonomic neuropathyOther intervertebral disc degeneration, thoracic regionOther intervertebral disc degeneration, lumbar regionLong term (current) use of opiate analgesicEncounte r for therapeutic drug level monitoring 2 Gaby Olivares. [address] [place] [address], [place], [place], [id number] , [place]. tel: [phone] Referring Provider: Michael Harvey [facility] [address], [place], [address]. tel:[phone] [facility], [address] [place] [address], [id number] , [place] tel: [phone] [facility] No Information 2 Gaby Olivares. [address] [place] [address] [address] [facility] [address], [place], [place], [id number] , [place]. tel: [phone] Referring Provider: Michael Harvey [facility] [address], [place], [address]. tel:[phone] OFFICE VISIT, EST TELEMEDICINE [facility], [address] [place] [address], [id number] , [place] tel:[phone] [facility] Back Pain (chief complaint) AnxietyOther idiopathic peripheral autonomic neuropathyOther intervertebral disc degeneration, thoracic regionOther intervertebral disc degeneration, lumbar regionPain in right handLong term (current) use of opiate analgesic 2 Nyongesa Bhavana. [address] [facility] [address] [facility] [address], [place], [id number] , [place]. tel:[phone] Referring Provider: Terrell Loving, [address] [place], [address]. [phone] [facility], [address] [place], [place], [id number] , [place] tel:[phone] [facility] Radiculopathy, thoracic region 2 Idongesa Bateman. [address] [facility] [address] [facility] [address], [place], [id number] , [place]. tel:[phone] OFFICE VISIT, EST TELEMEDICINE [facility], [address] [place], [place], [id number] , [place] tel: [phone] [facility] Back Pain (chief complaint) AnxietyOther idiopathic peripheral autonomic neuropathyOther intervertebral disc degeneration, thoracic regionOther intervertebral disc degeneration, lumbar regionPain in right handLong term (current) use of opiate analgesic 2 Nyongesa Bhavana. [address], [place], [id number] , [place]. tel:[phone] Referring Provider: [facility] [address], [place], [address]. [phone] OFFICE VISIT, EST TELEMEDICINE [facility], [address] [place], [place], [id number] , [place] tel:[phone] [facility] [place] Back Pain (chief complaint) AnxietyOther idiopathic peripheral autonomic neuropathyOther intervertebral disc degeneration, thoracic regionOther intervertebral disc degeneration, lumbar regionPain in right handLong term (current) use of opiate analgesic 2 Nyongesa Bhavana. [address] [facility] [address] [facility] [address], [place], [id number] , [place]. [phone] Referring Provider: Terrell Loving, [address] [place] [address], [address]. tel:[phone] [facility], [address] [place] [address], [id number] , [place] [phone] [facility] No Information 2 Janie Ortiz. [facility], [address], [place], [address], [place]. tel:[phone] Referring Provider: Michael Harvey, [facility] [address], [place], [address]. tel:[phone] OFFICE VISIT, EST TELEMEDICINE [facility], [address] [place] [address], [id number] , [place] tel:[phone] [facility] Back Pain (chief complaint) AnxietyOther idiopathic peripheral autonomic neuropathyOther intervertebral disc degeneration, thoracic regionOther intervertebral disc degeneration, lumbar regionPain in right handLong term (current) use of opiate analgesic 2 Nyongesa Bhavana. [address] [facility] [address], [place], [place], [id number] , [place]. [phone] Referring Provider: Terrell Loving, [address] [place] [address], [address]. tel:[phone] [id number] [facility], [address] [place] [address], [id number] , [place] tel:[phone] [facility] [place] No Information 2 Nyongesa Bhavana. [address] [facility] [address], [place], [place], [id number] , [place]. [phone] [facility], [address] [place] [address], [id number] , [place] tel:[phone] [facility] Back Pain (chief complaint) AnxietyOther idiopathic peripheral autonomic neuropathyOther intervertebral disc degeneration, thoracic regionOther intervertebral disc degeneration, lumbar regionPain in right handLong term (current) use of opiate analgesicEncounte r for therapeutic drug level monitoring [address] [facility] [address], [place], [id number] , [place]. tel: [phone] Referring Provider: [facility] [address], [place], [address]. tel:[phone] OFFICE VISIT, EST TELEMEDICINE [facility], [address] [place], [place], [id number] , [place] tel: [phone] [facility] Back Pain (chief complaint) AnxietyOther idiopathic peripheral autonomic neuropathyOther intervertebral disc degeneration, thoracic regionOther intervertebral disc degeneration, lumbar regionPain in right handLong term (current) use of opiate analgesicRadiculo armen, thoracic region 2 Tonio Bateman. [address] [facility] [address], [place], [id number] , [place]. tel: [phone] Referring Provider: [facility] [address], [place], [address]. tel:[phone] OFFICE VISIT, EST TELEMEDICINE [facility], [address] [place], [place], [id number] , [place] tel: [phone] [facility] Back Pain (chief complaint) Other idiopathic peripheral autonomic neuropathyOther intervertebral disc degeneration, thoracic regionOther intervertebral disc degeneration, lumbar regionLong term (current) use of opiate analgesicPain in right handAnxiety [address] [facility] [address], [place], [id number] , [place]. tel: [phone] [facility], [address] [facility] [place], [id number] , [place] tel: [phone] [facility] No Information [address] [facility] [address], [place], [id number] , [place]. tel: [phone] OFFICE/OUTPAT IENT VISIT, EST [facility], [address] [place], [place], [id number] , [place] tel: [phone] [facility] Back Pain (chief complaint) Other idiopathic peripheral autonomic neuropathyOther intervertebral disc degeneration, thoracic regionLong term (current) use of opiate analgesicOther intervertebral disc degeneration, lumbar regionPain in right handAnxietyEncoun ter for therapeutic drug level monitoringEncount er for screening for other disorder [address] [facility] [address], [place], [place], [id number] , [place]. [phone] Referring Provider: Michael Harvey, [facility] [address], [place], [address]. [phone] OFFICE VISIT, EST TELEMEDICINE [facility], [address] [place] [address], [id number] , [place] [phone] [facility] Back Pain (chief complaint) Other intervertebral disc degeneration, thoracic regionAnxietyOthe r idiopathic peripheral autonomic neuropathyLong term (current) use of opiate analgesicOther intervertebral disc degeneration, lumbar regionPain in right hand [address] [facility] [address], [place], [place], [id number] , [place]. tel:[phone] OFFICE VISIT, EST TELEMEDICINE [facility], [address] [place] [address], [id number] , [place] tel:[phone] [facility] Back Pain (chief complaint) Other intervertebral disc degeneration, thoracic regionAnxietyOthe r idiopathic peripheral autonomic neuropathyLong term (current) use of opiate analgesicOther intervertebral disc degeneration, lumbar region 1 Gaby Olivares. 1455 [facility] [address], [place], [place], [id number] , [place]. [phone] Referring Provider: Terrell Loving, [address] [place], [address]. [phone] OFFICE VISIT, EST TELEMEDICINE [facility], [address] [place] [address], [id number] , [place] [phone] [facility] Back Pain (chief complaint) Other intervertebral disc degeneration, thoracic regionAnxietyOthe r idiopathic peripheral autonomic neuropathyLong term (current) use of opiate analgesicOther intervertebral disc degeneration, lumbar region Jul-2 1 Celine Bhavana. [address]447 [facility] [address], [place], [id number] , [place]. [phone] OFFICE VISIT, EST TELEMEDICINE [facility], [address] [place] [address], [id number] , [place] tel:[phone] [facility] Back Pain (chief complaint) AnxietyOther idiopathic peripheral autonomic neuropathyOther chronic painLong term (current) use of opiate analgesicSpondylo sis without myelopathy or radiculopathy, lumbar regionOther intervertebral disc degeneration, lumbar regionOther intervertebral disc degeneration, thoracic region 1 Celine Bhavana. [address] [facility] [address] [facility] [address], [place], [id number] , [place]. tel:[phone] Referring Provider: Terrell Loving, [address] [place] [address], [address]. [phone] [facility], [address] [place] [address], [id number] , [place] tel:[phone] [facility] Spondylosis without myelopathy or radiculopathy, lumbar region 1 James Nicole. [address] [place] [address], [id number] , [place]. tel:[phone] Referring Provider: [facility] [address], [place], [address]. [phone] [facility], [address] [place] [address], [id number] , [place] [phone] [facility] No Information 1 Celine Bhavana. [address] [facility] [address] [facility] [address], [place], [place], [id number] , [place]. tel:[phone] Referring Provider: Terrell Loving, [address] [place] [address], [address]. tel:[phone] OFFICE/OUTPAT IENT VISIT, EST [facility], [address] [place] [address], [id number] , [place] tel:[phone] [facility] Back Pain (chief complaint) AnxietyOther idiopathic peripheral autonomic neuropathyOther chronic painLong term (current) use of opiate analgesicSpondylo sis without myelopathy or radiculopathy, lumbar regionOther intervertebral disc degeneration, lumbar regionEncounter for therapeutic drug level monitoring [address] [facility] [address], [place], [id number] , [place]. tel:[phone] Referring Provider: Michael Harvey [facility] [address], [place], [address]. tel:[phone] OFFICE VISIT, EST TELEMEDICINE [facility], [address] [place] [address], [id number] , [place] tel:[phone] [facility] Back Pain (chief complaint) Other intervertebral disc degeneration, lumbar regionAnxietyOthe r idiopathic peripheral autonomic neuropathyOther chronic painLong term (current) use of opiate analgesicSpondylo sis without myelopathy or radiculopathy, lumbar region [address] [facility] [address], [place], [id number] , [place]. tel:[phone] Referring Provider: Terrell Loving, [address] [place], [address]. [phone] OFFICE VISIT, EST TELEMEDICINE [facility], [address] [place] [address], [id number] , [place] tel:[phone] [facility] Back Pain (chief complaint) Other intervertebral disc degeneration, lumbar regionAnxietyOthe r idiopathic peripheral autonomic neuropathyOther chronic painLong term (current) use of opiate analgesicSpondylo sis without myelopathy or radiculopathy, lumbar region [address] [facility] [address], [place], [id number] , [place]. tel:[phone] Referring Provider: Michael Harvey [facility] [address], [place], [address]. tel:[phone] OFFICE/OUTPAT IENT VISIT, EST [facility], [address] [place], [place], [id number] , [place] tel:[phone] [facility] Back Pain (chief complaint) Other intervertebral disc degeneration, lumbar regionAnxietyOthe r idiopathic peripheral autonomic neuropathyOther chronic painLong term (current) use of opiate analgesic Feb- [address] [facility] [address], [place], [id number] , [place]. tel:[phone] Referring Provider: Michael Harvey, [facility] [address], [place], [address]. [phone] OFFICE VISIT, [facility] TELEMEDICINE [facility], [address] [place], [place], [id number] , [place] tel:[phone] [facility] Back Pain (chief complaint) AnxietyOther intervertebral disc degeneration, lumbar regionOther idiopathic peripheral autonomic neuropathyOther chronic painLong term (current) use of opiate analgesic Jan- [address] [facility] [address], [place], [place], [id number] , [place]. [phone] Referring Provider: Terrell Loving, [address] [place] [address], [address]. [phone] OFFICE VISIT, [facility] TELEMEDICINE [facility], [address] [place] [address], [id number] , [place] tel:[phone] [facility] Back Pain (chief complaint) AnxietyOther intervertebral disc degeneration, lumbar regionOther idiopathic peripheral autonomic neuropathyOther chronic painLong term (current) use of opiate analgesic [address] [facility] [address], [place], [place], [id number] , [place]. tel:[phone] Referring Provider: Terrell Loving, [address] [place] [address], [address]. [phone] [facility], [address] [place], [place], [id number] , [place] tel:[phone] [facility] [place] No Information 1 Tonio Bateman. [address] [facility] [address], [place], [place], [id number] , [place]. [phone] Referring Provider: Terrell Loving, [address] [place] [address], [address]. tel:[phone] OFFICE VISIT, EST TELEMEDICINE [facility], [address] [place] [address], [id number] , [place] [phone] [facility] Back Pain (chief complaint) Other intervertebral disc degeneration, lumbar regionOther idiopathic peripheral autonomic neuropathyOther chronic painLong term (current) use of opiate analgesicAnxietyE ncounter for therapeutic drug level monitoring 1 Tonio Bhavana. [address] [facility] [address], [place], [place], [id number] , [place]. [phone] Referring Provider: Terrell Loving, [address] [place] [address], [address]. tel:[phone] OFFICE VISIT, EST TELEMEDICINE [facility], [address] [place] [address], [id number] , [place] tel:[phone] [facility] Back Pain (chief complaint) Other intervertebral disc degeneration, lumbar regionOther idiopathic peripheral autonomic neuropathyOther chronic painLong term (current) use of opiate analgesicAnxiety 0 Nyongesa Bhavana. [address] [facility] [address], [place], [place], [id number] , [place]. tel:[phone] Referring Provider: Terrell Loving, [address] [place] [address], [address]. tel:[phone] OFFICE VISIT, EST TELEMEDICINE [facility], [address] [place] [address], [id number] , [place] tel:[phone] [facility] Back Pain (chief complaint) Other intervertebral disc degeneration, lumbar regionOther idiopathic peripheral autonomic neuropathyOther chronic painLong term (current) use of opiate analgesicAnxiety 0 Nyongesa Bhavana. [address] [facility] [address], [place], [place], [id number] , [place]. [phone] Referring Provider: Terrell Loving, [address] [place] [address], [address]. tel:[phone] OFFICE VISIT, EST TELEMEDICINE [facility], [address] [place] [address], [id number] , [place] [phone] [facility] Back Pain (chief complaint) Other intervertebral disc degeneration, lumbar regionOther idiopathic peripheral autonomic neuropathyOther chronic painLong term (current) use of opiate analgesicAnxiety Aug-2 0 Nyongesa Bhavana. [address] [facility] [address], [place], [id number] , [place]. [phone] Referring Provider: Terrell Loving, [address] [place] [address], [address]. tel:[phone] OFFICE VISIT, EST TELEMEDICINE [facility], [address] [place] [address], [id number] , [place] [phone] [facility] Back Pain (chief complaint) Other intervertebral disc degeneration, lumbar regionOther idiopathic peripheral autonomic neuropathyOther chronic painLong term (current) use of opiate analgesicAnxiety Jul-2 0 Nyongesa Bhavana. [address] [facility] [address], [place], [id number] , [place]. [phone] Referring Provider: Terrell Loving, [address] [place] [address], [address]. tel:[phone] OFFICE VISIT, EST TELEMEDICINE [facility], [address] [place] [address], [id number] , [place] [phone] [facility] Back Pain (chief complaint) Other intervertebral disc degeneration, lumbar regionOther idiopathic peripheral autonomic neuropathyOther chronic painLong term (current) use of opiate analgesicAnxiety Jun- 0 Nyongesa Bhavana. [address] [facility] [address], [place], [place], [id number] , [place]. [phone] Referring Provider: Terrell Loving, [address] [place] [address], [address]. tel:[phone] OFFICE VISIT, EST TELEMEDICINE [facility], [address] [place] [address], [id number] , [place] tel:[phone] [facility] Back Pain (chief complaint) Other intervertebral disc degeneration, lumbar regionOther idiopathic peripheral autonomic neuropathyOther chronic painLong term (current) use of opiate analgesicAnxiety [address] [facility] [address], [place], [place], [id number] , [place]. [phone] Referring Provider: Terrell Loving, [address] [place] [address], [address]. tel:[phone] OFFICE VISIT, EST TELEMEDICINE [facility], [address] [place] [address], [id number] , [place] tel:[phone] [facility] Back Pain (chief complaint) Other intervertebral disc degeneration, lumbar regionOther idiopathic peripheral autonomic neuropathyOther chronic painLong term (current) use of opiate analgesicAnxiety [address] [facility] [address], [place], [place], [id number] , [place]. tel:[phone] Referring Provider: Terrell Loving, [address] [place] [address], [address]. tel:[phone] OFFICE VISIT, EST TELEMEDICINE [facility], [address] [place] [address], [id number] , [place] tel:[phone] [facility] Back Pain (chief complaint) Other intervertebral disc degeneration, lumbar regionOther idiopathic peripheral autonomic neuropathyOther chronic painLong term (current) use of opiate analgesic [address] [facility] [address], [place], [place], [id number] , [place]. [phone] Referring Provider: Terrell Loving, [address] [place] [address], [address]. tel:[phone] [facility], [address] [place] [address], [id number] , [place] [phone] [facility] [place] No Information 0 Gaby Olivares. [address] [place] [address] [address], [place], [place], [id number] , [place]. tel:[phone] Referring Provider: [facility] [address], [place], [address]. [phone] OFFICE VISIT, [facility] TELEMEDICINE [facility], [address] [place] [address], [id number] , [place] tel:[phone] [facility] Back Pain (chief complaint) Other intervertebral disc degeneration, lumbar regionOther idiopathic peripheral autonomic neuropathyOther chronic painLong term (current) use of opiate analgesic Feb- 0 Gaby Olivares. [address] [place] [address] [address], [place], [place], [id number] , [place]. tel:[phone] Referring Provider: [facility] [address] [place], [address]. tel:[phone] OFFICE VISIT, [facility] TELEMEDICINE [facility], [address] [place] [address], [id number] , [place] [phone] [facility] Back Pain (chief complaint) Other intervertebral disc degeneration, lumbar regionOther idiopathic peripheral autonomic neuropathyOther chronic painLong term (current) use of opiate analgesicEncounte r for therapeutic drug level monitoring Feb- 0 Gaby Olivares. [address] [place] [address] [address], [place], [place], [address] , [place]. tel:[phone] Referring Provider: Terrell Loving, [address] [place], [address]. 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 [address] [facility] [address], [place], [id number] , [place]. [phone] Referring Provider: Michael Harvey [facility] [address], [place], [address]. [phone] OFFICE/OUTPAT IENT VISIT, [facility], [address] [place], [place], [id number] , [place] [phone] [facility] Back Pain (chief complaint) [facility] (current) use of opiate analgesicOther chronic painOther idiopathic peripheral autonomic neuropathyOther intervertebral disc degeneration, lumbar regionOther intervertebral disc degeneration, thoracic regionAnxietyEnco unter for therapeutic drug level monitoring 0 Nyongesa Bhavana. [address]38 [facility] [address], [place], [id number] , [place]. [phone] Referring Provider: [facility] [address], [place], [address]. [phone] OFFICE/OUTPAT IENT VISIT, [facility], [address] [place] [address], [id number] , [place] tel:[phone] [facility] Back Pain (chief complaint) [facility] (current) use of opiate analgesicOther chronic painOther idiopathic peripheral autonomic neuropathyOther intervertebral disc degeneration, lumbar regionOther intervertebral disc degeneration, thoracic regionAnxiety 0 Nyongesa Bhavana. [address] [facility] [address], [place], [place], [id number] , [place]. tel:[phone] Referring Provider: Terrell Loving, [address] [place], [address]. [phone] OFFICE/OUTPAT IENT VISIT, [facility], [address] [place] [address], [id number] , [place] [phone] [facility] Back Pain (chief complaint) AnxietyLong term (current) use of opiate analgesicOther chronic painOther idiopathic peripheral autonomic neuropathyOther intervertebral disc degeneration, lumbar regionOther intervertebral disc degeneration, thoracic region 9 [facility] [facility] [address], [place], [id number] , [place]. tel:[phone] Referring Provider: Michael Harvey [facility] [address], [place], [address]. tel:[phone] OFFICE/OUTPAT IENT VISIT, [facility], [address] [place], [place], [id number] , [place] tel: [phone] [facility] Back Pain (chief complaint) AnxietyLong term (current) use of opiate analgesicOther chronic painOther idiopathic peripheral autonomic neuropathyOther intervertebral disc degeneration, lumbar regionOther intervertebral disc degeneration, thoracic region 9 [facility]. [address] [facility] [address], [place], [id number] , [place]. tel:[phone] Referring Provider: Michael Harvey [facility] [address], [place], [address]. tel:[phone] OFFICE/OUTPAT IENT VISIT, [facility], [address] [place], [place], [id number] , [place] tel: [phone] [facility] Back Pain (chief complaint) Other intervertebral disc degeneration, lumbar regionOther intervertebral disc degeneration, thoracic regionOther idiopathic peripheral autonomic neuropathyOther chronic painLong term (current) use of opiate analgesicAnxiety 9 [facility]. [address] [facility] [address], [place], [id number] , [place]. tel:[phone] Referring Provider: Michael Harvey [facility] [address] [place], [address]. tel:[phone] OFFICE/OUTPAT IENT VISIT, [facility], [address] [place], [place], [id number] , [place] tel:[phone] [facility] Back Pain (chief complaint) Other intervertebral disc degeneration, lumbar regionOther intervertebral disc degeneration, thoracic regionOther chronic painOther idiopathic peripheral autonomic neuropathyLong term (current) use of opiate analgesic Sep- 9 Gaby Olivares. 1455 [facility] [address], [place], [id number] , [place]. tel:[phone] Referring Provider: Michael Harvey [facility] [address], [place], [address]. tel:[phone] OFFICE/OUTPAT IENT VISIT, [facility], [address] [place], [place], [id number] , [place] tel:[phone] [facility] Back Pain (chief complaint) Other intervertebral disc degeneration, lumbar regionOther intervertebral disc degeneration, thoracic regionOther chronic painOther idiopathic peripheral autonomic neuropathyLong term (current) use of opiate analgesic 9 Tonio Bateman. [address] [facility] [address], [place], [id number] , [place]. tel:[phone] Referring Provider: Michael Harvey [facility] [address] [place], [address]. tel:[phone] OFFICE/OUTPAT IENT VISIT, [facility], [address] [place], [place], [id number] , [place] tel:[phone] [facility] Back Pain (chief complaint) Other chronic painOther intervertebral disc degeneration, lumbar regionOther intervertebral disc degeneration, thoracic regionOther idiopathic peripheral autonomic neuropathyLong term (current) use of opiate analgesic 9 Lesliongesa Bateman. [address] [facility] [address], [place], [id number] , [place]. tel:[phone] Referring Provider: Michael Harvey [facility] [address], [place], [address]. tel:[phone] OFFICE/OUTPAT IENT VISIT, [facility], [address], [place], [id number] , [place] tel:[phone] [facility] Back Pain (chief complaint) Other chronic painOther intervertebral disc degeneration, lumbar regionOther intervertebral disc degeneration, thoracic regionOther idiopathic peripheral autonomic neuropathyLong term (current) use of opiate analgesic May [address] [facility] [address] [address], [place], [place], [id number] , [place]. tel:[phone] Referring Provider: Michael Harvey [facility] [address], [place], [address]. tel:[phone] OFFICE CONSULTATION [facility], [address], [place], [id number] , [place] tel:[phone] [facility] [place] Back Pain (chief complaint) Other chronic painLow back painEncounter for therapeutic drug level monitoringLong term (current) use of opiate analgesicOther idiopathic peripheral autonomic neuropathyOther intervertebral disc degeneration, lumbar regionOther intervertebral disc degeneration, thoracic region 9 Limaraina Ortiz. [facility], [address], [place], [address], [place]. tel:[phone] Referring Provider: Michael Harvey [facility] [address], [place], [address]. tel:[phone] Family History Family Member Type Diagnosis Age At Onset Problem (finding) Family history of neuro armen Payers Payer name Insurance type Covered libertarian ID Authoriza tion(s) [facility] [id number] [employer] BL [id number] Social History Type Description Quantity Date Captured Comments Alcohol Use Details No Caffeine Use Details Unknown Tobacco Use Status Occasional cigarette smoker Smoking Status Heavy tobacco smoker Sex Female Chief Complaint And Reason For Visit From encounter dated '08/04/2024 13:40'. Back Pain (chief complaint). Description: Severity level is 3. Duration: chronic. The problem is fluctuating. It occurs persistently. The client describes the pain as an ache, burning, sharp and tingling. Symptoms are aggravated by ascending stairs, bending, descending stairs, lifting, standing, twisting, walking, housework, rising from sitting position, standing on one leg, movement and prolonged positioning. Symptoms are relieved by heat, ice, massage, pain meds/drugs, physical therapy, stretching, rest, sitting, chiropractic, TENS unit and changing positions. Reason For Referral Reason For Referral No Information Plan Of Treatment Date Type Action Status Goal Unhealthy drug u se screening. Due on due Goal Creatinine. Due on due Goal HEAVY DUTY CUSTODIAN Paperwork. Due on due Goal Review Allergy List. Due on due Goal Update Social Hi story. Due on due Goal Lipid panel. Due [...] Goal Height. Due on d ue Goal BOTTLE FEEDER Scanned. Due on due Goal Order Annual PT. Due on due Goal Order Annual PT. Due on due Goal HEAVY DUTY CUSTODIAN Paperwork. Due on due Goal OARS. Due on due Goal ALT (SGPT). Due on due Goal BOTTLE FEEDER Scanned. Due on due Goal Hepatitis C [...] due Goal HPV. Due on due Goal UDT. Due on due Goal Weight. Due on d ue Goal UDT. Due on due Goal Order Annual PT. Due on due Goal Hepatitis C scre ening. Due on due Goal Tobacco Use. Due on due Goal BOTTLE FEEDER Scanned. Due on due Goal Lipid panel. Due on due Goal HEAVY DUTY CUSTODIAN Paperwork. Due on due Goal Update Social Hi story. Due on due Goal OARS. Due on [...] PHQ-9. Due on du e Goal Tobacco cessation counseling completed Goal HPV. Due on due Goal Tobacco Use. Due on due Goal Weight. Due on d ue Goal Creatinine. Due on due Goal AST (SGOT). Due on due Goal Hepatitis C scre ening. Due on due Goal Review Allergy List. Due on due Goal PHQ-9. Due on du e Goal BOTTLE FEEDER Scanned. Due on due Goal OARS. Due on due Goal Lipid panel. Due on due Goal Order Annual PT. Due on due Goal Update Social Hi story. Due on due Goal HEAVY DUTY CUSTODIAN Paperwork. Due on due Goal Height. Due on d ue Goal ALT (SGPT). Due on due Goal UDT. Due on due Goal Medication Recon ciliation. Due on due Goal Unhealthy drug u se screening. Due on due Goal Order Annual PT. Due on due Goal UDT. Due on due Goal HEAVY DUTY CUSTODIAN Paperwork. Due on due Goal AST (SGOT). Due on due Goal BOTTLE FEEDER Scanned. Due on due Goal OARS. Due on due Goal Creatinine. Due on due Goal Medication Recon ciliation. [...] due Goal HPV. Due on due Goal Weight. [...] Order Annual PT. Due on due Goal BOTTLE FEEDER Scanned. Due on due Goal Medication Recon ciliation. Due on due Goal Height. Due on d ue Goal PHQ-9. Due on du e Goal Hepatitis C scre ening. Due on due Goal Creatinine. Due on due Goal OARS. Due on due Goal Unhealthy drug u se screening. Due on due Goal HEAVY DUTY CUSTODIAN Paperwork. Due on due Goal AST (SGOT). Due on due Goal Lifestyle education regardin g diet completed Goal Order Annual PT. Due on due Goal AST (SGOT). Due on due Goal ALT (SGPT). Due on due Goal Creatinine. Due on due Goal UDT. Due on due Goal Weight. Due on d ue Goal Tobacco Use. Due on due Goal OARS. Due on due Goal HEAVY DUTY CUSTODIAN Paperwork. Due on due Goal HPV. Due on due Goal Hepatitis C scre ening. Due on due Goal Unhealthy drug u se screening. Due on due Goal BOTTLE FEEDER Scanned. Due on due Goal Medication Recon ciliation. Due on due Goal Lipid panel. Due on due Goal Review Allergy List. Due on due Goal PHQ-9. Due on du e Goal Update Social Hi story. Due on due Goal Height. Due on d ue Goal BOTTLE FEEDER Scanned. Due on due Goal UDT. Due on due Goal Tobacco Use. Due on due Goal Order Annual PT. Due on due Goal OARS. Due on due Goal PHQ-9. Due on du e Goal AST (SGOT). Due on due Goal HEAVY DUTY CUSTODIAN Paperwork. Due on due Goal Lipid panel. Due on due Goal Review Allergy List. Due on due Goal Unhealthy drug u se screening. Due on due Goal ALT (SGPT). Due on due Goal Creatinine. Due on due Goal Update Social Hi story. Due on due Goal Height. Due on d ue Goal Hepatitis C scre ening. Due on due Goal Weight. Due on d ue Goal Medication Recon ciliation. Due on due Goal HPV. Due on due Goal HEAVY DUTY CUSTODIAN Paperwork. Due on due Goal BOTTLE FEEDER Scanned. Due on due Goal Lipid panel. [...] Order Annual PT. Due on due Goal HEAVY DUTY CUSTODIAN Paperwork. Due on due Goal ALT (SGPT). Due on due Goal UDT. Due on due Goal Update Social Hi story. Due on due Goal HPV. Due on due Goal BOTTLE FEEDER Scanned. Due on due Goal Hepatitis C [...] Lifestyle education regardin g diet completed Goal HPV. Due on due Goal UDT. Due on due Goal HEAVY DUTY CUSTODIAN Paperwork. Due on due Goal Medication Recon ciliation. Due on due Goal AST (SGOT). Due on due Goal BOTTLE FEEDER Scanned. Due on due Goal Order Annual [...] e Goal OARS. Due on due Goal AST (SGOT). Due on due Goal UDT. Due on due Goal HEAVY DUTY CUSTODIAN Paperwork. Due on due Goal Creatinine. Due on due Goal Order Annual PT. Due on due Goal BOTTLE FEEDER Scanned. Due on due Goal Medication Recon ciliation. Due on due Goal Hepatitis C scre [...] Goal PHQ-9. Due on du e Goal HEAVY DUTY CUSTODIAN Paperwork. Due on due Goal OARS. Due on due Goal UDT. Due on due Goal HPV. Due on due Goal Creatinine. Due on due Goal BOTTLE FEEDER Scanned. Due on due Goal Lipid panel. [...] Social Hi story. Due on due Goal OARS. Due on [...] Medication Recon ciliation. Due on due Goal BOTTLE FEEDER Scanned. Due on due Goal Update Social Hi story. Due on due Goal AST (SGOT). Due on due Goal ALT (SGPT). Due on due Goal Weight. Due on d ue Goal HPV. Due on due Goal HEAVY DUTY CUSTODIAN Paperwork. Due on due Goal Creatinine. Due on due Goal ALT (SGPT). Due on due Goal AST (SGOT). Due on due Goal HEAVY DUTY CUSTODIAN Paperwork. Due on due Goal BOTTLE FEEDER Scanned. Due on due Goal Order Annual PT. Due on due Goal Hepatitis C scre [...] Goal AST (SGOT). Due on due Goal BOTTLE FEEDER Scanned. Due on due Goal Review Allergy List. Due on due Goal Order Annual PT. Due on due Goal Creatinine. Due on due Goal Weight. Due on d ue Goal ALT (SGPT). Due on due Goal HPV. Due on due Goal HEAVY DUTY CUSTODIAN Paperwork. Due on due Goal Medication Recon [...] Social Hi story. Due on due Goal BOTTLE FEEDER Scanned. Due on due Goal UDT. Due on due Goal HEAVY DUTY CUSTODIAN Paperwork. Due on due Goal Review Allergy List. Due on due Goal Order Annual PT. Due on due Goal HEAVY DUTY CUSTODIAN Paperwork. Due on due Goal Order Annual PT. Due on due Goal BOTTLE FEEDER Scanned. Due on due Goal UDT. Due [...] Goal Height. Due on d ue Goal Hepatitis C [...] Goal PHQ-9. Due on du e Goal BOTTLE FEEDER Scanned. Due on due Goal HEAVY DUTY CUSTODIAN Paperwork. Due on due Goal UDT. Due [...] due Goal Creatinine. Due on due Goal BOTTLE FEEDER Scanned. Due on due Goal Tobacco Use. Due on due Goal Review Allergy List. Due on due Goal Hepatitis C scre ening. Due on due Goal PHQ-9. Due on du e Goal Order Annual PT. Due on due Goal Unhealthy drug u se screening. Due on due Goal UDT. Due on due Goal Weight. Due on d ue Goal HEAVY DUTY CUSTODIAN Paperwork. Due on due Goal Medication Recon [...] ue Goal Creatinine. Due on due Goal BOTTLE FEEDER Scanned. Due on due Goal Order Annual PT. Due on due Goal Medication Recon ciliation. Due on due Goal HEAVY DUTY CUSTODIAN Paperwork. Due on due Goal Weight. Due [...] due Goal HPV. Due on due Goal PHQ-9. Due on [...] due Goal Creatinine. Due on due Goal BOTTLE FEEDER Scanned. Due on due Goal HEAVY DUTY CUSTODIAN Paperwork. Due on due Goal Weight. Due [...] due Goal OARS. Due on due Goal HEAVY DUTY CUSTODIAN Paperwork. Due on due Goal Tobacco Use. Due on due Goal BOTTLE FEEDER Scanned. Due on due Goal UDT. Due [...] Medication Recon ciliation. Due on due Goal BOTTLE FEEDER Scanned. Due on due Goal HPV. Due on due Goal Creatinine. Due on due Goal Update Social Hi story. Due on due Goal Medication Recon ciliation. Due on due Goal AST (SGOT). Due on due Goal Order Annual PT. Due on due Goal Tobacco Use. Due on 023 due Goal Hepatitis C scre ening. Due on due Goal Height. Due on d ue Goal UDT. Due on due Goal HEAVY DUTY CUSTODIAN Paperwork. Due on due Goal OARS. Due on due Goal ALT (SGPT). Due on due Goal PHQ-9. Due on du e Goal Unhealthy drug u se screening. Due on due Goal Review Allergy List. Due on due Goal Lipid panel. Due on 023 due Goal Weight. Due on d ue Goal Order Annual PT. Due on due Goal Weight. Due on d ue Goal Hepatitis C scre ening. Due on due Goal UDT. Due on due Goal HEAVY DUTY CUSTODIAN Paperwork. Due on due Goal OARS. Due [...] Goal AST (SGOT). Due on due Goal BOTTLE FEEDER Scanned. Due on due Goal ALT (SGPT). Due on due Goal Lipid panel. Due on due Goal PHQ-9. Due on du e Goal HEAVY DUTY CUSTODIAN Paperwork. Due on due Goal AST (SGOT). Due on due Goal UDT. Due on due Goal OARS. Due on due Goal Creatinine. Due on due Goal ALT (SGPT). Due on due Goal HPV. Due on due Goal BOTTLE FEEDER Scanned. Due on due Goal Order Annual [...] Goal Lipid panel. Due on due Goal HEAVY DUTY CUSTODIAN Paperwork. Due on due Goal UDT. Due on due Goal Order Annual PT. Due on due Goal ALT (SGPT). Due on due Goal Tobacco Use. Due on due Goal OARS. Due on due Goal Hepatitis C scre ening. Due on due Goal BOTTLE FEEDER Scanned. Due on due Goal AST (SGOT). [...] u se screening. Due on due Goal HEAVY DUTY CUSTODIAN Paperwork. Due on due Goal Tobacco Use. [...] Goal Height. Due on d ue Goal BOTTLE FEEDER Scanned. Due on due Goal Review Allergy List. Due on due Goal Lipid panel. Due on due Goal Weight. Due on d ue Goal PHQ-9. Due on du e Goal AST (SGOT). Due on due Goal Creatinine. Due on due Goal OARS. Due on due Goal AST (SGOT). Due on due Goal HEAVY DUTY CUSTODIAN Paperwork. Due on due Goal ALT (SGPT). Due on due Goal Order Annual PT. Due on due Goal Creatinine. Due on due Goal BOTTLE FEEDER Scanned. Due on due Goal UDT. Due [...] Goal PHQ-9. Due on du e Goal BOTTLE FEEDER Scanned. Due on due Goal UDT. Due [...] Goal Lipid panel. Due on due Goal HEAVY DUTY CUSTODIAN Paperwork. Due on due Goal Height. Due on d ue Goal Order Annual PT. Due on due Goal Medication Recon ciliation. Due on due Goal HPV. Due on due Goal ALT (SGPT). Due on due Goal Tobacco Use. Due on due Goal Review Allergy List. Due on due Goal Review Allergy List. Due on due Goal Order Annual PT. Due on due Goal ALT (SGPT). Due on due Goal Lipid panel. Due on due Goal UDT. Due on due Goal PHQ-9. Due on du e Goal Unhealthy drug u se screening. Due on due Goal BOTTLE FEEDER Scanned. Due on due Goal OARS. Due on due Goal HEAVY DUTY CUSTODIAN Paperwork. Due on due Goal AST (SGOT). Due on due Goal Medication Recon ciliation. Due on due Goal Weight. Due on d ue Goal Height. Due on d ue Goal HPV. Due on due Goal Creatinine. [...] due Goal Creatinine. Due on due Goal HEAVY DUTY CUSTODIAN Paperwork. Due on due Goal Lipid panel. Due on due Goal HPV. Due on due Goal Medication Recon ciliation. Due on due Goal BOTTLE FEEDER Scanned. Due on due Goal ALT (SGPT). Due on due Goal HEAVY DUTY CUSTODIAN Paperwork. Due on due Goal BOTTLE FEEDER Scanned. Due on due Goal Medication Recon ciliation. Due on due Goal Lipid panel. Due on due Goal Hepatitis C scre ening. Due on due Goal Weight. Due on d ue Goal OARS. Due on due Goal UDT. [...] due Goal UDT. Due on due Goal HEAVY DUTY CUSTODIAN Paperwork. Due on due Goal Order Annual PT. Due on due Goal OARS. Due on due Goal BOTTLE FEEDER Scanned. Due on due Goal Height. Due [...] due Goal OARS. Due on due Goal HEAVY DUTY CUSTODIAN Paperwork. Due on due Goal Order Annual [...] Social Hi story. Due on due Goal BOTTLE FEEDER Scanned. Due on due Goal PHQ-9. Due on du e Goal HPV. Due on due Goal Tobacco Use. Due on due Goal Creatinine. Due on due Goal Tobacco Use. Due on due Goal Update Social Hi story. Due on due Goal Hepatitis C scre ening. Due on due Goal ALT (SGPT). Due on due Goal HEAVY DUTY CUSTODIAN Paperwork. Due on due Goal Review Allergy [...] Order Annual PT. Due on due Goal BOTTLE FEEDER Scanned. Due on due Goal Tobacco Use. Due on due Goal HEAVY DUTY CUSTODIAN Paperwork. Due on due Goal Review Allergy [...] Goal PHQ-9. Due on du e Goal BOTTLE FEEDER Scanned. Due on due Goal Order Annual [...] Goal Tobacco Use. Due on due Goal BOTTLE FEEDER Scanned. Due on due Goal ALT (SGPT). Due on due Goal Creatinine. Due on due Goal OARS. Due on due Goal HEAVY DUTY CUSTODIAN Paperwork. Due on due Goal AST (SGOT). Due on due Goal Order Annual PT. Due on due Goal BOTTLE FEEDER Scanned. Due on due Goal UDT. Due on due Goal Creatinine. Due on due Goal HEAVY DUTY CUSTODIAN Paperwork. Due on due Goal OARS. Due [...] Goal Tobacco Use. Due on due Goal HEAVY DUTY CUSTODIAN Paperwork. Due on due Goal PHQ-9. Due on du e Goal Creatinine. Due on due Goal Order Annual PT. Due on due Goal Update Social Hi story. Due on due Goal AST (SGOT). Due on due Goal Height. Due on d ue Goal OARS. Due on due Goal Medication Recon ciliation. Due on due Goal Weight. Due on d ue Goal BOTTLE FEEDER Scanned. Due on due Goal HEAVY DUTY CUSTODIAN Paperwork. Due on due Goal ALT (SGPT). [...] Social Hi story. Due on due Goal BOTTLE FEEDER Scanned. Due on due Goal PHQ-9. Due on du e Goal Medication Recon ciliation. Due on due Goal Tobacco Use. Due on due Goal Creatinine. Due on due Goal BOTTLE FEEDER Scanned. Due on due Goal ALT (SGPT). Due on due Goal HEAVY DUTY CUSTODIAN Paperwork. Due on due Goal OARS. Due [...] Goal Weight. Due on d ue Goal HEAVY DUTY CUSTODIAN Paperwork. Due on due Goal BOTTLE FEEDER Scanned. Due on due Goal ALT (SGPT). Due on due Goal UDT. Due on due Goal ALT (SGPT). Due on due Goal BOTTLE FEEDER Scanned. Due on due Goal OARS. Due on due Goal HEAVY DUTY CUSTODIAN Paperwork. Due on due Goal Creatinine. Due [...] Order Annual PT. Due on due Goal BOTTLE FEEDER Scanned. Due on due Goal HEAVY DUTY CUSTODIAN Paperwork. Due on due Goal Review Allergy List. Due on due Goal Medication Recon ciliation. Due on due Goal ALT (SGPT). Due on due Goal PHQ-9. Due on du e Goal Medication Recon ciliation. Due on due Goal ALT (SGPT). Due on due Goal Review Allergy List. Due on due Goal BOTTLE FEEDER Scanned. Due on due Goal Height. Due on d ue Goal OARS. Due on due Goal Order Annual PT. Due on due Goal HEAVY DUTY CUSTODIAN Paperwork. Due on due Goal Tobacco Use. [...] Goal AST (SGOT). Due on due Goal HEAVY DUTY CUSTODIAN Paperwork. Due on due Goal Tobacco Use. Due on due Goal Height. Due on d ue Goal Medication Recon ciliation. Due on due Goal BOTTLE FEEDER Scanned. Due on due Goal ALT (SGPT). Due on due Goal OARS. Due on due Goal Creatinine. Due on due Goal Update Social Hi story. Due on due Goal PHQ-9. Due on du e Goal UDT. Due on due Goal Update Social Hi story. Due on due Goal Height. Due on d ue Goal BOTTLE FEEDER Scanned. Due on due Goal Medication Recon ciliation. Due on due Goal Weight. Due on d ue Goal Order Annual PT. Due on due Goal ALT (SGPT). Due on due Goal UDT. Due on due Goal Tobacco Use. Due on due Goal PHQ-9. Due on du e Goal OARS. Due on due Goal HEAVY DUTY CUSTODIAN Paperwork. Due on due Goal Creatinine. Due on due Goal Review Allergy List. Due on due Goal AST (SGOT). Due on due Goal HEAVY DUTY CUSTODIAN Paperwork. Due on due Goal AST (SGOT). Due on due Goal PHQ-9. Due on du e Goal Height. Due on d ue Goal Tobacco Use. Due on due Goal OARS. Due on due Goal Weight. Due on d ue Goal BOTTLE FEEDER Scanned. Due on due Goal Creatinine. Due [...] Goal Tobacco Use. Due on 021 due Goal OARS. Due on due Goal ALT (SGPT). Due on due Goal Update Social Hi story. Due on due Goal HEAVY DUTY CUSTODIAN Paperwork. Due on due Goal Review Allergy List. Due on due Goal BOTTLE FEEDER Scanned. Due on due Appointment [facility] [place] BOOKED Appointment [facility] [place] BOOKED Appointment [facility] [place] BOOKED Future Order: Lab Order Drug Jessica t Def 22+ Classes (G0483), Ordered on: Ordered Future Order: Lab Order Drug Jessica t Def 22+ Classes (G0483), Ordered on: Ordered Future Order: Lab Order Drug Jessica t Def 22+ Classes (G0483), Ordered on: Ordered Future Order: Lab Order COMPLIAN CE DRUG ANALYSIS, URINE, WITH MED REPORT ([id number]), Ordered on: Ordered Future Order: Lab Order [...] BLE. Pain has been fluctuating this month. Unable to schedule the BL L4-L5, L5-S1 Diagnostic RFW as she's currently on antibiotics for a UTI.Had completed one session of PT with Cinthia. She states she was given feedback on how to improve her pain on her own. Notes Cinthia had placed an order for another TENS unit as the one she has now is 20 years old. Upcoming PT appointment on 08/22/24.Of note, patient recently switched jobs due to difficulties with trying to work around her son's schedule. 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 Symptoms are relieved by heat, ice, massage, pain meds/drugs, physical therapy, stretching, rest, sitting, chiropractic, TENS unit and changing positions. dorsalgia Patient is a 44 year old female with complaints of back pain for 20 years of pain. She states 4 years ago she lost 150# is an attempt to help the apin. She did not notice any benefit to her back apin. 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 she states after work she is having leg tremors and back pain She has a constant shooting pain into the her legs.She also has issues with incontinence. Some previous PT experience about 3 years ago, working on back,. Heat and TENS gave her temporary relief. She does not have a TENS unit. Patients goal is to tolerate her daily activity with less limitations. get order [facility] for zynex. Back Pain Severity level i s 3. Duration: chronic. The problem is worsening. It occurs persistently. The client describes the pain as an ache, burning, sharp and tingling. Symptoms are aggravated by bending, lifting, twisting, walking, movement, prolonged positions, rising, stairs and housework. Symptoms are relieved by heat, ice, massage, pain meds/drugs, physical therapy, rest, sitting, TENS, chiropractic and changing positions. Comments: Elisa cervantes is a 44 y/o female who presents for follow up and medication refill in the setting of chronic mid back pain with radiation into the ribcage and low back pain with radiation into the BLE. Pain has been worse to her BL legs since [place] as she has been more busy and active with work. Describes pain as restless, electric, and has intermittent tremors. Recent fall after getting out of bed, no injuries.She was unable to proceed with a previously scheduled BL L4-L5, L5-S1 D-RFW, but intends to schedule this soon d/t recently receiving her work schedule. Continues to struggle with incontinence and will have an appt with urology soon.Reports current medication regimen provides 85% pain relief and allows for increased functionality. Continues to utilize Percocet 5-325mg 5x/day with significant benefit. Denies OIC or other side effects from current medication regimen. Reports she accidentally used 2 tabs of hydromorphone, which was prescribed for post-op RFA pain. No other concerns today. Back Pain Severity level i s 5. Duration: chronic. The problem is stable. It occurs persistently. Symptoms are relieved by pain meds/drugs. Comments: Elisa cervantes is a 44 y/o female who presents via [facility] for virtual follow up and medication refill in the setting of chronic mid back pain with radiation into the ribcage and low back pain with radiation into the BLE. Pain has been stable this month. Denies any new symptoms or changes.Was unable to proceed with the BL L4-L5, L5-S1 Diagnostic RFW scheduled on 05/06/24 due to her daughter undergoing an emergency appendectomy. Understands she might be discharged if she no shows another procedural appointment.Reports current medication regimen provides 85% pain relief and allows for increased functionality. Continues to utilize Percocet 5-325mg 5x/day with significant benefit. Denies OIC or other side effects from current medication regimen. No other concerns today. Back Pain Severity level i s 6. Duration: chronic. The problem is fluctuating. It occurs persistently. Symptoms are relieved by pain meds/drugs. Comments: Elisa cervantes is a 44 y/o female who presents via [facility] for virtual follow up and medication refill in the setting of chronic mid back pain with radiation into the ribcage and low back pain with radiation into the BLE. Pain has been fluctuating this month. Upcoming BL L4-L5, L5-S1 Diagnostic RFW scheduled on 05/06/24.Of note, patient has been experiencing heavy periods. Will plan to consult with [employer] HOUSEPERSON soon.Reports current medication regimen provides 85% pain relief [...] by pain meds/drugs, chiropractic and changing positions. 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 Pain has been worse since [place]. S/p [...] a 43 y/o female who presents via [facility] for virtual follow up and medication refill [...] Notes she will be consulting with an [employer]SEP[employer] specialist for further care.Reports current medication regimen [...] 43 y/o female who presents today via [facility] for follow up and medication refill in [...] a 42 y/o female who presents via [facility] for virtual follow up and medication refill [...] today. Back Pain Severity level i s moderate. Duration: chronic. The problem is fluctuating. It occurs persistently. Location of pain is middle back and lower back. Pain is radiated to the buttocks. The client describes the pain as an ache and burning. Symptoms are aggravated by daily activities and lifting. Symptoms are relieved by heat, ice, pain meds/drugs, physical therapy, stretching and rest. 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 Denies side effects from current medication regimen. No other concerns today. Of note, she will be going out of town on 03/07/2022 and will be returning on 03/21/2022. Reports that she is in the process of going through a divorce. States her has a hx of a brain injury 5+ years ago and has not been the same since. Back Pain (comments) Whit is a 42 y/o female, meeting with us via [employer] for virtual follow up and medication refill in the setting of mid to low back pain. She states her pain is worse this month. 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 She inquires about scheduling her injection for her thoracic pain as she has finally cleared the hold on her account. She states she is currently studying for [employer] and will be going out of town [...] 41 y/o female, meeting with us via [employer] for virtual follow up and medication refill in the setting of mid to low back pain. She states her pain is stable this month. 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 She [...] month. 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 She [...] is applying for a new [place] at [employer] [place] current medication regimen provides [...] y/o female, meeting with us today via [employer] Visit for follow up and medication refill. Mid-low back pain persists this month. 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 She is also working in a penitentiary, which can aggravate the mid back. States [...] y/o female, meeting with us today via [employer] Virtual Visit for follow up and medication refill. Mid-low back pain persists this month, but medication does help to some extent. She feels her pain is moderately managed, but on work days esthela in severe. 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 She has been following up at [facility] twice a week for the last 6 months. She is leaving town on Thursday, traveling to [place] and [place].Reports current medication regimen provides 80% pain relief [...] has lost 27lbs. She has bene seeking regular senior care provider twice a week and is working on scheduling massage therapy twice a month.Reports persistent restless legs. If she missed a dose of percocet the restlessness is significantly worse. She is following up with a drag car racer for an iron study.Reports current medication regimen [...] a chiropractor with benefit. She talked to [facility] and insurance will cover seated upright MRI. She is having trouble breathing while laying on her back due to edema (orthopnea). She is following up with drag car racer at [facility].Reports current medication regimen provides 80-85% pain [...] regimen.No other concerns today. Back Pain (comments) Wiht is meeting with us today via [employer] Virtual Visit for following up and medication refill. Low back and leg R>L pain is worse this month. Reports stabbing pain in low back with movement that is different from her normal pain. She went to [facility] to renae her hips which [...] Whit is meeting with us today via [employer] Virtual Visit for following up and medication refill. Mid-low back pain persists this month, tolerable with medication. She reports persistent swelling. Her PCP is treating her with prednisone until her consult with an national account representative. The prednisone is helpful for both swelling and pain, but is only temporary. She was also recently diagnosed with hemolytic anemia, following up with hematology at [facility] in October.Reports current medication regimen provides 80-85% pain relief and allows for increased functionality. Denies side effects from current medication regimen.No other concerns today. Back Pain (comments) Whit is meeting with us today via [employer] Virtual Visit for following up and medication refill. Mid-low back pain persists this month, tolerable with medication.Reports leg swelling which was resolved after taking prednisone form ER visit. She is scheduled to f/u with RA at [employer] for evaluation. He doctor also suspects hemolytic anemia, so he referred her to a drag car racer as well.Reports current medication regimen provides 80-85% [...] Whit is meeting with us today via [employer] Visit for following up and medication refill. Low-mid back pain persists this month, tolerable with medication.Reports current medication regimen provides 80-85% pain relief and allows for increased functionality. Denies side effects from current medication regimen.No other concerns today. Back Pain (comments) Whit is meeting with us today via [employer] Visit for following up and medication refill. [...] Whit is meeting with us today via [employer] Virtual Visit for following up and medication [...] at his job from working at an [employer] which causes increase stress and she believes [...] meds/drugs and rest. 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 She has consulted a doctor in [place] who has reason to believe she has [...] pain r/t neuropathy. She was referred to [facility] by Dr. Harvey. Pain began about [...] moving and her new PCP referred to [facility]. Of note, she has started IUI and is in the two week holding period to see if she is . Treatment tried:PT was completed years ago, has not been able to go recently d/t medical bills. Pool therapy at the but insurance had only covered 2 sessions. yoga to help with stretching and pain. Injections at [facility] were helpful for 2 weeks and then [...] up with Dr. Michael Harvey MD through [facility] assessment Chronic pain syndrome impression Whit is a 44 y/o female here with chronic mid back pain with radiation into the ribcage and low back pain with radiation into the BLE. Hx of neuropathy assessment Other idiopathic peripheral auto nomic neuropathy [...] fracture or infection assessment Radiculopathy, thoracic region S impression Ongoing mid back amanda n, primarily along the bra line, with radiation into the rib cage. [Forwarded Hx]S/p T8-T9 IESI on 07/31/[address] Ramirez provided 20% pain relief. Previous T8-T9 IESI x1 with benefit. Thoracic MRI on 02/08/21CONCLUSION:1. 3 mm disc protrusions on the right at T10-11 and T8-9 with mild right ventral cord flattening at T8-9.2. T11-12, T10-11 and T8-9 disc degeneration.3. T3-4, T2-3 and T1-2 disc degeneration with a 3 mm right posterolateral disc protrusion at T1-2.4. No cord abnormality, and no neoplasm, fracture or infection assessment [facility] (current) use of opiat e analgesic impression [...] showed no outside prescriptions. UDT results from 07/05/24 previously reviewed and are consistent with current medication regimen. Appropriate to continue with opioid therapy Mental Status Date Cognitive Assessment Orientation - [place] ed to time, place, person, situation. Patient Care Teams Name Effective Dates (start - stop) Status Members No Information
--- OUTSIDE RECORDS SUMMARY | 2024-08-05 08:31 | XMS_ITS | Clinical Summary ---
Author Organization [facility] Address [address] [place] [id number] Care Team Providers Care Ripening Room Attendant Name Role Phone [facility]- Primary Care Provider Allergies Active Allergy [...] C SCREENING 1996 PAP 1999 LIPID 2018 PHQ-2 (once per calendar year) 2023 COVID-19 Vaccine (3 season) 2024 08/27/2021, 08/06/2021 INFLUENZA VACCINE (#1) 2024 , 10/01/2022, 08/27/2021, Additional history exists GLUCOSE 06/08/2026 [...] MD LAB - BLOOD ORDERABL ES LABORATORY [facility] [address] Lab (1st floor, no room number) [place] [address], [facility] [phone] from Last 3 Months or Most Recently Relevant to Health Maintenance Care Teams Ripening Room Attendant Relationship Specialty Start Date End Date [facility]- [address] [place] [address] PCP - General 07/31/20
--- OUTSIDE RECORDS SUMMARY | 2024-08-05 08:31 | XMS_ITS | Data Portability ---
Author Organization [facility], [facility] Address [address] [place] [address] Assessment No assessment recorded. Plan of Treatment Reminders Order Date Submit Date Provider Last Modified By Organization Details Last Modified Time Details Appointments None recorded. Lab urinalysis, dipstick 2022 023 [facility], [address] [facility], [place], [address], 3 14:43:44 Referral [email or web address] gy physical therapy referral - Please call patient to schedule Pelvic Floor Physical Therapy. Thank you 2022 023 [email or web address] [facility], [address] [place], [address], 3 16:50:00 patient navigator referral 2022 023 [email or web address] 5 Not available 3 09:40:27 Procedures None recorded. Surgeries None recorded. Imaging None recorded. Medication Orders Detrol LA 2 mg capsule,ext ended release 2022 023 [id number], [address] [place], [address], 14:49:13 Patient TargetsNo targets recorded. Patient Instructions Encounter Date Encounter Id Patient Instructions Last Modified By Organization Details Last Modified Time 03/12/2023 [id number] Mixed urinary incontinence: -UUI=JULIANNA - recommend first treating along OAB pathway -Reviewed overactive bladder care pathway and gave handout. -Discussed first-line conservative management including including timed voiding, urge suppression strategies, pelvic floor exercises, and avoidance of bladder irritants. -Discussed second-line therapies including pelvic floor physical therapy and OAB medications. -After hearing the options, patient would like to try medications and PFPT. -Referral placed for PFPT. -Recommended detrol 2mg daily. Rx sent to pharmacy. Risks/benefits discussed. -Discussed management of JULIANNA includes PFPT, incontinence pessary, and surgical/procedur al options including urethral bulking agent and midurethral sling. Would need UUI before proceeding to sling which patient is interested in. -OAB navigation Follow up in 3 months following PFPT. [email or web address] Not available 03/12/2023 15:20:01 Reason for Referral Urogynecology Physical Thera py Referral for Mixed urinary incontinence Please call patient to schedule Pelvic Floor Physical Therapy. Thank you Referring Physician: Jackeline Galaviz, Urology, Encounter Date: 03/12/2023 Referring Physician: Jackeline Galaviz Urology, Encounter Date: 03/12/2023 Results Created Date Observation Date Name Description Value Unit Range Abnormal Flag Note LastModifiedBy Organization Detail LastModifiedTime 03/12/2003/12/2023 UA WITHO UT MICRO - CS URISC AN blood - uriscan NEGATI VE negati ve Not Available [facility] [address] [facility] [address], [address], 03/12/2023 14:43:44 03/12/2003/12/2023 UA WITHO UT MICRO - CS URISC AN bilirubin - uriscan NEGATI VE mg/dL negati ve Not Available [facility] [address] [facility] [address], [place], [address], 03/12/2023 14:43:44 03/12/20 23 03/12/2023 UA WITHO UT MICRO - CS URISC AN urobilinogen - uriscan NORMAL mg/dL normal Not Available [facility] [address] [facility] [address], [place], [address], 03/12/2023 14:43:44 03/12/20 23 03/12/2023 UA WITHO UT MICRO - CS URISC AN ketones - uriscan NEGATI VE mg/dL negati ve Not Available [facility] [address] [facility] [address], [place], [address], 03/12/2023 14:43:44 03/12/20 23 03/12/2023 UA WITHO UT MICRO - CS URISC AN protein - uriscan 10 mg/dL negati ve abnormal Not Available [facility] [address] [facility] [address], [place], [address], 03/12/2023 14:43:44 03/12/20 23 03/12/2023 UA WITHO UT MICRO - CS URISC AN nitrites - uriscan NEGATI VE negati ve Not Available [facility] [address] [facility] [address], [place], [address], 03/12/2023 14:43:44 03/12/20 23 03/12/2023 UA WITHO UT MICRO - CS URISC AN glucose - uriscan NEGATI VE mg/dL negati ve Not Available [facility] [address] [facility] [address], [place], [address], 03/12/2023 14:43:44 03/12/20 23 03/12/2023 UA WITHO UT MICRO - CS URISC AN pH - uriscan 5.00 5.00-9 .00 Not Available [facility] [address] [facility] [address], [place], [address], 03/12/2023 14:43:44 03/12/20 23 03/12/2023 UA WITHO UT MICRO - CS URISC AN sp. gravity - uriscan 1.03 1.01-1 .03 Not Available [facility] [address] [facility] [address], [place], [address], 03/12/2023 14:43:44 03/12/20 23 03/12/2023 UA WITHO UT MICRO - CS URISC AN leukocytes - uriscan NEGATI VE negati ve Not Available [facility] [address] [facility] [address], [place], [address], 03/12/2023 14:43:44 03/12/20 23 03/12/2023 UA WITHO UT MICRO - CS URISC AN color - uriscan YELLOW Not Available [facility] [address] [facility] [address], [place], [address], 03/12/2023 14:43:44 03/12/20 23 03/12/2023 UA WITHO UT MICRO - CS URISC AN clarity - uriscan SL CLOUDY Not Available [facility] [address] [facility] [address], [place], [address], 03/12/2023 14:43:44 03/12/20 23 03/12/2023 UA WITHO UT MICRO - CS URISC AN total urine volume (mL) 80 /mL ----- ----- ----- ----- ----- ----- ----- ----- ----- ----- ----- ----- ----- ----- ---- *Viktoria vuong note the [facility] minim um quant ities for addit ional urine testi ng: - Atypi cals: 3 mL - Cytol ogy: 20 mL - GC/CH : 2 mL - FISH: 30 mL - Atypi cals w/ GC/CH : 5 mL - Cytol ogy PLUS FISH: 50 mL - Urine Cultu re: 3 mL ----- ----- ----- ----- ----- ----- ----- ----- ----- ----- ----- ----- ----- ----- ---- This lab resul t is being provi ded to you and your provi johnathan at the same time in compl iance with the Centu ry Cures Act. Your provi johnathan may not have had time to revie w and make recom menda tions based on the resul t. Linda luo allow up to one week for provi johnathan revie w. Not Available [facility] [address] [facility] [address], [place], [address], 03/12/2023 14:43:44 Result Notes None recorded. Procedures Surgical History Date Name Laterality Status Provider Name and Address Organization Details Recorded Time 4 Bladder Scan cancelled KYAW CONTRERAS [address] [facility],[address], [place], [address], [facility] 06/09/2023 14:56:18 3 Past Data Reviewed completed KYAW CONTRERAS [address] [facility],[address], [place], [address], [facility] 02/03/2023 15:05:45 3 In and Out Catheterizati on- female completed YKAW CONTRERAS [address] [facility],[address], [place], [address], [facility] 03/12/2023 14:36:58 delivery completed Not Available Health Note 03/11/2023 14:30:09 Imaging Results None recorded. Procedure Notes None recorded. Medical Equipment None Reported. Allergies Allergen ID Allergen Name Allergen Category Reaction Reaction Severity Criticality Documentation Date Start Date Code Code System Note Provider Name and Address Organization Details Recorded Time 109526 Medicinal product containin g penicilli n and acting as antibacte rial agent (product) medicatio n facial swelling hives Not available Not available Not available 03/11/2023 41621 05 SNOMED facia l swell ing and facia l hives Not Available Health Note 3 14:30:09 Medications Name Sig Start Date Stop Date Status Note LastModified by Organization Details LastModified Time losartan 50 mg tablet TAKE ONE TABLET BY MOUTH TWICE DAILY* active Not Available Not Available No t Available tolterodine ER 2 mg capsule,ext ended release 24 hr Take 1 capsule BY ORAL ROUTE every day 2023 active Not Available Not Available Not Avai lable fluconazole 100 mg tablet Take 2 tablets (200mg) on day one and one tablet (100mg) daily for the following 6 days. 03/12 completed Not Available Not Available Not Available nystatin 100,000 unit/mL oral suspension swish and swallow WITH 5 ML'S BY MOUTH 4 TIMES DAILY. 03/12 completed Not Available Not Available Not Available potassium chloride ER 10 mEq capsule,ext ended release TAKE 2 CAPSULES (20 mEq) orally twice a day.* active Not Available Not Available No t Available clonidine HCl 0.1 mg tablet 0.1 mg orally twice a day As Needed for hypertens soy emergency ; take for BP >180* active Not Available Not Available No t Available doxycycline hyclate 100 mg capsule TAKE 1 CAPSULE BY MOUTH 2 TIMES DAILY FOR 10 DAYS active Not Available Not Available No t Available labetalol 200 mg tablet TAKE 2 TABLETS (400 mg) (2 x 200 mg) orally twice a day.* active Not Available Not Available No t Available clonidine 0.1 mg/24 hr weekly transdermal patch 0.1mg per day PRN for BP 180 systolic 03/12 completed Not Available Not Available Not Available clindamycin HCl 300 mg capsule active Not Available Not Available Not Available azithromyci n 250 mg tablet For 250 mg dose pack: take 500 mg today (day 1), then 250 mg for 4 days (days 2-5)* active Not Available Not Available No t Available meloxicam 15 mg tablet take 1 tablet by oral route every day with food* active Not Available Not Available No t Available prednisone 20 mg tablet Take 2 tablets (40 mg) by mouth every day for 5 days 03/12 completed Not Available Not Available Not Available sertraline 100 mg tablet TAKE ONE TABLET BY MOUTH ONE TIME DAILY* active Not Available Not Available No t Available permethrin 5 % topical cream APPLY 1 APPLICATI ON TOPICALLY ONCE. apply from head to soles of feet, leave on for 8-14 hours before washing off. 03/12 completed Not Available Not Available Not Available triamterene 37.5 mg-hydrochl orothiazide 25 mg capsule take 1 capsule by mouth every morning* active Not Available Not Available No t Available triamcinolo ne acetonide 0.1 % topical cream apply 1 APPLICATI ON TOPICALLY TWICE DAILY. 03/12 completed Not Available Not Available Not Available ketorolac 10 mg tablet 10 mg orally three times a day As Needed for pain for 5 days 03/12 completed Not Available Not Available Not Available levothyroxi ne 75 mcg tablet TAKE ONE TABLET BY MOUTH ONE TIME DAILY* active Not Available Not Available No t Available oxycodone-a cetaminophe n 5 mg-325 mg tablet take 1-2 tablets by oral route every 6 hours as needed, max 5tabs/day for chronic pain.* active Not Available Not Available No t Available terbinafine HCl 250 mg tablet TAKE ONE TABLET BY MOUTH ONE TIME DAILY 03/12 completed Not Available Not Available Not Available oxycodone-a cetaminophe n 10 mg-325 mg tablet 5mg/325mg PRN For chronic back pain up to five pills a day 03/12 completed Not Available Not Available Not Available cephalexin 500 mg capsule Take one capsule twice daily for 10 days.* active Not Available Not Available No t Available nicotine 21 mg/24 hr daily transdermal patch APPLY 1 patch transderm ally every 24 hours* active Not Available Not Available No t Available pramipexole 0.25 mg tablet 0.25 - 0.75 mg (1 - 3 x 0.25 mg) by mouth at bedtime; administe r 2 - 3 hours before bedtime* active Not Available Not Available No t Available gabapentin 300 mg capsule TAKE 3 CAPSULES (900 mg) BY MOUTH 3 times a day* active Not Available Not Available No t Available ammonium lactate 12 % topical cream APPLY TO CALLUSES AND FISSURES TWICE A DAY NEEDED active Not Available Not Available No t Available piroxicam 10 mg capsule take 1-2 capsules by oral route every day* active Not Available Not Available No t Available levofloxaci n 750 mg tablet TAKE ONE TABLET BY MOUTH ONE TIME DAILY for 7 days 03/12 completed Not Available Not Available Not Available methylpredn isolone 4 mg tablets in a dose pack TAKE BY MOUTH PER PACKAGE DIRECTION S* active Not Available Not Available No t Available ondansetron 4 mg disintegrat ing tablet TAKE 1 TABLET SUBLINGUA LLY BY MOUTH EVERY 8 HOURS NEEDED FOR NAUSEA 03/12 completed Not Available Not Available Not Available sertraline 50 mg tablet take 1-2 tablets (50-100 MG) by mouth DAILY 03/12 completed Not Available Not Available Not Available emtricitabi ne 200 mg-tenofovi r disoproxil fumarate 300 mg tablet TAKE ONE TABLET BY MOUTH ONE TIME DAILY 03/12 completed Not Available Not Available Not Available [facility] 100,000 unit/gram topical powder Apply topically to affected area twice daily active Not Available Not Available No t Available levothyroxi ne 75mcg 1/day 03/12 completed Not Available Not Available Not Available vitamin E VITAMIN E 1/day active Not Available Not Available No t Available ibuprofen 800mg 1/day active Not Available Not Available No t Available labetalol 200mg 2/day 03/12 completed Not Available Not Available Not Available Vitamin D3 5000iu 1/day active Not Available Not Available No t Available gabapentin 900 mg PRN For neuropath y up to three times a day 03/12 completed Not Available Not Available Not Available coQ10 (liposomal ubiquinol) 300 mg 1/day active Not Available Not Available No t Available pramipexole 0.75 mg tablet 0.75mg PRN for restless legs 03/12 completed Not Available Not Available Not Available diclofenac 1 % topical gel APPLY 2G TOPICALLY TO AFFECTED AREA(S) THREE TIMES DAILY* active Not Available Not Available No t Available cholecalcif marce (vitamin D3) 50 mcg (2,000 unit) tablet TAKE 1 TABLET (2000 UNITS) BY MOUTH DAILY* active Not Available Not Available No t Available magnesium glycinate MAGNESIUM GLYCINATE 1/day active Not Available Not Available No t Available potassium chloride ER 20 mEq tablet,exte nded release TAKE TWO TABLETS BY MOUTH TWICE DAILY 03/12 completed Not Available Not Available Not Available Flowflex COVID-19 Antigen Home Test kit USE TO TEST FOR COVID INFECTION 03/12 completed Not Available Not Available Not Available Vitals Date Recorded Body height Body mass index (BMI) Body weight Provider Name and Address Organization Details Last Updated DateTime 03/12/2023 162.56 cm 38.1 kg/m2 468588.51 g Trinh Villegas [place] [facility] 03/12/2023 14:15:21 Social History Question Answer Notes LastModified by Organizat ion Details LastModified Time Tobacco Smoking Status Current Every Day Smoker Not Available Health Note 03/11/2023 14:30:10 What Is Your Level Of Alcohol Consumption? NONE [email or web address] Information not available 03/11/2023 What Is Your Level Of Caffeine Consumption? Occasional [email or web address] Information not available 03/11/2023 How Much Tobacco Do You Chew? None [email or web address] Information not available 03/11/2023 Do You Or Have You Ever Used E-cigarettes Or Vape? Former User Of Electronic Cigarettes [email or web address] Information not available 03/11/2023 Number Of Pregnancies 5 [email or web address] Information not available 03/11/2023 Number Of Vaginal Deliveries 0 [email or web address] Information not available 03/11/2023 Number Of Caesarean Sections 2 [email or web address] Information not available 03/11/2023 Could You Be ? No [email or web address] Information not available 03/11/2023 What Was The Date Of Your Most Recent Tobacco Screening? 03/12/2023 [email or web address] Information not available 03/11/2023 What Is Your Relationship Status? [email or web address] Information not available 03/11/2023 Are You Sexually Active? Yes [email or web address] Information not available 03/11/2023 Do You Or Have You Ever Used Smokeless Tobacco? Never Used Smokeless Tobacco [email or web address] Information not available 03/11/2023 How Much Tobacco Do You Smoke? 1 PPD [email or web address] Information not available 03/11/2023 Do You Use Any Illicit Or Recreational Drugs? No [email or web address] Information not available 03/11/2023 How Many Years Have You Smoked Tobacco? 1 [email or web address] Information not available 03/11/2023 Sex: Unknown Functional Status None recorded. Mental Status None recorded. Family History Relationship Description Onset Age of this Age Resolved Age Notes Mother Family history of breast cancer Mother Family history of diabetes mellitus Maternal Grandmother Family history of breast cancer Paternal Grandmother Family history of breast cancer Paternal Grandmother Family history of cancer of colon Paternal Grandmother Family history of diabetes mellitus Father Family history of cardiac disorder Medical History Condition Response Sexually Transmitted Infection N Diabetes N Bleeding Disorder N Other N High Blood Pressure Y Kidney Stones N Cancer N Lung Disease N Depression Y High Cholesterol N GERD/Acid Reflux Y Heart Disease N Gynecological History Statement/Question Response Irregular periods N Leaking urine with intercourse N Heavy periods N Sexually Active? Y Pain with intercourse Y Obstetrics History GPAL:G 0 P 0 0 0 0 Immunizations Vaccine Type Date Status Provider Name and Address Organization Details Recorded Time SARS-COV-2 (COVID-19) vaccine, UNSPECIFIED 12/04/[address] [facility] 03/12/2023 14:08:25 influenza, unspecified formulation 10/01/2022 completed MANJIT Hampton [facility] 03/12/2023 14:08:25 Past Encounters Encounter ID Performer Location Encounter Start Date Encounter Closed Date Diagnosis/Indication Diagnosis SNOMED-CT Code Diagnosis ICD10 Code [id number] KYAW CONTRERAS [facility] [address] [facility] [place] [id number] 03/12/2023 14:04:37 03/12/2023 15:26:57 Urgent desire to urinate 35399083 R39.15 Mixed urin braulio incontinence [id number] N39.46 Health Concerns Section Related Observation LastModified by Organization Detai ls LastModified Time None Recorded Concern Status LastModified by Organization Details LastModified Time None Recorded Advance Directives Directive None Recorded Payers Encounter Date Sequence Insurance Name Policy Number Policy King Covered Member ID King Member ID Guarantor Name 03/12/2023 1 [facility] [id number] Ash Del Rio [id number] Whit Del Rio 03/12/2023 2 [id number] Whit Del Rio [id number] Whit Del Rio Notes Date Note Type Note Provider Name and Address Organization Details Recorded Time 03/12/2023 text/html HPI Notes: Patie nt seen today for urgent desire to urinate. Has some UUI JULIANNA with cough, sneeze, and laugh In the morning, leaks en route to the bathroom Just got over pneumonia - was wearing depends during this. Has lost entire bladder at times due to urge. UUI=JULIANNA NF: 3-4 times DF: 5-6 times Pads per day: 3-4 pads per day No history of recurrent urinary tract infections, kidney stones, gross hematuria 2 children, delivered via Symptomatic prolapse: none Abdominal surgeries: , cyst removal Constipation: none - more loose stools Neurologic history: bilateral peripheral neuropathy (no DM) Caffeine use: 1 coke per day, coffee occasionally Smoking history: yes - 1 pack per day Urine testing: UA 2/3: no infection or microheme Cr 0.5 KYAW CONTRERAS [address] [facility],[address], [place], [address], [facility] 03/12/2023 15:20:18 OBGyn Episode No OBEpisode recorded.
== END 2024-08-02 13:47 | disposition home or self-care (01) ==
LOC: NFLDREF 08-05 08:28
PROVIDERS: PCP Family Medicine; Referring Provider Family Medicine; Visit Provider Nurse Practitioner Family
DX: N30.90 Cystitis, unspecified without hematuria (principal)
CPT/HCPCS: 87086

== ENCOUNTER 2024-08-15 19:06 | Outpatient (CLI) | payer OTHER, BC, SELFPAY | END 2024-08-15 19:07 | disposition home or self-care (01) | LOC: LKVREF 19:10 | PROVIDERS: PCP Family Medicine; Visit Provider Family Medicine | DX: R63.5 Abnormal weight gain (principal); R73.03 Prediabetes; E03.9 Hypothyroidism, unspecified; I10 Essential (primary) hypertension; R53.83 Other fatigue | CPT/HCPCS: 80053; 84443 ==

== ENCOUNTER 2024-09-05 19:16 | Outpatient (CLI) | payer OTHER, BC, SELFPAY ==
--- OUTSIDE RECORDS SUMMARY | 2024-09-05 19:20 | XMS_ITS | Continuity of Care Document ---
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 [address] [place], [place], [id number], . tel:[phone] Referring Provider: Bonnie Ramirez, [address] [place], [address]. tel:[phone] Family History Family Member Type Diagnosis Age At Onset No Information Payers Payer name Insurance type Covered libertarian ID Authoriza tion(s) [facility] CI [id number] Social History Type Description Quantity Date Captured [...]
--- OUTSIDE RECORDS SUMMARY | 2024-09-05 19:20 | XMS_ITS | Clinical Summary ---
Author Organization [facility] Address [address] [place] [address] Care Team Providers Care Reimbursement Spec Name Role Phone Betsy Orantes MD Primary Care Provider [phone] Source Comments You are receiving this document [...] for each transition of care or referral. [employer] Allergies Active Allergy Reactions Criticality Noted Date [...] 1997 Cholesterol 2023 COVID-19 Vaccine (1 - 2023-2 5 season) 2024 Influenza (#1) 2024 10/01/2022 Zoster/Shingles (1 of 2) 2028 HepA Aged Out No longer eligi ble based on patient's age to complete this topic Hib Aged Out No longer eligi ble based on patient's age to complete this topic IPV (Polio) Aged Out No longer eligi ble based on patient's age to complete this topic Infant RSV Aged Out No longer eligi ble based on patient's age to complete this topic MCV4 Aged Out No longer eligi ble based on patient's age to complete this topic Pneumococcal Aged Out No longer eligi ble based on patient's age to complete this topic Care Teams Reimbursement Spec Relationship Specialty Start Date End Date Betsy Orantes MD [place], [place] [phone] PCP - General 03/02/11
--- OUTSIDE RECORDS SUMMARY | 2024-09-05 19:20 | XMS_ITS | Continuity of Care Document ---
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 [address] [place] [address], [id number], [place]. tel:[phone] Referring Provider: Bonnie Ramirez, [address] [place], [address] . tel:[phone] [facility], [address] [place] [address], [id number], tel:[phone] [place] [address] No Information Sep-0 3 [facility]. [address] [place] [address], [id number], . tel:[phone] Referring Provider: Kian [facility] [place], [address] . tel:[phone] [facility], [address] [facility] [address] [facility] [address], [place], [id number], tel:[phone] [facility] No Information 0 2 [facility]. [address] [place] [address] [address] [facility] [address], [id number], [place]. tel:[phone] Referring Provider: Angel Lima [address], [place], [address]. tel:[phone] Family History Family Member Type Diagnosis Age At Onset No Information Payers Payer name Insurance type Covered democrat ID Noreen foster(s) [facility] [id number] Social History Type Description Quantity Date Captured [...]
--- OUTSIDE RECORDS SUMMARY | 2024-09-05 19:21 | XMS_ITS | Continuity of Care Document ---
Author Organization Z 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 [facility], [address] [place] [address], [address], [id number] , [place]. tel:[phone] Referring Provider: Walt Arzate, [address], [address], [id number] . tel:[phone] Family History Family Member Type Diagnosis Age [...]
--- OUTSIDE RECORDS SUMMARY | 2024-09-05 19:21 | XMS_ITS | Continuity of Care Document ---
Author Organization [facility] blane Address [address] [place] [address] Phone Care Team Providers Care Set Key Driver Name Role Phone Tonoi LEYDABhavana Unavailable Unavailable Allergies, Adverse Reactions, Alerts Substance Reaction Status Criticality PENICILLIN HivesHivesHives Active No Informati on DYE Congestion of throat Facial swellingOkay to use omnipaque Active No Information Medications Medication Instructions Dosage Effective Dates (start - stop) Status Comments LOSARTAN POTASSIUM (unknown strength) take 1 tablet [...] for chronic pain - No Longer Active Percocet 5 mg-325 mg tablet take 1-2 tablet by oral route every 6 hours as needed, max 5/day for chronic pain - No Longer Active Procedures Procedure Date OFFICE VISIT, EST TELEMEDICINE THERAPEUTIC EXERCISES OFFICE/OUTPATIENT VISIT, EST PT EVAL MOD COMPLEX [...] EST INTERLAMINAR LMBR OR SAC OR CAUDAL OFFICE/OUTPATIENT VISIT, EST INTERLAMINAR CRV OR THRC [...] q3mo opiod tx OFFICE VISIT, EST TELEMEDICINE Sep-28-20 20 Foll-up eval q3mo opiod tx OFFICE [...] Copied on Encounter OFFICE VISIT, EST TELEMEDICINE [facility], [address] [place], [place], [id number] , [place] tel:[phone] [facility] Back Pain (chief complaint) AnxietyChronic pain syndromeOther idiopathic peripheral autonomic neuropathyOther spondylosis, lumbar regionRadiculopat hy, thoracic regionLong term (current) use of opiate analgesic Oct-0 - 4 [facility] Bhavana. [address] [facility] [address], [place], [place], [id number] , [place]. tel:[phone] [facility], [address] [place] [address], [id number] , [place] tel:[phone] [facility] pain (chief complaint) Other intervertebral disc degeneration, lumbar region Sep-2 - 4 Anni Vicente. [address] [place], [place], [id number] , [place]. tel:[phone] Referring Provider: Terrell Loving, [address] [place] [address], [address]. [phone] OFFICE/OUTPAT IENT VISIT, [facility], [address] [place] [address], [id number] , [place] tel:[phone] [facility] Back Pain (chief complaint) AnxietyChronic pain syndromeOther idiopathic peripheral autonomic neuropathyOther spondylosis, lumbar regionRadiculopat hy, thoracic regionLong term (current) use of opiate analgesic Sep-0 4 [facility] Bhavana. [address] [facility] [address], [place], [id number] , [place]. tel:[phone] Referring Provider: Terrell Loving, [address] [place] [address], [address]. [phone] [facility], [address] [place] [address], [id number] , [place] [phone] [facility] dorsalgia (chief complaint) Spondylosis without myelopathy or radiculopathy, lumbar region Aug- 4 Anni Vicente. [address] [place], [place], [id number] , [place]. tel:[phone] Referring Provider: Terrell Loving, [address] [place] [address], [address]. [phone] OFFICE/OUTPAT IENT VISIT, [facility], [address] [place] [address] [place], [id number] , [place] tel:[phone] [facility] Back Pain (chief complaint) AnxietyChronic pain syndromeOther idiopathic peripheral autonomic neuropathyOther spondylosis, lumbar regionRadiculopat hy, thoracic regionLong term (current) use of opiate analgesicEncounte r for therapeutic drug level monitoring 4 [facility] Bhavana. [address] [place] [address] [address], [place], [place], [id number] , [place]. tel:[phone] Referring Provider: Terrell Loving, [address] [place] [address], [address]. [phone] OFFICE VISIT, [facility], [address] [place] [address], [id number] , [place] tel:[phone] [facility] Back Pain (chief complaint) AnxietyChronic pain syndromeOther idiopathic peripheral autonomic neuropathyOther spondylosis, lumbar regionRadiculopat hy, thoracic regionLong term (current) use of opiate analgesic 4 [facility]. [address] [place] [address] [address], [place], [place], [id number] , [place]. tel:[phone] [facility], [address] [place] [address], [id number] , [place] tel:[phone] [facility] No Information 4 Will Terrell. [address] [place] [address] [place], [place], [id number] , [place]. tel:[phone] Referring Provider: Terrell Loving, [address] [place] [address], [address]. [phone] OFFICE VISIT, EST TELEMEDICINE [facility], [address] [place] [address], [id number] , [place] tel:[phone] [facility] Back Pain (chief complaint) AnxietyChronic pain syndromeOther idiopathic peripheral autonomic neuropathyOther spondylosis, lumbar regionRadiculopat hy, thoracic regionLong term (current) use of opiate analgesic Clyde-0 4 [facility] Bhavana. [address], [place], [place], [id number] , [place]. tel: [phone] OFFICE/OUTPAT IENT VISIT, [facility], [address] [place], [place], [id number] , [place] tel: [phone] [facility] Back Pain (chief complaint) AnxietyChronic pain syndromeOther idiopathic peripheral autonomic neuropathyOther spondylosis, lumbar regionRadiculopat hy, thoracic regionLong term (current) use of opiate analgesic March-0 4 [facility] Bhavana. [address], [place], [place], [id number] , [place]. tel: [phone] Referring Provider: Michael Harvey [facility] [address] [place], [address]. [phone] OFFICE/OUTPAT IENT VISIT, [facility], [address] [place], [place], [id number] , [place] tel: [phone] [facility] back pain (chief complaint) AnxietyChronic pain syndromeOther idiopathic peripheral autonomic neuropathyOther spondylosis, lumbar regionRadiculopat hy, thoracic regionLong term (current) use of opiate analgesicEncounte r for therapeutic drug level monitoring Apr-0 4 Gaby Olivares. [address] [facility] [address], [place], [place], [id number] , [place]. tel:[phone] Referring Provider: [facility] [address] [place], [address]. [phone] OFFICE/OUTPAT IENT VISIT, [facility], [address] [place], [place], [id number] , [place] [phone] [facility] Back Pain (chief complaint) AnxietyChronic pain syndromeOther idiopathic peripheral autonomic neuropathyOther spondylosis, lumbar regionRadiculopat hy, thoracic regionLong term (current) use of opiate analgesic Jan- 4 [facility] Bateman. [address] [facility] [address], [place], [id number] , [place]. tel:[phone] Referring Provider: Michael Harvey [facility] [address], [place], [address]. [phone] OFFICE/OUTPAT IENT VISIT, [facility], [address] [place], [place], [id number] , [place] tel:[phone] [facility] Back Pain (chief complaint) Chronic pain syndromeOther idiopathic peripheral autonomic neuropathyAnxiety Other spondylosis, lumbar regionRadiculopat hy, thoracic regionLong term (current) use of opiate analgesicEncounte r for therapeutic drug level monitoring 4 Altrinity Bateman. [address] [facility] [address], [place], [id number] , [place]. tel:[phone] Referring Provider: Michael Harvey [facility] [address], [place], [address]. tel:[phone] OFFICE/OUTPAT IENT VISIT, [facility], [address] [place] [address], [id number] , [place] [phone] [facility] back pain (chief complaint) AnxietyChronic pain syndromeOther idiopathic peripheral autonomic neuropathyOther spondylosis, lumbar regionRadiculopat hy, thoracic regionLong term (current) use of opiate analgesic 4 Gaby Olivares. [address] [facility] [address], [place], [id number] , [place]. tel:[phone] Referring Provider: Michael Harvey [facility] [address], [place], [address]. tel:[phone] [facility], [address] [place], [place], [id number] , [place] [phone] [facility] back pain (chief complaint) AnxietyChronic pain syndromeOther idiopathic peripheral autonomic neuropathyOther spondylosis, lumbar regionRadiculopat hy, thoracic regionLong term (current) use of opiate analgesic Oct-0 3 [facility] Bateman. [address] [facility] [address], [place], [id number] , [place]. tel:[phone] Referring Provider: Michael Harvey [facility] [address], [place], [address]. tel:[phone] OFFICE/OUTPAT IENT VISIT, [facility], [address] [place], [place], [id number] , [place] tel:[phone] [facility] Back Pain (chief complaint) AnxietyChronic pain syndromeOther idiopathic peripheral autonomic neuropathyRadicul opathy, thoracic regionLong term (current) use of opiate analgesicOther spondylosis, lumbar region Nov- 3 Tonio Bateman. [address] [facility] [address], [place], [id number] , [place]. tel:[phone] Referring Provider: Michael Harvey [facility] [address], [place], [address]. tel:[phone] [facility], [address] [place], [place], [id number] , [place] tel:[phone] [facility] No Information 3 Gaby Olivares. [address] [facility] [address], [place], [id number] , [place]. tel:[phone] Referring Provider: Michael Harvey [facility] [address], [place], [address]. tel:[phone] OFFICE/OUTPAT IENT VISIT, EST [facility], [address] [place], [place], [id number] , [place] tel:[phone] [facility] back pain (chief complaint) AnxietyChronic pain syndromeOther idiopathic peripheral autonomic neuropathyRadicul opathy, thoracic regionRadiculopat hy, lumbar regionLong term (current) use of opiate analgesicEncounte r for therapeutic drug level monitoring 3 Gaby Olivares. [address] [facility] [address], [place], [id number] , [place]. tel:[phone] Referring Provider: Michael aHrvey [facility] [address], [place], [address]. tel:[phone] [facility], [address] [place] [address], [id number] , [place] tel:[phone] [facility] Radiculopathy, lumbar region Sep-2 0-202 3 James Nicole. [address] [place], [place], [id number] , [place]. tel:[phone] Referring Provider: Michael Harvey [facility] [address], [place], [address]. tel:[phone] OFFICE/OUTPAT IENT VISIT, EST [facility], [address] [place] [address], [id number] , [place] tel:[phone] [facility] Back Pain (chief complaint) AnxietyChronic pain syndromeOther idiopathic peripheral autonomic neuropathyRadicul opathy, thoracic regionRadiculopat hy, lumbar regionLong term (current) use of opiate analgesic Sep-0 7-202 3 [facility] Bhavana. [address] [place] [address] [address], [facility] [place], [id number] , [place]. tel:[phone] Referring Provider: Michael Harvey [facility] [address], [place], [address]. tel:[phone] [facility], [address] [place] [address], [id number] , [place] tel:[phone] [facility] Radiculopathy, thoracic region Sep-0 1-202 3 James Nicole. [address] [place], [place], [id number] , [place]. tel:[phone] Referring Provider: Michael Harvey [facility] [address], [place], [address]. tel:[phone] OFFICE VISIT, EST TELEMEDICINE [facility], [address] [place] [address], [id number] , [place] tel:[phone] [facility] Back Pain (chief complaint) AnxietyChronic pain syndromeOther idiopathic peripheral autonomic neuropathyRadicul opathy, thoracic regionRadiculopat hy, lumbar regionLong term (current) use of opiate analgesic 3 Nyongesa Bhavana. [address], [place], [id number] , [place]. tel:[phone] OFFICE VISIT, [facility], [address] [place], [place], [id number] , [place] tel: [phone] [facility] Back Pain (chief complaint) AnxietyChronic pain syndromeOther idiopathic peripheral autonomic neuropathyRadicul opathy, thoracic regionRadiculopat hy, lumbar regionLong term (current) use of opiate analgesic 3 Nyongesa Bhavana. [address] [facility] [address] [facility] 100, [place], [id number] , [place]. tel:[phone] Referring Provider: Terrell Loving, [address] [place] [address], [address]. [phone] [facility], [address] [place] [address], [id number] , [place] tel:[phone] [facility] No Information 3 Altrinity Bhavana. [address], [place], [id number] , [place]. tel:[phone] Referring Provider: Terrell Loving, [address] [place] [address], [address]. [phone] OFFICE/OUTPAT IENT VISIT, [facility], [address] [place] [address], [id number] , [place] tel: [phone] [facility] Back Pain (chief complaint) AnxietyOther idiopathic peripheral autonomic neuropathyRadicul opathy, thoracic regionLong term (current) use of opiate analgesicChronic pain syndromeRadiculop athy, lumbar region 3 Nyonge Bhavana. [address], [place], [id number] , [place]. tel:[phone] Referring Provider: [facility] [address], [place], [address]. [phone] OFFICE VISIT, EST TELEMEDICINE [facility], [address] [place] [address], [id number] , [place] tel:[phone] [facility] Back Pain (chief complaint) AnxietyOther idiopathic peripheral autonomic neuropathyOther intervertebral disc degeneration, lumbar regionRadiculopat hy, thoracic regionLong term (current) use of opiate analgesic 3 Nyongesa Bhavana. [address] [facility] [address], [place], [place], [id number] , [place]. tel:[phone] Referring Provider: Terrell Loving, [address] [place] [address], [address]. [phone] OFFICE VISIT, EST TELEMEDICINE [facility], [address] [place] [address], [id number] , [place] tel:[phone] [facility] Pain (chief complaint) Other intervertebral disc degeneration, lumbar regionAnxietyOthe r idiopathic peripheral autonomic neuropathyRadicul opathy, thoracic regionLong term (current) use of opiate analgesic 3 Nyongesa Bhavana. [address] [facility] [address], [place], [place], [id number] , [place]. tel:[phone] Referring Provider: Terrell Loving, [address] [place] [address], [address]. [phone] OFFICE VISIT, EST TELEMEDICINE [facility], [address] [place] [address], [id number] , [place] [phone] [facility] Back Pain (chief complaint) AnxietyOther idiopathic peripheral autonomic neuropathyOther intervertebral disc degeneration, thoracic regionOther intervertebral disc degeneration, lumbar regionRadiculopat hy, thoracic regionLong term (current) use of opiate analgesic 3 Nyongesa Bhavana. [address] [facility] [address], [place], [id number] , [place]. [phone] Referring Provider: Terrell Loving, [address] [place] [address], [address]. tel:[phone] [facility], [address] [facility] Anne Marie BlairFISHS [place], [id number] , [place] tel: [phone] [facility] Radiculopathy, thoracic region 3 Luis Miguel Tejada. [address] [facility] Jolanta [place], [place], [address] , [place]. tel: [phone] [facility], [address] [facility] Anne Marie BlairFISHS [place], [id number] , [place] tel: [phone] [facility] [place] No Information 3 Celine Bhavana. [address] [facility] [address], [place], [place], [id number] , [place]. tel: [phone] Referring Provider: Michael Harvey [facility] [address], [place], [address]. tel:[phone] OFFICE/OUTPAT IENT VISIT, EST [facility], [address] [facility] Johnnie [place], [place], [id number] , [place] tel: [phone] [facility] Back Pain (chief complaint) AnxietyOther idiopathic peripheral autonomic neuropathyOther intervertebral disc degeneration, thoracic regionOther intervertebral disc degeneration, lumbar regionRadiculopat hy, thoracic regionLong term (current) use of opiate analgesic 3 Tonio Bateman. [address] [facility] [address], [place], [id number] , [place]. tel: [phone] Referring Provider: Michael Harvey [facility] [address], [place], [address]. tel:[phone] OFFICE VISIT, EST TELEMEDICINE [facility], [address] [facility] Johnnie [place], [place], [id number] , [place] tel: [phone] [facility] Back Pain (chief complaint) AnxietyOther idiopathic peripheral autonomic neuropathyOther intervertebral disc degeneration, thoracic regionOther intervertebral disc degeneration, lumbar regionRadiculopat hy, thoracic regionLong term (current) use of opiate analgesic 3 Tonio Bateman. [address] [facility] [address], [place], [id number] , [place]. tel: [phone] OFFICE VISIT, EST TELEMEDICINE [facility], [address] [place] [address], [id number] , [place] tel: [phone] [facility] Back Pain (chief complaint) AnxietyOther idiopathic peripheral autonomic neuropathyOther intervertebral disc degeneration, thoracic regionOther intervertebral disc degeneration, lumbar regionRadiculopat hy, thoracic regionLong term (current) use of opiate analgesic 2 Nyongesa Bhavana. [address] [facility] [address], [place], [address] , [place]. tel: [phone] Referring Provider: Terrell Loving, [address] [place] [address], [address]. tel:[phone] OFFICE VISIT, EST TELEMEDICINE [facility], [address] [place] [address], [id number] , [place] tel: [phone] [facility] Back Pain (chief complaint) AnxietyOther idiopathic peripheral autonomic neuropathyOther intervertebral disc degeneration, thoracic regionOther intervertebral disc degeneration, lumbar regionLong term (current) use of opiate analgesicRadiculo armen, thoracic region 2 Nyongesa Bhavana. [address] [facility] [address], [place], [place], [id number] , [place]. tel: [phone] Referring Provider: Terrell Loving, [address] [place] [address], [address]. tel:[phone] OFFICE VISIT, [facility] TELEMEDICINE [facility], [address] [place] [address], [id number] , [place] tel: [phone] [facility] Back Pain (chief complaint) AnxietyOther idiopathic peripheral autonomic neuropathyOther intervertebral disc degeneration, thoracic regionOther intervertebral disc degeneration, lumbar regionLong term (current) use of opiate analgesic 2 Nyongesa Bhavana. [address] [facility] [address], [place] lu[place], [id number] , [place]. tel: [phone] OFFICE/OUTPAT IENT VISIT, [facility], [address] [place] [address], [id number] , [place] tel: [phone] [facility] Back Pain (chief complaint) AnxietyOther idiopathic peripheral autonomic neuropathyOther intervertebral disc degeneration, thoracic regionOther intervertebral disc degeneration, lumbar regionLong term (current) use of opiate analgesicEncounte r for therapeutic drug level monitoring 2 Gaby Olivares. [address] [facility] [address], [place], [place], [id number] , [place]. tel: [phone] Referring Provider: Michael Harvey [facility] [address], [place], [address]. tel:[phone] [facility], [address] [place], [place], [id number] , [place] tel: [phone] [facility] No Information 2 Gaby Olivares. [address] [address], [place], [place], [id number] , [place]. tel: [phone] Referring Provider: [facility] [address], [place], [address]. tel:[phone] OFFICE VISIT, EST TELEMEDICINE [facility], [address] [place], [place], [id number] , [place] tel: [phone] [facility] Back Pain (chief complaint) AnxietyOther idiopathic peripheral autonomic neuropathyOther intervertebral disc degeneration, thoracic regionOther intervertebral disc degeneration, lumbar regionPain in right handLong term (current) use of opiate analgesic 2 Tonio Bateman. [address] [facility] [address], [place], [place], [id number] , [place]. tel: [phone] Referring Provider: Terrell Loving, [address] [place], [address]. tel:[phone] [facility], [address] [place], [place], [id number] , [place] tel: [phone] [facility] Radiculopathy, thoracic region 2 Nyongesa Bhavana. [address] [facility] [address], [place], [place], [id number] , [place]. tel: [phone] OFFICE VISIT, EST TELEMEDICINE [facility], [address] [place], [place], [id number] , [place] tel: [phone] [facility] Back Pain (chief complaint) AnxietyOther idiopathic peripheral autonomic neuropathyOther intervertebral disc degeneration, thoracic regionOther intervertebral disc degeneration, lumbar regionPain in right handLong term (current) use of opiate analgesic 2 Nyongesa Bhavana. [address] [facility] [address], [place], [place], [address] , [place]. tel: [phone] Referring Provider: [facility] [address], [place], [address]. tel:[phone] OFFICE VISIT, EST TELEMEDICINE [facility], [address] [place] [address], [id number] , [place] tel: [phone] [facility] Back Pain (chief complaint) AnxietyOther idiopathic peripheral autonomic neuropathyOther intervertebral disc degeneration, thoracic regionOther intervertebral disc degeneration, lumbar regionPain in right handLong term (current) use of opiate analgesic 2 Nyongesa Bhavana. [address] [facility] [address], [place], [place], [address] , [place]. tel:[phone] Referring Provider: Terrell Loving, [address] [place] [address], [address]. [phone] [facility], [address] [place] [address], [id number] , [place] tel:[phone] [facility] No Information 2 Janie Ortiz. [facility], [address] [facility] [address], [place], [address], [place]. [phone] Referring Provider: [facility] [address], [place], [address]. tel:[phone] OFFICE VISIT, EST TELEMEDICINE [facility], [address] [place] [address], [id number] , [place] tel:[phone] [facility] Back Pain (chief complaint) AnxietyOther idiopathic peripheral autonomic neuropathyOther intervertebral disc degeneration, thoracic regionOther intervertebral disc degeneration, lumbar regionPain in right handLong term (current) use of opiate analgesic 2 Nyongesa Bhavana. [address] [facility] [address] [facility] 100, [place], [id number] , [place]. tel:[phone] Referring Provider: Terrell Loving, [address] [place], [address]. tel:[phone] [facility], [address] [place] [address], [id number] , [place] tel: [phone] [facility] No Information 2 Nyongesa Bhavana. [address] [facility] [address] [facility] 100, [place], [id number] , [place]. tel:[phone] [facility], [address] [place] [address], [id number] , [place] tel: [phone] [facility] Back Pain (chief complaint) AnxietyOther idiopathic peripheral autonomic neuropathyOther intervertebral disc degeneration, thoracic regionOther intervertebral disc degeneration, lumbar regionPain in right handLong term (current) use of opiate analgesicEncounte r for therapeutic drug level monitoring 2 Nyongesa Bhavana. [address], [place], [id number] , [place]. tel:[phone] Referring Provider: Michael Harvey [facility] [address] [place], [address]. tel:[phone] OFFICE VISIT, EST TELEMEDICINE [facility], [address] [place] [address], [id number] , [place] tel:[phone] [facility] Back Pain (chief complaint) AnxietyOther idiopathic peripheral autonomic neuropathyOther intervertebral disc degeneration, thoracic regionOther intervertebral disc degeneration, lumbar regionPain in right handLong term (current) use of opiate analgesicRadiculo armen, thoracic region Fe 2 Nyongesa Bhavana. [address] [facility] [address] [facility] 100, [place], [id number] , [place]. tel:[phone] Referring Provider: Michael Harvey [facility] [address] [place], [address]. tel:[phone] OFFICE VISIT, EST TELEMEDICINE [facility], [address] [place], [place], [id number] , [place] tel:[phone] [facility] Back Pain (chief complaint) Other idiopathic peripheral autonomic neuropathyOther intervertebral disc degeneration, thoracic regionOther intervertebral disc degeneration, lumbar regionLong term (current) use of opiate analgesicPain in right handAnxiety 2 [facility] Bateman. [address] [facility] [address], [place], [place], [id number] , [place]. tel:[phone] [facility], [address] [place], [place], [id number] , [place] tel:[phone] [facility] [place] No Information 1 [facility] Bateman. [address] [facility] [address], [place], [id number] , [place]. tel:[phone] OFFICE/OUTPAT IENT VISIT, EST [facility], [address] [place], [place], [id number] , [place] tel:[phone] [facility] Back Pain (chief complaint) Other idiopathic peripheral autonomic neuropathyOther intervertebral disc degeneration, thoracic regionLong term (current) use of opiate analgesicOther intervertebral disc degeneration, lumbar regionPain in right handAnxietyEncoun ter for therapeutic drug level monitoringEncount er for screening for other disorder 1 [facility] Bateman. [address] [facility] [address], [facility] [place], [id number] , [place]. [phone] Referring Provider: Michael Harvey [facility] [address], [place], [address]. tel:[phone] OFFICE VISIT, EST TELEMEDICINE [facility], [address] [place], [place], [id number] , [place] [phone] [facility] Back Pain (chief complaint) Other intervertebral disc degeneration, thoracic regionAnxietyOthe r idiopathic peripheral autonomic neuropathyLong term (current) use of opiate analgesicOther intervertebral disc degeneration, lumbar regionPain in right hand 1 Nyongesa Bhavana. [address] [facility] [address], [place], [place], [id number] , [place]. tel: [phone] OFFICE VISIT, EST TELEMEDICINE [facility], [address] [place], [place], [id number] , [place] tel: [phone] [facility] Back Pain (chief complaint) Other intervertebral disc degeneration, thoracic regionAnxietyOthe r idiopathic peripheral autonomic neuropathyLong term (current) use of opiate analgesicOther intervertebral disc degeneration, lumbar region 1 Gaby Olivares. 1455 [facility] [address], [place], [place], [id number] , [place]. tel: [phone] Referring Provider: Terrell Loving, [address] [place] [address], [address]. [phone] OFFICE VISIT, EST TELEMEDICINE [facility], [address] [place], [place], [id number] , [place] tel: [phone] [facility] Back Pain (chief complaint) Other intervertebral disc degeneration, thoracic regionAnxietyOthe r idiopathic peripheral autonomic neuropathyLong term (current) use of opiate analgesicOther intervertebral disc degeneration, lumbar region Jul- 1 Nyongesa Bateman. [address] [facility] [address], [place], [place], [id number] , [place]. tel: [phone] OFFICE VISIT, EST TELEMEDICINE [facility], [address] [place], [place], [id number] , [place] tel: [phone] [facility] Back Pain (chief complaint) AnxietyOther idiopathic peripheral autonomic neuropathyOther chronic painLong term (current) use of opiate analgesicSpondylo sis without myelopathy or radiculopathy, lumbar regionOther intervertebral disc degeneration, lumbar regionOther intervertebral disc degeneration, thoracic region Aug- 1 Nyongesa Bhavana. [address] [facility] [address], [place], [place], [id number] , [place]. tel: [phone] Referring Provider: Terrell Loving, [address] [place] [address], [address]. tel:[phone] [facility], [address] [place], [place], [id number] , [place] [phone] [facility] Spondylosis without myelopathy or radiculopathy, lumbar region 1 James Nicole. [address] [place], [place], [id number] , [place]. [phone] Referring Provider: Michael Harvey [facility] [address], [place], [address]. [phone] [facility], [address] [place] [address], [id number] , [place] tel:[phone] [facility] No Information 1 Tonio Bateman. [address] [facility] [address], [place], [place], [id number] , [place]. tel:[phone] Referring Provider: Terrell Loving, [address] [place] [address], [address]. [phone] OFFICE/OUTPAT IENT VISIT, EST [facility], [address] [place] [address], [id number] , [place] tel:[phone] [facility] Back Pain (chief complaint) AnxietyOther idiopathic peripheral autonomic neuropathyOther chronic painLong term (current) use of opiate analgesicSpondylo sis without myelopathy or radiculopathy, lumbar regionOther intervertebral disc degeneration, lumbar regionEncounter for therapeutic drug level monitoring 1 Tonio Bateman. [address] [facility] [address], [place], [place], [id number] , [place]. [phone] Referring Provider: Michael Harvey [facility] [address], [place], [address]. [phone] OFFICE VISIT, EST TELEMEDICINE [facility], [address] [place] [address], [id number] , [place] [phone] [facility] Back Pain (chief complaint) Other intervertebral disc degeneration, lumbar regionAnxietyOthe r idiopathic peripheral autonomic neuropathyOther chronic painLong term (current) use of opiate analgesicSpondylo sis without myelopathy or radiculopathy, lumbar region 1 Tonio Bateman. [address] [facility] [address], [place], [id number] , [place]. tel:[phone] Referring Provider: Terrell Loving, [address] [place], [address]. tel:[phone] OFFICE VISIT, [facility] TELEMEDICINE [facility], [address] [place] [address], [id number] , [place] tel: [phone] [facility] Back Pain (chief complaint) Other intervertebral disc degeneration, lumbar regionAnxietyOthe r idiopathic peripheral autonomic neuropathyOther chronic painLong term (current) use of opiate analgesicSpondylo sis without myelopathy or radiculopathy, lumbar region 1 Leslionge Bhavana. [address] [facility] [address], [place], [place], [id number] , [place]. tel: [phone] Referring Provider: Michael Harvey [facility] [address], [place], [address]. tel:[phone] OFFICE/OUTPAT IENT VISIT, [facility], [address] [place] [address], [id number] , [place] tel: [phone] [facility] Back Pain (chief complaint) Other intervertebral disc degeneration, lumbar regionAnxietyOthe r idiopathic peripheral autonomic neuropathyOther chronic painLong term (current) use of opiate analgesic Feb- 1 Lesliongesa Bateman. [address] [facility] [address], [place], [place], [address] , [place]. tel:[phone] Referring Provider: [facility] [address], [place], [address]. tel:[phone] OFFICE VISIT, [facility] TELEMEDICINE [facility], [address] [place] [address], [id number] , [place] tel:[phone] [facility] Back Pain (chief complaint) AnxietyOther intervertebral disc degeneration, lumbar regionOther idiopathic peripheral autonomic neuropathyOther chronic painLong term (current) use of opiate analgesic 1 Celine Bhavana. [address] [facility] [address] [facility] 100, [place], [id number] , [place]. [phone] Referring Provider: Terrell Loving, [address] [place] [address], [address]. tel:[phone] OFFICE VISIT, EST TELEMEDICINE [facility], [address] [place] [address], [id number] , [place] [phone] [facility] Back Pain (chief complaint) AnxietyOther intervertebral disc degeneration, lumbar regionOther idiopathic peripheral autonomic neuropathyOther chronic painLong term (current) use of opiate analgesic 1 Celine Bhavana. [address], [place], [place], [address] , [place]. [phone] Referring Provider: Terrell Loving, [address] [place] [address], [address]. tel:[phone] [facility], [address] [place] [address], [id number] , [place] [phone] [facility] No Information 1 Celine Bhavana. [address], [place], [place], [id number] , [place]. [phone] Referring Provider: Terrell Loving, [address] [place] [address], [address]. tel:[phone] OFFICE VISIT, EST TELEMEDICINE [facility], [address] [place] [address], [id number] , [place] [phone] [facility] Back Pain (chief complaint) Other intervertebral disc degeneration, lumbar regionOther idiopathic peripheral autonomic neuropathyOther chronic painLong term (current) use of opiate analgesicAnxietyE ncounter for therapeutic drug level monitoring 1 Celine Bhavana. [address] [facility] [address], [place], [id number] , [place]. [phone] Referring Provider: Terrell Loving, [address] [place] [address], [address]. [phone] OFFICE VISIT, EST TELEMEDICINE [facility], [address] [place] [address], [id number] , [place] [phone] [facility] Back Pain (chief complaint) Other intervertebral disc degeneration, lumbar regionOther idiopathic peripheral autonomic neuropathyOther chronic painLong term (current) use of opiate analgesicAnxiety Dec-2 2- 0 Nyongesa Bhavana. [address] [facility] [address], [place], [place], [address] , [place]. [phone] Referring Provider: Terrell Loving, [address] [place] [address], [address]. [phone] OFFICE VISIT, EST TELEMEDICINE [facility], [address] [place] [address], [id number] , [place] [phone] [facility] Back Pain (chief complaint) Other intervertebral disc degeneration, lumbar regionOther idiopathic peripheral autonomic neuropathyOther chronic painLong term (current) use of opiate analgesicAnxiety Nov-2 - 0 Nyongesa Bhavana. [address] [facility] [address], [place], [place], [address] , [place]. [phone] Referring Provider: Terrell Loving, [address] [place] [address], [address]. [phone] OFFICE VISIT, EST TELEMEDICINE [facility], [address] [place] [address], [id number] , [place] [phone] [facility] Back Pain (chief complaint) Other intervertebral disc degeneration, lumbar regionOther idiopathic peripheral autonomic neuropathyOther chronic painLong term (current) use of opiate analgesicAnxiety Oct-2 6- 0 Nyongesa Bhavana. [address] [facility] [address], [place], [place], [address] , [place]. [phone] Referring Provider: Terrell Loving, [address] [place] [address], [address]. tel:[phone] OFFICE VISIT, EST TELEMEDICINE [facility], [address] [place] [address], [id number] , [place] [phone] [facility] Back Pain (chief complaint) Other intervertebral disc degeneration, lumbar regionOther idiopathic peripheral autonomic neuropathyOther chronic painLong term (current) use of opiate analgesicAnxiety 0 Nyongesa Bhavana. [address] [facility] [address], [place], [place], [address] , [place]. [phone] Referring Provider: Terrell Loving, [address] [place] [address], [address]. [phone] OFFICE VISIT, EST TELEMEDICINE [facility], [address] [place] [address], [id number] , [place] [phone] [facility] Back Pain (chief complaint) Other intervertebral disc degeneration, lumbar regionOther idiopathic peripheral autonomic neuropathyOther chronic painLong term (current) use of opiate analgesicAnxiety 0 Nyongesa Bhavana. [address] [facility] [address], [place], [place], [id number] , [place]. [phone] Referring Provider: Terrell Loving, [address] [place] [address], [address]. tel:[phone] OFFICE VISIT, EST TELEMEDICINE [facility], [address] [place] [address], [id number] , [place] [phone] [facility] Back Pain (chief complaint) Other intervertebral disc degeneration, lumbar regionOther idiopathic peripheral autonomic neuropathyOther chronic painLong term (current) use of opiate analgesicAnxiety 0 Nyongesa Bhavana. [address] [facility] [address], [place], [place], [id number] , [place]. [phone] Referring Provider: Terrell Loving, [address] [place] [address], [address]. tel:[phone] OFFICE VISIT, EST TELEMEDICINE [facility], [address] [place] [address], [id number] , [place] [phone] [facility] Back Pain (chief complaint) Other intervertebral disc degeneration, lumbar regionOther idiopathic peripheral autonomic neuropathyOther chronic painLong term (current) use of opiate analgesicAnxiety 0 Griffinvicky Olivares. [address] [place] [address] [address], [place], [place], [address] , [place]. tel:[phone] Referring Provider: Terrell Loving, [address] [place] [address], [address]. [phone] OFFICE VISIT, EST TELEMEDICINE [facility], [address] [place] [address], [id number] , [place] tel:[phone] [facility] Back Pain (chief complaint) Other intervertebral disc degeneration, lumbar regionOther idiopathic peripheral autonomic neuropathyOther chronic painLong term (current) use of opiate analgesic 0 Griffinvicky Olivares. [address] [place] [address] [address], [place], [place], [address] , [place]. tel:[phone] Referring Provider: Terrell Loving, [address] [place] [address], [address]. [phone] [facility], [address] [place] [address], [id number] , [place] tel:[phone] [facility] No Information 0 Griffinvicky Burdenel. [address] [place] [address] [address], [place], [place], [id number] , [place]. tel:[phone] Referring Provider: Michael Harvey [facility] [address], [place], [address]. tel:[phone] OFFICE VISIT, EST TELEMEDICINE [facility], [address] [place] [address], [id number] , [place] [phone] [facility] Back Pain (chief complaint) Other intervertebral disc degeneration, lumbar regionOther idiopathic peripheral autonomic neuropathyOther chronic painLong term (current) use of opiate analgesic 0 Griffinian Burdenel. [address] [place] [address] [address], [place], [place], [id number] , [place]. tel:[phone] Referring Provider: [facility] [address], [place], [address]. [phone] OFFICE VISIT, EST TELEMEDICINE [facility], [address] [place], [place], [id number] , [place] tel:[phone] [facility] Back Pain (chief complaint) Other intervertebral disc degeneration, lumbar regionOther idiopathic peripheral autonomic neuropathyOther chronic painLong term (current) use of opiate analgesicEncounte r for therapeutic drug level monitoring 0 Gaby Olivares. [address] [facility] [address], [place], [place], [id number] , [place]. tel:[phone] Referring Provider: Terrell Loving, [address] [place] [address], [address]. 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 [address] [facility] [address], [place], [id number] , [place]. tel:[phone] Referring Provider: [facility] [address], [place], [address]. tel:[phone] OFFICE/OUTPAT IENT VISIT, [facility], [address] [place] [address], [id number] , [place] tel:[phone] [facility] Back Pain (chief complaint) nursing home (current) use of opiate analgesicOther chronic painOther idiopathic peripheral autonomic neuropathyOther intervertebral disc degeneration, lumbar regionOther intervertebral disc degeneration, thoracic regionAnxietyEnco unter for therapeutic drug level monitoring 0 Tonio Bateman. [address] [facility] [address], [place], [id number] , [place]. tel:[phone] Referring Provider: [facility] [address], [place], [address]. tel:[phone] OFFICE/OUTPAT IENT VISIT, [facility], [address] [place], [place], [id number] , [place] tel:[phone] [facility] Back Pain (chief complaint) nursing home (current) use of opiate analgesicOther chronic painOther idiopathic peripheral autonomic neuropathyOther intervertebral disc degeneration, lumbar regionOther intervertebral disc degeneration, thoracic regionAnxiety 5-202 0 Nyongesa Bhavana. [address] [facility] [address], [place], [place], [id number] , [place]. tel:[phone] Referring Provider: Terrell Loving, [address] [place], [address]. tel:[phone] OFFICE/OUTPAT IENT VISIT, [facility], [address] [place] [address], [id number] , [place] tel:[phone] [facility] Back Pain (chief complaint) AnxietyLong term (current) use of opiate analgesicOther chronic painOther idiopathic peripheral autonomic neuropathyOther intervertebral disc degeneration, lumbar regionOther intervertebral disc degeneration, thoracic region 8201 9 Nyongesa Bhavana. [address] [facility] [address], [place], [place], [address] , [place]. tel:[phone] Referring Provider: [facility] [address], [place], [address]. [phone] OFFICE/OUTPAT IENT VISIT, [facility], [address] [place] [address], [id number] , [place] [phone] [facility] Back Pain (chief complaint) AnxietyLong term (current) use of opiate analgesicOther chronic painOther idiopathic peripheral autonomic neuropathyOther intervertebral disc degeneration, lumbar regionOther intervertebral disc degeneration, thoracic region 0-201 9 Nyongesa Bhavana. [address] [facility] [address], [place], [place], [id number] , [place]. tel:[phone] Referring Provider: [facility] [address], [place], [address]. tel:[phone] OFFICE/OUTPAT IENT VISIT, [facility], [address] [place], [place], [id number] , [place] tel: [phone] [facility] Back Pain (chief complaint) Other intervertebral disc degeneration, lumbar regionOther intervertebral disc degeneration, thoracic regionOther idiopathic peripheral autonomic neuropathyOther chronic painLong term (current) use of opiate analgesicAnxiety 9 Nyongesa Bhavana. [address] [facility] [address], [place], [place], [address] , [place]. tel: [phone] Referring Provider: [facility] [address], [place], [address]. tel:[phone] OFFICE/OUTPAT IENT VISIT, [facility], [address] [place], [place], [id number] , [place] tel: [phone] [facility] Back Pain (chief complaint) Other intervertebral disc degeneration, lumbar regionOther intervertebral disc degeneration, thoracic regionOther chronic painOther idiopathic peripheral autonomic neuropathyLong term (current) use of opiate analgesic Sep- 9 Gaby Olivares. [address] [facility] [address], [place], [place], [id number] , [place]. tel: [phone] Referring Provider: Michael Harvey [facility] [address], [place], [address]. tel:[phone] OFFICE/OUTPAT IENT VISIT, [facility], [address] [place], [place], [id number] , [place] tel: [phone] [facility] Back Pain (chief complaint) Other intervertebral disc degeneration, lumbar regionOther intervertebral disc degeneration, thoracic regionOther chronic painOther idiopathic peripheral autonomic neuropathyLong term (current) use of opiate analgesic 9 Nyongesa Bhavana. [address] [facility] [address], [place], [place], [address] , [place]. tel: [phone] Referring Provider: Michael Harvey [facility] [address], [place], [address]. tel:[phone] OFFICE/OUTPAT IENT VISIT, [facility], [address] [place], [place], [id number] , [place] tel: [phone] [facility] Back Pain (chief complaint) Other chronic painOther intervertebral disc degeneration, lumbar regionOther intervertebral disc degeneration, thoracic regionOther idiopathic peripheral autonomic neuropathyLong term (current) use of opiate analgesic 9 Nyongesa Bhavana. [address] [facility] [address], [place], [place], [id number] , [place]. tel: [phone] Referring Provider: Michael Harvey [facility] [address] [place], [address]. tel:[phone] OFFICE/OUTPAT IENT VISIT, [facility], [address] [place], [place], [id number] , [place] tel: [phone] [facility] Back Pain (chief complaint) Other chronic painOther intervertebral disc degeneration, lumbar regionOther intervertebral disc degeneration, thoracic regionOther idiopathic peripheral autonomic neuropathyLong term (current) use of opiate analgesic 0 9 Nyongesa Bhavana. [address] [facility] [address], [place], [place], [id number] , [place]. tel: [phone] Referring Provider: Michael Harvey [facility] [address] [place], [address]. tel:[phone] OFFICE CONSULTATION [facility], [address], [place], [id number] , [place] [phone] [facility] Back Pain (chief complaint) Other chronic painLow back painEncounter for therapeutic drug level monitoringLong term (current) use of opiate analgesicOther idiopathic peripheral autonomic neuropathyOther intervertebral disc degeneration, lumbar regionOther intervertebral disc degeneration, thoracic region Clyde- 9 Janie Ortiz. [employer] [facility], [address], [place], [address], [place]. [phone] Referring Provider: Michael Harvey [facility] [address], [place], [address]. tel:[phone] Family History Family Member Type Diagnosis Age At Onset Problem (finding) Family history of neuro armen Payers Payer name Insurance type Covered democrat ID Noreen foster(s) [facility] [id number] Blue [employer] Medicaid BL [id number] Social History Type Description Quantity Date Captured Comments Alcohol Use Details No Caffeine Use Details Unknown Tobacco Use Status Occasional cigarette smoker Smoking Status Heavy tobacco smoker Sex Female Chief Complaint And Reason For Visit From encounter dated 08/30/2024 10:58'. Back Pain (chief complaint). Description: Severity level is 6. Duration: chronic. The problem is fluctuating. It occurs persistently. Symptoms are relieved by pain meds/drugs. Reason For Referral Reason For Referral No Information Plan Of Treatment Date Type Action Status Goal Update Social Hi story. Due on due Goal AST (SGOT). Due on due Goal Height. 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 Due on due Goal Medication Recon ciliation. Due on due Goal FIELD CONTACT PERSON Scanned. Due on due Goal Creatinine. Due [...] due Goal HPV. Due on due Goal FIELD CONTACT PERSON Scanned. Due on due Goal AST (SGOT). Due on due Goal Creatinine. Due on due Goal Lipid panel. Due on due Goal Review Allergy List. Due on due Goal Height. Due on d ue Goal PHQ-9. Due on du e Goal OARS. 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 Due on due Goal Tobacco Use. Due on due Goal ALT (SGPT). Due on due Goal Unhealthy drug u se screening. Due on due Goal Hepatitis C scre [...] due Goal Creatinine. 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 Due on due Goal Review Allergy [...] Goal Height. Due on d ue Goal FIELD CONTACT PERSON Scanned. Due on due Goal Order Annual PT. Due on due Goal Update Social Hi story. Due on due Goal Medication Recon ciliation. Due on due Goal FIELD CONTACT PERSON Scanned. Due on due Goal Order Annual PT. Due on due Goal Height. 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 Due on due Goal PHQ-9. Due on du e Goal OARS. Due on due Goal Hepatitis [...] Goal Tobacco Use. Due on due Goal FIELD CONTACT PERSON Scanned. Due on due Goal Lipid panel. 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 Due on due Goal Update Social [...] Order Annual PT. Due on due Goal HPV. Due on due Goal Review Allergy List. Due on due Goal Medication Recon ciliation. Due on due Goal Tobacco cessation counseling completed Goal Order Annual PT. Due on due Goal Update Social Hi story. Due on due Goal Weight. Due on d ue Goal Creatinine. Due on due Goal AST (SGOT). Due on due Goal Hepatitis C scre ening. Due on due Goal Review Allergy List. Due on due Goal PHQ-9. Due on du e Goal FIELD CONTACT PERSON Scanned. Due on due Goal OARS. Due on due Goal Lipid panel. 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 Due on due Goal Height. Due on d ue Goal ALT (SGPT). Due on due Goal UDT. Due on due Goal Medication Recon ciliation. Due on due Goal Unhealthy drug u se screening. Due on due Goal HPV. Due on due Goal Tobacco Use. Due on due Goal Order Annual PT. Due on due Goal HPV. Due on due Goal Weight. Due on d ue Goal AST (SGOT). Due on due Goal Hepatitis C scre ening. Due on due Goal Tobacco Use. Due on due Goal UDT. 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 Due on due Goal Unhealthy drug u se screening. Due on due Goal Height. Due on d ue Goal PHQ-9. Due on du e Goal Review Allergy List. Due on due Goal Lipid panel. Due on due Goal FIELD CONTACT PERSON Scanned. Due on due Goal OARS. Due [...] Order Annual PT. Due on due Goal FIELD CONTACT PERSON Scanned. Due on due Goal Medication Recon ciliation. 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 Due on due Goal AST (SGOT). Due on due Goal Weight. Due on d ue Goal Lipid panel. Due on due Goal ALT (SGPT). Due on due Goal Lifestyle education regardin g diet completed Goal HPV. Due on due Goal Hepatitis C scre ening. Due on due Goal Unhealthy drug u se screening. Due on due Goal FIELD CONTACT PERSON Scanned. Due on due Goal Medication Recon [...] ue Goal OARS. 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 Due on due Goal Tobacco Use. Due on due Goal Order Annual PT. Due on due Goal HPV. 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 Due on due Goal Lipid panel. [...] due Goal Creatinine. Due on due Goal FIELD CONTACT PERSON Scanned. Due on due Goal Height. Due on d ue Goal OARS. Due on due Goal PHQ-9. Due on du e Goal AST (SGOT). Due on due Goal Medication Recon ciliation. Due on due Goal PHQ-9. Due on du e Goal Tobacco Use. Due on due Goal Unhealthy drug u se screening. Due on due Goal UDT. Due on due Goal Review Allergy List. 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 Due on due Goal FIELD CONTACT PERSON Scanned. Due on due Goal Lipid panel. [...] Order Annual PT. 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 Due on due Goal ALT (SGPT). Due on due Goal UDT. Due on due Goal Update Social Hi story. Due on due Goal Medication Recon ciliation. Due on due Goal HPV. Due on due Goal FIELD CONTACT PERSON Scanned. Due on due Goal Hepatitis C scre ening. Due on due Goal PHQ-9. Due on du e Goal Lipid panel. Due on due Goal AST (SGOT). Due on due Goal Weight. Due on d ue Goal Height. Due on d ue Goal Tobacco Use. Due on due Goal Creatinine. Due on due Goal Review Allergy List. Due on due Goal Lifestyle education regardin [...] due Goal UDT. 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 Due on due Goal Medication Recon ciliation. Due on due Goal AST (SGOT). Due on due Goal FIELD CONTACT PERSON Scanned. Due on due Goal Order Annual PT. Due on due Goal Lipid panel. Due on due Goal OARS. Due on due Goal Hepatitis C scre ening. Due on due Goal Height. Due on d ue Goal Tobacco Use. Due on due Goal UDT. 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 Due on due Goal Medication Recon [...] Order Annual PT. Due on due Goal FIELD CONTACT PERSON Scanned. Due on due Goal AST (SGOT). [...] Goal PHQ-9. Due on du e Goal SERVICER COIN MACHINES Paperwork. Due on due Goal OARS. Due on due Goal UDT. Due on due Goal HPV. Due on due Goal Creatinine. Due on due Goal FIELD CONTACT PERSON Scanned. Due on due Goal Lipid panel. [...] ue Goal HPV. 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 Due on due Goal OARS. Due [...] Medication Recon ciliation. Due on due Goal FIELD CONTACT PERSON Scanned. Due on due Goal Update Social Hi story. Due on due Goal Review Allergy List. Due on due Goal Medication Recon ciliation. Due on due Goal OARS. Due on due Goal Update Social Hi story. Due on due Goal AST (SGOT). Due on due Goal Weight. 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 Due on due Goal UDT. Due on due Goal PHQ-9. Due on du e Goal FIELD CONTACT PERSON Scanned. Due on due Goal Order Annual PT. Due on due Goal Hepatitis C scre ening. Due on due Goal ALT (SGPT). Due on due Goal Height. Due on d ue Goal Tobacco Use. Due on due Goal Lipid panel. Due on due Goal Unhealthy drug u se screening. Due on due Goal Creatinine. Due on due Goal HPV. 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 Due on due Goal HPV. Due on due Goal ALT (SGPT). Due on due Goal Weight. Due on d ue Goal Creatinine. Due on due Goal Order Annual PT. Due on due Goal Review Allergy List. Due on due Goal FIELD CONTACT PERSON Scanned. Due on due Goal AST (SGOT). [...] Social Hi story. Due on due Goal FIELD CONTACT PERSON Scanned. Due on due Goal UDT. 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 Due on due Goal Height. 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 Due on due Goal Unhealthy drug u se screening. Due on due Goal Creatinine. Due on due Goal ALT (SGPT). Due on due Goal HPV. Due on due Goal FIELD CONTACT PERSON Scanned. Due on due Goal Tobacco Use. [...] Goal PHQ-9. Due on du e Goal FIELD CONTACT PERSON Scanned. 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 Due on due Goal UDT. Due [...] Goal Weight. 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 Due on due Goal Medication Recon ciliation. Due on due Goal HPV. Due on due Goal Update Social Hi story. Due on due Goal AST (SGOT). Due on due Goal Height. Due on d ue Goal Lipid panel. Due on due Goal OARS. Due on due Goal Creatinine. Due on due Goal FIELD CONTACT PERSON Scanned. Due on due Goal Review Allergy List. Due on due Goal ALT (SGPT). Due on due Goal Height. Due on d ue Goal Creatinine. Due on due Goal FIELD CONTACT PERSON Scanned. Due on due Goal Order Annual PT. Due on due Goal Medication Recon ciliation. 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 Due on due Goal Weight. Due [...] due Goal Creatinine. Due on due Goal FIELD CONTACT PERSON Scanned. Due on due Goal Update Social [...] due Goal HPV. 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 Due on due Goal Weight. Due on d ue Goal OARS. 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 Due on due Goal Tobacco Use. Due on 023 due Goal Lipid panel. Due on due Goal FIELD CONTACT PERSON Scanned. Due on due Goal Height. Due [...] Goal ALT (SGPT). Due on due Goal FIELD CONTACT PERSON Scanned. Due on due Goal Weight. Due on d ue Goal Hepatitis C scre ening. Due on due Goal Height. Due on d ue Goal Lipid panel. Due on due Goal UDT. 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 Due on due Goal HPV. Due [...] Goal AST (SGOT). Due on due Goal FIELD CONTACT PERSON Scanned. Due on due Goal ALT (SGPT). Due on due Goal Lipid panel. Due on due Goal PHQ-9. Due on du e Goal Weight. Due on d ue Goal Hepatitis C scre ening. Due on due Goal UDT. 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 Due on due Goal Review Allergy List. Due on due Goal Lipid panel. Due on due Goal Creatinine. Due on due Goal ALT (SGPT). Due on due Goal Weight. 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 Due on due Goal Height. Due on d ue Goal AST (SGOT). Due on due Goal Hepatitis C scre ening. Due on due Goal UDT. Due on due Goal PHQ-9. Due on du e Goal OARS. Due on due Goal Tobacco Use. Due on due Goal HPV. Due on due Goal Unhealthy drug u se screening. Due on due Goal FIELD CONTACT PERSON Scanned. Due on due Goal Medication Recon ciliation. Due on due Goal Update Social Hi story. Due on due Goal Order Annual PT. Due on due Goal HPV. Due on due Goal Creatinine. 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 Due on due Goal OARS. Due on due Goal Lipid panel. Due on due Goal Weight. Due on d ue Goal Order Annual PT. Due on due Goal ALT (SGPT). Due on due Goal Hepatitis C scre ening. Due on due Goal FIELD CONTACT PERSON Scanned. Due on due Goal AST (SGOT). Due on due Goal Height. Due on d ue Goal Review Allergy List. Due on due Goal Unhealthy drug u se screening. Due on due Goal Update Social Hi story. Due on due Goal Medication Recon ciliation. Due on due Goal PHQ-9. Due on du e Goal UDT. Due on due Goal Tobacco Use. 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 Due on due Goal Tobacco Use. [...] Goal Height. Due on d ue Goal FIELD CONTACT PERSON Scanned. Due on due Goal Review Allergy List. Due on due Goal Lipid panel. Due on due Goal Weight. Due on d ue Goal PHQ-9. Due on du e Goal AST (SGOT). Due on due Goal Creatinine. Due on due Goal PHQ-9. Due on du e Goal ALT (SGPT). Due on due Goal [...] Review Allergy List. 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 Due on due Goal Creatinine. Due on due Goal FIELD CONTACT PERSON Scanned. Due on due Goal Hepatitis C [...] Social Hi story. Due on due Goal FIELD CONTACT PERSON Scanned. Due on due Goal Creatinine. Due on due Goal Unhealthy drug u se screening. Due on due Goal Lipid panel. 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 Due on due Goal Height. Due on d ue Goal PHQ-9. Due on du e Goal Unhealthy drug u se screening. Due on due Goal FIELD CONTACT PERSON Scanned. Due on due Goal OARS. 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 Due on due Goal AST (SGOT). [...] due Goal Creatinine. 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 Due on due Goal Lipid panel. Due on due Goal HPV. Due on due Goal Medication Recon ciliation. Due on due Goal FIELD CONTACT PERSON Scanned. Due on due Goal ALT (SGPT). 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 Due on due Goal FIELD CONTACT PERSON Scanned. Due on due Goal Lipid panel. Due on due Goal Hepatitis C scre ening. Due on due Goal Weight. Due on d ue Goal OARS. Due on due Goal Height. [...] Goal PHQ-9. Due on du e Goal ALT (SGPT). Due on due Goal Review Allergy List. Due on due Goal Creatinine. Due on due Goal UDT. Due on due Goal PHQ-9. Due on du e Goal AST (SGOT). Due on due Goal Creatinine. Due on due Goal Unhealthy drug u se screening. Due on due Goal ALT (SGPT). Due on due Goal Review Allergy List. 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 Due on due Goal FIELD CONTACT PERSON Scanned. Due on due Goal Height. Due [...] due Goal OARS. 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 Due on due Goal Order Annual [...] Social Hi story. Due on due Goal FIELD CONTACT PERSON Scanned. Due on due Goal PHQ-9. Due on du e Goal HPV. Due on due Goal Weight. Due on d ue Goal Lipid panel. Due on due Goal Medication Recon ciliation. Due on due Goal PHQ-9. Due on du e Goal Order Annual PT. Due on due Goal Height. Due on d ue Goal AST (SGOT). Due on due Goal FIELD CONTACT PERSON Scanned. Due on due Goal Tobacco Use. Due on due Goal Update Social Hi story. Due on due Goal Hepatitis C scre ening. Due on due Goal ALT (SGPT). 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 Due on due Goal Review Allergy List. Due on due Goal Unhealthy drug u se screening. Due on due Goal UDT. Due on due Goal Creatinine. Due on due Goal HPV. Due on due Goal OARS. 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 Due on due Goal Review Allergy [...] Goal PHQ-9. Due on du e Goal FIELD CONTACT PERSON Scanned. Due on due Goal Order Annual PT. Due on due Goal Height. Due on d ue Goal FIELD CONTACT PERSON Scanned. Due on due Goal Weight. Due on d ue Goal Creatinine. Due on due Goal OARS. 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 Due on due Goal AST (SGOT). [...] Goal AST (SGOT). Due on due Goal Update Social Hi story. Due on due Goal UDT. Due on due Goal Medication Recon ciliation. Due on due Goal Creatinine. Due on due Goal Weight. 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 Due on due Goal Order Annual PT. Due on due Goal Review Allergy List. Due on due Goal FIELD CONTACT PERSON Scanned. Due on due Goal PHQ-9. Due on du e Goal Height. Due on d ue Goal OARS. Due on due Goal UDT. Due on due Goal Review Allergy List. Due on due Goal Tobacco Use. 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 Due on due Goal PHQ-9. Due on du e Goal Creatinine. Due on due Goal Order Annual PT. Due on due Goal Update Social Hi story. Due on due Goal AST (SGOT). Due on due Goal Height. Due on d ue Goal OARS. Due on due Goal Medication Recon ciliation. Due on due Goal Weight. Due on d ue Goal FIELD CONTACT PERSON Scanned. Due on due Goal ALT (SGPT). Due on due Goal PHQ-9. Due on du e Goal SERVICER COIN MACHINES Paperwork. Due on due Goal ALT (SGPT). [...] Medication Recon ciliation. Due on due Goal FIELD CONTACT PERSON Scanned. Due on due Goal Tobacco Use. Due on due Goal Update Social Hi story. Due on due Goal AST (SGOT). 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 Due on due Goal OARS. Due [...] Medication Recon ciliation. Due on due Goal FIELD CONTACT PERSON Scanned. Due on due Goal ALT (SGPT). [...] Goal Weight. 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 Due on due Goal FIELD CONTACT PERSON Scanned. Due on due Goal ALT (SGPT). Due on due Goal UDT. Due on due Goal ALT (SGPT). Due on due Goal Tobacco Use. Due on due Goal Weight. Due on d ue Goal Order Annual PT. Due on due Goal Update Social Hi story. Due on due Goal PHQ-9. Due on du e Goal AST (SGOT). 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 Due on due Goal Creatinine. Due on due Goal Medication Recon ciliation. Due on due Goal Review Allergy List. Due on due Goal FIELD CONTACT PERSON Scanned. Due on due Goal OARS. Due on due Goal Height. Due on d ue Goal UDT. Due on due Goal Order Annual PT. Due on due Goal FIELD CONTACT PERSON Scanned. 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 Due on due Goal Review Allergy [...] Review Allergy List. Due on due Goal FIELD CONTACT PERSON Scanned. Due on due Goal Height. Due on d ue Goal OARS. Due on due Goal Order Annual PT. 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 Due on due Goal Creatinine. Due on due Goal Update Social Hi story. Due on due Goal PHQ-9. Due on du e Goal UDT. Due on due Goal Order Annual PT. Due on due Goal Review Allergy List. Due on due Goal Weight. Due on d ue Goal AST (SGOT). 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 Due on due Goal Tobacco Use. Due on due Goal ALT (SGPT). Due on due Goal OARS. Due on due Goal Height. Due on d ue Goal Medication Recon ciliation. Due on due Goal FIELD CONTACT PERSON Scanned. Due on due Goal PHQ-9. Due on du e Goal OARS. 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 Due on due Goal Creatinine. Due [...] Goal Height. Due on d ue Goal FIELD CONTACT PERSON Scanned. Due on due Goal Medication Recon ciliation. Due on due Goal Tobacco Use. Due on due Goal OARS. Due on due Goal Weight. Due on d ue Goal FIELD CONTACT PERSON Scanned. Due on due Goal Creatinine. Due on due Goal Review Allergy List. Due on due Goal ALT (SGPT). Due on due Goal Update Social Hi story. Due on due Goal Order Annual PT. Due on due Goal UDT. Due on due Goal Medication Recon ciliation. 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 Due on due Goal AST (SGOT). Due on due Goal PHQ-9. Due on du e Goal Height. Due on d ue Goal OARS. Due on due Goal ALT (SGPT). Due on due Goal Update Social Hi story. 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 Due on due Goal Review Allergy List. Due on due Goal FIELD CONTACT PERSON Scanned. Due on due Goal UDT. Due on due Goal AST (SGOT). Due on due Goal Height. Due on d ue Goal Order Annual PT. Due on due Goal Weight. Due on d ue Goal PHQ-9. Due on du e Goal Medication Recon ciliation. Due on due Goal Tobacco Use. Due on 021 due Appointment [facility] [place] BOOKED Appointment [facility] [place], #[id number] RFW#1 Bilateral L4-L5, L5-S1 Joint(s) (L3 , L4 , L5 Nerve(s)) Facet Nerve Diagnostic [facility] BOOKED Future Order: Lab Order Drug Jessica t Def 22+ Classes (G0483), Ordered on: Ordered Future Order: Lab Order Drug Jessica t Def 22+ Classes (G0483), Ordered on: Ordered Future Order: Lab Order Drug Jessica t Def 22+ Classes (G0483), Ordered on: Ordered Future Order: Lab Order COMPLIAN CE DRUG ANALYSIS, URINE, WITH MED REPORT ([id number]), Ordered on: Ordered Future Order: Lab Order Drug Jessica t Def 22+ Classes (G0483), Ordered on: Ordered History Of Present Illness Encounter Date Complaint History Of Prese nt Illness Back Pain Severity level i s 6. Duration: chronic. The problem is fluctuating. It occurs persistently. Symptoms are relieved by pain meds/drugs. Comments: Elisa cervantes is a 44 y/o female who presents via [facility] for virtual follow up and medication refill in the setting of chronic mid back pain with radiation into the ribcage and low back pain with radiation into the BLE. Pain has been fluctuating this month. Upcoming BL L4-L5, L5-S1 Diagnostic [facility]W scheduled on 09/08/[address] Ramirez.Of note, patient has bronchitis and pneumonia. Currently managed on antibiotics.Reports current medication regimen provides 85% pain relief and allows for increased functionality. Continues to utilize Percocet 5-325mg 5x/day with significant benefit. Denies OIC or other side effects from current medication regimen. No other concerns today. pain Patient doing we ll with hEP. Is looking for an exercise routine for the winter that she could tolerate. Would be interested n community pool exercise. Comments: Elisa cervantes is a 44 y/o [...] activity with less limitations. get order from [facility] for zynex. Back Pain Severity level i [...] a 44 y/o female who presents via [place] for virtual follow up and medication refill [...] a 44 y/o female who presents via [facility] for virtual follow up and medication refill in the setting of chronic mid back pain with radiation into the ribcage and low back pain with radiation into the BLE. Pain has been fluctuating this month. Upcoming BL L4-L5, L5-S1 Diagnostic [facility] scheduled on 05/06/24.Of note, patient has been experiencing heavy periods. Will plan to consult with CONTINUOUS VULCANIZING MACHINE OPERATOR soon.Reports current medication regimen provides 85% pain relief and allows for increased functionality. Continues to utilize Percocet 5-325mg 5x/day with significant benefit. Denies OIC or other side effects from current medication regimen. No other concerns today. 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 Comments: [...] today. back pain Severity level i s 3. [...] chiropractic. Back Pain Severity level i s 3. [...] a 43 y/o female who presents via [facility] for virtual follow up and medication refill [...] a 43 y/o female who presents via [facility] for virtual follow up and medication refill [...] Notes she will be consulting with an CONTINUOUS VULCANIZING MACHINE OPERATOR specialist for further care.Reports current medication [...] a 43 y/o female who presents via [facility] for a virtual follow-up and medication refill [...] a 43 y/o female who presents via [facility] for a virtual follow-up and medication refill [...] 43 y/o female who presents today via [facility] for follow up and medication refill in [...] a 42 y/o female who presents via [facility] for virtual follow up and medication refill [...] a 42 y/o female who presents via [place] for virtual follow up and medication refill [...] a 42 y/o female who presents via [place] for virtual follow up and medication refill [...] a 42 y/o female who presents via [place] for virtual follow up and medication refill [...] a 42 y/o female who presents via [place] for a virtual follow up and medication [...] a 42 y/o female who presents via [facility] for a virtual follow up and medication [...] She has also been studying for the [employer] as she failed her previous attempt.Reports current [...] a 42 y/o female who presents via [facility] for a virtual follow up and medication [...] functionality, 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 Denies side effects from current medication regimen. [...] 42 y/o female, meeting with us via [facility] for virtual follow up and medication refill in the setting of mid to low back pain. She states her pain is worse this month. 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 She inquires about scheduling her injection for her thoracic pain as she has finally cleared the hold on her account. She states she is currently studying for [employer] and will be going out of town [...] 41 y/o female, meeting with us via [facility] for virtual follow up and medication refill in the setting of mid to low back pain. She states her pain is stable this month. 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 She reports she is currently on a new weight loss program and has lost 16lbs since [facility]. Reports current medication regimen provides 80% [...] stable. 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 She would like to schedule the thoracic TESI but she is waiting for her insurance to resolve a previous billing issue from her last injection. She reports since [facility] she fell down the stairs on [...] y/o female, meeting with us today via [facility] Virtual Visit for follow up and medication refill. Mid-low back pain persists this month. 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 She [...] is applying for a new job at [employer] [place] current medication regimen provides [...] y/o female, meeting with us today via [facility] Virtual Visit for follow up and medication refill. Mid-low back pain persists this month. 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 States [...] y/o female, meeting with us today via [facility] Virtual Visit for follow up and medication refill. Mid-low back pain persists this month, but medication does help to some extent. She feels her pain is moderately managed, but on work days esthela in severe. She would like to schedule thoracic ESIShe states she has recently started clinicals at [facility] and working a new job as [employer] current medication regimen provides 80% pain relief and allows for increased functionality. Denies side effects from current medication regimen.No other concerns today. Back Pain (comments) Whit is meeting with us today via [facility] Virtual Visit for follow up and medication [...] Whit is meeting with us today via [facility] Virtual Visit for follow up and medication [...] Whit is meeting with us today via [facility] Virtual Visit for following up and medication [...] mid-back. She has been following up at [facility] twice a week for the last 6 months. She is leaving town on Thursday, traveling to [facility].Reports current medication regimen provides 80% pain [...] Whit is meeting with us today via [facility] Visit for following up and medication refill. Lower-mid back pain persists this month, but medication does help to some extent. She feels her pain is well managed at this time. She has been walking more and working on calorie deficit. She has also quite drinking soda and has lost 27lbs. She has bene seeking lead care manager twice a week and is working on scheduling massage therapy twice a month.Reports persistent restless legs. If she missed a dose of percocet the restlessness is significantly worse. She is following up with a stock preparation supervisor for an iron study.Reports current medication regimen [...] Whit is meeting with us today via [facility] Virtual Visit for following up and medication refill. Mid-low back pain persists this month, but medication does help to some extent. She feels her pain is well managed at this time. She has been following up with a chiropractor with benefit. She talked to [facility] and insurance will cover seated upright MRI. She is having trouble breathing while laying on her back due to edema (orthopnea). She is following up with stock preparation supervisor at [facility].Reports current medication regimen provides 80-85% pain [...] Whit is meeting with us today via [facility] Virtual Visit for following up and medication [...] Whit is meeting with us today via [facility] Virtual Visit for following up and medication refill. Low back and leg R>L pain is worse this month. Reports stabbing pain in low back with movement that is different from her normal pain. She went to [facility] to renae her hips which is [...] Whit is meeting with us today via [facility] Virtual Visit for following up and medication refill. Mid-low back pain persists this month, tolerable with medication. She reports persistent swelling. Her PCP is treating her with prednisone until her consult with an collar separator. The prednisone is helpful for both swelling and pain, but is only temporary. She was also recently diagnosed with hemolytic anemia, following up with hematology at [facility] in October.Reports current medication regimen provides 80-85% pain relief and allows for increased functionality. Denies side effects from current medication regimen.No other concerns today. Back Pain (comments) Whit is meeting with us today via [facility] Virtual Visit for following up and medication refill. Mid-low back pain persists this month, tolerable with medication.Reports leg swelling which was resolved after taking prednisone form ER visit. She is scheduled to f/u with RA at [employer] for evaluation. He doctor also suspects hemolytic anemia, so he referred her to a stock preparation supervisor as well.Reports current medication regimen provides 80-85% [...] Whit is meeting with us today via [facility] Virtual Visit for following up and medication refill. Low-mid back pain persists this month, tolerable with medication.Reports current medication regimen provides 80-85% pain relief and allows for increased functionality. Denies side effects from current medication regimen.No other concerns today. Back Pain (comments) Whit is meeting with us today via [facility] Virtual Visit for following up and medication [...] changing positions and TENS. 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 Seeing dentist. Still going through [employer] program - needs a DNC d/t to [...] weather. She has consulted a doctor in [place] who has reason to believe she has [...] hormone medications.Currently working with a clinic in [place] regarding her IBF.Presents with #21 - on [...] note, pt will be undergoing IVF in [place] later this month. No other concerns today. [...] pain r/t neuropathy. She was referred to [facility] by Dr. Harvey. Pain began [...] moving and her new PCP referred to [facility]. Of note, she has started IUI and is in the two week holding period to see if she is . Treatment tried:PT was completed years ago, has not been able to go recently d/t medical bills. Pool therapy at the but insurance had only covered 2 sessions. yoga to help with stretching and pain. Injections at [facility] were helpful for 2 weeks and then [...] Hospital + Clinics assessment Chronic pain syndrome impression [...] 08/19/[address] Ramirez provided 10% pain relief.Lumbar MRI on 02/08/21 CONCLUSION:1. Mild L2-3 disc degeneration.2. Mild facet arthropathy on the left at L5-S1 and bilaterally at L4-53. No disc herniation, stenosis or impingement.4. No neoplasm, fracture or infection Oct-01-2024 assessment Radiculopathy, thoracic region O ct impression Ongoing mid back amanda n, primarily [...] and no neoplasm, fracture or infection assessment nursing home (current) use of opiat e analgesic impression [...] Mental Status Date Cognitive Assessment Orientation - [place] ed to time, place, person, situation. Patient Care Teams Name Effective Dates (start - stop) Status Members No Information
--- OUTSIDE RECORDS SUMMARY | 2024-09-05 19:21 | XMS_ITS | Clinical Summary ---
Author Organization [facility] Address [address] [place] [address] Care Team Providers Care Channel Installer Name Role Phone [facility]- Primary Care Provider Allergies Active Allergy Reactions [...] 2018 PHQ-2 (once per calendar year) 2023 BMP 06/08/2024 06/08/2023, 03/31, 09/21/2017 COVID-19 Vaccine ( season) 2024 08/27/2021, 08/06/2021 INFLUENZA VACCINE (#1) [...] Rubio MD LAB - BLOOD ORDERABL ES [facility] Acute Care Lab [address] Lab (1st floor, no room number) [place] [address], [facility] [phone] from Last 3 Months or Most Recently Relevant to Health Maintenance Care Teams Channel Installer Relationship Specialty Start Date End Date [facility]- [address] [place], [place] [id number] PCP - General 07/31/20
--- OUTSIDE RECORDS SUMMARY | 2024-09-05 19:22 | XMS_ITS | Clinical Summary ---
Author Organization [facility] Address [place], [place] [address] Care Team Providers Care Numerologist Name Role Phone Sharon Pineda MD Primary Care Provider Allergies Active [...] Allergen (Include Detail In Comments) Edema 07/15/2013 [place] popsicle - lips swelling / urtcaria Penicillins [...] 05/15/2017 History of delivery 05/15/2017 consult 05/08/2017 Overview (05/15/2017): MPP PRECONCEPTION CONSULTATION ON 05/15/17 REASON FOR [...] Gabapentin. (Is trying gluten free diet and career transition specialist with some success) Restless leg Syndrome on Pramipexole H/O anemia Has one patent fallopian tube-due to cyst removal from fallopian tube Fibromyalgia Depression/Anxiety Has child with Eosinophilic Esophagitis (Can only eat 10 food choices) REFERRING PHYSICIAN/PHONE/LAST UPDATE: Dr Lewis [phone] Primary MD approves scheduling of recommended ultrasounds/testing: Unknown SPECIALISTS/PHONE: Primary MD Dr Edwin Alfred FP Pain management @ [facility] until 04/21/17. Now pain managed with Dr Pineda BHUPINDER: GENETICS: PROCEDURES: PERTINENT LABS: PERTINENT MEDS: Percocet (5/day), Gabapentin, Pramipexole, Metformin, Lasix, Fluvoxamine, Iron, PNV, Vit B-12 injections, Will start on Nifedipine soon PLAN OF CARE: Iron deficiency 04/21/2017 Hypothyroid 04/21/2017 Controlled substance agreement signed 10/09/2016 Overview (10/09/2016): [facility] (09/2016) Neuropathy of both feet 10/07/2016 THORACIC DISC DEGENERATION 08/07/2014 THORACIC DISC DEGENERATION 08/07/2014 Paratubal cyst 04/03/2014 Pelvic cyst 03/14/2014 Hypokalemia 04/01/2011 Overview (04/01/2011): Secondary to diuretic lumbar facet arthropathy 09/16/2010 Thoracic disc herniation 09/10/2010 DUB (dysfunctional uterine bleeding) 06/19/2010 Sleep apnea 06/19/2010 Overview (09/16/2010): cpap OCD (obsessive compulsive disorder) 05/28/2010 Binge eating 05/28/2010 Overview (05/28/2010): Following at [facility] Myalgia and myositis, unspecified 05/22/2010 Fibromyalgia 02/19/2010 Supervision of other normal 08/21/2009 Degeneration of thoracic or thoracolumbar intervertebral disc 02/18/2008 Seborrheic dermatitis, unspecified 12/15/2007 Obesity, unspecified 12/03/2007 Backache, unspecified 12/03/2007 Anxiety state, unspecified 06/05/2006 Palpitations 06/05/2006 Female infertility of unspecified origin 006 Polycystic ovaries 06/05/2006 Resolved Problems Problem Noted Date Diagnosed Date Resolved Date Pain medication agreement 05/15/2014 Overview (05/15/2014): Pain contract initiated with Bhavana Elizalde PRINCIPAL HARDWARE ARCHITECT at [facility] on 05/10/2014. Amanda Ruiz .................... 05/15/2014 11:00 AM narcotic contract 10/01/2007 10/09/2016 Overview (08/13/2010): [facility] controlled substance agreement initiated 08/13/2010 Immunizations Name [...] oz) F C-Sec tion Spinal Y Livin g Vaishnavi Delivery Location:[facility] Comments:PPROM @ 14w. bedrest from wks 18-32. PTL @ 32w Breech 2008 Term 38w 0d 3.61 kg (7 lb 15.3 oz) M CS-LT ranv Kathiein g Avila Comments LMP unknown Last Filed Vital Signs Vital Sign Reading Time Taken Comments Blood Pressure 177/79 12/27/2022 11:43 AM DIRECTOR OF PRODUCT MANAGEMENT Pulse 83 12/27/2022 11:43 AM DIRECTOR OF PRODUCT MANAGEMENT Temperature 36.8 ??C (98.3 ??F) 12/27/2022 11:[address] Respiratory Rate 18 12/27/2022 11:43 AM DIRECTOR OF PRODUCT MANAGEMENT Oxygen Saturation 97% 12/27/2022 11:43 AM DIRECTOR OF PRODUCT MANAGEMENT Inhaled Oxygen Concentration - - Weight 104.3 kg (230 lb) 12/27/2022 11:43 AM DIRECTOR OF PRODUCT MANAGEMENT Height 162.6 cm (5' 4) 12/27/2022 11:43 AM DIRECTOR OF PRODUCT MANAGEMENT Body Mass Index 39.48 12/27/2022 11:43 AM DIRECTOR OF PRODUCT MANAGEMENT Plan of Treatment Health Maintenance Due Date [...] Name Priority Date/Time Associated Diagnosis Comments HPV HIGH RISK Routine 09/15/2023 2:50 PM CDT LIPID PANEL W REFLEX MEASURED LDL Routine 03/28/2014 12:02 PM CDT Preop examination ANTI HIV 1/2 Routine 03/14/2009 3:31 PM CDT Supervision of Normal First from Last 3 Months or Most Recently Relevant to Health Maintenance Results * HPV HIGH RISK (09/15/2023 2:50 PM CDT) TYPE 16 Negative Negative 09/21/2023 11:45 AM CDT [facility] TYPE 18 Negative Negative 09/21/2023 11:45 AM CDT [facility] OTHER HIGH RISK TYPES Negative Negative 09/21/2023 11:45 AM CDT [facility] Other (Cervical) 09/15/2023 2:50 PM CDT 09/17/2023 12:24 PM CDT Narrative [facility] - 09/21/2023 11:45 AM CDT HPV types 16, 18, 31, 33, 35, 39, 45, 51, 52, 56, 58, 59, 66 and 68 DNA were undetectable or below the pre-set threshold. Methodology: Cassie Trevon 4800 HPV Test Tiffanie Israel MD MICROBIOLOGY [facility] [address] [place] [address], [place] * (ABNORMAL) LIPID PANEL W REFLEX MEASURED LDL (03/28/2014 12:02 PM CDT) CHOLESTEROL,TOTAL 160 100 - 199 mg/dL 03/28/2014 10:12 PM CDT [facility] TRIGLYCERIDES 304(H) <150 mg/dL 03/28/2014 10:12 PM CDT [facility] HDL CHOLESTEROL 40(L) >40 mg/dL 4 10:12 PM CDT [facility] NON-HDL CHOLESTEROL 120 <145 mg/dl 03/28/2014 10:12 PM CDT [facility] CHOL/HDL RATIO 4.00 <4.50 03/28/2014 10:12 PM CDT [facility] LDL CHOLESTEROL 59 <=130 mg/dL 03/28/2014 10:12 PM CDT [facility] PATIENT STATUS FASTING 03/28/2014 10:12 PM CDT [facility] Blood specimen (specimen) BLOOD SPECIMEN / Unknown Venipuncture / Unknown 03/28/2014 12:02 PM CDT 03/28/2014 12:02 PM CDT Ovidio Larsen MD CHEMISTRY [facility] [address] [place] [address], [place] * ANTI HIV 1/2 (03/14/2009 3:31 PM CDT) ANTI HIV 1/2 Non-reacti ve [facility] Blood specimen (specimen) BLOOD SPECIMEN / Unknown 03/14/2009 3:31 PM CDT 03/14/2009 3:24 PM CDT Ovidio Larsen MD SEND OUTS [facility] INTERNAL ZIP [address] [place] [id number] from Last 3 Months or Most Recently [...] 1:41 PM 10/11/2009 4:53 PM Care Teams Numerologist Relationship Specialty Start Date End Date Sharon Pineda MD [address] [place] [address] PCP - General Emergency Medicine 05/15/17
--- OUTSIDE RECORDS SUMMARY | 2024-09-05 19:22 | XMS_ITS | Encounter Summary ---
Author Organization [place] Address [address] [place] [address]. [place] [address] Care Team Providers Care Chief Juvenile Probation Officer Name Role Phone [facility]- Primary Care Provider Angie Lake PA-C Unavailable [phone] Encounter Details Date Type Department Care Team (Late st Contact Info) Description 05/21/2021 MyC Medical Advice [facility] Surgical [facility] [place] [address] [facility] [address] [place] [address] [phone] Angie Lake PA-C [address] [facility] [address] [place] [address] Social History Tobacco Use Types Packs/Day Years [...] documented as of this encounter Care Teams Chief Juvenile Probation Officer Relationship Specialty Start Date End Date [facility]- [address] [place] [address] PCP - General 07/31/20 Angie Lake PA-C [address] [place] [address] Assigned Surgical Provider 05/26/21 documented as of this encounter
--- OUTSIDE RECORDS SUMMARY | 2024-09-05 19:22 | XMS_ITS | Referral Summary ---
Author Organization [facility] Address [address] [place] [address] Care Team Providers Care Associate Medical Director Name Role Phone [facility]- Primary Care Provider Allergies Active [...] Rubio MD LAB - BLOOD ORDERABL ES [facility] Acute Care Lab [address] [facility] Lab (1st floor, no room number) [place] [address], [facility] [phone] from Last 3 Months or Most Recently Relevant to Health Maintenance Care Teams Associate Medical Director Relationship Specialty Start Date End Date [facility]- [address] [place] [address] PCP - General 07/31/20
--- OUTSIDE RECORDS SUMMARY | 2024-09-05 19:22 | XMS_ITS | Encounter Summary ---
Author Organization [facility] Address [address] [place] [address] Care Team Providers Care At Home Independent Call Center Agent Name Role Phone [facility]- Primary Care Provider Angie Lake PA-C Unavailable + [phone] Encounter Details Date Type Department Care Team [...] COVID-19? No / Unsure 10/25/2021 3:39 PM CLOTH MERCERIZER OPERATOR documented as of this encounter Plan of Treatment Not on file documented as of this encounter Visit Diagnoses Not on filedocumented in this encounter Additional Health Concerns Infection Onset Date Last Indicated Resolved Time COVID-19 07/29/2022 07/29/2022 08/19/2022 11:3 9 PM CDT documented as of this encounter Care Teams At Home Independent Call Center Agent Relationship Specialty Start Date End Date [facility]- [address] [place] [address] PCP - General 07/31/20 Angie Lake PA-C [address] [place] [address] Assigned Surgical Provider 05/26/21 documented as of this encounter
== END 2024-09-05 19:17 | disposition home or self-care (01) ==
PROVIDERS: PCP Family Medicine; Visit Provider Family Medicine
DX: R06.02 Shortness of breath (principal); D64.9 Anemia, unspecified
CPT/HCPCS: 82728; 83540; 83880

== ENCOUNTER 2024-10-03 18:23 | Outpatient (CLI) | payer OTHER, BC, SELFPAY | END 2024-10-03 18:24 | disposition home or self-care (01) | LOC: LKVREF 18:24 | PROVIDERS: PCP Family Medicine; Visit Provider Family Medicine | DX: D64.9 Anemia, unspecified (principal); I10 Essential (primary) hypertension | CPT/HCPCS: 80048 ==

== ENCOUNTER 2024-10-13 14:22 | Emergency (ER) | payer OTHER, BC, SELFPAY ==
[2024-10-13 14:41] VITALS: BP 121/71; PULSE 80; RESP 22; TEMP 36.9; O2SAT 95; BMI 42.9
--- NOTE | 2024-10-13 15:05 | ED_ITS ---
HPI - General Adult General Chief complaint: Lower Extremity Swelling Stated complaint: R toe swollen/painful/fissures, poss gout Time Seen by Provider: 10/13/24 14:32 History of Present Illness HPI narrative: Patient presents to the emergency department complaining of right great toe pain and swelling. Patient states she has been googling her symptoms and feels like she might have gout . Patient states she has a podiatry appointment next thursday and feels like her toe might burst and would like it checked out before then. Patient states she has had recent urinary incontinence that she feels may be related. 44-year-old woman presenting to the emergency department with concern of increasing toe pain and swelling. This has been going on for years. Underlying history of neuropathy of unclear etiology. 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 She is worried she might have gout partly because she noticed bumps throughout her body that she thinks might be gouty tophi is my understanding. She is worried at this point that her toe might ?burst? she s tarted to have increased pain. Has had drainage. Also has a secondary fungal infection. Is currently managed with doxycycline. Underlying history of chronic urinary incontinence that she is wondering might be related as well. Seen Podiatry but is seeing another manual tester in about 6 days. No fever. She has been doing regular soaks in liquid with tea tree oil. Has had increasingly deformed right toe in particular for years. Related Data Home Medications ?Medication ?Instructions ?Recorded ?Confirmed condoms latex lubricated #3 ea 07/17/22 10/03/24 (Condoms-Wes Lubricated) ammonium lactate 12 % topical cream applic topical BID PRN 02/23/23 10/03/24 oxycodone-acetaminophen 5 mg-325 1 - 2 tab PO Q6H PRN chronic pain 02/23/23 10/13/24 mg tablet Previous Rx's ?Medication ?Instructions ?Recorded clonidine HCl 0.1 mg tablet 0.1 mg PO BID PRN hypertensive 09/02/23 emergency #60 tabs gabapentin 300 mg capsule 900 mg (3 x 300 mg) PO TID #270 11/20/23 caps sertraline 100 mg tablet (Zoloft) 200 mg (2 x 100 mg) PO QDAY #90 01/12/24 tabs cholecalciferol (vitamin D3) 50 See Rx Instructions .Route 02/19/24 mcg (2,000 unit) tablet .COMPLEX #100 tabs labetalol 200 mg tablet 400 mg (2 x 200 mg) PO BID #120 03/31/24 tabs potassium chloride 10 mEq 20 meq (2 x 10 mEq) PO BID #240 04/04/24 capsule,extended release caps nicotine See Rx Instructions transdermal 08/15/24 21mg/24hr-14mg/24hr-7mg/24hr daily .COMPLEX #56 patches transderm patches,sequentl bupropion HCl 150 mg tablet,12 hr 150 mg PO BID #60 tabs 08/18/24 sustained-release (Wellbutrin SR) nicotine 14 mg/24 hr daily 1 patch transdermal Q24H #14 ea 08/18/24 transdermal patch nicotine 21 mg/24 hr daily 1 patch transdermal Q24H #28 ea 08/18/24 transdermal patch nicotine 7 mg/24 hr daily 1 patch transdermal Q24H #14 ea 08/18/24 transdermal patch albuterol sulfate 90 mcg/actuation 2 puff inhalation Q6H PRN 08/24/24 aerosol inhaler shortness of breath or wheezing #6.7 grams fluticasone 250 mcg-salmeterol 50 1 inh inhalation BID #60 ea 09/05/24 mcg/dose blistr powdr for inhalation (Advair Diskus) iron,carbonyl 65 mg-vitamin C 125 1 tab PO QDAY #90 tabs 09/05/24 mg tablet,delayed release (Vitron-C) losartan 50 mg tablet 50 mg PO BID #180 tabs 09/05/24 triamterene 37.5 2 cap PO QAM #180 caps 09/05/24 mg-hydrochlorothiazide 25 mg capsule blood sugar diagnostic (Blood #100 ea 10/03/24 Glucose Test strips) blood-glucose meter (Blood Glucose #1 ea 10/03/24 Monitoring kit) doxycycline hyclate 100 mg capsule 100 mg PO BID #20 caps 10/03/24 lancets (Accu-Chek Softclix #100 ea 10/03/24 Lancets) lorazepam 0.5 mg tablet 0.5 mg PO BID PRN anxiety #60 tabs 10/03/24 levothyroxine 75 mcg tablet 75 mcg PO QDAY #90 tabs 10/11/24 ammonium lactate 12 % topical cream 1 applic topical BID PRN dry 10/13/24 skin/calluses #140 grams pramipexole 0.25 mg tablet 0.25 - 0.75 mg (1 - 3 x 0.25 mg) 10/13/24 PO .HS #90 tabs Allergies Allergy/AdvReac Type Severity Reaction Status Date / Time Iodinated Contrast Media Allergy Severe Swelling Verified 10/13/24 14:48 of Lip/Tongue/Throat Penicillins Allergy Severe Swelling Verified 10/13/24 14:48 of Lip/Tongue/Throat Review of Systems Status of ROS: Reports: 6 or more systems reviewed and unremarkable except as noted in History and below [facility] Medical History Obesity ?E66.9 - Obesity, unspecified (ICD-10) Atypical pigmented skin lesion ?L81.9 - Disorder of pigmentation, unspecified (ICD-10) Pneumonia ?J18.9 - Pneumonia, unspecified organism (ICD-10) Asthma ?J45.909 - Unspecified asthma, uncomplicated (ICD-10) Surgical History History of hysteroscopy ?Z98.890 - Other specified postprocedural states (ICD-10) Hx of dilation and curettage ?Z98.890 - Other specified postprocedural states (ICD-10) H/O ovarian cystectomy ?Z98.890 - Other specified postprocedural states (ICD-10) ?Z87.42 - Personal history of other diseases of the female genital tract (ICD-10) History of delivery ?Z98.891 - History of uterine scar from previous surgery (ICD-10) Carpal tunnel syndrome on right ?G56.01 - Carpal tunnel syndrome, right upper limb (ICD-10) Family History Mother Breast cancer Daughter Bleeding disorder Other Alcohol dependence Depression Diabetes Heart disease Seizure disorder Stroke Social History Smoking Status: Current every day smoker Do you use any of these nicotine containing products: None How often do you have a drink containing alcohol: never AUDIT-C Alcohol total score: 0 Non-prescribed substance use: denies use service: No Exam Narrative: Exam Narrative: Pleasant. Of good energy. Skin is warm and dry. I do appreciate some subcutaneous nodules diffusely over her right forearm is demonstrated. No inflammatory changes. I do not see gouty tophi actually at the joints. She has a minimally inflamed scratch at the right lower outer leg. No purulent drainage or calor or induration here really. The left great toe looks to have an ingrowing nail on the medial aspect. There is moisture here consistent with some drainage and faint erythema medially. Generalized swollen toe. With small fissure ring. The right great toe is markedly swollen and deformed. Edematous skin from moisture. Looks to be ingrowing the nails. Deep fissures. There is some erythema on the dorsum of the middle toe. Moisture extends throughout the toes. Const: Vital Signs, click to edit/add: Vital Signs - 24 hr 10/13/24 14:41 Temperature 98.4 F Pulse Rate [Right Pulse Oximeter] 80 Respiratory Rate 22 Blood Pressure [Ri ght Upper Arm] 121/71 Pulse Oximetry 95 Oxygen Delivery Me thod Room Air Documenting provider has reviewed patient's vital signs: yes Course Vital Signs Vital signs: Initial Vital Signs Temperature 98.4 F 10/13/24 14:41 Temperature Source Temporal Artery Scan 10/13/24 14:41 Pulse Rate 80 10/13/24 14:41 Pulse Rhythm Regular 10/13/24 14:41 Pulse Strength 3+ Normal 10/13/24 14:41 Respiratory Rate 22 10/13/24 14:41 Blood Pressure 121/71 10/13/24 14:41 Blood Pressure Mean 87 10/13/24 14:41 Blood Pressure Position Sitting 10/13/24 14:41 Pulse Oximetry 95 10/13/24 14:41 Oxygen Delivery Method Room Air 10/13/24 14:41 Vital Signs Temperature 98.4 F 10/13/24 14:41 Pulse Rate 80 10/13/24 14:41 Respiratory Rate 22 10/13/24 14:41 Blood Pressure 121/71 10/13/24 14:41 Pulse Oximetry 95 10/13/24 14:41 Oxygen Delivery Method Room Air 10/13/24 14:41 Temperature 98.4 F 10/13/24 14:41 Pulse Rate 80 10/13/24 14:41 Respiratory Rate 22 10/13/24 14:41 Blood Pressure 121/71 10/13/24 14:41 Pulse Oximetry 95 10/13/24 14:41 Oxygen Delivery Method Room Air 10/13/24 14:41 Medical Decision Making MDM Narrative Medical decision making narrative: May well have infection here. Does not have a appear to have a runaway cellulitis. I would have some potential concerns about osteomyelitis. Would do basic x-ray imaging with this concern. She does have close follow-up with Podiatry. I do not think that this represents gout per her concern. Seems to have subcutaneous/fibroma type nodules though they are not painful. Currently on doxycycline. Will check labs perhaps indicate worse infection then appears here. Can check uric acid whether not this would be diagnostic of anything but elevated might be helpful. The subcutaneous nodules that she appears to have I do not think or gouty tophi. X-rays of bilateral great toes show significant arthropathy by my read but do not see periosteal inflammatory reactions to indicate osteomyelitis. Radiology over-read as below TECHNIQUE: Right foot two views. COMPARISON: None. FINDINGS: There is advanced arthropathy of the 1st interphalangeal joint. No discrete lytic or destructive osseous lesion by radiography. [id number] degenerative changes elsewhere greatest in the midfoot. Calcaneal enthesophytes. Soft tissue prominence about the 1st digit. No radiopaque foreign body evident. IMPRESSION: No radiographic evidence of osteomyelitis. TECHNIQUE: Foot radiograph 2 views left COMPARISON: None FINDINGS: Bone: No acute fractures or aggressive bone lesions are identified. There is a moderate plantar calcaneal spur and a moderate posterosuperior enthesophyte present. Joint: Mild osteoarthritis of the midtarsal joints are noted. Mild lateral subluxation of the 1st distal phalanx is noted. No significant ankle effusion is seen. Soft tissue: Unremarkable. No radiopaque foreign bodies are seen. IMPRESSION: 1. No acute osseous injuries or abnormalities are noted. White count very mildly elevated as is CRP. ESR is normal. Is already taking think appropriate antibiotic and has follow-up pending with Podiatry. See patient discharge plan for further discussion Medical Records Medical records reviewed: Yes I reviewed the patient's medical records Lab Data Lab results reviewed: Yes I reviewed the patient's lab results Labs: Lab Results 10/13/24 Range/Units 16:16 WBC 11.97 H (4.50-11.00) K/uL RBC 4.41 (4.00-5.20) m/uL Hgb 12.3 (12.0-16.0) gm/dL Hct 38.2 (33.0-51.0) % MCV 87 (80-100) fL MCH 28 (26-34) pg MCHC 32 (32-36) gm/dL RDW Coeff of Nena 16.1 H (11.5-15.5) % Plt Count 294 (140-440) K/uL Neut % (Auto) 70.6 (42.0-72.0) % Lymph % (Auto) 18.3 L (20-44) % Maries % (Auto) 8.9 (0.0-11.0) % Eos % (Auto) 0.9 (0.0-7.0) % Baso % (Auto) 0.3 (0.0-3.0) % Neut # (Auto) 8.50 H (1.7-7.0) K/uL Lymph # (Auto) 2.20 (0.90-2.90) K/uL Maries # (Auto) 1.10 H (0.00-0.90) K/UL Eos # (Auto) 0.10 (0.00-0.50) K/uL Baso # (Auto) 0.00 (0.00-0.30) K/uL Abs Immat Gran (auto) 0.10 (0.00-0.30) K/uL Imm/Tot Granulo (auto) 1.0 % ESR 14 (2-20) mm/hr Sodium 139 (135-149) mmol/L Potassium 3.7 (3.6-5.1) mmol/L Chloride 101 (96-114) mmol/L Carbon Dioxide 28 (20-32) mmol/L Anion Gap 10 (7-15) mEq/L BUN 19 (5-24) mg/dL Creatinine 0.6 (0.5-1.5) mg/dL Estimated Creat Clear 101.17 Estimated GFR 112 ml/min Glucose 115 (60-115) mg/dL Uric Acid 6.0 (2.2-8.4) mg/dL Calcium 9.8 (8.4-10.6) mg/dL C-Reactive Protein 2.2 H (0.5-1.0) mg/dL Discharge Plan Discharge Clinical Impression: Arthropathy, Ingrown nail, Cellulitis Additional Instructions: Take this disc of images with you. Follow-up with podiatry as scheduled next week. Continue taking your doxycycline at this point. Can otherwise take ibuprofen or naproxen or acetaminophen in addition to your prescribed medication for pain. Elevate whenever at rest. Soak a couple of times daily in warm Epson salt water or warm soapy water. Try to keep feet dry between soaks. Be seen sooner for marked increase in swelling/redness/pain or fever. Prescribing ammonium lactate cream as requested. Prescriptions: New ammonium lactate 12 % cream 1 applic topical BID PRN (Reason: dry skin/calluses) Qty: 140 0RF No Action (DME) Condoms-Wes Lubricated Device See Rx Instructions .ROUTE .MEDSUPPLY Qty: 3 Patient Comments: Use as directed. Rx Instructions: As directed ammonium lactate 12 % cream topical BID PRN oxycodone-acetaminophen 5-325 mg tablet 1 - 2 tab PO Q6H PRN (Reason: chronic pain) sertraline [Zoloft] 100 mg tablet 200 mg PO QDAY Qty: 90 2RF nicotine 21-14-7 mg/24 hr patch, TD daily, sequential See Rx Instructions transdermal .COMPLEX Qty: 56 1RF Rx Instructions: apply 1-21 mg NICOTINE PATCH daily for 28 days; follow with 1-14 mg PATCH daily for 14 days, then 1-7mg PATCH daily for 14 days transdermal triamterene-hydrochlorothiazid 37.5-25 mg capsule 2 cap PO QAM Qty: 180 1RF fluticasone propion-salmeterol [Advair Diskus] 250-50 mcg/dose blister with device 1 inh inhalation BID Qty: 60 3RF Vitron-C 65 mg iron- 125 mg tablet,delayed release (DR/EC) 1 tab PO QDAY Qty: 90 0RF albuterol sulfate 90 mcg/actuation HFA aerosol inhaler 2 puff inhalation Q6H PRN (Reason: shortness of breath or wheezing) Qty: 6.7 0RF (DME) Blood Glucose Test Strip See Rx Instructions .ROUTE .MEDSUPPLY Qty: 100 2RF Rx Instructions: bid (DME) blood-glucose meter [Blood Glucose Monitoring] Kit See Rx Instructions .ROUTE .MEDSUPPLY Qty: 1 0RF Rx Instructions: As directed (DME) lancets [Accu-Chek Softclix Lancets] Misc See Rx Instructions .Route Qty: 100 3RF Rx Instructions: bid lorazepam 0.5 mg tablet 0.5 mg PO BID PRN (Reason: anxiety) Qty: 60 1RF doxycycline hyclate 100 mg capsule 100 mg PO BID Qty: 20 1RF clonidine HCl 0.1 mg tablet 0.1 mg PO BID PRN (Reason: hypertensive emergency) Qty: 60 0RF Rx Instructions: take for BP >180 gabapentin 300 mg capsule 900 mg PO TID Qty: 270 8RF cholecalciferol (vitamin D3) 50 mcg (2,000 unit) tablet See Rx Instructions .ROUTE .COMPLEX Qty: 100 3RF Dose Instruction: TAKE 1 TABLET (2000 UNITS) BY MOUTH DAILY Rx Instructions: TAKE 1 TABLET (2000 UNITS) BY MOUTH DAILY labetalol 200 mg tablet 400 mg PO BID Qty: 120 8RF potassium chloride 10 mEq capsule, extended release 20 meq PO BID Qty: 240 3RF Rx Instructions: Take 20 mEq by mouth twice daily. nicotine 21 mg/24 hr patch 24 hour 1 patch transdermal Q24H Qty: 28 1RF nicotine 14 mg/24 hr patch 24 hour 1 patch transdermal Q24H Qty: 14 1RF nicotine 7 mg/24 hr patch 24 hour 1 patch transdermal Q24H Qty: 14 1RF bupropion HCl [Wellbutrin SR] 150 mg tablet sustained-release 12 hr 150 mg PO BID Qty: 60 1RF losartan 50 mg tablet 50 mg PO BID Qty: 180 0RF levothyroxine 75 mcg tablet 75 mcg PO QDAY Qty: 90 3RF Patient Comments: TAKE 1 TABLET (75 MCG) BY MOUTH DAILY. pramipexole 0.25 mg tablet 0.25 - 0.75 mg PO .HS Qty: 90 2RF Rx Instructions: administer 2 - 3 hours before bedtime Follow Up/Referrals: Michael Harvey MD [Primary Care Provider] - Stand Alone Forms: [facility] Info Instructions
--- NOTE | 2024-10-13 15:22 | CRLHL7_ITS ---
For Patients: As a result of the Cures Act, medical imaging exams and procedure reports are released immediately into your electronic medical record. You may view this report before your referring provider. If you have questions, please contact your health care provider. INDICATION: Marked swelling. Drainage of right great toe. Possible osteomyelitis. TECHNIQUE: Right foot two views. COMPARISON: None. FINDINGS: There is advanced arthropathy of the 1st interphalangeal joint. No discrete lytic or destructive osseous lesion by radiography. [id number] degenerative changes elsewhere greatest in the midfoot. Calcaneal enthesophytes. Soft tissue prominence about the 1st digit. No radiopaque foreign body evident. IMPRESSION: No radiographic evidence of osteomyelitis. Dictated by Cesario Isaacs MD @ 10/13/2024 4:29:38 PM (Electronically Signed)
--- NOTE | 2024-10-13 15:22 | CRLHL7_ITS ---
For Patients: As a result of the Century Cures Act, medical imaging exams and procedure reports are released immediately into your electronic medical record. You may view this report before your referring provider. If you have questions, please contact your health care provider. INDICATION: Foot Swelling of left great toe TECHNIQUE: Foot radiograph 2 views left COMPARISON: None FINDINGS: Bone: No acute fractures or aggressive bone lesions are identified. There is a moderate plantar calcaneal spur and a moderate posterosuperior enthesophyte present. Joint: Mild osteoarthritis of the midtarsal joints are noted. Mild lateral subluxation of the 1st distal phalanx is noted. No significant ankle effusion is seen. Soft tissue: Unremarkable. No radiopaque foreign bodies are seen. IMPRESSION: 1. No acute osseous injuries or abnormalities are noted. Dictated by Gomez Abreu MD @ 10/13/2024 4:28:50 PM Dictated by: Gomez Abreu MD @ 10/13/2024 16:28:54 (Electronically Signed)
[2024-10-13 16:24] LABS: Basophils Percent Auto 0.3 % (0.0-3.0); Eosinophils Percent Auto 0.9 % (0.0-7.0); Hematocrit 38.2 % (33.0-51.0); Hemoglobin* 12.3 gm/dL (12.0-16.0); Lymphocytes Percent Auto 18.3 % (20-44); Mean Corpuscular HGB Conc 32 gm/dL (32-36); Mean Corpuscular Hemoglobin 28 pg (26-34); Mean Corpuscular Volume 87 fL (80-100); Monocytes Percent Auto 8.9 % (0.0-11.0); Neutrophils Percent Auto 70.6 % (42.0-72.0); Platelet Count* 294 K/uL (140-440); RDW Coefficient of Variation % 16.1 % (11.5-15.5); Red Blood Count 4.41 m/uL (4.00-5.20); White Blood Count* 11.97 K/uL (4.50-11.00)
[2024-10-13 16:27] LABS: Slide Review Reflex No
[2024-10-13 16:34] LABS: Chloride* 101 mmol/L (96-114); Potassium* 3.7 mmol/L (3.6-5.1); Sodium* 139 mmol/L (135-149)
[2024-10-13 16:37] LABS: Anion Gap 10 mEq/L (7-15); Blood Urea Nitrogen* 19 mg/dL (5-24); Carbon Dioxide* 28 mmol/L (20-32); Creatinine* 0.6 mg/dL (0.5-1.5); Est. Creatinine Clearance* 101.17; Estimated Glomerular Filt Rate 112 ml/min
[2024-10-13 16:38] LABS: Calcium* 9.8 mg/dL (8.4-10.6); Glucose* 115 mg/dL (60-115)
[2024-10-13 16:40] LABS: C Reactive Protein* 2.2 mg/dL (0.5-1.0)
[2024-10-13 17:42] LABS: Erythrocyte SedimentationRate* 14 mm/hr (2-20)
== END 2024-10-13 17:19 | disposition home or self-care (01) ==
PROVIDERS: Emergency Provider Family Medicine; PCP Family Medicine
DX: L60.0 Ingrowing nail (principal); M12.9 Arthropathy, unspecified
CPT/HCPCS: 36415; 73620; 80048; 84550; 85025; 85651; 86140; 99284

== ENCOUNTER 2024-10-26 19:09 | Outpatient (CLI) | payer OTHER, BC, SELFPAY ==
--- OUTSIDE RECORDS SUMMARY | 2024-10-26 19:13 | XMS_ITS | Encounter Summary ---
Author Organization [facility] Address [address] [place] [address]. [place] [address] Care Team Providers Care Forensic Ballistics Expert Name Role Phone [facility]- Primary Care Provider Angie Lake PA-C Unavailable + [phone] Encounter Details Date Type Department Care Team (Late st Contact Info) Description 05/21/2021 [facility] Medical Advice [facility] [place] [id number] [facility] [address] [place] [id number] Angie Lake PA-C [address] [facility] [place] [id number] Social History Tobacco Use Types Packs/Day Years Used Date Smoking Tobacco: Former Cigarettes 1 15 0 06/30/2004 - 06/30/2019 Smokeless Tobacco: Never Alcohol Use Standard Drinks/Week Comments Yes 0 (1 standard drink = 0.6 oz pure alcohol) occassional/rare because of current Pain Rx Comments No Sex and Gender Information Value Date Recorded Sex Assigned at Not on file 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 Gender Identity Not on file Sexual Orientation Not on file documented as of this encounter Plan of Treatment Not on file documented as of this encounter Visit Diagnoses Not on filedocumented in this encounter Additional Health Concerns Infection Onset Date Last Indicated Resolved Time COVID-19 07/29/2022 07/29/2022 08/19/2022 11:3 9 PM CDT documented as of this encounter Care Teams Forensic Ballistics Expert Relationship Specialty Start Date End Date [facility]- [address] [place] [address] PCP - General 07/31/20 Angie Lake PA-C [address] [place] [id number] Assigned Surgical Provider 05/26/21 documented as of this encounter
--- OUTSIDE RECORDS SUMMARY | 2024-10-26 19:13 | XMS_ITS | Clinical Summary ---
Author Organization [facility] Address [address] [place] [id number] Care Team Providers Care Race Car Driver Name Role Phone [facility]- Primary Care Provider Allergies Active Allergy Reactions Criticality Noted Date Comments Contrast Dye 09/21/2017 Penicillin G 09/21/2017 Medications Vit-Fe Fumarate-FA ( MULTIVITAMIN PLUS IRON) 27-0.8 [...] mg by mouth 3 times daily Active oxyCODONE-acetam inophen (PERCOCET) 5-325 MG per tablet Take by mouth every 4 hours as needed for moderate to severe pain Active albuterol (2.5 MG/3ML) 0.083% neb solution Take 1 vial by nebulization every 6 hours as needed for shortness of breath / dyspnea or wheezing Active Inositol-D Chiro-Inositol (OVASITOL) 2000-50 MG PACK Take by mouth 2 times daily Active fluticasone-salm eterol (ADVAIR) 100-50 MCG/DOSE inhaler Inhale 1 puff into the lungs 2 times daily Active potassium chloride ER (K-TAB) 20 MEQ CR tablet Take 40 mEq by mouth 2 times daily Active cyanocobalamin (CYANOCOBALAMIN) 1000 MCG/ML injection Inject 1 mL into the muscle every 14 days Active busPIRone HCl (BUSPAR) 30 MG tablet Take 15 mg by mouth 2 times daily Active hydrochlorothiaz alireza (HYDRODIURIL) 50 MG tablet Take 50 mg by mouth daily Active sertraline (ZOLOFT) 50 MG tablet Take 50-100 mg by mouth daily Active HYDROXYZINE PAMOATE PO Take by mouth every 6 hours as needed for itching Active ibuprofen (ADVIL/MOTRIN) 600 MG tabletIndication s:Irregular menstruation, unspecified Take 1 tablet (600 mg) by mouth every 6 hours as needed for other (mild and/or inflammatory pain) 30 tablet 0 Active vitamin E 400 units TABS Take 400 Units by mouth daily Active terbinafine (LAMISIL) 250 MG tablet Take 250 mg by mouth daily Active Cholecalciferol (VITAMIN D3) 50 MCG (2000 UT) TABS Take 1 tablet by mouth daily 1 Active cloNIDine (CATAPRES) 0.1 MG tablet TAKE 1 TABLET (0.1 MG) BY MOUTH 2 TIMES A DAY NEEDED. take for BP >180. 1 Active ferrous gluconate (FERGON) 324 (38 Fe) MG tablet Take 324 mg by mouth daily 1 Active labetalol (NORMODYNE) 200 MG tablet Take 400 mg by mouth daily Active metFORMIN (GLUCOPHAGE-XR) 500 MG 24 hr tablet Take 1,500 mg by mouth daily 1 Active KLOR-CON 20 MEQ CR tablet TAKE 2 TABLETS (40MEQ) IN THE MORNING, AND 1 TABLET (20MEQ) AT BEDTIME. 1 Active pramipexole (MIRAPEX) 0.25 MG tablet TAKE 1 TO 3 TABLETS (0.25-0.75MG) BY MOUTH AT BEDTIME. 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 Gender Identity Not on file Sexual Orientation Not on file Last Filed Vital Signs Vital Sign Reading Time Taken Comments Blood Pressure 152/94 06/09/2023 1:49 AM CDT Pulse 81 06/09/2023 1:49 AM CDT Temperature 36.7 C (98.1 F) 06/09/2023 1:49 AM CDT Respiratory Rate 16 06/09/2023 1:49 AM CDT [...] Td or Tdap) 03/11/2032 03/11/2022, 11/19/2018, 10/11/2009 RSV VACCINE (1 - 1-dose 75+ series) 2053 HEPATITIS B IMMUNIZATION Completed 022, 10/29/2021, 05/28/2020, [...] 6:33 PM CDT 06/08/2023 6:43 PM CDT us Yasmin Rubio MD LAB - BLOOD ORDERABLES Final R esult [facility] [address] [facility] (1st floor, no room number) [place] [address], [facility] [phone] from Last 3 Months or Most Recently Relevant to Health Maintenance Insurance none (Work) [id number] [address] [place] [address] [facility] Care Teams Race Car Driver Relationship Specialty Start Date End Date [facility]- [address] [place] [address] PCP - General 07/31/20
--- OUTSIDE RECORDS SUMMARY | 2024-10-26 19:13 | XMS_ITS | Data Portability ---
Author Organization [facility], [facility] Address [address] [place] [address] Assessment No assessment recorded. Plan of Treatment Reminders Order Date Submit Date Provider Last Modified By Organization Details Last Modified Time Details Appointments None recorded. Lab urinalysis, dipstick 2022 023 [facility], [address], [place], [address], 3 14:43:44 Referral [email or web address] gy physical therapy referral - Please call patient to schedule Pelvic Floor Physical Therapy. Thank you 2022 023 [facility], [address] [place], [address], 3 16:50:00 patient navigator referral 2022 023 [email or web address] [id number] Not available 3 09:40:27 Procedures None recorded. Surgeries None recorded. Imaging None recorded. Medication Orders Detrol LA 2 mg capsule,ext ended release 2022 023 [id number], [address] [place], [address], 14:49:13 Patient TargetsNo targets recorded. Patient Instructions Encounter Date Encounter Id Patient Instructions Last Modified By Organization Details Last Modified Time 03/12/2023 [id number] Mixed urinary incontinence: -UUI=JULIANNA - recommend first [...] Follow up in 3 months following PFPT. [email or web address] Not available 03/12/2023 15:20:01 Reason for Referral [...] uriscan NEGATI VE negati ve Not Available [facility] [address], [place], [address], 03/12/2023 14:43:44 03/12/2003/12/2023 UA WITHO UT MICRO - CS URISC AN bilirubin - uriscan NEGATI VE mg/dL negati ve Not Available [facility] [address], [place], [address], 03/12/2023 14:43:44 03/12/20 23 03/12/2023 UA WITHO UT MICRO - CS URISC AN urobilinogen - uriscan NORMAL mg/dL normal Not Available [facility] [address], [place], [address], 03/12/2023 14:43:44 03/12/20 23 03/12/2023 UA WITHO UT MICRO - CS URISC AN ketones - uriscan NEGATI VE mg/dL negati ve Not Available [facility] [address], [place], [address], 03/12/2023 14:43:44 03/12/20 23 03/12/2023 UA WITHO UT MICRO - CS URISC AN protein - uriscan 10 mg/dL negati ve abnormal Not Available [facility] [address], [place], [address], 03/12/2023 14:43:44 03/12/20 23 03/12/2023 UA WITHO UT MICRO - CS URISC AN nitrites - uriscan NEGATI VE negati ve Not Available [facility] [address], [place], [address], 03/12/2023 14:43:44 03/12/20 23 03/12/2023 UA WITHO UT MICRO - CS URISC AN glucose - uriscan NEGATI VE mg/dL negati ve Not Available [facility] [address], [place], [address], 03/12/2023 14:43:44 03/12/20 23 03/12/2023 UA WITHO UT MICRO - CS URISC AN pH - uriscan 5.00 5.00-9 .00 Not Available [facility] [address], [place], [address], 03/12/2023 14:43:44 03/12/20 23 03/12/2023 UA WITHO UT MICRO - CS URISC AN sp. gravity - uriscan 1.03 1.01-1 .03 Not Available [facility] [address], [place], [address], 03/12/2023 14:43:44 03/12/20 23 03/12/2023 UA WITHO UT MICRO - CS URISC AN leukocytes - uriscan NEGATI VE negati ve Not Available [facility] [address], [place], [address], 03/12/2023 14:43:44 03/12/20 23 03/12/2023 UA WITHO UT MICRO - CS URISC AN color - uriscan YELLOW Not Available [facility] [address], [place], [address], 03/12/2023 14:43:44 03/12/20 23 03/12/2023 UA WITHO UT MICRO - CS URISC AN clarity - uriscan SL CLOUDY Not Available [facility] [address], [place], [address], 03/12/2023 14:43:44 03/12/20 23 03/12/2023 UA WITHO [...] for provi johnathan revie w. Not Available [facility] [address], [place], [address], 03/12/2023 14:43:44 Result Notes None recorded. Procedures Surgical History Date Name Laterality Status Provider Name and Address Organization Details Recorded Time 4 Bladder Scan cancelled KYAW CONTRERAS [address], [place], [address], [facility] 06/09/2023 14:56:18 3 Past Data Reviewed completed KYAW CONTRERAS [address], [place], [address], [facility] 02/03/2023 15:05:45 3 In and Out Catheterizati on- female completed KYAW CONTRERAS [address], [place], [address], [facility] 03/12/2023 14:36:58 delivery completed Not Available Health Note 03/11/2023 14:30:09 Imaging Results None recorded. Procedure Notes None recorded. Medical Equipment None Reported. Allergies Allergen ID Allergen Name Allergen Category Reaction Reaction Severity Criticality Documentation Date Start Date Code Code System Note Provider Name and Address Organization Details Recorded Time 564236 Medicinal product containin g penicilli n and acting as antibacte rial agent (product) medicatio n facial swelling hives Not available Not available Not available 03/11/2023 25062 05 SNOMED facia l swell ing and [...] completed Not Available Not Available Not Available [facility]/gram topical powder Apply topically to [...] Updated DateTime 03/12/2023 162.56 cm 38.1 kg/m2 813456.51 g Trinh Villegas [place] [facility] 03/12/2023 14:15:21 Social History Question Answer [...] Age of this Age Resolved Age Notes LastModified by Organization Details LastModified Time Mother Family history of breast cancer [email or web address] Not available 2022 14:30:07 Mother Family history of diabetes mellitus [email or web address] Not available 2022 14:30:07 Maternal Grandmother Family history of breast cancer [email or web address] Not available 2022 14:30:07 Paternal Grandmother Family history of breast cancer [email or web address] Not available 2022 14:30:07 Paternal Grandmother Family history of cancer of colon [email or web address] Not available 2022 14:30:08 Paternal Grandmother Family history of diabetes mellitus [email or web address] Not available 2022 14:30:08 Father Family history of cardiac disorder [email or web address] Not available 2022 14:30:08 Medical History Condition Response Other N High Blood Pressure Y Kidney Stones N Depression Y Lung Disease N GERD/Acid Reflux Y Sexually Transmitted Infection N Cancer N High Cholesterol N Diabetes N Bleeding Disorder N Heart Disease N Gynecological History Statement/Question Response Irregular periods N Leaking urine with intercourse N Heavy periods N Sexually Active? Y Pain with intercourse Y Obstetrics History GPAL:G 0 P 0 0 0 0 Immunizations Vaccine Type Date Status Provider Name and Address Organization Details Recorded Time SARS-COV-2 (COVID-19) vaccine, UNSPECIFIED 12/04/2021 payal ashton [facility] 03/12/2023 14:08:25 influenza, unspecified formulation 10/01/2022 payal ashton [facility] 03/12/2023 14:08:25 Past Encounters Encounter ID Performer Location Encounter Start Date Encounter Closed Date Diagnosis/Indication Diagnosis SNOMED-CT Code Diagnosis ICD10 Code [id number] KYAW CONTRERAS [facility] [address] [address] [place] [address] 03/12/2023 14:04:37 03/12/2023 15:26:57 Urgent desire to urinate 57474149 R39.15 Mixed urin braulio incontinence [id number] N39.46 Health Concerns Section Related Observation LastModified by Organization Detai ls LastModified Time None Recorded Concern Status LastModified by Organization Details LastModified Time None Recorded Advance Directives Directive None Recorded Payers Encounter Date Sequence Insurance Name Policy Number Policy King Covered Member ID King Member ID Guarantor Name 03/12/2023 1 [facility] [id number] Ash Del Rio [id number] Whit Del Rio 03/12/2023 2 [id number] Whit Del [place] [id number] Whit Del Rio Notes Date Note Type Note Provider Name and Address Organization Details Recorded Time 3 text/html Patient seen today for urgent desire to urinate.Has some UUISUI with cough, sneeze, and laughIn the morning, leaks en route to the bathroomJust got over pneumonia - was wearing depends during this.Has lost entire bladder at times due to urge.UUI=SUINF: 3-4 timesDF: 5-6 timesPads per day: 3-4 pads per dayNo history of recurrent urinary tract infections, kidney stones, gross hematuria2 children, delivered via c-sectionSymptomatic prolapse: noneAbdominal surgeries: , cyst removalConstipation: none - more loose stoolsNeurologic history: bilateral peripheral neuropathy (no DM)Caffeine use: 1 coke per day, coffee occasionallySmoking history: yes - 1 pack per day Urine testing:UA 2/3: no infection or microheme Cr 0.5 KYAW CONTRERAS [address] [place] [address],[address], [place], [address], [facility] 03/12/2023 15:20:18 OBGyn Episode No OBEpisode recorded.
--- OUTSIDE RECORDS SUMMARY | 2024-10-26 19:13 | XMS_ITS | Clinical Summary ---
Author Organization [facility] Address [address] [place] [address] Care Team Providers Care Employee Benefits Coordinator Name Role Phone Betsy Orantes MD Primary Care Provider [phone] Source Comments You are receiving this document [...] for each transition of care or referral. [employer] Allergies Active Allergy Reactions Criticality Noted Date [...] 81 06/23/2023 10:54 PM CDT Temperature 36.6 C (97.8 F) 06/23/2023 10:54 PM CDT Respiratory Rate 18 06/23/2023 10:54 PM CDT [...] age to complete this topic Care Teams Employee Benefits Coordinator Relationship Specialty Start Date End [place] [address] PCP - General 03/02/11
--- OUTSIDE RECORDS SUMMARY | 2024-10-26 19:13 | XMS_ITS | Encounter Summary ---
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 No / Unsure 10/25/2021 3:39 PM MAIL CLERKS SUPERVISOR documented as of this encounter Plan of Treatment Not on file documented as of this encounter Visit Diagnoses Not on filedocumented in this encounter Additional Health Concerns Infection Onset Date Last Indicated Resolved Time COVID-19 07/29/2022 07/29/2022 08/19/2022 11:3 9 PM CDT documented as of this encounter Care Teams Art Therapist Relationship Specialty Start Date End Date [facility]- [address] [place] [address] PCP - General 07/31/20 Angie Lake PA-C [address] [address] Assigned Surgical Provider 05/26/21 documented as of this encounter
--- OUTSIDE RECORDS SUMMARY | 2024-10-26 19:13 | XMS_ITS | Clinical Summary ---
Author Organization [facility] Address [place], [place] [address] Care Team Providers Care Carbide Tool Maker Name Role Phone Sharon Pineda MD Primary [...] Allergen (Include Detail In Comments) Edema 07/15/2013 Utting popsicle - lips swelling / urtcaria Penicillins [...] Gabapentin. (Is trying gluten free diet and home care manager rn with some success) Restless leg Syndrome on Pramipexole H/O anemia Has one patent fallopian tube-due to cyst removal from fallopian tube Fibromyalgia Depression/Anxiety Has child with Eosinophilic Esophagitis (Can only eat 10 food choices) REFERRING PHYSICIAN/PHONE/LAST UPDATE: Dr Lewis [phone] Primary MD approves scheduling of recommended ultrasounds/testing: Unknown SPECIALISTS/PHONE: Primary MD Dr Edwin Alfred FP Pain management @ [facility] until 04/21/17. 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/07/2014 Paratubal cyst 04/03/2014 Pelvic cyst 03/14/2014 Hypokalemia 04/01/2011 Overview (04/01/2011): Secondary to diuretic lumbar facet arthropathy 09/16/2010 Thoracic disc herniation 09/10/2010 DUB (dysfunctional uterine bleeding) 06/19/2010 Sleep apnea 06/19/2010 Overview (09/16/2010): cpap OCD (obsessive compulsive disorder) 05/28/2010 Binge eating 05/28/2010 Overview (05/28/2010): [facility] Myalgia and myositis, unspecified 05/22/2010 Fibromyalgia [...] (05/15/2014): Pain contract initiated with Bhavana Elizalde TRACK BROOM OPERATOR at [facility] on 05/10/2014. Amanda Ruiz .................... 05/15/2014 11:00 AM narcotic contract 10/01/2007 10/09/2016 Overview (08/13/2010): [facility] controlled substance agreement initiated 08/13/2010 Immunizations [...] (7 lb 15.3 oz) M CS-LT ranv Livin g Avila Comments LMP unknown Last Filed Vital Signs Vital Sign Reading Time Taken Comments Blood Pressure 177/79 12/27/2022 11:43 AM CENTRAL OFFICE TECHNICIAN Pulse 83 12/27/2022 11:43 AM CENTRAL OFFICE TECHNICIAN Temperature 36.8 C (98.3 F) 12/27/2022 11:43 AM CENTRAL OFFICE TECHNICIAN Respiratory Rate 18 12/27/2022 11:43 AM CENTRAL OFFICE TECHNICIAN Oxygen Saturation 97% 12/27/2022 11:43 AM CENTRAL OFFICE TECHNICIAN Inhaled Oxygen Concentration - - Weight 104.3 kg (230 lb) 12/27/2022 11:43 AM CENTRAL OFFICE TECHNICIAN Height 162.6 cm (5' 4) 12/27/2022 11:43 AM CENTRAL OFFICE TECHNICIAN Body Mass Index 39.48 12/27/2022 11:43 AM CENTRAL OFFICE TECHNICIAN Plan of Treatment Health Maintenance Due Date [...] 16 Negative Negative 09/21/2023 11:45 AM CDT [facility] TYPE 18 Negative Negative 09/21/2023 11:45 AM CDT [facility] OTHER HIGH RISK TYPES Negative Negative 09/21/2023 11:45 AM CDT [facility] Other (Cervical) 09/15/2023 2:50 PM CDT 09/17/2023 12:24 PM CDT Narrative [facility] - 09/21/2023 11:45 AM CDT HPV types 16, 18, 31, 33, 35, 39, 45, 51, 52, 56, 58, 59, 66 and 68 DNA were undetectable or below the pre-set threshold. Methodology: Cassie Trevon 4800 HPV Test Tiffanie Israel MD MICROBIOLOGY [facility] [address] [place] [address], [place] * (ABNORMAL) LIPID PANEL W REFLEX MEASURED LDL (03/28/2014 12:02 PM CDT) CHOLESTEROL,TOTAL 160 100 - 199 mg/dL 03/28/2014 10:12 PM CDT [facility] TRIGLYCERIDES 304(H) <150 mg/dL 03/28/2014 10:12 PM CDT [facility] HDL CHOLESTEROL 40(L) >40 mg/dL 4 10:12 PM CDT [facility] NON-HDL CHOLESTEROL 120 <145 mg/dl 03/28/2014 10:12 PM CDT [facility] CHOL/HDL RATIO 4.00 <4.50 03/28/2014 10:12 PM CDT [facility] LDL CHOLESTEROL 59 <=130 mg/dL 03/28/2014 10:12 PM CDT [facility] PATIENT STATUS FASTING 03/28/2014 10:12 PM CDT [facility] Blood specimen (specimen) BLOOD SPECIMEN / Unknown Venipuncture / Unknown 03/28/2014 12:02 PM CDT 03/28/2014 12:02 PM CDT Ovidio Larsen MD CHEMISTRY [facility] [address] [place] [address], [place] * ANTI HIV 1/2 (03/14/2009 3:31 PM CDT) ANTI HIV 1/2 Non-reacti ve [facility] Blood specimen (specimen) BLOOD SPECIMEN / Unknown 03/14/2009 3:31 PM CDT 03/14/2009 3:24 PM CDT Ovidio Larsen MD SEND OUTS [facility] INTERNAL ZIP [address] [place] [address] from Last 3 Months or Most Recently [...] 1:41 PM 10/11/2009 4:53 PM Care Teams Carbide Tool Maker Relationship Specialty Start Date End Date Sharon Pineda MD [address] [address] PCP - General Emergency Medicine 05/15/17
--- OUTSIDE RECORDS SUMMARY | 2024-10-26 19:13 | XMS_ITS | Referral Summary ---
Author Organization [facility] Address [address] [place] [address] Care Team Providers Care Biomass Production Manager Name Role Phone [facility]- Primary Care Provider Allergies Active [...] on file Legal Sex Female 3:25 AM MANAGER FIELD Gender Identity Not on file Sexual Orientation [...] metabolic panel (BMP) (06/08/2023 6:33 PM CDT) [facility] Signature Sodium 139 136 - 145 mmol/L 06/08/2023 [...] LAB - BLOOD ORDERABLES Final R esult [facility] [address] Lab (1st floor, no room number) [place] [address], [place] [phone] from Last 3 Months or Most Recently Relevant to Health Maintenance Insurance [facility] COMMERCIAL [facility] Care Teams Biomass Production Manager Relationship Specialty Start Date End Date [facility]- [address] [place] [address] PCP - General 07/31/20
--- NOTE | 2024-11-02 08:45 | W.PM.SLEEP ---
Sleep Study Details Details Interpreting Provider: Chrissie Date of Sleep Study: 10/26/24 Sleep Study Details: STUDY TYPE:? Home unattended ? BMI:? 45.5 ORDERING PROVIDER:? Wes INDICATION:? Concern about sleep apnea ? SLEEP SUMMARY:? 158 minutes monitored RESPIRATORY SUMMARY:? AHI 53.7 Low oxygen 79 32.7% of study oxygen less than 90% Snoring 100% PERIODIC LIMB MOVEMENTS OF SLEEP: Not recorded CARDIAC: Range of 49-88, mean 77.1 IMPRESSION:? Severe obstructive sleep apnea with significant oxygen desaturations for approximately 1/3 of the study RECOMMENDATION: CPAP is the favored modality. Weight loss is also recommended. Once effective therapy is established an overnight oximetry should be performed.
== END 2024-10-26 19:10 | disposition home or self-care (01) ==
PROVIDERS: PCP Family Medicine; Visit Provider Family Medicine
DX: G47.33 Obstructive sleep apnea (adult) (pediatric) (principal)
CPT/HCPCS: 95806

== ENCOUNTER 2024-11-04 16:48 | Outpatient (CLI) | payer OTHER, BC, SELFPAY ==
--- OUTSIDE RECORDS SUMMARY | 2024-11-04 16:50 | XMS_ITS | Referral Summary ---
Author Organization [facility] Address [address] [place] [address] Care Team Providers Care Steaming Cabinet Tender Name Role Phone [facility]- Primary Care Provider Allergies Active Allergy [...] on file Legal Sex Female 3:25 AM CHANNEL TURNER Gender Identity Not on file Sexual Orientation [...] metabolic panel (BMP) (06/08/2023 6:33 PM CDT) [facility] Signature Sodium 139 136 - 145 [...] LAB - BLOOD ORDERABLES Final R esult [facility] Care Lab [address] Lab (1st floor, no room number) [place] [address], [place] [phone] from Last 3 Months or Most Recently Relevant to Health Maintenance Insurance [facility] COMMERCIAL [facility] Care Teams Steaming Cabinet Tender Relationship Specialty Start Date End Date [facility]- [address] [place] [address] PCP - General 07/31/20
--- OUTSIDE RECORDS SUMMARY | 2024-11-04 16:50 | XMS_ITS | Clinical Summary ---
Author Organization [facility] Address [address] [place] [address] Care Team Providers Care Bull Wheel Worker Name Role Phone Betsy Orantes MD Primary Care Provider [phone] Source Comments You are receiving this document [...] for each transition of care or referral. [employer] Allergies Active Allergy Reactions Criticality Noted Date [...] patient's age to complete this topic RSV Aged Out No longer eligi ble based on patient's age to complete this topic MCV4 Aged Out No longer eligi ble based on patient's age to complete this topic Pneumococcal Aged Out No longer eligi ble based on patient's age to complete this topic Care Teams Bull Wheel Worker Relationship Specialty Start Date End [place] [address] PCP - General 03/02/11
--- OUTSIDE RECORDS SUMMARY | 2024-11-04 16:50 | XMS_ITS | Clinical Summary ---
Author Organization [facility] Address [address] [place] [address] Care Team Providers Care Art Therapy Certified Supervisor Name Role Phone [facility]- Primary Care Provider Allergies Active [...] on file Legal Sex Female 3:25 AM SOCIAL WORKER HEALTH SERVICES Gender Identity Not on file Sexual Orientation [...] LAB - BLOOD ORDERABLES Final R esult [facility] Care Lab [address] [facility] Lab (1st floor, no room number) [place] [address], [facility] [phone] from Last 3 Months or Most Recently Relevant to Health Maintenance Insurance none (Work) [id number] [id number] [facility] COMMERCIAL [facility] Care Teams Art Therapy Certified Supervisor Relationship Specialty Start Date End Date [facility]- [address] [place] [address] PCP - General 07/31/20
--- OUTSIDE RECORDS SUMMARY | 2024-11-04 16:50 | XMS_ITS | Encounter Summary ---
Author Organization [facility] Address [address] [place] [address] Care Team Providers Care Real Time Trader Name Role Phone [facility]- Primary Care Provider Angie Lake PA-C Unavailable + [phone] Encounter Details Date Type Department Care Team [...] on file Legal Sex Female 3:25 AM TREATING ENGINEER Gender Identity Not on file Sexual Orientation Not on file COVID-19 Exposure Response Date Recorded In the last month, have you been in contact with someone who was confirmed or suspected to have Coronavirus / COVID-19? No / Unsure 10/25/2021 3:39 PM TREATING ENGINEER documented as of this encounter Plan of Treatment Not on file documented as of this encounter Visit Diagnoses Not on filedocumented in this encounter Additional Health Concerns Infection Onset Date Last Indicated Resolved Time COVID-19 07/29/2022 07/29/2022 08/19/2022 11:3 9 PM CDT documented as of this encounter Care Teams Real Time Trader Relationship Specialty Start Date End Date [facility]- [address] [place] [address] PCP - General 07/31/20 Angie Lake PA-C [address] [address] Assigned Surgical Provider 05/26/21 documented as of this encounter
--- OUTSIDE RECORDS SUMMARY | 2024-11-04 16:51 | XMS_ITS | Encounter Summary ---
Author Organization [facility] Address [address] [place] [address]. [place] [address] Care Team Providers Care Tin Dipper Name Role Phone [facility]- Primary Care Provider Angie Lake PA-C Unavailable + [phone] Encounter Details Date Type Department Care Team (Late st Contact Info) Description 05/21/2021 [facility] [place] [facility] [place] [id number] [facility] [address] [place] [id number] Angie Lake PA-C [address] [facility] [place] [id number] Social History Tobacco Use Types Packs/Day Years Used Date Smoking Tobacco: Former Cigarettes 1 15 0 06/30/2004 - 06/30/2019 Smokeless Tobacco: Never Alcohol Use Standard Drinks/Week Comments Yes 0 (1 standard drink = 0.6 oz pure alcohol) occassional/rare because of current Pain Rx Comments No Sex and Gender Information Value Date Recorded Sex Assigned at Not on file Legal Sex Female 3:25 AM PICKING MACHINE OPERATOR HELPER Gender Identity Not on file Sexual Orientation Not on file documented as of this encounter Plan of Treatment Not on file documented as of this encounter Visit Diagnoses Not on filedocumented in this encounter Additional Health Concerns Infection Onset Date Last Indicated Resolved Time COVID-19 07/29/2022 07/29/2022 08/19/2022 11:3 9 PM CDT documented as of this encounter Care Teams Tin Dipper Relationship Specialty Start Date End Date [facility]- [address] [place] [address] PCP - General 07/31/20 Angie Lake PA-C [address] [id number] Assigned Surgical Provider 05/26/21 documented as of this encounter
--- OUTSIDE RECORDS SUMMARY | 2024-11-04 16:51 | XMS_ITS | Clinical Summary ---
Author Organization [facility] Address [place], [place] [address] Care Team Providers Care Sterile Process Tech Name Role Phone Sharon Pineda MD Primary [...] Allergen (Include Detail In Comments) Edema 07/15/2013 [place] popsicle - lips swelling / urtcaria Penicillins [...] Gabapentin. 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 Paratubal cyst 04/03/2014 Pelvic cyst 03/14/2014 Hypokalemia 04/01/2011 Overview (04/01/2011): Secondary to diuretic lumbar facet arthropathy 09/16/2010 Thoracic disc herniation 09/10/2010 DUB (dysfunctional uterine bleeding) 06/19/2010 Sleep apnea 06/19/2010 Overview (09/16/2010): cpap OCD (obsessive compulsive disorder) 05/28/2010 Binge eating 05/28/2010 Overview (05/28/2010): Following at [facility] Myalgia and myositis, unspecified 05/22/2010 Fibromyalgia [...] (05/15/2014): Pain contract initiated with 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 Amanda Ruiz .................... 05/15/2014 11:00 AM narcotic contract 10/01/2007 10/09/2016 Overview (08/13/2010): [facility] controlled substance agreement initiated 08/13/2010 Immunizations [...] Comments Blood Pressure 177/79 12/27/2022 11:43 AM PHARMACY TECH Pulse 83 12/27/2022 11:43 AM PHARMACY TECH Temperature 36.8 C (98.3 F) 12/27/2022 11:43 AM PHARMACY TECH Respiratory Rate 18 12/27/2022 11:43 AM PHARMACY TECH Oxygen Saturation 97% 12/27/2022 11:43 AM PHARMACY TECH Inhaled Oxygen Concentration - - Weight 104.3 kg (230 lb) 12/27/2022 11:43 AM PHARMACY TECH Height 162.6 cm (5' 4) 12/27/2022 11:43 AM PHARMACY TECH Body Mass Index 39.48 12/27/2022 11:43 AM PHARMACY TECH Plan of Treatment Health Maintenance Due Date [...] 16 Negative Negative 09/21/2023 11:45 AM CDT [facility] TYPE 18 Negative Negative 09/21/2023 11:45 AM CDT [facility] OTHER HIGH RISK TYPES Negative Negative 09/21/2023 11:45 AM CDT [facility] Other (Cervical) 09/15/2023 2:50 PM CDT 09/17/2023 12:24 PM CDT Narrative [facility] - 09/21/2023 11:45 AM CDT HPV types 16, 18, 31, 33, 35, 39, 45, 51, 52, 56, 58, 59, 66 and 68 DNA were undetectable or below the pre-set threshold. Methodology: Cassie Trevon 4800 HPV Test Tiffanie Israel MD MICROBIOLOGY [facility] [address] [place] [address], [place] * (ABNORMAL) LIPID PANEL W REFLEX MEASURED LDL (03/28/2014 12:02 PM CDT) CHOLESTEROL,TOTAL 160 100 - 199 mg/dL 03/28/2014 10:12 PM CDT [facility] TRIGLYCERIDES 304(H) <150 mg/dL 03/28/2014 10:12 PM CDT [facility] HDL CHOLESTEROL 40(L) >40 mg/dL 4 10:12 PM CDT [facility] NON-HDL CHOLESTEROL 120 <145 mg/dl 03/28/2014 10:12 PM CDT [facility] CHOL/HDL RATIO 4.00 <4.50 03/28/2014 10:12 PM CDT [facility] LDL CHOLESTEROL 59 <=130 mg/dL 03/28/2014 10:12 PM CDT [facility] PATIENT STATUS FASTING 03/28/2014 10:12 PM CDT [facility] Blood specimen (specimen) BLOOD SPECIMEN / Unknown Venipuncture / Unknown 03/28/2014 12:02 PM CDT 03/28/2014 12:02 PM CDT Ovidio Larsen MD CHEMISTRY [facility] [address] [place] [address], [place] * ANTI HIV 1/2 (03/14/2009 3:31 PM CDT) ANTI HIV 1/2 Non-reacti ve [facility] Blood specimen (specimen) BLOOD SPECIMEN / Unknown 03/14/2009 3:31 PM CDT 03/14/2009 3:24 PM CDT Ovidio Larsen MD SEND OUTS [facility] INTERNAL ZIP [address] [place] [address] from Last 3 Months or Most Recently [...] 1:41 PM 10/11/2009 4:53 PM Care Teams Sterile Process Tech Relationship Specialty Start Date End Date Sharon Pineda MD [address] [place] [address] PCP - General Emergency Medicine 05/15/17
== END 2024-11-04 16:49 | disposition home or self-care (01) ==
LOC: LKVREF 16:49
PROVIDERS: PCP Family Medicine; Visit Provider Family Medicine
DX: D64.9 Anemia, unspecified (principal); I10 Essential (primary) hypertension; L40.50 Arthropathic psoriasis, unspecified
CPT/HCPCS: 80048

== ENCOUNTER 2024-12-22 12:59 | Outpatient (CLI) | payer OTHER, BC, SELFPAY ==
[2024-12-22 16:36] LABS: Basophils Absolute Auto 0.03 K/uL (0.00-0.30); Basophils Percent Auto 0.3 % (0.0-3.0); Eosinophils Percent Auto 1.1 % (0.0-7.0); Hematocrit 33.6 % (33.0-51.0); Hemoglobin* 10.6 gm/dL (12.0-16.0); Immature Granulocytes Abs Auto 0.09 K/uL (0.00-0.30); Lymphocytes Absolute Auto 2.54 K/uL (0.90-2.90); Mean Corpuscular HGB Conc 32 gm/dL (32-36); Mean Corpuscular Hemoglobin 29 pg (26-34); Mean Corpuscular Volume 91 fL (80-100); Monocytes Percent Auto 9.2 % (0.0-11.0); Neutrophils Absolute Auto 5.79 K/uL (1.7-7.0); Neutrophils Percent Auto 61.4 % (42.0-72.0); Platelet Count* 285 K/uL (140-440); RDW Coefficient of Variation % 15.3 % (11.5-15.5); Red Blood Count 3.68 m/uL (4.00-5.20); White Blood Count* 9.42 K/uL (4.50-11.00)
[2024-12-22 16:53] LABS: Slide Review Reflex No
[2024-12-22 17:15] LABS: Albumin* 4.3 g/dL (3.3-5.0); Chloride* 99 mmol/L (96-114); Sodium* 139 mmol/L (135-149)
[2024-12-22 17:16] LABS: Potassium* 4.1 mmol/L (3.6-5.1)
[2024-12-22 17:18] LABS: Alkaline Phosphatase* 74 U/L (40-150); Anion Gap 7 mEq/L (7-15); Aspartate Amino Transferase* 13 U/L (12-35); Bilirubin Total* 0.3 mg/dL (0.1-1.5); Carbon Dioxide* 33 mmol/L (20-32); Creatinine* 0.7 mg/dL (0.5-1.5); Estimated Glomerular Filt Rate 108 ml/min; Total Protein* 7.7 g/dL (6.0-8.3)
[2024-12-22 17:19] LABS: Alanine Aminotransferase* 11 U/L (4-35); Blood Urea Nitrogen* 19 mg/dL (5-24); Calcium* 10.7 mg/dL (8.4-10.6); Glucose* 104 mg/dL (60-115)
[2024-12-22 17:21] LABS: C Reactive Protein* 3.6 mg/dL (0.5-1.0)
[2024-12-22 17:54] LABS: Erythrocyte SedimentationRate* 39 mm/hr (2-20)
[2024-12-22 17:57] LABS: Hemoglobin A1C* 6.1 % (0-5.6)
== END 2024-12-22 13:00 | disposition home or self-care (01) ==
PROVIDERS: PCP Family Medicine; Visit Provider Nurse Practitioner Family
DX: M86.471 Chronic osteomyelitis with draining sinus, right ankle and foot (principal); L97.514 Non-pressure chronic ulcer of other part of right foot with necrosis of bone; L89.893 Pressure ulcer of other site, stage 3; R73.03 Prediabetes; J45.20 Mild intermittent asthma, uncomplicated
CPT/HCPCS: 11042; 36415; 80053; 83036; 85025; 85651; 86140; 87070; G0463

== ENCOUNTER 2024-12-22 15:29 | Outpatient (CLI) | payer OTHER, BC, SELFPAY ==
--- NOTE | 2024-12-22 16:00 | CRLHL7_ITS ---
For Patients: As a result of the Cures Act, medical imaging exams and procedure reports are released immediately into your electronic medical record. You may view this report before your referring provider. If you have questions, please contact your health care provider. INDICATION: Mild asthma. Comparison 08/24/2024. Technique chest 2 views. FINDINGS: No pleural effusions. No pneumothorax. Prominent interstitial perihilar markings which may be secondary to pulmonary vascular congestion or reactive airways disease. Mild cardiomegaly. Degenerative changes in the midthoracic spine. IMPRESSION: Stable mild cardiomegaly. Prominent interstitial perihilar markings which may be secondary to pulmonary vascular congestion or reactive airways disease Dictated by Jeff Perez MD @ 12/22/2024 8:42:35 PM (Electronically Signed)
== END 2024-12-22 15:30 | disposition home or self-care (01) ==
PROVIDERS: PCP Family Medicine; Visit Provider Nurse Practitioner Family
DX: J45.20 Mild intermittent asthma, uncomplicated (principal); I51.7 Cardiomegaly
CPT/HCPCS: 71046

== ENCOUNTER 2024-12-29 13:34 | Outpatient (CLI) | payer OTHER, BC, SELFPAY | END 2024-12-29 13:35 | disposition home or self-care (01) | LOC: WOUND 13:34 | PROVIDERS: PCP Family Medicine; Visit Provider Nurse Practitioner Family | DX: M86.471 Chronic osteomyelitis with draining sinus, right ankle and foot (principal); L97.514 Non-pressure chronic ulcer of other part of right foot with necrosis of bone; R73.03 Prediabetes | CPT/HCPCS: 11042 ==

== ENCOUNTER 2025-01-05 14:07 | Outpatient (CLI) | payer OTHER, SELFPAY | END 2025-01-05 14:08 | disposition home or self-care (01) | LOC: WOUND 14:07 | PROVIDERS: PCP Family Medicine; Visit Provider Physician Assistant | DX: M86.471 Chronic osteomyelitis with draining sinus, right ankle and foot (principal); L97.514 Non-pressure chronic ulcer of other part of right foot with necrosis of bone; R73.03 Prediabetes | CPT/HCPCS: 97597 ==

== ENCOUNTER 2025-01-12 13:22 | Outpatient (CLI) | payer OTHER, SELFPAY | END 2025-01-12 13:23 | disposition home or self-care (01) | LOC: WOUND 13:22 | PROVIDERS: PCP Family Medicine; Visit Provider Nurse Practitioner Family | DX: M86.471 Chronic osteomyelitis with draining sinus, right ankle and foot (principal); L97.518 Non-pressure chronic ulcer of other part of right foot with other specified severity; R73.03 Prediabetes | CPT/HCPCS: 11042 ==

== ENCOUNTER 2025-01-19 13:22 | Outpatient (CLI) | payer OTHER, SELFPAY | END 2025-01-19 13:23 | disposition home or self-care (01) | LOC: WOUND 13:22 | PROVIDERS: PCP Family Medicine; Visit Provider Nurse Practitioner Family | DX: M86.471 Chronic osteomyelitis with draining sinus, right ankle and foot (principal); L97.514 Non-pressure chronic ulcer of other part of right foot with necrosis of bone | CPT/HCPCS: 11042 ==

== ENCOUNTER 2025-02-09 13:15 | Outpatient (CLI) | payer OTHER, SELFPAY | END 2025-02-09 13:16 | disposition home or self-care (01) | LOC: WOUND 13:15 | PROVIDERS: PCP Family Medicine; Visit Provider Nurse Practitioner Family | DX: M86.471 Chronic osteomyelitis with draining sinus, right ankle and foot (principal); R73.03 Prediabetes | CPT/HCPCS: G0463 ==